=== PATIENT | female | born 1945 | race Caucasian/White ===

== ENCOUNTER 2023-06-19 10:56 | Emergency (ER) | payer MEDICARE, SELFPAY ==
[2023-06-19 10:57] VITALS: BP 147/83; PULSE 90; RESP 17; TEMP 36.4; O2SAT 98; BMI 20.2
--- NOTE | 2023-06-19 11:04 | ED_ITS ---
HPI - Extremity Injury (Lower) General Chief Complaint: Extremity Problem Stated Complaint: l knee pain weak Time Seen by Provider: 06/19/23 13:27 Source: patient, family and RN notes reviewed Mode of arrival: ambulatory Limitations: no limitations History of Present Illness HPI Narrative: This is a 78-year-old female, with a history of hypertension, hyperlipidemia, and hypothyroidism, presenting to the emergency department for evaluation of bilateral shoulder pain x1 week. Patient denies any recent trauma or injury to her shoulders. She states that several weeks ago she had a traumatic knee pain - she was prescribed prednisone for 3 days which she took and this improved her knee symptoms. She has no history of arthritis. Denies any history of similar symptoms in the past. Denies any fevers, chills, chest pain, shortness breath, abdominal pain, nausea, vomiting or diarrhea. She is otherwise feeling well. She states that she took Tylenol which provided her with some relief. No other complaints or concerns at this time. Onset (ago): week(s) Relieving factors: nothing Exacerbating factors: nothing Other symptoms: none Related Data Previous Rx's Medication Instructions Recorded lidocaine 1.8 % topical patch 1 patch topical DAILY #30 ea 06/19/23 Allergies Allergy/AdvReac Type Severity Reaction Status Date / Time No Known Allergies Allergy Verified 06/19/23 11:11 Review of Systems 2 Review of Systems: Yes all other systems are reviewed and are negative [facility] Social History Social History Advance Directives: Yes Advance Directives Information Provided: No Advance Directives on File: No Physical Exam 2 Vital Signs: Vital Signs: Last Vital Signs Temp 97.9 F 06/19/23 13:25 Pulse 59 06/19/23 13:25 Resp 16 06/19/23 13:25 BP 133/74 06/19/23 13:25 Pulse Ox 98 06/19/23 13:25 O2 Del Method Room Air 06/19/23 13:25 BMI result Body Mass Index 20.2 Const: Other: General: Awake, alert, and oriented X3. No acute distress. HEENT: Normal inspection CVS: Normal heart rate and rhythm. Pulses normal. Respiratory: No respiratory distress Skin: Warm, dry, no rashes noted to exposed skin. Normal skin color. Normal skin turgor. Extremities: Bilateral shoulders with no gross deformities or swelling. Right biceps with mild tenderness to palpation, no edema, fluctuance or induration noted. No tenderness throughout right shoulder joint. Full range of motion of the shoulder without difficulty. Left shoulder with tenderness to palpation along the AC joint and humeral head. No step-off or crepitus. Negative empty can test. Negative lift-off test. Abduction to about 60 degrees. Neuro: Oriented X 3. No motor deficit. No sensory deficit. Course Course Course Narrative: This is an RME: Additional HPI, ROS, PE not included below will be deferred to primary provider. Patient is a 78-year-old female who presents emergency department with her granddaughter for evaluation of bilateral shoulder pain with sudden onset 1 week ago atraumatic in nature. Having diffucilty dressing. For the past 2-3 weeks she has been suffering from left knee pain and generalized weakness, difficulty with position changing. She was evaluated at an urgent care on 05/25/2023 and was advised to wear a knee brace, declines XR imaging having been obtained, she trialed Prednisone x5 days on 05/25 without improvement. Denies known history of arthritis. Plan: basic labs, pain management, placed in [facility] pending bed availability Medical Decision Making Medical Decision Making [facility] Narrative: 78-year-old female, with history of hypertension, hyperlipidemia, and hypothyroidism, presenting to the emergency department for evaluation of bilateral shoulder pain. No trauma or injury. Triage had ordered baseline labs, no leukocytosis, stable H&H, chemistry panel within normal limits. UA was obtained revealing urine protein, urine blood, leuk esterases and RBCs. Patient is asymptomatic at this time. Discussed these findings with patient and granddaughter at bedside. Will await urine culture if needs to be treated. But does not appear to be infected. Patient does have bony tenderness to palpation on the left shoulder, offered x-ray however patient declines as she wishes to be discharged at the moment. Examination findings concerning with possible arthritis or degenerative changes. Discussed this with patient and granddaughter, given orthopedic follow-up and advised to follow-up with primary care physician on Wednesday as she may be able to get x-rays at that time. Discharged on lidocaine patches and encouraged to take Tylenol as needed for pain. Patient understands and agrees with plan. Patient stable for discharge. Differential Diagnosis Differential Diagnoses: The differential diagnosis associated with the presentation includes See above Lab Data [facility] Lab Attestation statement: I reviewed the patient's lab results. See above 06/19/23 12:01 06/19/23 12:01 Labs: Lab Results 06/19/23 06/19/23 Range/Units 12:01 13:56 WBC 9.4 (4.8-10.8) X10*3/uL RBC 4.61 (4.20-5.50) X10*6/uL Hgb 14.2 (12.0-16.0) g/dl Hct 41.3 (37.0-47.0) % MCV 89.6 (80.0-98.0) fL MCH 30.8 (27.0-33.0) pg MCHC 34.4 (31.0-35.0) g/dl RDW 12.7 (11.0-16.0) % Plt Count 173 (160-400) X10*3/uL MPV 10.0 (9.4-12.3) fL Immature Gran % (Auto) 0.2 (0.0-0.4) % Neut % (Auto) 76.8 H (45-73) % Lymph % (Auto) 16.2 L (20-40) % Ramsey % (Auto) 5.7 (2-11) % Eos % (Auto) 0.7 (0-4) % Baso % (Auto) 0.4 (0-2) % Lymph # (Auto) 1.5 (1.2-4.9) X10*3/uL Ramsey # (Auto) 0.5 (0.1-1.2) X10*3/uL Eos # (Auto) 0.1 (0.0-0.4) X10*3/uL Baso # (Auto) 0.0 (0.0-0.2) X10*3/uL Abs Immat Gran (auto) 0.02 (0.00-0.03) X10*3/uL Absolute Neuts (auto) 7.2 (2.0-8.3) x10*3/uL Absolute Nucleated RBC 0.000 (0.0-0.012) X10*3/uL Nucleated RBC % (auto) 0.0 (0.0-0.2) /100WBC Sodium 140 (135-145) mmol/L Potassium 3.9 (3.3-5.1) mmol/L Chloride 103 (96-108) mmol/L Carbon Dioxide 26 (22-29) mmol/L Anion Gap 15 (12-20) BUN 14 (9-16) mg/dL Creatinine 0.90 (0.5-1.4) mg/dL Estim Creat Clear Calc 33.7 Estimated GFR > 60 Random Glucose 93 (60-115) mg/dL Calcium 9.5 (8.4-10.2) mg/dL Magnesium 2.2 (1.6-2.6) mg/dL Total Bilirubin 1.1 H (0.0-1.0) mg/dL AST 17 (5-31) U/L ALT 8 (0-31) U/L Alkaline Phosphatase 67 (39-117) U/L Total Creatine Kinase 35 (26-140) U/L Total Protein 6.5 (6.5-8.0) g/dL Albumin 3.7 (3.5-5.0) g/dL Urine Color Yellow Urine Appearance Cloudy Urine pH 5.5 (5.0-9.0) Ur Specific [place] 1.020 (1.005-1.025) Urine Protein 100 (2+) H (Neg-Trace) mg/dL Urine Glucose (UA) Negative (Negative) mg/dL Urine Ketones Negative (Negative) mg/dL Urine Blood Small (1+) H (Negative) Urine Nitrite Negative (Negative) Ur Leukocyte Esterase Trace H (Negative) Urine RBC 3-5 H (0-2) /HPF Urine WBC 0-5 (0-5) /HPF Ur Squamous Epith Cells 6-10 (0-2) /HPF Urine Bacteria 1+ (None Seen) Hyaline Casts 3-5 (0-2) /LPF Granular Casts Present COVID-19 (RADHA) Negative (Negative) COVID-19 Clin Com See Note Influenza Type A (KURTIS) Negative (Negative) Influenza Type B (KURTIS) Negative (Negative) Influenza A & B Note See Note Independent Historian Clinical information obtained from an independent historian. History obtained from or confirmed by: Other (Granddaughter) Discharge Plan Discharge Clinical Impression: Left shoulder pain Patient Disposition: Home, Self-Care Instructions: Arthralgia (ED), Arm Pain (ED) Additional Instructions: Your seen in the emergency department for bilateral shoulder pain for the last week. We performed basic labs which were reassuring. You refused to get a x-ray of your left shoulder. I am concerned for degenerative changes of your left shoulder. You may follow- up with your primary care physician for an outpatient x-ray if you so wish. I am also giving your referral to Orthopedics. Call to make an appointment. Take Tylenol as needed for pain. I am also prescribing you lidocaine patches as needed for pain. Please follow-up with your primary care physician regarding this visit. Your urine did show small amounts of blood, your asymptomatic therefore we are not treating you for an infection. Your urine will be sent out for further testing. We will call you with any abnormal results. I would follow-up with your primary care physician regarding this finding as this may need further workup. If any new or worsening symptoms occur including but not limited to worsening pain, fevers, chills, chest pain or shortness of breath, please return for re- evaluation. Prescriptions: New lidocaine 1.8 % adhesive patch,medicated 1 patch topical DAILY Qty: 30 0RF Rx Instructions: leave on most painful area for up to 12 hrs Referrals: [facility] [Provider Group]
[2023-06-19 12:07] LABS: MANUAL DIFF FLAG NO
[2023-06-19 12:17] LABS: Basophils Percent Auto 0.4 % (0-2); Eosinophils Absolute Auto 0.1 X10*3/uL (0.0-0.4); Eosinophils Percent Auto 0.7 % (0-4); Hematocrit 41.3 % (37.0-47.0); Hemoglobin 14.2 g/dl (12.0-16.0); Imm Gran Abs Auto 0.02 X10*3/uL (0.00-0.03); Imm Gran Pct Auto 0.2 % (0.0-0.4); Lymphocytes Absolute Auto 1.5 X10*3/uL (1.2-4.9); Lymphocytes Percent Auto 16.2 % (20-40); Mean Corpuscular HGB Conc 34.4 g/dl (31.0-35.0); Mean Corpuscular Hemoglobin 30.8 pg (27.0-33.0); Mean Corpuscular Volume 89.6 fL (80.0-98.0); Monocytes Absolute Auto 0.5 X10*3/uL (0.1-1.2); Monocytes Percent Auto 5.7 % (2-11); Neutrophils Absolute Auto 7.2 x10*3/uL (2.0-8.3); Neutrophils Percent Auto 76.8 % (45-73); Platelet Count 173 X10*3/uL (160-400); Red Blood Count 4.61 X10*6/uL (4.20-5.50); Red Cell Distribution Width 12.7 % (11.0-16.0); White Blood Count 9.4 X10*3/uL (4.8-10.8)
[2023-06-19 12:22] LABS: Alanine Aminotransferase 8 U/L (0-31); Albumin Level 3.7 g/dL (3.5-5.0); Alkaline Phosphatase 67 U/L (39-117); Anion Gap 15 (12-20); Aspartate Amino Transferase 17 U/L (5-31); Bilirubin Total 1.1 mg/dL (0.0-1.0); Blood Urea Nitrogen 14 mg/dL (9-16); Calcium 9.5 mg/dL (8.4-10.2); Carbon Dioxide 26 mmol/L (22-29); Chloride 103 mmol/L (96-108); Creatinine Clr Calc Pharmacy 33.7; Estimated Glomerular Filt Rate > 60; Glucose Random 93 mg/dL (60-115); Magnesium 2.2 mg/dL (1.6-2.6); Potassium 3.9 mmol/L (3.3-5.1); Sodium 140 mmol/L (135-145); Total Protein 6.5 g/dL (6.5-8.0)
[2023-06-19 12:24] LABS: COVID-19 Test Negative (Negative); IDNOW Serial# 55D5AD1C
[2023-06-19 12:28] LABS: IDNOW Serial# 9DB6401D; Influenza A Negative (Negative); Influenza B2 Negative (Negative)
[2023-06-19 13:25] VITALS: BP 133/74; PULSE 59; RESP 16; TEMP 36.6; O2SAT 98
--- OUTSIDE RECORDS SUMMARY | 2023-06-19 13:51 | XMS_ITS | Continuity of Care Document ---
Author Name Unknown Organization [facility] Address [address] [place] [address]- Care Team Providers Care Industrial Gas Servicer Helper Name Role Phone Pippa BEARDEN, Elayne Diaz Primary Care Physician [place] [facility] [place]): [place]20 [facility] [address] [place] [address]- [facility] Attending Physician: Lizbeth Cordova Admitting Physician: AdmLizbeth sandoval Referring Physician: Admtr, Ar8 Allergies, Adverse Reactions, Alerts Substance Reaction Severity Status NKA Active Immunizations Given and Recorded Vaccine Date Status Refusal Reason influenza virus vaccine, inactivated 1 07/07/19 Gi nadine influenza virus vaccine, inactivated 2 07/05/18 Gi nadine influenza virus vaccine, inactivated 3 12/12/14 Gi nadine influenza virus vaccine, inactivated 05/02/12 Give n influenza virus vaccine, inactivated 09/04/11 Give n influenza virus vaccine, inactivated 08/04/10 Give n influenza virus vaccine, inactivated 4 06/12/09 Gi nadine tetanus/diphtheria/pertussis, acel(Tdap) 01/14/18 Given tetanus/diphtheria/pertussis, acel(Tdap) 05/14/08 Given pneumococcal 13-valent vaccine 12/12/14 Given Zostavax (oldterm) 5 12/05/13 Given pneumococcal 23-valent vaccine 02/25/11 Given Influenza Virus Vaccine (oldterm) 6 06/09/08 Given Influenza Virus Vaccine (oldterm) 7 07/22/07 Given 1Result Comment: [facility] [id number] 2Result Comment: [facility] [id number] 3Admin Note: Declined 4Admin Note: VIS 04/02/09 5Admin Note: Declined 6Admin Note: VIM 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 7Admin Note: Left deltoid Medications aspirin 81 mg oral delayed release tablet = 81 mg, By Mouth, Daily, # 30 tablet, 0 Refills, Maintenance, 11/17/19 10:26:00 EDT, EC Tablet, [facility] #[id number], 149, cm, 11/15/19 13:59:00 EDT, Height, 57.7, kg, 11/15/19 15:04:00 EDT, Dry Weight Start Date: 11/17/19 Status: Ordered atorvastatin 80 mg oral tablet 1 tablet = 80 mg, By Mouth, Daily at bedtime, # 30 tablet, 0 Refills, Maintenance, 11/17/19 10:26:00 EDT, Tablet, [facility] #[id number], 149, cm, 11/15/19 13:59:00 EDT, Height, 57.7, kg, 11/15/19 15:04:00 EDT, Dry Weight Start Date: 11/17/19 Status: Ordered Colace sodium 100 mg oral capsule 100 mg, 1, capsule, By Mouth, 2 times a day, PRN, # 60 capsule, Refills 0, Tot. Refills 0, Maintenance, for constipation, 03/06/20 14:06:00 EDT, Route to Pharmacy Electronically, [facility]#[id number], 149, cm, 03/06/20 12:19:00 EDT, Height, 57.... Start Date: 03/06/20 Stop Date: 04/05/20 Status: Ordered levothyroxine 88 mcg (0.088 mg) oral capsule 1 capsule = 88 mcg, By Mouth, Daily, # 90 capsule, 3 Refills, Maintenance, 12/06/19 9:18:00 EDT, Capsule, [facility] #[id number], 149, cm, 12/06/19 9:02:00 EDT, Height, 57.7, kg, 11/15/19 15:04:00 EDT, Dry Weight Start Date: 12/06/19 Stop Date: 11/30/20 Status: Ordered losartan 25 mg oral tablet 25 mg, 1, tablet, By Mouth, Daily, # 90 tablet, Refills 3, Tot. Refills 3, Maintenance, 12/06/19 9:19:00 EDT, Route to Pharmacy Electronically, [facility] #[id number], 149, cm, 12/06/19 9:02:00 EDT, Height, 57.7, kg, 11/15/19 15:04:00 EDT, Dry We... Start Date: 12/06/19 Stop Date: 11/30/20 Status: Ordered Nicorette Mini 4 mg oral transmucosal lozenge 1 lozenge = 4 mg, By Mouth, Every hour, in addition to patches do not chew or swallow whole, # 144 lozenge, 2 Refills, Acute 11/18/20 22:40:00 EDT, 11/18/19 22:40:00 EDT, [facility] #[id number],149, cm, 11/15/19 13:59:00 EDT, Height, 57.7, kg,... Start Date: 11/18/19 Stop Date: 11/18/20 Status: Ordered nicotine 14 mg/24 hr transdermal film, extended release 1 patch, Topically, Daily, in addition to 21 mg patch, # 30 patch, 2 Refills, Acute 11/18/20 22:41:00 EDT, 11/18/19 22:39:00 EDT, Patch, [facility] #[id number], 1 patch Topically Daily,Instr:in addition to 21 mg patch, 149, cm, 11/15/19 13:59:00... Start Date: 11/18/19 Stop Date: 11/18/20 Status: Ordered nicotine 21 mg/24 hr transdermal film, extended release 1 patch, Topically, Daily, combine with 14 mg, for total of 35 mg nicotine, use for 6 months, # 30 patch, 5 Refills, Acute 11/18/20 22:45:00 EDT, 11/18/19 22:38:00 EDT, Patch, [facility] #[id number], 1 patch Topically Daily,Instr:combine with 14... Start Date: 11/18/19 Stop Date: 11/18/20 Status: Ordered Plavix 75 mg oral tablet 75 mg, 1, tablet, By Mouth, Daily, # 30 tablet, Refills 0, Tot. Refills 0, Maintenance, 04/04/20 16:44:00 EDT, Route to Pharmacy Electronically, [facility] #[id number], 149, cm, 03/06/20 12:19:00 EDT, Height, 57.7, kg, 11/15/19 15:04:00 EDT, Dry... Start Date: 04/04/20 Status: Ordered Plavix 75 mg oral tablet 75 mg, 1, tablet, By Mouth, Daily, # 30 tablet, Refills 3, Tot. Refills 3, Maintenance, 12/06/19 9:20:00 EDT, Route to Pharmacy Electronically, [facility] #[id number], 149, cm, 12/06/19 9:02:00 EDT, Height, 57.7, kg, 11/15/19 15:04:00 EDT, Dry We... Start Date: 12/06/19 Stop Date: 04/04/20 Status: Ordered Problem List Condition Effective Dates Status Health Status Inform ant Anxiety depression(Confirmed) 09/04/11 Active Cigarette smoker(Confirmed) Active Hypercholesterolemia(Confirmed) Active HTN (hypertension)(Confirmed) Active Hypothyroidism(Confirmed) Active Irritable bowel syndrome(Confirmed) Active STEMI (ST elevation myocardi al infarction)(Confirmed) Active Osteopenia(Confirmed) 07/29/08 Active Shingles(Confirmed) 11/18/96 Active Sleep apnea(Confirmed) Active Smoking(Confirmed) 12/05/08 Active Social History Social History Type Response Smoking Status Current every day melina arauz entered on: 01/14/18 Sex
--- OUTSIDE RECORDS SUMMARY | 2023-06-19 13:51 | XMS_ITS | Continuity of Care Document ---
Author Name Unknown Organization [facility] Address [address] [place] [address]- Care Team Providers Care Disc Pad Grinder Name Role Phone Pippa BEARDEN, Elayne Diaz Primary Care Physician Encounter [facility] Date(s): 11/10/21 - 12/10/21 [facility] [address] [place] [address]- Allergies, Adverse Reactions, Alerts No Known Allergies Immunizations Given and Recorded Vaccine Date Status Refusal Reason SARS-CoV-2 (COVID-19) mRNA BNT-162b2 vac 07/25/21 Recorded SARS-CoV-2 (COVID-19) Ad26 vaccine 11/13/20 Record ed Influenza Virus Vaccine (oldterm) 06/06/20 Recorde d Influenza Virus Vaccine (oldterm) 1 06/09/08 Given Influenza Virus Vaccine (oldterm) 2 07/22/07 Given influenza virus vaccine, inactivated 05/29/20 Dominic rded influenza virus vaccine, inactivated 3 07/07/19 Gi nadine influenza virus vaccine, inactivated 4 07/05/18 Gi nadine influenza virus vaccine, inactivated 5 12/12/14 Gi nadine influenza virus vaccine, inactivated 05/02/12 Give n influenza virus vaccine, inactivated 09/04/11 Give n influenza virus vaccine, inactivated 08/04/10 Give n influenza virus vaccine, inactivated 6 06/12/09 Gi nadine tetanus/diphtheria/pertussis, acel(Tdap) 01/14/18 Given tetanus/diphtheria/pertussis, acel(Tdap) 05/14/08 Given pneumococcal 13-valent vaccine 12/12/14 Given Zostavax (oldterm) 7 12/05/13 Given pneumococcal 23-valent vaccine 02/25/11 Given 1Admin Note: VIM 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 2Admin Note: Left deltoid 3Result Comment: [facility] [id number] 4Result Comment: [facility] [id number] 5Admin Note: Declined 6Admin Note: VIS 04/02/09 7Admin Note: Declined Medications aspirin 81 mg oral delayed release tablet = 81 mg, By Mouth, Daily, # 30 tablet, 3 Refills, Maintenance, 11/26/21 13:46:00 EDT, EC Tablet, [facility] #[id number], 148, cm, 10/23/21 15:29:00 EST, Height, 56.7, kg, 02/18/21 11:21:00 EDT, Dry Weight Start Date: 11/26/21 Status: Ordered clopidogrel 75 mg oral tablet 1, tablet, By Mouth, Daily, # 90 tablet, Refills 3, Tot. Refills 0, Maintenance, 03/07/21 9:49:00 EDT, Route to Pharmacy Electronically, [facility] #[id number], 148, cm, 02/19/21 8:07:00 EDT, Height, 56.7, kg, 02/18/21 11:21:00 EDT, Dry Weight Start Date: 03/07/21 Status: Ordered Colace sodium 100 mg oral capsule 100 mg, 1, capsule, By Mouth, 2 times a day, PRN, # 60 capsule, Refills 0, Tot. Refills 0, Maintenance, for constipation, 08/25/21 9:52:00 EST, Route to Pharmacy Electronically, [facility] #[id number], 148, cm, 08/25/21 9:45:00 EST, Height, 56.7,... Start Date: 08/25/21 Stop Date: 09/24/21 Status: Ordered diclofenac 1% topical gel 1 application, Topically, 4 times a day, # 100 Gm, 0 Refills, Maintenance, 03/08/21 18:34:00 EDT, Gel, [facility] #[id number], g., 148, cm, 02/19/21 8:07:00 EDT, Height, 56.7, kg, 02/18/21 11:21:00 EDT, Dry Weight Start Date: 03/08/21 Stop Date: 04/07/21 Status: Ordered levothyroxine 0.05 mg oral tablet 1 tablet = 50 mcg, By Mouth, Daily, # 30 tablet, 2 Refills, Maintenance, 11/10/21 13:46:00 EDT, Tablet, [facility] #[id number], Partial fill upon patient request if the prescription is for a schedule II opioid drug., 148, cm, 10/23/21 15:29:00 ES... Start Date: 11/10/21 Stop Date: 02/08/22 Status: Ordered losartan 25 mg oral tablet 25 mg, 1, tablet, By Mouth, Daily, # 90 tablet, Refills 3, Tot. Refills 3, Maintenance, 08/25/21 9:42:00 EST, Route to Pharmacy Electronically, [facility] #[id number], 148, cm, 08/25/21 9:18:00 EST, Height, 56.7, kg, 02/18/21 11:21:00 EDT, Dry We... Start Date: 08/25/21 Stop Date: 08/20/22 Status: Ordered rosuvastatin 40 mg oral tablet 1 tablet, By Mouth, Daily, # 30 tablet, 5 Refills, [facility] #[id number], 148, cm, 03/14/21 13:18:00 EDT, Height, 56.7, kg, 02/18/21 11:21:00 EDT, Dry Weight Start Date: 06/27/21 Status: Ordered Senna Plus 50 mg-8.6 mg oral tablet 2 tablet, By Mouth, Daily at bedtime, # 60 tablet, 0 Refills, Maintenance, 09/18/21 11:10:00 EST, Tablet, [facility] #[id number], Partial fill upon patient request if the prescription is for a schedule II opioid drug., 2 tablet By Mouth Daily at... Start Date: 09/18/21 Stop Date: 10/18/21 Status: Ordered Problem List Condition Effective Dates Status Health Status Inform ant Anxiety depression(Confirmed) 09/04/11 Active Cigarette smoker(Confirmed) Active History of [place] (myocardial infarction)(Confirmed) Active Hypercholesterolemia(Confirmed) Active HTN (hypertension)(Confirmed) Active Hypothyroidism(Confirmed) Active Irritable bowel syndrome(Confirmed) Active STEMI (ST elevation myocardi al infarction)(Confirmed) Active Osteopenia(Confirmed) 07/29/08 Active Shingles(Confirmed) 11/18/96 Active Sleep apnea(Confirmed) Active Smoking(Confirmed) 12/05/08 Active Social History Social History Type Response Smoking Status Current every day melina arauz entered on: 01/14/18 Sex
--- OUTSIDE RECORDS SUMMARY | 2023-06-19 13:51 | XMS_ITS | Continuity of Care Document ---
Author Name Unknown Organization [facility] Adult Address [address] [place] [address]- Care Team Providers Care Lace Burn Out Tender Name Role Phone Pippa BEARDEN, Elayne Diaz Primary Care Physician [facility]counter [facility] Date(s): 04/30/23 - 05/30/23 [facility] [address] [place] [address]- Allergies, Adverse Reactions, Alerts No Known Allergies [...] PASTEUR 2Admin Note: Left deltoid 3Result Comment: [facility] [phone] 4Result Comment: [facility] [id number] 5Admin Note: Declined 6Admin Note: VIS 04/02/09 7Admin Note: Declined Medications Artificial Tears preserved solution 1 drops, Eyes, Both, 2 times a day, PRN for dry eyes, # 30 mL, 0 Refills, Maintenance, 08/21/22 11:27:00 EST, Solution, [facility] #[id number], Partial fill upon patient request if the prescription is for a schedule II opioid drug., 1 drops Eyes,... Start Date: 08/21/22 Status: Ordered aspirin 81 mg oral delayed release tablet = 81 mg, By Mouth, Daily, # 90 tablet, 1 Refills, Maintenance, 05/14/23 13:00:00 EDT, EC Tablet, [facility] #[id number], 148, cm, 04/29/23 14:56:00 EDT, Height, 45.8, kg, 03/24/22 14:13:00 EDT, Dry Weight Start Date: 05/14/23 Stop Date: 11/10/23 Status: Ordered calcium-vitamin D 600 mg-400 intl units oral tablet 1 tablet, By Mouth, 2 times a day, # 180 tablet, 3 Refills, Maintenance, 08/26/22 11:59:00 EST, Tablet, [facility] #[id number], Partial fill upon patient request if the prescription is for a schedule II opioid drug., 1 tablet By Mouth 2 times a d... Start Date: 08/26/22 Stop Date: 08/21/23 Status: Ordered clobetasol 0.05% topical gel 1 application, Topically, 2 times a day, # 30 Gm, 0 Refills, Maintenance, 04/29/23 14:59:00 EDT, [facility] #[id number], Partial fill upon patient request if the prescription is for a schedule II opioid drug., 1 application Topically 2 times... Start Date: 04/29/23 Status: Ordered diclofenac 1% topical gel 1 application, Topically, 4 times a day, # 100 Gm, 0 Refills, Maintenance, 03/08/21 18:34:00 EDT, [facility] #[id number], g., 148, cm, 02/19/21 8:07:00 EDT, Height, 56.7, kg, 02/18/21 11:21:00 EDT, Dry Weight Start Date: 03/08/21 Stop Date: 04/07/21 Status: Ordered Estrace Vaginal Cream 0.1 mg/g See Instructions, 1 Gm Vaginally Daily (pea-sized amount to tip of finger) at bedtime every night for 2 weeks and then 2-3 times a week after that, # 42.5 Gm, 0 Refills, Maintenance, 06/29/22 11:23:00 EST, [facility] #[id number], Partial fill upo... Start Date: 06/29/22 Status: Ordered levothyroxine 0.05 mg oral tablet 1 tablet = 50 mcg, By Mouth, Daily, # 90 tablet, 1 Refills, Maintenance, 05/13/23 11:20:00 EDT, Tablet, [facility] #[id number], Partial fill upon patient request if the prescription is for a schedule II opioid drug., 148, cm, 04/29/23 14:56:00 ED... Start Date: 05/13/23 Stop Date: 07/12/23 Status: Ordered losartan 25 mg oral tablet 25 mg, 1, tablet, By Mouth, Daily, # 90 tablet, Refills 3, Tot. Refills 3, Maintenance, 05/14/23 12:59:00 EDT, Route to Pharmacy Electronically, [facility] #[id number], Partial fill upon patientrequest if the prescription is for a schedule II op... Start Date: 05/14/23 Stop Date: 05/08/24 Status: Ordered rosuvastatin 40 mg oral tablet 1 tablet, By Mouth, Daily, for 90 days, # 90 tablet, 1 Refills, Physician Stop 11/10/23 12:59:00 EDT, 05/14/23 12:59:00 EDT, [facility] #[id number], 148, cm, 04/29/23 14:56:00 EDT, Height, 45.8,kg, 03/24/22 14:13:00 EDT, Dry Weight Start Date: 05/14/23 Stop Date: 11/10/23 Status: Ordered Senna Plus 50 mg-8.6 mg oral tablet 2 tablet, By Mouth, Daily at bedtime, # 60 tablet, 0 Refills, Maintenance, 09/18/21 11:10:00 EST, Tablet, [facility] #[id number], Partial fill upon patient request if the prescription is for a schedule II opioid drug., 2 tablet By Mouth Daily at... Start Date: 09/18/21 Stop Date: 10/18/21 Status: Ordered Problem List Condition Confirmation Course Effective Dates Status Health Status Informant Anxiety depression Confirmed 09/04/11 Active Cigarette smoker Confirmed Active History of [place] (myocardial infarction) 1 Confirmed 10/2019 Active Hypercholesterolemia Confirmed Active HTN (hypertension) Confirmed Active Hypothyroidism Confirmed Active Irritable bowel syndrome Confirmed Active Osteopenia Confirmed 07/29/08 Active Shingles Confirmed 11/18/96 Active Sleep apnea Confirmed Active Smoking Confirmed 12/05/08 Active 1Hx of Inferolateral STEMI Social History Social History Type Response Smoking Status Current every day melina davonte entered on: 01/14/18 Sex Patient Care team information Care Team Personnel Name: Pippa BEARDEN, Elayne Diaz Position: [facility] PCO Associate Professional Member Role: PCP Address: Address: [address] [place] [address] [address] [place] [address]- Name: Kamilla Vanessa RN Position: Rosina RN Supv Member Role: Primary Care Nurse Name: Maria L Dickinson RN Position: [facility] RN Member Role: Primary Care Nurse Care Team Related Persons Name: BENTON SEAMAN Name: KEN GUERRERO Address: home [address] [place] [id number] Name: JUS CHAO Address: [place] [address]
--- OUTSIDE RECORDS SUMMARY | 2023-06-19 13:51 | XMS_ITS | Continuity of Care Document ---
Author Name Unknown Organization [facility] Adult Address [address] [place] [address]- Care Team Providers Care Grinding Wheel Inspector Name Role Phone Pippa BEARDEN, Elayne Diaz Primary Care Physician Encounter [facility] Date(s): 03/14/21 - 03/21/21 [facility] [address] [place] [address]- Encounter Diagnosis Back pain(Discharge Diagnosis) - 03/14/21 Constipation(Discharge Diagnosis) - 03/14/21 Attending Physician: Elayne Das NP Allergies, Adverse Reactions, Alerts Substance Reaction Severity Status NKA Active Immunizations Given and Recorded Vaccine Date Status Refusal Reason SARS-CoV-2 (COVID-19) Ad26 vaccine 11/13/20 Record ed [...] PASTEUR 2Admin Note: Left deltoid 3Result Comment: [facility] [id number] 4Result Comment: [facility] [phone] 5Admin Note: Declined 6Admin Note: VIS 04/02/09 7Admin Note: Declined Medications aspirin 81 mg oral delayed release tablet = 81 mg, By Mouth, Daily, # 30 tablet, 6 Refills, Maintenance, 10/17/20 13:37:00 EST, EC Tablet, [facility] #[id number], 149, cm, 08/20/20 8:58:00 EST, Height, 57.7, kg, 11/15/19 15:04:00 EDT, Dry Weight Start Date: 10/17/20 Status: Ordered clopidogrel 75 mg oral tablet 1, tablet, By Mouth, Daily, # 90 tablet, Refills 3, Tot. Refills 0, Maintenance, 03/07/21 9:49:00 EDT, Route to Pharmacy Electronically, [facility] #[id number], 148, cm, 02/19/21 8:07:00 EDT, Height, 56.7, kg, 02/18/21 11:21:00 EDT, Dry Weight Start Date: 03/07/21 Status: Ordered Colace sodium 100 mg oral capsule 100 mg, 1, capsule, By Mouth, 2 times a day, PRN, # 60 capsule, Refills 0, Tot. Refills 0, Maintenance, for constipation, 03/06/20 14:06:00 EDT, Route to Pharmacy Electronically, [facility]#[id number], 149, cm, 03/06/20 12:19:00 EDT, Height, 57.... Start Date: 03/06/20 Stop Date: 04/05/20 Status: Ordered diclofenac 1% topical gel 1 application, Topically, 4 times a day, # 100 Gm, 0 Refills, Maintenance, 03/08/21 18:34:00 EDT, Gel, [facility] #[id number], g., 148, cm, 02/19/21 8:07:00 EDT, Height, 56.7, kg, 02/18/21 11:21:00 EDT, Dry Weight Start Date: 03/08/21 Stop Date: 04/07/21 Status: Ordered levothyroxine 0.075 mg oral tablet 1 tablet, By Mouth, Daily, 0 Refills, Maintenance, 02/18/21 11:14:00 EDT, Partial fill upon patientrequest if the prescription is for a schedule II opioid drug. Start Date: 02/18/21 Status: Ordered losartan 25 mg oral tablet 25 mg, 1, tablet, By Mouth, Daily, # 90 tablet, Refills 1, Tot. Refills 1, Maintenance, 02/04/21 9:04:00 EDT, Route to Pharmacy Electronically, [facility] #[id number], 149, cm, 10/25/20 12:05:00EST, Height, 57.7, kg, 11/15/19 15:04:00 EDT, Dry W... Start Date: 02/04/21 Stop Date: 08/03/21 Status: Ordered rosuvastatin 40 mg oral tablet 1 tablet = 40 mg, By Mouth, Daily, # 30 tablet, 6 Refills, Maintenance, 12/25/20 12:06:00 EDT, Tablet, [facility] #[id number], Partial fill upon patient request if the prescription is for a schedule II opioid drug., 149, cm, 10/25/20 12:05:00 EST... Start Date: 12/25/20 Stop Date: 07/23/21 Status: Ordered Senna Plus 50 mg-8.6 mg oral tablet 2 tablet, By Mouth, Daily at bedtime, for 30 days, # 60 tablet, 0 Refills, Acute 04/13/21 13:10:00 EDT, 03/14/21 13:10:00 EDT, Tablet, [facility] #[id number], Partial fill upon patient request if the prescription is for a schedule II opioid drug.... Start Date: 03/14/21 Stop Date: 04/13/21 Status: Ordered Problem List Condition Effective Dates Status Health Status Inform ant Anxiety depression(Confirmed) 09/04/11 Active Cigarette smoker(Confirmed) Active History of [place] (myocardial infarction)(Confirmed) Active Hypercholesterolemia(Confirmed) Active HTN (hypertension)(Confirmed) Active Hypothyroidism(Confirmed) Active Irritable bowel syndrome(Confirmed) Active STEMI (ST elevation myocardi al infarction)(Confirmed) Active Osteopenia(Confirmed) 07/29/08 Active Shingles(Confirmed) 11/18/96 Active Sleep apnea(Confirmed) Active Smoking(Confirmed) 12/05/08 Active Diagnosis Diagnosis Type Effective Dates Health Status Cl inical Service Informant Back pain Discharge Diagnosis 03/14/21 Constipation Discharge Diagnosis 03/14/21 Vital Signs Most recent to oldest [Reference Range]: 1 2 Height 148 cm (03/14/21 1:18 PM) 148 cm (03/14/21 12:51 PM) Weight 57.1 kg (03/14/21 12:51 PM) Oxygen Saturation [94-100 %] 99 % (03/14/21 12:51 PM) Pulse Rate [55-90 bpm] 60 bpm (03/14/21 12:51 PM) Body Mass Index [18.5-24.99] 26.07 *H* (03/14/21 12:51 PM) Blood Pressure [90-138/55-84 mm Hg] 128/ 78mm Hg (03/14/21 1:18 PM) 165/89mm Hg *H* (03/14/21 12:51 PM) Mode of Delivery (Oxygen) Room air (03/14/21 12:51 PM) Blood pressure sites Arm, left (03/14/21 1:18 PM) Arm, left (03/14/21 12:51 PM) Weight Obtained Via Standing scale (03/14/21 12:51 PM) Social History Social History Type Response Smoking Status Current every day melina arauz entered on: 01/14/18 Sex
--- OUTSIDE RECORDS SUMMARY | 2023-06-19 13:51 | XMS_ITS | Continuity of Care Document ---
Author Name Unknown Organization [facility] Adult Address [address] [place] [address]- Care Team Providers Care Revenue Stamp Cutter Name Role Phone Elayne Das NP Primary Care Physician Encounter [facility] Date(s): 02/02/23 - 02/09/23 [facility] [address] [place] [address]- Attending Physician: Not on Staff, Attending MD Allergies, Adverse Reactions, Alerts No Known Allergies [...] 02/25/11 Given 1Admin Note: VIM 02/19/06 MANUFACTURED SANBuyanihan PASTEUR 2Admin Note: Left deltoid 3Result Comment: [facility] [id number] 4Result Comment: [facility] [id number] 5Admin Note: Declined 6Admin Note: VIS 04/02/09 7Admin Note: Declined Medications Artificial Tears preserved solution 1 drops, Eyes, Both, 2 times a day, PRN for dry eyes, # 30 mL, 0 Refills, Maintenance, 08/21/22 11:27:00 EST, Solution, [facility] #[id number], Partial fill upon patient request if the prescription is for a schedule II opioid drug., 1 drops Eyes,... Start Date: 08/21/22 Status: Ordered aspirin 81 mg oral delayed release tablet = 81 mg, By Mouth, Daily, # 30 tablet, 5 Refills, Maintenance, 11/17/22 13:30:00 EDT, EC Tablet, [facility] #[id number], 148, cm, 08/26/22 12:13:00 EST, Height, 45.8, kg, 03/24/22 14:13:00 EDT, Dry Weight Start Date: 11/17/22 Status: Ordered calcium-vitamin D 600 mg-400 intl units oral tablet 1 tablet, By Mouth, 2 times a day, # 180 tablet, 3 Refills, Maintenance, 08/26/22 11:59:00 EST, Tablet, [facility] #[id number], Partial fill upon patient request if the prescription is for a schedule II opioid drug., 1 tablet By Mouth 2 times a d... Start Date: 08/26/22 Stop Date: 08/21/23 Status: Ordered diclofenac 1% topical gel 1 application, Topically, 4 times a day, # 100 Gm, 0 Refills, Maintenance, 03/08/21 18:34:00 EDT, Gel, [facility] #[id number], g., 148, cm, 02/19/21 8:07:00 EDT, Height, 56.7, kg, 02/18/21 11:21:00 EDT, Dry Weight Start Date: 03/08/21 Stop Date: 04/07/21 Status: Ordered Estrace Vaginal Cream 0.1 mg/g See Instructions, 1 Gm Vaginally Daily (pea-sized amount to tip of finger) at bedtime every night for 2 weeks and then 2-3 times a week after that, # 42.5 Gm, 0 Refills, Maintenance, 06/29/22 11:23:00 EST, [facility] #[id number], Partial fill upo... Start Date: 06/29/22 Status: Ordered levothyroxine 0.05 mg oral tablet 1 tablet = 50 mcg, By Mouth, Daily, # 90 tablet, 1 Refills, Maintenance, 11/16/22 11:49:00 EDT, Tablet, [facility] #[id number], Partial fill upon patient request if the prescription is for a schedule II opioid drug., 148, cm, 08/26/22 12:13:00 ES... Start Date: 11/16/22 Stop Date: 01/15/23 Status: Ordered losartan 25 mg oral tablet 25 mg, 1, tablet, By Mouth, Daily, # 90 tablet, Refills 3, Tot. Refills 3, Maintenance, 02/02/23 17:09:00 EDT, Route to Pharmacy Electronically, [facility] #[id number], Partial fill upon patientrequest if the prescription is for a schedule II op... Start Date: 02/02/23 Stop Date: 01/28/24 Status: Ordered rosuvastatin 40 mg oral tablet 1 tablet, By Mouth, Daily, for 30 days, # 30 tablet, 11 Refills, Physician Stop 01/10/24 10:33:00 EDT, 01/15/23 10:33:00 EDT, [facility] #[id number], 148, cm, 01/15/23 10:28:00 EDT, Height, 45.8, kg, 03/24/22 14:13:00 EDT, Dry Weight Start Date: 01/15/23 Stop Date: 01/10/24 Status: Ordered Senna Plus 50 mg-8.6 mg oral tablet 2 tablet, By Mouth, Daily at bedtime, # 60 tablet, 0 Refills, Maintenance, 09/18/21 11:10:00 EST, Tablet, [facility] #[id number], Partial fill upon patient request if the prescription is for a schedule II opioid drug., 2 tablet By Mouth Daily at... Start Date: 09/18/21 Stop Date: 10/18/21 Status: Ordered Problem List Condition Confirmation Course Effective Dates Status Health Status Informant Anxiety depression Confirmed 09/04/11 Active Cigarette smoker Confirmed Active History of [place] (myocardial infarction) 1 Confirmed 10/2019 Active Hypercholesterolemia Confirmed Active HTN (hypertension) Confirmed Active Hypothyroidism Confirmed Active Irritable bowel syndrome Confirmed Active Osteopenia Confirmed 07/29/08 Active Shingles Confirmed 11/18/96 Active Sleep apnea Confirmed Active Smoking Confirmed 12/05/08 Active 1Hx of Inferolateral STEMI Vital Signs Most recent to oldest [Reference Range]: 1 Pulse Rate [55-90 bpm] 74 bpm (02/02/23 1:36 PM) Blood Pressure [90-138/55-84 mm Hg] 124/ 73mm Hg (02/02/23 1:36 PM) Blood pressure sites Arm, left (02/02/23 1:36 PM) Social History Social History Type Response Smoking Status Current every day melina davonte entered on: 01/14/18 Sex Patient Care team information Care Team Personnel Name: Pippa BEARDEN, Elayne Diaz Position: [facility] PCO Associate Professional Member Role: PCP Address: Address: [address] [place] [address] [address] [place], [place] [address] Name: Kamilla Vanessa RN Position: S RN Supv Member Role: Primary Care Nurse Name: Maria L Dickinson RN Position: S RN Member Role: Primary Care Nurse Care Team Related Persons Name: BENTON SEAMAN Name: KEN GUERRERO Address: home [address] [place] [address] Name: JUS CHAO Address: [place] [address]
--- OUTSIDE RECORDS SUMMARY | 2023-06-19 13:51 | XMS_ITS | Continuity of Care Document ---
Author Name Unknown Organization [facility] ter Address [address] [place] [address]- Care Team Providers Care Outreach Clinician Name Role Phone Pippa SUPERVISOR SILVERING DEPARTMENT, Elayne Diaz Primary Care Physician Encounter [facility] Date(s): 10/16/20 - 11/15/[address] [address] Attending Physician: Maxim Dejesus MD Referring Physician: Maxim Dejesus MD Allergies, Adverse Reactions, Alerts Substance Reaction Severity Status NKA Active Immunizations Given and Recorded Vaccine Date Status Refusal Reason Influenza Virus Vaccine (oldterm) 06/06/20 Recorde d Influenza Virus Vaccine (oldterm) 1 06/09/08 Given Influenza Virus Vaccine (oldterm) 2 07/22/07 Given influenza virus vaccine, inactivated 3 07/07/19 Gi [...] Left deltoid 3Result Comment: [facility] [id number] 4Result Comment: [facility] [phone] 5Admin Note: Declined 6Admin Note: VIS 04/02/09 7Admin Note: Declined Medications aspirin 81 mg oral delayed release tablet = 81 mg, By Mouth, Daily, # 30 tablet, 6 Refills, Maintenance, 10/17/20 13:37:00 EST, EC Tablet, [facility] #[id number], 149, cm, 08/20/20 8:58:00 EST, Height, 57.7, kg, 11/15/19 15:04:00 EDT, Dry Weight Start Date: 10/17/20 Status: Ordered atorvastatin 80 mg oral tablet 1 tablet = 80 mg, By Mouth, Daily at bedtime, # 90 tablet, 3 Refills, Maintenance, 10/17/20 13:37:00 EST, Tablet, [facility] #[id number], 149, cm, 08/20/20 8:58:00 EST, Height, 57.7, kg, 11/15/19 15:04:00 EDT, Dry Weight Start Date: 10/17/20 Stop Date: 10/12/21 Status: Ordered Colace sodium 100 mg oral capsule 100 mg, 1, capsule, By Mouth, 2 times a day, PRN, # 60 capsule, Refills 0, Tot. Refills 0, Maintenance, for constipation, 03/06/20 14:06:00 EDT, Route to Pharmacy Electronically, [facility]#[id number], 149, cm, 03/06/20 12:19:00 EDT, Height, 57.... Start Date: 03/06/20 Stop Date: 04/05/20 Status: Ordered levothyroxine 88 mcg (0.088 mg) oral capsule 1 capsule = 88 mcg, By Mouth, Daily, # 90 capsule, 1 Refills, Maintenance, 08/08/20 9:04:00 EST, Capsule, [facility] #[id number], 149, cm, 08/08/20 7:51:00 EST, Height, 57.7, kg, 11/15/19 15:04:00 EDT, Dry Weight Start Date: 08/08/20 Stop Date: 02/04/21 Status: Ordered losartan 25 mg oral tablet 25 mg, 1, tablet, By Mouth, Daily, # 90 tablet, Refills 1, Tot. Refills 1, Maintenance, 08/08/20 9:04:00 EST, Route to Pharmacy Electronically, [facility] #[id number], 149, cm, 08/08/20 7:51:00 EST, Height, 57.7, kg, 11/15/19 15:04:00 EDT, Dry We... Start Date: 08/08/20 Stop Date: 02/04/21 Status: Ordered Nicorette Mini 4 mg oral transmucosal lozenge 1 lozenge = 4 mg, By Mouth, Every hour, in addition to patches do not chew or swallow whole, # 144 lozenge, 2 Refills, Acute 11/18/20 22:40:00 EDT, 11/18/19 22:40:00 EDT, [facility] #[id number],149, cm, 11/15/19 13:59:00 EDT, Height, 57.7, kg,... Start Date: 11/18/19 Stop Date: 11/18/20 Status: Ordered nicotine 14 mg/24 hr transdermal film, extended release 1 patch, Topically, Daily, in addition to 21 mg patch, # 30 patch, 2 Refills, Acute 11/18/20 22:41:00 EDT, 11/18/19 22:39:00 EDT, Patch, [facility] #[id number], 1 patch Topically Daily,Instr:in addition to 21 mg patch, 149, cm, 11/15/19 13:59:00... Start Date: 11/18/19 Stop Date: 11/18/20 Status: Ordered nicotine 21 mg/24 hr transdermal film, extended release 1 patch, Topically, Daily, combine with 14 mg, for total of 35 mg nicotine, use for 6 months, # 30 patch, 5 Refills, Acute 11/18/20 22:45:00 EDT, 11/18/19 22:38:00 EDT, Patch, [facility] #[id number], 1 patch Topically Daily,Instr:combine with 14... Start Date: 11/18/19 Stop Date: 11/18/20 Status: Ordered nicotine 4 mg oral transmucosal gum 1 each = 4 mg, Chew, Every 2 hours, PRN as needed for smoking cessation, # 160 each, 1 Refills, Maintenance, 10/17/20 17:52:00 EST, Gum, [facility] #[id number], Partial fill upon patient requestif the prescription is for a schedule II opioid gómez... Start Date: 10/17/20 Status: Ordered Plavix 75 mg oral tablet 75 mg, 1, tablet, By Mouth, Daily, # 90 tablet, Refills 4, Tot. Refills 4, Maintenance, 10/17/20 13:37:00 EST, Route to Pharmacy Electronically, [facility] #[id number], 149, cm, 08/20/20 8:58:00EST, Height, 57.7, kg, 11/15/19 15:04:00 EDT, Dry W... Start Date: 10/17/20 Stop Date: 01/10/22 Status: Ordered Problem List Condition Effective Dates Status Health Status Inform ant Anxiety depression(Confirmed) 09/04/11 Active Cigarette smoker(Confirmed) Active History of [place] (myocardial infarction)(Confirmed) Active Hypercholesterolemia(Confirmed) Active HTN (hypertension)(Confirmed) Active Hypothyroidism(Confirmed) Active Irritable bowel syndrome(Confirmed) Active STEMI (ST elevation myocardi al infarction)(Confirmed) Active Osteopenia(Confirmed) 07/29/08 Active Shingles(Confirmed) 11/18/96 Active Sleep apnea(Confirmed) Active Smoking(Confirmed) 12/05/08 Active Social History Social History Type Response Smoking Status Current every day melina arauz entered on: 01/14/18 Sex
--- OUTSIDE RECORDS SUMMARY | 2023-06-19 13:51 | XMS_ITS | Continuity of Care Document ---
Author Name Unknown Organization [facility] Adult Address [address] [place] [address]- Care Team Providers Care Oracle Hrms Developer Name Role Phone Pippa BEARDEN, Elayne Diaz Primary Care Physician [facility]counter [facility] Date(s): 06/17/22 - 07/17/22 [facility] [address] [place] [address]- Allergies, Adverse Reactions, Alerts No Known Allergies [...] PASTEUR 2Admin Note: Left deltoid 3Result Comment: [facility] [id number] 4Result Comment: [facility] [id number] 5Admin Note: Declined 6Admin Note: VIS 04/02/09 7Admin Note: Declined Medications aspirin 81 mg oral delayed release tablet = 81 mg, By Mouth, Daily, # 30 tablet, 3 Refills, Maintenance, 03/02/22 12:46:00 EDT, EC Tablet, [facility] #[id number], 148, cm, 01/15/22 13:45:00 EDT, Height, 56.7, kg, 02/18/21 11:21:00 EDT, Dry Weight Start Date: 03/02/22 Status: Ordered diclofenac 1% topical gel 1 application, Topically, 4 times a day, # 100 Gm, 0 Refills, Maintenance, 03/08/21 18:34:00 EDT, Gel, [facility] #[id number], g., 148, cm, 02/19/21 8:07:00 EDT, Height, 56.7, kg, 02/18/21 11:21:00 EDT, Dry Weight Start Date: 03/08/21 Stop Date: 04/07/21 Status: Ordered Estrace Vaginal Cream 0.1 mg/g See Instructions, 1 Gm Vaginally Daily (pea-sized amount to tip of finger) at bedtime every night for 2 weeks and then 2-3 times a week after that, # 42.5 Gm, 0 Refills, Maintenance, 06/29/22 11:23:00 EST, [facility] #[id number], Partial fill upo... Start Date: 06/29/22 Status: Ordered levothyroxine 0.05 mg oral tablet 1 tablet = 50 mcg, By Mouth, Daily, # 90 tablet, 1 Refills, Maintenance, 05/21/22 14:53:00 EDT, Tablet, [facility] #[id number], Partial fill upon patient request if the prescription is for a schedule II opioid drug., 148, cm, 03/24/22 14:13:00 ED... Start Date: 05/21/22 Stop Date: 07/20/22 Status: Ordered losartan 25 mg oral tablet 25 mg, 1, tablet, By Mouth, Daily, # 90 tablet, Refills 3, Tot. Refills 3, Maintenance, 08/25/21 9:42:00 EST, Route to Pharmacy Electronically, [facility] #[id number], 148, cm, 08/25/21 9:18:00 EST, Height, 56.7, kg, 02/18/21 11:21:00 EDT, Dry We... Start Date: 08/25/21 Stop Date: 08/20/22 Status: Ordered rosuvastatin 40 mg oral tablet 1 tablet, By Mouth, Daily, for 90 days, # 90 tablet, 1 Refills, Physician Stop 12/14/22 10:00:00 EDT, 06/17/22 10:00:00 EDT, [facility] #[id number], 148, cm, 03/24/22 14:13:00 EDT, Height, 45.8,kg, 03/24/22 14:13:00 EDT, Dry Weight Start Date: 06/17/22 Stop Date: 12/14/22 Status: Ordered Senna Plus 50 mg-8.6 mg oral tablet 2 tablet, By Mouth, Daily at bedtime, # 60 tablet, 0 Refills, Maintenance, 09/18/21 11:10:00 EST, Tablet, [facility] #[id number], Partial fill upon patient request if the prescription is for a schedule II opioid drug., 2 tablet By Mouth Daily at... Start Date: 09/18/21 Stop Date: 10/18/21 Status: Ordered Problem List Condition Confirmation Course Effective Dates Status Health Status Informant Anxiety depression Confirmed 09/04/11 Active Cigarette smoker Confirmed Active History of [place] (myocardial infarction) Confirmed Active Hypercholesterolemia Confirmed Active HTN (hypertension) Confirmed Active Hypothyroidism Confirmed Active Irritable bowel syndrome Confirmed Active STEMI (ST elevation myocardial infarction) Confirmed Active Osteopenia Confirmed 07/29/08 Active Shingles Confirmed 11/18/96 Active Sleep apnea Confirmed Active Smoking Confirmed 12/05/08 Active Social History Social History Type Response Smoking Status Current every day melina arauz entered on: 01/14/18 Sex Patient Care team information Care Team Personnel Name: Elayne Das NP Position: [facility] PCO Associate Professional Member Role: PCP Address: Address: [address] [place] [id number] Name: Kamilla Vanessa RN Position: [facility] RN Supv Member Role: Primary Care Nurse Name: Maria L Dickinson RN Position: [facility] RN Member Role: Primary Care Nurse Care Team Related Persons Name: BENTON SEAMAN Name: KEN GUERRERO Address: home [address] [place] [id number] Name: JUS CHAO Address: [place] [address]
--- OUTSIDE RECORDS SUMMARY | 2023-06-19 13:52 | XMS_ITS | Continuity of Care Document ---
Author Name Unknown Organization [facility] Address [address] [place] [address]- Care Team Providers Care Director Cost Name Role Phone Pippa BEARDEN, Elayne Diaz Primary Care Physician Encounter [facility] Date(s): 08/20/20 - 08/27/20 [facility] [address] [place] [address]- Encounter Diagnosis Encounter for Medicare annual wellness exam(Discharge Diagnosis) - 08/20/20 Anxiety depression(Discharge Diagnosis) - 08/20/20 Cigarette smoker(Discharge Diagnosis) - 08/20/20 HTN (hypertension)(Discharge Diagnosis) - 08/20/20 History of [place] (myocardial infarction)(Discharge Diagnosis) - 08/20/20 Hypercholesterolemia(Discharge Diagnosis) - 08/20/20 Hypothyroidism(Discharge Diagnosis) - 08/20/20 Osteopenia(Discharge Diagnosis) - 08/20/20 Sleep apnea(Discharge Diagnosis) - 08/20/20 Physical exam(Discharge Diagnosis) - 08/20/20 Attending Physician: Elayne Das NP Allergies, Adverse [...] PASTEUR 2Admin Note: Left deltoid 3Result Comment: [facility] [id number] 4Result Comment: [facility] [id number] 5Admin Note: Declined 6Admin Note: VIS 04/02/09 7Admin Note: Declined Medications aspirin 81 mg oral delayed release tablet = 81 mg, By Mouth, Daily, # 30 tablet, 0 Refills, Maintenance, 11/17/19 10:26:00 EDT, EC Tablet, [facility] #[id number], 149, cm, 11/15/19 13:59:00 EDT, Height, 57.7, kg, 11/15/19 15:04:00 EDT, Dry Weight Start Date: 11/17/19 Status: Ordered atorvastatin 80 mg oral tablet 1 tablet = 80 mg, By Mouth, Daily at bedtime, # 90 tablet, 1 Refills, Maintenance, 08/08/20 9:05:00EST, Tablet, [facility] #[id number], 149, cm, 08/08/20 7:51:00 EST, Height, 57.7, kg, 11/14/2014:04:00 EDT, Dry Weight Start Date: 08/08/20 Stop Date: 02/04/21 Status: Ordered Colace sodium 100 mg oral capsule 100 mg, 1, capsule, By Mouth, 2 times a day, PRN, # 60 capsule, Refills 0, Tot. Refills 0, Maintenance, for constipation, 03/06/20 14:06:00 EDT, Route to Pharmacy Electronically, [facility]#[id number], 149, cm, 03/06/20 12:19:00 EDT, Height, 57.... Start Date: 03/06/20 Stop Date: 04/05/20 Status: Ordered levothyroxine 88 mcg (0.088 mg) oral capsule 1 capsule = 88 mcg, By Mouth, Daily, # 90 capsule, 1 Refills, Maintenance, 08/08/20 9:04:00 EST, Capsule, [facility] #[id number], 149, cm, 08/08/20 7:51:00 EST, Height, 57.7, kg, 11/15/19 15:04:00 EDT, Dry Weight Start Date: 08/08/20 Stop Date: 02/04/21 Status: Ordered losartan 25 mg oral tablet 25 mg, 1, tablet, By Mouth, Daily, # 90 tablet, Refills 1, Tot. Refills 1, Maintenance, 08/08/20 9:04:00 EST, Route to Pharmacy Electronically, [facility] #[id number], 149, cm, 08/08/20 7:51:00 EST, Height, 57.7, kg, 11/15/19 15:04:00 EDT, Dry We... Start Date: 08/08/20 Stop Date: 02/04/21 Status: Ordered Nicorette Mini 4 mg oral transmucosal lozenge 1 lozenge = 4 mg, By Mouth, Every hour, in addition to patches do not chew or swallow whole, # 144 lozenge, 2 Refills, Acute 11/18/20 22:40:00 EDT, 11/18/19 22:40:00 EDT, [facility] #[id number],149, cm, 11/15/19 13:59:00 EDT, Height, 57.7, kg,... Start Date: 11/18/19 Stop Date: 11/18/20 Status: Ordered nicotine 14 mg/24 hr transdermal film, extended release 1 patch, Topically, Daily, in addition to 21 mg patch, # 30 patch, 2 Refills, Acute 11/18/20 22:41:00 EDT, 11/18/19 22:39:00 EDT, Patch, [facility] #[id number], 1 patch Topically Daily,Instr:in addition to 21 mg patch, 149, cm, 11/15/19 13:59:00... Start Date: 11/18/19 Stop Date: 11/18/20 Status: Ordered nicotine 21 mg/24 hr transdermal film, extended release 1 patch, Topically, Daily, combine with 14 mg, for total of 35 mg nicotine, use for 6 months, # 30 patch, 5 Refills, Acute 11/18/20 22:45:00 EDT, 11/18/19 22:38:00 EDT, Patch, [facility] #[id number], 1 patch Topically Daily,Instr:combine with 14... Start Date: 11/18/19 Stop Date: 11/18/20 Status: Ordered Plavix 75 mg oral tablet 75 mg, 1, tablet, By Mouth, Daily, # 90 tablet, Refills 1, Tot. Refills 1, Maintenance, 08/20/20 8:33:00 EST, Route to Pharmacy Electronically, [facility] #[id number], 149, cm, 08/20/20 8:12:00 EST, Height, 57.7, kg, 11/15/19 15:04:00 EDT, Dry We... Start Date: 08/20/20 Stop Date: 02/16/21 Status: Ordered Plavix 75 mg oral tablet 75 mg, 1, tablet, By Mouth, Daily, # 30 tablet, Refills 0, Tot. Refills 0, Maintenance, 05/10/20 12:48:00 EDT, Route to Pharmacy Electronically, [facility] #[id number], 149, cm, 03/06/20 12:19:00 EDT, Height, 57.7, kg, 11/15/19 15:04:00 EDT, Dry... Start Date: 05/10/20 Status: Ordered Problem List Condition Effective Dates Status Health Status Inform ant Anxiety depression(Confirmed) 09/04/11 Active Cigarette smoker(Confirmed) Active History of [place] (myocardial infarction)(Confirmed) Active Hypercholesterolemia(Confirmed) Active HTN (hypertension)(Confirmed) Active Hypothyroidism(Confirmed) Active Irritable bowel syndrome(Confirmed) Active STEMI (ST elevation myocardi al infarction)(Confirmed) Active Osteopenia(Confirmed) 07/29/08 Active Shingles(Confirmed) 11/18/96 Active Sleep apnea(Confirmed) Active Smoking(Confirmed) 12/05/08 Active Diagnosis Diagnosis Type Effective Dates Health Status Clinical Service Informant Encounter for Medicare annual wellness exam Discharge Diagnosis 08/20/20 Anxiety depression Discharge Diagnosis 08/20/20 Cigarette smoker Discharge Diagnosis 08/20/20 HTN (hypertension) Discharge Diagnosis 08/20/20 History of [place] (myocardial infarction) Discharge Diagnosis 08/20/20 Hypercholesterolemia Discharge Diagnosis 08/20/20 Hypothyroidism Discharge Diagnosis 08/20/20 Osteopenia Discharge Diagnosis 08/20/20 Sleep apnea Discharge Diagnosis 08/20/20 Physical exam Discharge Diagnosis 08/20/20 Vital Signs Most recent to oldest [Reference Range]: 1 2 Height 149 cm (08/20/20 8:58 AM) 149 cm (08/20/20 8:12 AM) Weight 53.3 kg (08/20/20 8:12 AM) Pulse Rate [55-90 bpm] 82 bpm (08/20/20 8:12 AM) Body Mass Index [18.5-24.99] 24.01 (08/20/20 8:12 AM) Blood Pressure [90-138/55-84 mm Hg] 126/ 76mm Hg (08/20/20 8:58 AM) 126/70mm Hg (08/20/20 8:12 AM) Blood pressure sites Arm, left (08/20/20 8:58 AM) Arm, left (08/20/20 8:12 AM) Weight Obtained Via Standing scale (08/20/20 8:12 AM) Social History Social History Type Response Smoking Status Current every day melina aaruz entered on: 01/14/18 Sex
--- OUTSIDE RECORDS SUMMARY | 2023-06-19 13:52 | XMS_ITS | Continuity of Care Document ---
Author Name Unknown Organization [facility] Address [address] [place] [address]- Care Team Providers Care Executive Manager Name Role Phone Pippa BEARDEN, Elayne Diaz Primary Care Physician [facility]counter [facility] Date(s): 10/21/21 - 11/20/21 [facility] [address] [place] [address]- Allergies, Adverse Reactions, Alerts No Known Allergies [...] PASTEUR 2Admin Note: Left deltoid 3Result Comment: [facility] [id number] 4Result Comment: [facility] [id number] 5Admin Note: Declined 6Admin Note: VIS 04/02/09 7Admin Note: Declined Medications aspirin 81 mg oral delayed release tablet = 81 mg, By Mouth, Daily, # 30 tablet, 6 Refills, Maintenance, 05/08/21 8:09:00 EDT, EC Tablet, [facility] #[id number], 148, cm, 03/14/21 13:18:00 EDT, Height, 56.7, kg, 02/18/21 11:21:00 EDT, Dry Weight Start Date: 05/08/21 Status: Ordered clopidogrel 75 mg oral tablet 1, tablet, By Mouth, Daily, # 90 tablet, Refills 3, Tot. Refills 0, Maintenance, 03/07/21 9:49:00 EDT, Route to Pharmacy Electronically, [facility] #[id number], 148, cm, 02/19/21 8:07:00 EDT, Height, 56.7, kg, 02/18/21 11:21:00 EDT, Dry Weight Start Date: 03/07/21 Status: Ordered Colace sodium 100 mg oral capsule 100 mg, 1, capsule, By Mouth, 2 times a day, PRN, # 60 capsule, Refills 0, Tot. Refills 0, Maintenance, for constipation, 08/25/21 9:52:00 EST, Route to Pharmacy Electronically, [facility] #[id number], 148, cm, 08/25/21 9:45:00 EST, Height, 56.7,... Start Date: 08/25/21 Stop Date: 09/24/21 Status: Ordered diclofenac 1% topical gel 1 application, Topically, 4 times a day, # 100 Gm, 0 Refills, Maintenance, 03/08/21 18:34:00 EDT, Gel, [facility] #[id number], g., 148, cm, 02/19/21 8:07:00 EDT, Height, 56.7, kg, 02/18/21 11:21:00 EDT, Dry Weight Start Date: 03/08/21 Stop Date: 04/07/21 Status: Ordered levothyroxine 0.05 mg oral tablet 1 tablet = 50 mcg, By Mouth, Daily, # 30 tablet, 2 Refills, Maintenance, 11/10/21 13:46:00 EDT, Tablet, [facility] #[id number], Partial fill upon patient request if the prescription is for a schedule II opioid drug., 148, cm, 10/23/21 15:29:00 ES... Start Date: 11/10/21 Stop Date: 02/08/22 Status: Ordered losartan 25 mg oral tablet 25 mg, 1, tablet, By Mouth, Daily, # 90 tablet, Refills 3, Tot. Refills 3, Maintenance, 08/25/21 9:42:00 EST, Route to Pharmacy Electronically, [facility] #[id number], 148, cm, 08/25/21 9:18:00 EST, Height, 56.7, kg, 02/18/21 11:21:00 EDT, Dry We... Start Date: 08/25/21 Stop Date: 08/20/22 Status: Ordered rosuvastatin 40 mg oral tablet 1 tablet, By Mouth, Daily, # 30 tablet, 5 Refills, [facility] #[id number], 148, cm, 03/14/21 13:18:00 EDT, Height, 56.7, kg, 02/18/21 11:21:00 EDT, Dry Weight Start Date: 06/27/21 Status: Ordered Senna Plus 50 mg-8.6 mg oral tablet 2 tablet, By Mouth, Daily at bedtime, # 60 tablet, 0 Refills, Maintenance, 09/18/21 11:10:00 EST, Tablet, [facility] #[id number], Partial fill upon patient request if the prescription is for a schedule II opioid drug., 2 tablet By Mouth Daily at... Start Date: 09/18/21 Stop Date: 10/18/21 Status: Ordered Problem List Condition Effective Dates Status Health Status Inform ant Anxiety depression(Confirmed) 09/04/11 Active Cigarette smoker(Confirmed) Active History of [place] (myocardial infarction)(Confirmed) Active Hypercholesterolemia(Confirmed) Active HTN (hypertension)(Confirmed) Active Hypothyroidism(Confirmed) Active Irritable bowel syndrome(Confirmed) Active STEMI (ST elevation myocardi al infarction)(Confirmed) Active Osteopenia(Confirmed) 07/29/08 Active Shingles(Confirmed) 11/18/96 Active Sleep apnea(Confirmed) Active Smoking(Confirmed) 12/05/08 Active Social History Social History Type Response Smoking Status Current every day melina arauz entered on: 01/14/18 Sex
--- OUTSIDE RECORDS SUMMARY | 2023-06-19 13:52 | XMS_ITS | Continuity of Care Document ---
Author Name Unknown Organization [facility] Address [address], [address], [place] [address]- Care Team Providers Care Race Steward Name Role Phone Elayne Das NP Primary Care Physician Encounter [facility] Date(s): 06/29/22 - [facility] [address], [address] [place] [address]- Allergies, Adverse Reactions, Alerts No Known Allergies [...] PASTEUR 2Admin Note: Left deltoid 3Result Comment: [facility] [id number] 4Result Comment: [facility] [id number] 5Admin Note: Declined 6Admin Note: VIS 04/02/09 7Admin Note: Declined Medications aspirin 81 mg oral delayed release tablet = 81 mg, By Mouth, Daily, # 30 tablet, 3 Refills, Maintenance, 03/02/22 12:46:00 EDT, EC Tablet, [facility] #[id number], 148, cm, 01/15/22 13:45:00 EDT, Height, 56.7, kg, 02/18/21 11:21:00 EDT, Dry Weight Start Date: 03/02/22 Status: Ordered diclofenac 1% topical gel 1 application, Topically, 4 times a day, # 100 Gm, 0 Refills, Maintenance, 03/08/21 18:34:00 EDT, Gel, [facility] #[id number], g., 148, cm, 02/19/21 8:07:00 EDT, Height, 56.7, kg, 02/18/21 11:21:00 EDT, Dry Weight Start Date: 03/08/21 Stop Date: 04/07/21 Status: Ordered Estrace Vaginal Cream 0.1 mg/g See Instructions, 1 Gm Vaginally Daily (pea-sized amount to tip of finger) at bedtime every night for 2 weeks and then 2-3 times a week after that, # 42.5 Gm, 0 Refills, Maintenance, 06/29/22 11:23:00 EST, [facility] #[id number], Partial fill upo... Start Date: 06/29/22 Status: Ordered levothyroxine 0.05 mg oral tablet 1 tablet = 50 mcg, By Mouth, Daily, # 90 tablet, 1 Refills, Maintenance, 05/21/22 14:53:00 EDT, Tablet, [facility] #[id number], Partial fill upon patient request if the prescription is for a schedule II opioid drug., 148, cm, 03/24/22 14:13:00 ED... Start Date: 05/21/22 Stop Date: 07/20/22 Status: Ordered losartan 25 mg oral tablet 25 mg, 1, tablet, By Mouth, Daily, # 90 tablet, Refills 3, Tot. Refills 3, Maintenance, 08/25/21 9:42:00 EST, Route to Pharmacy Electronically, [facility] #[id number], 148, cm, 08/25/21 9:18:00 EST, Height, 56.7, kg, 02/18/21 11:21:00 EDT, Dry We... Start Date: 08/25/21 Stop Date: 08/20/22 Status: Ordered rosuvastatin 40 mg oral tablet 1 tablet, By Mouth, Daily, for 90 days, # 90 tablet, 1 Refills, Physician Stop 12/14/22 10:00:00 EDT, 06/17/22 10:00:00 EDT, [facility] #[id number], 148, cm, 03/24/22 14:13:00 EDT, Height, 45.8,kg, 03/24/22 14:13:00 EDT, Dry Weight Start Date: 06/17/22 Stop Date: 12/14/22 Status: Ordered Senna Plus 50 mg-8.6 mg oral tablet 2 tablet, By Mouth, Daily at bedtime, # 60 tablet, 0 Refills, Maintenance, 09/18/21 11:10:00 EST, Tablet, [facility] #[id number], Partial fill upon patient request if the prescription is for a schedule II opioid drug., 2 tablet By Mouth Daily at... Start Date: 09/18/21 Stop Date: 10/18/21 Status: Ordered Problem List Condition Confirmation Course Effective Dates Status Health Status Informant Anxiety depression Confirmed 09/04/11 Active Cigarette smoker Confirmed Active History of [place] (myocardial infarction) Confirmed Active Hypercholesterolemia Confirmed Active [...] Personnel Name: Pippa BEARDEN, Elayne Diaz Position: S PCO Associate Professional Member Role: PCP Address: Address: [address] [place] [address] [address] [place], [place] [address] Name: Kamilla Vanessa RN Position: [facility] RN Supv Member Role: Primary Care Nurse Name: Maria L Dickinson RN Position: [facility] RN Member Role: Primary Care Nurse Care Team Related Persons Name: BENTON SEAMAN Name: KEN GUERRERO Address: home [address] [place] [id number] Name: JUS CHAO Address: [place] [address]
--- OUTSIDE RECORDS SUMMARY | 2023-06-19 13:52 | XMS_ITS | Continuity of Care Document ---
Author Name Unknown Organization [facility] Address [address] [place] [address]- Care Team Providers Care Rail Car Driver Name Role Phone Pippa BEARDEN, Elayne Diaz Primary Care Physician [facility] Date(s): 12/18/21 - 01/17/22 [facility] [address] [place] [address]- Allergies, Adverse Reactions, Alerts No Known Allergies [...] PASTEUR 2Admin Note: Left deltoid 3Result Comment: [facility] [id number] 4Result Comment: [facility] [id number] 5Admin Note: Declined 6Admin Note: VIS 04/02/09 7Admin Note: Declined Medications aspirin 81 mg oral delayed release tablet = 81 mg, By Mouth, Daily, # 30 tablet, 3 Refills, Maintenance, 11/26/21 13:46:00 EDT, EC Tablet, [facility] #[id number], 148, cm, 10/23/21 15:29:00 EST, Height, 56.7, kg, 02/18/21 11:21:00 EDT, Dry Weight Start Date: 11/26/21 Status: Ordered clopidogrel 75 mg oral tablet 1, tablet, By Mouth, Daily, # 90 tablet, Refills 3, Tot. Refills 0, Maintenance, 03/07/21 9:49:00 EDT, Route to Pharmacy Electronically, [facility] #[id number], 148, cm, 02/19/21 8:07:00 EDT, Height, 56.7, kg, 02/18/21 11:21:00 EDT, Dry Weight Start Date: 03/07/21 Status: Ordered Colace sodium 100 mg oral capsule 100 mg, 1, capsule, By Mouth, 2 times a day, PRN, # 60 capsule, Refills 6, Tot. Refills 6, Maintenance, for constipation, 01/15/22 13:42:00 EDT, Route to Pharmacy Electronically, [facility]#[id number], 148, cm, 01/15/22 12:57:00 EDT, Height, 56.... Start Date: 01/15/22 Stop Date: 08/13/22 Status: Ordered diclofenac 1% topical gel 1 application, Topically, 4 times a day, # 100 Gm, 0 Refills, Maintenance, 03/08/21 18:34:00 EDT, Gel, [facility] #[id number], g., 148, cm, 02/19/21 8:07:00 EDT, Height, 56.7, kg, 02/18/21 11:21:00 EDT, Dry Weight Start Date: 03/08/21 Stop Date: 04/07/21 Status: Ordered levothyroxine 0.05 mg oral tablet 1 tablet = 50 mcg, By Mouth, Daily, # 30 tablet, 2 Refills, Maintenance, 11/10/21 13:46:00 EDT, Tablet, [facility] #[id number], Partial fill upon patient request if the prescription is for a schedule II opioid drug., 148, cm, 10/23/21 15:29:00 ES... Start Date: 11/10/21 Stop Date: 02/08/22 Status: Ordered losartan 25 mg oral tablet 25 mg, 1, tablet, By Mouth, Daily, # 90 tablet, Refills 3, Tot. Refills 3, Maintenance, 08/25/21 9:42:00 EST, Route to Pharmacy Electronically, [facility] #[id number], 148, cm, 08/25/21 9:18:00 EST, Height, 56.7, kg, 02/18/21 11:21:00 EDT, Dry We... Start Date: 08/25/21 Stop Date: 08/20/22 Status: Ordered rosuvastatin 40 mg oral tablet 1 tablet, By Mouth, Daily, for 90 days, # 90 tablet, 1 Refills, Physician Stop 06/16/22 11:36:00 EDT, 12/18/21 11:36:00 EDT, [facility] #[id number], 148, cm, 10/23/21 15:29:00 EST, Height, 56.7,kg, 02/18/21 11:21:00 EDT, Dry Weight Start Date: 12/18/21 Stop Date: 06/16/22 Status: Ordered Senna Plus 50 mg-8.6 mg oral tablet 2 tablet, By Mouth, Daily at bedtime, # 60 tablet, 0 Refills, Maintenance, 09/18/21 11:10:00 EST, Tablet, [facility] #[id number], Partial fill upon patient request if the prescription is for a schedule II opioid drug., 2 tablet By Mouth Daily at... Start Date: 09/18/21 Stop Date: 10/18/21 Status: Ordered Problem List Condition Effective Dates Status Health Status Inform ant Anxiety depression(Confirmed) 09/04/11 Active Cigarette smoker(Confirmed) Active History of [place] (myocardial infarction)(Confirmed) Active Hypercholesterolemia(Confirmed) Active HTN (hypertension)(Confirmed) Active Hypothyroidism(Confirmed) Active Irritable bowel syndrome(Confirmed) Active STEMI (ST elevation myocardi al infarction)(Confirmed) Active Osteopenia(Confirmed) 07/29/08 Active Shingles(Confirmed) 11/18/96 Active Sleep apnea(Confirmed) Active Smoking(Confirmed) 12/05/08 Active Social History Social History Type Response Smoking Status Current every day melina arauz entered on: 01/14/18 Sex
--- OUTSIDE RECORDS SUMMARY | 2023-06-19 13:52 | XMS_ITS | Continuity of Care Document ---
Author Name Unknown Organization [facility] Adult Address [address] [place] [address]- Care Team Providers Care Cell Room Supervisor Name Role Phone Elayne Das NP Primary Care Physician Encounter [facility] Date(s): 09/29/22 - 10/29/22 [facility] Adult [address] [place] [address]- Allergies, Adverse Reactions, Alerts No Known Allergies [...] 2Admin Note: Left deltoid 3Result Comment: [facility] [id number] 4Result Comment: [facility] [id number] 5Admin Note: Declined 6Admin Note: VIS 04/02/09 7Admin Note: Declined Medications Artificial Tears preserved solution 1 drops, Eyes, Both, 2 times a day, PRN for dry eyes, # 30 mL, 0 Refills, Maintenance, 08/21/22 11:27:00 EST, Solution, [facility] #[id number], Partial fill upon patient request if the prescription is for a schedule II opioid drug., 1 drops Eyes,... Start Date: 08/21/22 Status: Ordered aspirin 81 mg oral delayed release tablet = 81 mg, By Mouth, Daily, # 30 tablet, 3 Refills, Maintenance, 03/02/22 12:46:00 EDT, EC Tablet, [email or web address] #[id number], 148, cm, 01/15/22 13:45:00 EDT, Height, 56.7, kg, 02/18/21 11:21:00 EDT, Dry Weight Start Date: 03/02/22 Status: Ordered calcium-vitamin D 600 mg-400 intl units oral tablet 1 tablet, By Mouth, 2 times a day, # 180 tablet, 3 Refills, Maintenance, 08/26/22 11:59:00 EST, Tablet, [email or web address] #[id number], Partial fill upon patient request if the prescription is for a schedule II opioid drug., 1 tablet By Mouth 2 times a d... Start Date: 08/26/22 Stop Date: 08/21/23 Status: Ordered diclofenac 1% topical gel 1 application, Topically, 4 times a day, # 100 Gm, 0 Refills, Maintenance, 03/08/21 18:34:00 EDT, Gel, [email or web address] #[id number], g., 148, cm, 02/19/21 8:07:00 EDT, Height, 56.7, kg, 02/18/21 11:21:00 EDT, Dry Weight Start Date: 03/08/21 Stop Date: 04/07/21 Status: Ordered Estrace Vaginal Cream 0.1 mg/g See Instructions, 1 Gm Vaginally Daily (pea-sized amount to tip of finger) at bedtime every night for 2 weeks and then 2-3 times a week after that, # 42.5 Gm, 0 Refills, Maintenance, 06/29/22 11:23:00 EST, [facility] #[id number], Partial fill upo... Start Date: 06/29/22 Status: Ordered levothyroxine 0.05 mg oral tablet 1 tablet = 50 mcg, By Mouth, Daily, # 90 tablet, 1 Refills, Maintenance, 05/21/22 14:53:00 EDT, Tablet, [facility] #[id number], Partial fill upon patient request if the prescription is for a schedule II opioid drug., 148, cm, 03/24/22 14:13:00 ED... Start Date: 05/21/22 Stop Date: 07/20/22 Status: Ordered losartan 25 mg oral tablet 25 mg, 1, tablet, By Mouth, Daily, # 90 tablet, Refills 1, Tot. Refills 1, Maintenance, 08/25/22 13:53:00 EST, Route to Pharmacy Electronically, [email or web address] #[id number], 148, cm, 07/03/22 9:15:00EST, Height, 45.8, kg, 03/24/22 14:13:00 EDT, Dry W... Start Date: 08/25/22 Stop Date: 02/21/23 Status: Ordered rosuvastatin 40 mg oral tablet 1 tablet, By Mouth, Daily, for 90 days, # 90 tablet, 1 Refills, Physician Stop 12/14/22 10:00:00 EDT, 06/17/22 10:00:00 EDT, [email or web address] #[id number], 148, cm, 03/24/22 14:13:00 EDT, Height, 45.8,kg, 03/24/22 14:13:00 EDT, Dry Weight Start Date: 06/17/22 Stop Date: 12/14/22 Status: Ordered Senna Plus 50 mg-8.6 mg oral tablet 2 tablet, By Mouth, Daily at bedtime, # 60 tablet, 0 Refills, Maintenance, 09/18/21 11:10:00 EST, Tablet, [facility] #[id number], Partial fill upon patient request if the prescription is for a schedule II opioid drug., 2 tablet By Mouth Daily at... Start Date: 09/18/21 Stop Date: 10/18/21 Status: Ordered Problem List Condition Confirmation Course Effective Dates Status Health Status Informant Anxiety depression Confirmed 09/04/11 Active Cigarette smoker Confirmed Active History of [place] (myocardial infarction) 1 Confirmed 10/2019 Active Hypercholesterolemia Confirmed Active HTN (hypertension) Confirmed Active Hypothyroidism Confirmed Active Irritable bowel syndrome Confirmed Active Osteopenia Confirmed 07/29/08 Active Shingles Confirmed 11/18/96 Active Sleep apnea Confirmed Active Smoking Confirmed 12/05/08 Active 1Hx of Inferolateral STEMI Social History Social History Type Response Smoking Status Current every day sm davonte entered on: 01/14/18 Sex Patient Care team information Care Team Personnel Name: Pippa BEARDEN, Elayne Diaz Position: [facility] PCO Associate Professional Member Role: PCP Address: Address: [address] [place] [address] [address] [place], [place] [address]R[place] Name: Kamilla Vanessa RN Position: Rosina RN Supv Member Role: Primary Care Nurse Name: Maria L Dickinson RN Position: S RN Member Role: Primary Care Nurse Care Team Related Persons Name: BENTON SEAMAN Name: KEN GUERRERO Address: home [address] [place] [id number] Name: JUS CHAO Address: [place] [address]
--- OUTSIDE RECORDS SUMMARY | 2023-06-19 13:52 | XMS_ITS | Continuity of Care Document ---
Author Name Unknown Organization [facility] Adult Address [address] [place] [address]- Care Team Providers Care Solder Making Laborer Name Role Phone Elayne Das NP Primary Care Physician [facility] Date[facility] 01/15/23 - 01/22/23 [facility] Adult [address] [place] [address]- Encounter Diagnosis Skin anomaly(Discharge Diagnosis) - 01/15/23 Lump in chest(Discharge Diagnosis) - 01/15/23 Elevated blood pressure reading(Discharge Diagnosis) - 01/15/23 Attending Physician: Elayne Das NP Allergies, Adverse Reactions, Alerts No Known Allergies [...] tetanus/diphtheria/pertussis, acel(Tdap) 05/14/08 Given pneumococcal 13-valent vaccine 4/22/15 Given Zostavax (oldterm) 7 12/05/13 Given pneumococcal 23-valent vaccine 02/25/11 Given 1Admin Note: VIM 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 2Admin Note: Left deltoid 3Result Comment: [facility] [id number] 4Result Comment: [facility] [id number] 5Admin Note: Declined 6Admin Note: VIS 04/02/09 7Admin Note: Declined Medications Artificial Tears preserved solution 1 drops, Eyes, Both, 2 times a day, PRN for dry eyes, # 30 mL, 0 Refills, Maintenance, 08/21/22 11:27:00 EST, Solution, [facility] #[id number], Partial fill upon patient request if the prescription is for a schedule II opioid drug., 1 drops Eyes,... Start Date: 08/21/22 Status: Ordered aspirin 81 mg oral delayed release tablet = 81 mg, By Mouth, Daily, # 30 tablet, 5 Refills, Maintenance, 11/17/22 13:30:00 EDT, EC Tablet, [facility] #[id number], 148, cm, 08/26/22 12:13:00 EST, Height, 45.8, kg, 03/24/22 14:13:00 EDT, Dry Weight Start Date: 11/17/22 Status: Ordered calcium-vitamin D 600 mg-400 intl units oral tablet 1 tablet, By Mouth, 2 times a day, # 180 tablet, 3 Refills, Maintenance, 08/26/22 11:59:00 EST, Tablet, [facility] #[id number], Partial fill upon patient request if the prescription is for a schedule II opioid drug., 1 tablet By Mouth 2 times a d... Start Date: 08/26/22 Stop Date: 08/21/23 Status: Ordered diclofenac 1% topical gel 1 application, Topically, 4 times a day, # 100 Gm, 0 Refills, Maintenance, 03/08/21 18:34:00 EDT, [facility] #[id number], g., 148, cm, 02/19/21 8:07:00 EDT, Height, 56.7, kg, 02/18/21 11:21:00 EDT, Dry Weight Start Date: 03/08/21 Stop Date: 04/07/21 Status: Ordered Estrace Vaginal Cream 0.1 mg/g See Instructions, 1 Gm Vaginally Daily (pea-sized amount to tip of finger) at bedtime every night for 2 weeks and then 2-3 times a week after that, # 42.5 Gm, 0 Refills, Maintenance, 06/29/22 11:23:00 EST, [facility] #[id number], Partial fill upo... Start Date: 06/29/22 Status: Ordered levothyroxine 0.05 mg oral tablet 1 tablet = 50 mcg, By Mouth, Daily, # 90 tablet, 1 Refills, Maintenance, 11/16/22 11:49:00 EDT, Tablet, [facility] #[id number], Partial fill upon patient request if the prescription is for a schedule II opioid drug., 148, cm, 08/26/22 12:13:00 ES... Start Date: 11/16/22 Stop Date: 01/15/23 Status: Ordered losartan 50 mg oral tablet 1 tablet = 50 mg, By Mouth, Daily, # 30 tablet, 11 Refills, Maintenance, 01/15/23 10:29:00 EDT, Tablet, [facility] #[id number], Partial fill upon patient request if the prescription is for a schedule II opioid drug., 148, cm, 01/15/23 10:28:00 ED... Start Date: 01/15/23 Stop Date: 01/10/24 Status: Ordered rosuvastatin 40 mg oral tablet 1 tablet, By Mouth, Daily, for 30 days, # 30 tablet, 11 Refills, Physician Stop 01/10/24 10:33:00 EDT, 01/15/23 10:33:00 EDT, [facility] #[id number], 148, cm, 01/15/23 10:28:00 EDT, Height, 45.8, kg, 03/24/22 14:13:00 EDT, Dry Weight Start Date: 01/15/23 Stop Date: 01/10/24 Status: Ordered Senna Plus 50 mg-8.6 mg oral tablet 2 tablet, By Mouth, Daily at bedtime, # 60 tablet, 0 Refills, Maintenance, 09/18/21 11:10:00 EST, Tablet, [facility] #[id number], Partial fill upon patient request if the [...] Confirmed 12/05/08 Active 1Hx of Inferolateral STEMI Diagnosis Diagnosis Type Effective Dates Health Status Cl inical Service Informant Skin anomaly Discharge Diagnosis 01/15/23 Lump in chest Discharge Diagnosis 01/15/23 Elevated blood pressure reading Discharge Diagnosis 01/15/23 Vital Signs Most recent to oldest [Reference Range]: 1 2 3 Height 148 cm (01/15/23 10:28 AM) 148 cm (01/15/23 10:11 AM) 148 cm (01/15/23 9:59 AM) Weight 47.6 kg (01/15/23 9:59 AM) Oxygen Saturation [94-100 %] 98 % (01/15/23 9:59 AM) Pulse Rate [55-90 bpm] 71 bpm (01/15/23 10:11 AM) 69 bpm (01/15/23 9:59 AM) Body Mass Index [18.5-24.99 kg/m2] 21.73 kg/m2 (01/15/23 9:59 AM) Blood Pressure [90-138/55-84 mm Hg] 138/82mm Hg (01/15/23 10:28 AM) 163/79mm Hg *H* (01/15/23 10:11 AM) 165/81mm Hg *H* (01/15/23 9:59 AM) Respiratory Rate [16-30 br/min] 18 br/min (01/15/23 9:59 AM) Temperature [96.8-100.4 DegF] 98.7 DegF (01/15/23 9:59 AM) Mode of Delivery (Oxygen) Room air (01/15/23 9:59 AM) Blood pressure sites Arm, left (01/15/23 10:28 AM) Arm, right (01/15/23 10:11 AM) Arm, right (01/15/23 9:59 AM) Temperature Route Oral (01/15/23 9:59 AM) Weight Obtained Via Standing scale (01/15/23 9:59 AM) Social History Social History Type Response Smoking Status Current every day melina arauz entered on: 01/14/18 Sex Note * Gertrudis Mckinnon: PERFORM, SIGN, VERIFY Event Display: Patient Education/Instruction Authored Date: [id number] [facility] *[facility] Clinical Summary Name LUCA GUERRERO Age 77 Years 1945 PCP Pippa TITLE CURATIVE SPECIALIST, Elayne Diaz PCP Visit Date 01/15/2023 09:56:00 Additional Instructions: blood pressure check in 2 weeks Scheduled Appointments?? Future Appointments ?*[facility] ?Phone:??--?Fax:??-- ?Appt. Date:??02/02/2023?1:30 PM ?Scheduled Provider:??[facility] Clinical Follow-Up Instructions ?? Diagnosis Elevated blood-pressure reading, without diagnosis of hypertension; Localized swelling, mass and lump, trunk; Congenital malformation of skin, unspecified Medications: Please continue your medications until treatment is completed or stopped by your provider. Discuss any questions related to medications with your provider. Medications to Continue Taking That Have Changed [facility] #[id number], [address], [place] [id number], [phone] - Losartan (losartan 50 mg oral tablet) 1 tab(s) Oral Daily for 30 Days. Refills: 11. Next Dose: - Rosuvastatin (rosuvastatin 40 mg oral tablet) 1 tab(s) Oral Daily for 30 Days. Refills: 11. Next Dose: Medications to Continue with No Changes These medications were not printed or sent to your pharmacy Aspirin (aspirin 81 mg oral delayed release tablet) 81 Milligram Oral Daily. Refills: 5. Next Dose: Calcium And Vitamin D Combination (calcium-vitamin D 600 mg-400 intl units oral tablet) 1 tab(s) Oral twice a day for 90 Days. Refills: 3. Next Dose: Diclofenac Topical (diclofenac 1% topical gel) 1 marv Topically 4 times a day for 30 Days. Refills: 0. Next Dose: Docusate-Senna (Senna Plus 50 mg-8.6 mg oral tablet) 2 tab(s) Oral Daily at Bedtime for 30 Days. Refills: 0. Next Dose: Estradiol Topical (Estrace Vaginal Cream 0.1 mg/g) 1 Gm Vaginally Daily (pea- sized amount to tip offinger) at bedtime every night for 2 weeks and then 2-3 times a week after that. Refills: 0. Next Dose: Levothyroxine (levothyroxine 0.05 mg oral tablet) 1 tab(s) Oral Daily for 30 Days. Refills: 1. Next Dose: Ocular Lubricant (Artificial Tears preserved solution) 1 Drops Both eyes twice a day as needed for dry eyes. Refills: 0. Next Dose: Allergy Info:?? NKA Medications Given This Visit Future Orders ?No future orders Vital Signs Height 148 cm Weight 47.6 kg BMI 21.73 kg/m2 Blood Pressure 138 mm Hg/82 mm Hg Temperature 98.7 DegF Pulse Rate 71 bpm Respiratory Rate 18 br/min 02 Sat Mode of Delivery 98 %/Room air You can now view a summary of your hospital visit from the comfort of your home through a free online portal called Nightpro. Nightpro is a website that allows you to securely view your medical information including discharge summary, medications and follow-up visits. ??You can alsosend a secure electronic message to your doctor???s office to request appointments, renew medications or just ask a question. You can enroll at [email or web address] or register during your next office visit. Disclaimer:?? The information provided is of a general nature and is intended to be used in conjunction with the recommendations and advice of your health care practitioner. ??Every effort has been made to ensure that the information provided is accurate and complete at the time it is provided to you however, as your needs change, or, as new ??information becomes available, different or additional instructions may be required. If you have questions, please consult with your primary care provider or pharmacist, as appropriate. ??This information is not intended to serve as substitution for assessment and evaluation by a qualified health care provider. If you do not have a primary care provider, you may find a [facility] provider by calling [facility] at [phone]. For information about the plan of care including goals and instructions for your diagnosis, please see the patient education orders section of this document. Patient Education Materials?? The content of this educational material or handout may have been modified, supplemented, or adapted from its original content and format to support your individualized medical care. Patient Care team information Care Team Personnel Name: Elayne Das NP Position: S PCO Associate Professional Member Role: PCP [facility] [address] [place] [address]- [place] Name: Kamilla Vanessa RN Position: KERRI RN Supv Member Role: Primary Care Nurse Name: Maria L Dickinson RN Position: S RN Member Role: Primary Care Nurse Care Team Related Persons Name: BENTON SEAMAN Name: CESAR KEN Address: home [address] [place] [id number] Name: JUS CHAO Address: [place] [address]
--- OUTSIDE RECORDS SUMMARY | 2023-06-19 13:52 | XMS_ITS | Continuity of Care Document ---
Author Name Unknown Organization [facility] Adult Address [address] [place] [address]- Care Team Providers Care Garment Tag Stringer Name Role Phone Pippa BEARDEN, Elayne Diaz Primary Care Physician Encounter [facility] Date(s): 08/25/21 - 09/01/21 [facility] Adult [address] [place] [address]- Encounter Diagnosis Encounter for Medicare annual wellness exam(Discharge Diagnosis) - 08/25/21 Anxiety depression(Discharge Diagnosis) - 08/25/21 Cigarette smoker(Discharge Diagnosis) - 08/25/21 HTN (hypertension)(Discharge Diagnosis) - 08/25/21 History of [place] (myocardial infarction)(Discharge Diagnosis) - 08/25/21 Hypercholesterolemia(Discharge Diagnosis) - 08/25/21 Hypothyroidism(Discharge Diagnosis) - 08/25/21 Irritable bowel syndrome(Discharge Diagnosis) - 08/25/21 Osteopenia(Discharge Diagnosis) - 08/25/21 STEMI (ST elevation myocardial infarction)(Discharge Diagnosis) - 08/25/21 Sleep apnea(Discharge Diagnosis) - 08/25/21 Smoking(Discharge Diagnosis) - 08/25/21 Physical exam(Discharge Diagnosis) - 08/25/21 Attending Physician: Elayne Das NP Allergies, Adverse [...] Note: Left deltoid 3Result Comment: [facility] [id number] 4Result Comment: [facility] [id number] 5Admin Note: Declined 6Admin Note: VIS 04/02/09 7Admin Note: Declined Medications aspirin 81 mg oral delayed release tablet = 81 mg, By Mouth, Daily, # 30 tablet, 6 Refills, Maintenance, 05/08/21 8:09:00 EDT, EC Tablet, [facility] #[id number], 148, cm, 03/14/21 13:18:00 EDT, Height, 56.7, kg, 02/18/21 11:21:00 EDT, Dry Weight Start Date: 05/08/21 Status: Ordered clopidogrel 75 mg oral tablet 1, tablet, By Mouth, Daily, # 90 tablet, Refills 3, Tot. Refills 0, Maintenance, 03/07/21 9:49:00 EDT, Route to Pharmacy Electronically, [facility] #[id number], 148, cm, 02/19/21 8:07:00 EDT, Height, 56.7, kg, 02/18/21 11:21:00 EDT, Dry Weight Start Date: 03/07/21 Status: Ordered Colace sodium 100 mg oral capsule 100 mg, 1, capsule, By Mouth, 2 times a day, PRN, # 60 capsule, Refills 0, Tot. Refills 0, Maintenance, for constipation, 08/25/21 9:52:00 EST, Route to Pharmacy Electronically, [facility] #[id number], 148, cm, 08/25/21 9:45:00 EST, Height, 56.7,... Start Date: 08/25/21 Stop Date: 09/24/21 Status: Ordered diclofenac 1% topical gel 1 application, Topically, 4 times a day, # 100 Gm, 0 Refills, Maintenance, 03/08/21 18:34:00 EDT, Gel, [facility] #[id number], g., 148, cm, 02/19/21 8:07:00 EDT, Height, 56.7, kg, 02/18/21 11:21:00 EDT, Dry Weight Start Date: 03/08/21 Stop Date: 04/07/21 Status: Ordered levothyroxine 0.05 mg oral tablet 1 tablet = 50 mcg, By Mouth, Daily, # 30 tablet, 1 Refills, Maintenance, 08/26/21 12:34:00 EST, Tablet, [facility] #[id number], Partial fill upon patient request if the prescription is for a schedule II opioid drug., 148, cm, 08/25/21 9:45:00 EST... Start Date: 08/26/21 Stop Date: 10/25/21 Status: Ordered losartan 25 mg oral tablet 25 mg, 1, tablet, By Mouth, Daily, # 90 tablet, Refills 3, Tot. Refills 3, Maintenance, 08/25/21 9:42:00 EST, Route to Pharmacy Electronically, [facility] #[id number], 148, cm, 08/25/21 9:18:00 EST, Height, 56.7, kg, 02/18/21 11:21:00 EDT, Dry We... Start Date: 08/25/21 Stop Date: 08/20/22 Status: Ordered rosuvastatin 40 mg oral tablet 1 tablet, By Mouth, Daily, # 30 tablet, 5 Refills, [facility] #[id number], 148, cm, 03/14/21 13:18:00 EDT, Height, 56.7, kg, 02/18/21 11:21:00 EDT, Dry Weight Start Date: 06/27/21 Status: Ordered Problem List Condition Effective Dates Status Health Status Inform ant Anxiety depression(Confirmed) 09/04/11 Active Cigarette smoker(Confirmed) Active History of [place] (myocardial infarction)(Confirmed) Active Hypercholesterolemia(Confirmed) Active HTN (hypertension)(Confirmed) Active Hypothyroidism(Confirmed) Active Irritable bowel syndrome(Confirmed) Active STEMI (ST elevation myocardi al infarction)(Confirmed) Active Osteopenia(Confirmed) 07/29/08 Active Shingles(Confirmed) 11/18/96 Active Sleep apnea(Confirmed) Active Smoking(Confirmed) 12/05/08 Active Diagnosis Diagnosis Type Effective Dates Health Status Clinical Service Informant Encounter for Medicare annual wellness exam Discharge Diagnosis 08/25/21 Anxiety depression Discharge Diagnosis 08/25/21 Cigarette smoker Discharge Diagnosis 08/25/21 HTN (hypertension) Discharge Diagnosis 08/25/21 History of [place] (myocardial infarction) Discharge Diagnosis 08/25/21 Hypercholesterolemia Discharge Diagnosis 08/25/21 Hypothyroidism Discharge Diagnosis 08/25/21 Irritable bowel syndrome Discharge Diagnosis 08/25/21 Osteopenia Discharge Diagnosis 08/25/21 STEMI (ST elevation myocardial infarction) Discharge Diagnosis 08/25/21 Sleep apnea Discharge Diagnosis 08/25/21 Smoking Discharge Diagnosis 08/25/21 Physical exam Discharge Diagnosis 08/25/21 Vital Signs Most recent to oldest [Reference Range]: 1 2 3 Height 148 cm (08/25/21 9:45 AM) 148 cm (08/25/21 9:18 AM) 148 cm (08/25/21 9:09 AM) Weight 47.1 kg (08/25/21 9:09 AM) Oxygen Saturation [94-100 %] 98 % (08/25/21 9:09 AM) Pulse Rate [55-90 bpm] 69 bpm (08/25/21 9:09 AM) Body Mass Index [18.5-24.99] 21.5 (08/25/21 9:09 AM) Blood Pressure [90-138/55-84 mm Hg] 128/68mm Hg (08/25/21 9:45 AM) 138/75mm Hg (08/25/21 9:18 AM) 148/74mm Hg *H* (08/25/21 9:09 AM) Mode of Delivery (Oxygen) Room air (08/25/21 9:09 AM) Blood pressure sites Arm, left (08/25/21 9:45 AM) Arm, right (08/25/21 9:18 AM) Arm, right (08/25/21 9:09 AM) Weight Obtained Via Standing scale (08/25/21 9:09 AM) Social History Social History Type Response Smoking Status Current every day melina arauz entered on: 01/14/18 Sex
--- OUTSIDE RECORDS SUMMARY | 2023-06-19 13:52 | XMS_ITS | Continuity of Care Document ---
Author Name Unknown Organization [facility] Adult Address [address] [place] [address]- Care Team Providers Care Mechanic General Operational Test Name Role Phone Elayne Das NP Primary Care Physician [place] [facility] [place] 11[place]06/19 [facility] Adult [address] [place] [address]- [facility] Encounter Diagnosis Anxiety depression(Discharge Diagnosis) - 10/30/19 HTN (hypertension)(Discharge Diagnosis) - 10/30/19 Hypercholesterolemia(Discharge Diagnosis) - 10/30/19 Hypothyroidism(Discharge Diagnosis) - 10/30/19 Sleep apnea(Discharge Diagnosis) - 10/30/19 Smoking(Discharge Diagnosis) - 10/30/19 Attending Physician: Elayne Das NP Allergies, Adverse Reactions, Alerts Substance Reaction Severity Status atorvastatin Diarrhea Active Immunizations Given and Recorded Vaccine Date [...] Vaccine (oldterm) 7 07/22/07 Given 1Result Comment: [facility] [id number] 2Result Comment: [facility] [phone] 3Admin Note: Declined 4Admin Note: VIS 04/02/09 5Admin Note: Declined 6Admin Note: VIM 02/19/06 [employer]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 Refills 5, Maintenance, 06/30/19 11:43:16 EST, Route to Pharmacy Electronically, [id number], [facility] #[id number] Start Date: 06/30/19 Stop Date: 12/27/19 Status: Ordered pravastatin 80 mg oral tablet 1 tablet = 80 mg, By Mouth, Daily, # 90 tablet, 2 Refills, Maintenance, 02/24/19 15:56:38 EDT, Tablet Start Date: 02/24/19 Stop Date: 11/21/19 Status: Ordered Problem List Condition Effective Dates Status Health Status Inform ant Anxiety depression(Confirmed) 09/04/11 Active Hypercholesterolemia(Confirmed) Active HTN (hypertension)(Confirmed) Active Hypothyroidism(Confirmed) Active Irritable bowel syndrome(Confirmed) Active Osteopenia(Confirmed) 07/29/08 Active Shingles(Confirmed) 11/18/96 Active Sleep apnea(Confirmed) Active Smoking(Confirmed) 12/05/08 Active Diagnosis Diagnosis Type Effective Dates Health Status Clinical Service Informant Anxiety depression Discharge Diagnosis 10/30/19 HTN (hypertension) Discharge Diagnosis 10/30/19 Hypercholesterolemia Discharge Diagnosis 10/30/19 Hypothyroidism Discharge Diagnosis 10/30/19 Sleep apnea Discharge Diagnosis 10/30/19 Smoking Discharge Diagnosis 10/30/19 Vital Signs Most recent to oldest [Reference Range]: 1 2 Height 147.1 cm (10/30/19 1:22 PM) 147.1 cm (10/30/19 12:54 PM) Weight 58.9 kg (10/30/19 12:54 PM) Oxygen Saturation [94-100 %] 94 % (10/30/19 12:54 PM) Pulse Rate [55-90 bpm] 90 bpm (10/30/19 12:54 PM) Body Mass Index [18.5-24.99] 27.22 *H* (10/30/19 12:54 PM) Blood Pressure [90-138/55-84 mm Hg] 142/ 76mm Hg *H* (10/30/19 1:22 PM) 124/76mm Hg (10/30/19 12:54 PM) Temperature [96.8-100.4 DegF] 97.7 DegF (10/30/19 12:54 PM) Mode of Delivery (Oxygen) Room air (10/30/19 12:54 PM) Blood pressure sites Arm, left (10/30/19 1:22 PM) Arm, right (10/30/19 12:54 PM) Temperature Route Oral (10/30/19 12:54 PM) Weight Obtained Via Standing scale (10/30/19 12:54 PM) Social History Social History Type Response Smoking Status Current every day melina arauz entered on: 01/14/18 Sex
--- OUTSIDE RECORDS SUMMARY | 2023-06-19 13:52 | XMS_ITS | Continuity of Care Document ---
Author Name Unknown Organization [facility] Adult Address [address] [place] [address]- Care Team Providers Care Mini Shifter Name Role Phone Pippa BEARDEN, Elayne Diaz Primary Care Physician Encounter [facility] [place] Date(s): 08/08/20 - 08/15/20 [facility] Adult [address] [place] [address]- Encounter Diagnosis History of [place] (myocardial infarction)(Discharge Diagnosis) - 08/08/20 Anxiety depression(Discharge Diagnosis) - 08/08/20 Cigarette smoker(Discharge Diagnosis) - 08/08/20 HTN (hypertension)(Discharge Diagnosis) - 08/08/20 Hypercholesterolemia(Discharge Diagnosis) - 08/08/20 Hypothyroidism(Discharge Diagnosis) - 08/08/20 Attending Physician: Elayne Das NP Allergies, Adverse [...] 13-valent vaccine 12/12/14 Given Zostavax (oldterm) 7 4/15/14 Given pneumococcal 23-valent vaccine 02/25/11 Given 1Admin Note: VIM 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 2Admin Note: Left deltoid 3Result Comment: [facility] [place] [id number] 4Result Comment: [facility] [place] 2[place] [id number] 5Admin Note: Declined 6Admin Note: VIS 04/02/09 7Admin Note: Declined Medications aspirin 81 mg oral delayed release tablet = 81 mg, By Mouth, Daily, # 30 tablet, 0 Refills, Maintenance, 11/17/19 10:26:00 EDT, EC Tablet, [facility] #[id number], 149, cm, 11/15/19 13:59:00 EDT, Height, 57.7, kg, 11/15/19 15:04:00 EDT, Dry Weight Start Date: 11/17/19 Status: Ordered atorvastatin 80 mg oral tablet 1 tablet = 80 mg, By Mouth, Daily at bedtime, # 90 tablet, 1 Refills, Maintenance, 08/08/20 9:05:00EST, Tablet, [facility] #[id number], 149, cm, 08/08/20 7:51:00 EST, Height, 57.7, kg, 11/14/2014:04:00 EDT, Dry Weight Start Date: 08/08/20 Stop Date: 02/04/21 Status: Ordered Colace sodium 100 mg oral capsule 100 mg, 1, capsule, By Mouth, 2 times a day, PRN, # 60 capsule, Refills 0, Tot. Refills 0, Maintenance, for constipation, 03/06/20 14:06:00 EDT, Route to Pharmacy Electronically, [facility][id number], 149, cm, 03/06/20 12:19:00 EDT, Height, 57.... Start Date: 03/06/20 Stop Date: 04/05/20 Status: Ordered levothyroxine 88 mcg (0.088 mg) oral capsule 1 capsule = 88 mcg, By Mouth, Daily, # 90 capsule, 1 Refills, Maintenance, 08/08/20 9:04:00 EST, Capsule, [facility] #[id number], 149, cm, 08/08/20 7:51:00 EST, Height, 57.7, kg, 11/15/19 15:04:00 EDT, Dry Weight Start Date: 08/08/20 Stop Date: 02/04/21 Status: Ordered losartan 25 mg oral tablet 25 mg, 1, tablet, By Mouth, Daily, # 90 tablet, Refills 1, Tot. Refills 1, Maintenance, 08/08/20 9:04:00 EST, Route to Pharmacy Electronically, [facility] #[id number], 149, cm, 08/08/20 7:51:00 EST, Height, 57.7, kg, 11/15/19 15:04:00 EDT, Dry We... Start Date: 08/08/20 Stop Date: 02/04/21 Status: Ordered Nicorette Mini 4 mg oral transmucosal lozenge 1 lozenge = 4 mg, By Mouth, Every hour, in addition to patches do not chew or swallow whole, # 144 lozenge, 2 Refills, Acute 11/18/20 22:40:00 EDT, 11/18/19 22:40:00 EDT, [facility] #[id number],149, cm, 11/15/19 13:59:00 EDT, Height, 57.7, kg,... Start Date: 11/18/19 Stop Date: 11/18/20 Status: Ordered nicotine 14 mg/24 hr transdermal film, extended release 1 patch, Topically, Daily, in addition to 21 mg patch, # 30 patch, 2 Refills, Acute 11/18/20 22:41:00 EDT, 11/18/19 22:39:00 EDT, Patch, [facility] #[id number], 1 patch Topically Daily,Instr:in addition to 21 mg patch, 149, cm, 11/15/19 13:59:00... Start Date: 11/18/19 Stop Date: 11/18/20 Status: Ordered nicotine 21 mg/24 hr transdermal film, extended release 1 patch, Topically, Daily, combine with 14 mg, for total of 35 mg nicotine, use for 6 months, # 30 patch, 5 Refills, Acute 11/18/20 22:45:00 EDT, 11/18/19 22:38:00 EDT, Patch, [facility] #[id number], 1 patch Topically Daily,Instr:combine with 14... Start Date: 11/18/19 Stop Date: 11/18/20 Status: Ordered Plavix 75 mg oral tablet 75 mg, 1, tablet, By Mouth, Daily, # 90 tablet, Refills 1, Tot. Refills 1, Maintenance, 08/08/20 9:03:00 EST, Route to Pharmacy Electronically, [facility] #[id number], 149, cm, 08/08/20 7:51:00 EST, Height, 57.7, kg, 11/15/19 15:04:00 EDT, Dry We... Start Date: 08/08/20 Stop Date: 02/04/21 Status: Ordered Plavix 75 mg oral tablet 75 mg, 1, tablet, By Mouth, Daily, # 30 tablet, Refills 0, Tot. Refills 0, Maintenance, 05/10/20 12:48:00 EDT, Route to Pharmacy Electronically, [facility] #[id number], 149, cm, 03/06/20 12:19:00 EDT, Height, 57.7, kg, 11/15/19 15:04:00 EDT, Dry... Start Date: 05/10/20 Status: Ordered Problem List Condition Effective Dates Status Health Status Inform ant Anxiety depression(Confirmed) 09/04/11 Active Cigarette smoker(Confirmed) Active History of CO (myocardial infarction)(Confirmed) Active Hypercholesterolemia(Confirmed) Active HTN (hypertension)(Confirmed) Active Hypothyroidism(Confirmed) Active Irritable bowel syndrome(Confirmed) Active STEMI (ST elevation myocardi al infarction)(Confirmed) Active Osteopenia(Confirmed) 07/29/08 Active Shingles(Confirmed) 11/18/96 Active Sleep apnea(Confirmed) Active Smoking(Confirmed) 12/05/08 Active Diagnosis Diagnosis Type Effective Dates Health Status Clinical Service Informant History of CO (myocardial infarction) Discharge Diagnosis 08/08/20 Anxiety depression Discharge Diagnosis 08/08/20 Cigarette smoker Discharge Diagnosis 08/08/20 HTN (hypertension) Discharge Diagnosis 08/08/20 Hypercholesterolemia Discharge Diagnosis 08/08/20 Hypothyroidism Discharge Diagnosis 08/08/20 Vital Signs Most recent to oldest [Reference Range]: 1 Height 149 cm (08/08/20 7:51 AM) Social History Social History Type Response Smoking Status Current every day melina arauz entered on: 01/14/18 Sex
--- OUTSIDE RECORDS SUMMARY | 2023-06-19 13:52 | XMS_ITS | Continuity of Care Document ---
Author Name Unknown Organization [facility] Adult Address [address] [place] [address]- Care Team Providers Care Occupational Health And Safety Manager Name Role Phone Pippa BEARDEN, Elayne Diaz Primary Care Physician Encounter [facility] Date(s): 11/25/20 - 12/25/20 [facility] Adult [address] [place] [address]- Attending Physician: Lizbeth Cordova Admitting Physician: Lizbeth Cordova Referring Physician: AdmtrLizbeth Allergies, Adverse Reactions, Alerts Substance Reaction Severity [...] PASTEUR 2Admin Note: Left deltoid 3Result Comment: [facility] [id number] 4Result Comment: [facility] [id number] 5Admin Note: Declined 6Admin Note: VIS 04/02/09 7Admin Note: Declined Medications aspirin 81 mg oral delayed release tablet = 81 mg, By Mouth, Daily, # 30 tablet, 6 Refills, Maintenance, 10/17/20 13:37:00 EST, EC Tablet, [facility] #[id number], 149, cm, 08/20/20 8:58:00 EST, Height, 57.7, kg, 11/15/19 15:04:00 EDT, Dry Weight Start Date: 10/17/20 Status: Ordered Colace sodium 100 mg oral capsule 100 mg, 1, capsule, By Mouth, 2 times a day, PRN, # 60 capsule, Refills 0, Tot. Refills 0, Maintenance, for constipation, 03/06/20 14:06:00 EDT, Route to Pharmacy Electronically, [facility]#[id number], 149, cm, 03/06/20 12:19:00 EDT, Height, 57.... Start Date: 03/06/20 Stop Date: 04/05/20 Status: Ordered levothyroxine 88 mcg (0.088 mg) oral capsule 1 capsule = 88 mcg, By Mouth, Daily, # 90 capsule, 1 Refills, Maintenance, 08/08/20 9:04:00 EST, Capsule, [facility] #[id number], 149, cm, 08/08/20 7:51:00 EST, Height, 57.7, kg, 11/15/19 15:04:00 EDT, Dry Weight Start Date: 08/08/20 Stop Date: 02/04/21 Status: Ordered losartan 25 mg oral tablet 25 mg, 1, tablet, By Mouth, Daily, # 90 tablet, Refills 1, Tot. Refills 1, Maintenance, 08/08/20 9:04:00 EST, Route to Pharmacy Electronically, [facility] #[id number], 149, cm, 08/08/20 7:51:00 EST, Height, 57.7, kg, 11/15/19 15:04:00 EDT, Dry We... Start Date: 08/08/20 Stop Date: 02/04/21 Status: Ordered magnesium hydroxide 8% oral suspension See Instructions, PRN for constipation, 5 to 15 mL as needed up to 4 times/day; do not exceed 60 mLin 24 hours., # 480 mL, 0 Refills, Maintenance, 11/25/20 7:55:00 EDT, Suspension, [facility] #[id number], Partial fill upon patient request if the... Start Date: 11/25/20 Status: Ordered nicotine 4 mg oral transmucosal gum 1 each = 4 mg, Chew, Every 2 hours, PRN as needed for smoking cessation, # 160 each, 1 Refills, Maintenance, 10/17/20 17:52:00 EST, Gum, [facility] #[id number], Partial fill upon patient requestif the prescription is for a schedule II opioid gómez... Start Date: 10/17/20 Status: Ordered Plavix 75 mg oral tablet 75 mg, 1, tablet, By Mouth, Daily, # 90 tablet, Refills 4, Tot. Refills 4, Maintenance, 10/17/20 13:37:00 EST, Route to Pharmacy Electronically, [facility] #[id number], 149, cm, 08/20/20 8:58:00EST, Height, 57.7, kg, 11/15/19 15:04:00 EDT, Dry W... Start Date: 10/17/20 Stop Date: 01/10/22 Status: Ordered rosuvastatin 40 mg oral tablet 1 tablet = 40 mg, By Mouth, Daily, # 30 tablet, 6 Refills, Maintenance, 12/25/20 12:06:00 EDT, Tablet, [facility] #[id number], Partial fill upon patient request if the prescription is for a schedule II opioid drug., 149, cm, 10/25/20 12:05:00 EST... Start Date: 12/25/20 Stop Date: 07/23/21 Status: Ordered Problem List Condition Effective Dates Status Health Status Inform ant Anxiety depression(Confirmed) 09/04/11 Active Cigarette smoker(Confirmed) Active History of [place] (myocardial infarction)(Confirmed) Active Hypercholesterolemia(Confirmed) Active HTN (hypertension)(Confirmed) Active Hypothyroidism(Confirmed) Active Irritable bowel syndrome(Confirmed) Active STEMI (ST elevation myocardi al infarction)(Confirmed) Active Osteopenia(Confirmed) 07/29/08 Active Shingles(Confirmed) 11/18/96 Active Sleep apnea(Confirmed) Active Smoking(Confirmed) 12/05/08 Active Social History Social History Type Response Smoking Status Current every day melina arauz entered on: 01/14/18 Sex
--- OUTSIDE RECORDS SUMMARY | 2023-06-19 13:52 | XMS_ITS | Continuity of Care Document ---
Author Name Unknown Organization [facility] Address [address] [place] [address]- Care Team Providers Care Contract Programmer Name Role Phone Pippa BEARDEN, Elayne Diaz Primary Care Physician Encounter [facility] Date(s): 11/15/19 - 11/16/[address] [address]- [facility] Discharge Disposition: A-D/C Home Attending Physician: Keith Diaz MD Admitting Physician: Keith Diaz MD Referring Physician: Not on Staff, Referring MD Allergies, Adverse Reactions, Alerts Substance Reaction [...] (oldterm) 7 07/22/07 Given 1Result Comment: [facility] [id number] 2Result Comment: [facility] [phone] 3Admin Note: Declined 4Admin Note: VIS 04/02/09 5Admin Note: Declined 6Admin Note: VIM 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 7Admin Note: Left deltoid Medications aspirin 81 mg oral delayed release tablet = 81 mg, By Mouth, Daily, # 30 tablet, 0 Refills, Maintenance, 11/16/19 15:25:00 EDT, EC Tablet, [facility], 149, cm, 11/15/19 13:59:00 EDT, Height, 57.7, kg, 11/15/19 15:04:00 EDT, DryWeight Start Date: 11/16/19 Status: Ordered atorvastatin 80 mg oral tablet 1 tablet = 80 mg, By Mouth, Daily at bedtime, # 30 tablet, 0 Refills, Maintenance, 11/16/19 15:25:00 EDT, Tablet, [facility], 149, cm, 11/15/19 13:59:00 EDT, Height, 57.7, kg, 11/15/19 15:04:00 EDT, Dry Weight Start Date: 11/16/19 Status: Ordered levothyroxine 88 mcg (0.088 mg) oral capsule 1 capsule = 88 mcg, By Mouth, Daily, # 90 capsule, 0 Refills, Maintenance, 10/06/19 14:00:00 EST, Capsule, [facility] #[id number], 147.1, cm, 04/21/19 7:48:00 EDT, Height Start Date: 10/06/19 Stop Date: 01/04/20 Status: Ordered losartan 25 mg oral tablet 25 mg, 1, tablet, By Mouth, Daily, # 30 tablet, Refills 5, Tot. Refills 5, Maintenance, 06/30/19 11:43:16 EST, Route to Pharmacy Electronically, [id number], [facility] #[id number] Start Date: 06/30/19 Stop Date: 12/27/19 Status: Ordered Plavix 75 mg oral tablet 75 mg, 1, tablet, By Mouth, Daily, # 30 tablet, Refills 0, Tot. Refills 0, Maintenance, 11/16/19 15:26:00 EDT, Route to Pharmacy Electronically, [facility], 149, cm, 11/15/19 13:59:00 EDT, Height, 57.7, kg, 11/15/19 15:04:00 EDT, Dry Weight Start Date: 11/16/19 Status: Ordered Problem List Condition Effective Dates Status Health Status Inform ant Anxiety depression(Confirmed) 09/04/11 Active Hypercholesterolemia(Confirmed) Active HTN (hypertension)(Confirmed) Active Hypothyroidism(Confirmed) Active Irritable bowel syndrome(Confirmed) Active Osteopenia(Confirmed) 07/29/08 Active Shingles(Confirmed) 11/18/96 Active Sleep apnea(Confirmed) Active Smoking(Confirmed) 12/05/08 Active Results Radiology Reports * Exam Date Time Procedure Performing Provider Status 11/15/19 12:11 PM Chest Portable Jazzmine Zaldivar; Au th (Verified) Notes: (Chest Portable) Reason For Exam: Shortness of Breath RESULT: Chest Portable Chest Portable Reason: Shortness of Breath; Clinical Question(s): CHF COMPARISON: 10/02/2015 FINDINGS: LINES AND TUBES: None. LUNGS AND PLEURA: Clear lungs. Normal pulmonary vascularity. No pleural effusion. There is no pneumothorax. The right costophrenic angle is slightly blunted as it has been in the past. HEART, MEDIASTINUM AND CLAUDIA: Heart is within normal limits. Aorta is tortuous and unfolded.. Normal mediastinal and hilar contour. BONES AND SOFT TISSUES: No acute abnormality. IMPRESSION: No acute abnormality. WSN: [id number] Ordering Physician: Dajuan Perdomo Dictated By: Yann Quiroz MD Dictated Date/Time: 11/15/19 12:14 p Reviewed By: Yann Quiroz MD Signed By: Yann Quiroz MD Signed Date/Time: 11/15/19 12:14 pm Transcribed By: YURIY Transcribed Date/Time: 11/15/19 12:12 pm Vital Signs Most recent to oldest [Reference Range]: 1 2 3 Height 149 cm (11/15/19 1:42 PM) Weight 57.8 kg (11/16/19 6:19 AM) 57.7 kg (11/15/19 3:04 PM) 57.7 kg (11/15/19 1:42 PM) Oxygen Saturation [94-100 %] 99 % (11/16/19 1:00 PM) 100 % (11/16/19 12:00 PM) 100 % (11/16/19 11:00 AM) Pulse Rate [55-90 bpm] 62 bpm (11/15/19 1:42 PM) 58 bpm (11/15/19 1:30 PM) Body Mass Index [18.5-24.99] 25.99 *H* (11/15/19 1:42 PM) Blood Pressure [90-138/55-84 mm Hg] 124/63mm Hg (11/16/19 1:00 PM) 127/60mm Hg (11/16/19 12:08 PM) 122/60mm Hg (11/16/19 11:00 AM) Respiratory Rate [16-30 br/min] 19 br/min (11/16/19 1:00 PM) 19 br/min (11/16/19 12:00 PM) 19 br/min (11/16/19 11:00 AM) Temperature [96.8-100.4 DegF] 98.9 DegF (11/16/19 12:00 PM) 98.1 DegF (11/16/19 8:00 AM) 98.1 DegF (11/16/19 4:00 AM) Mode of Delivery (Oxygen) Room air (11/16/19 1:00 PM) Room air (11/16/19 12:00 PM) Room air (11/16/19 11:00 AM) Blood pressure sites Arm, left (11/16/19 1:00 PM) Arm, right (11/16/19 12:00 PM) Arm, left (11/16/19 11:00 AM) Temperature Route Oral (11/16/19 12:00 PM) Oral (11/16/19 8:00 AM) Oral (11/16/19 4:00 AM) Dry Weight 57.7 kg (11/15/19 1:42 PM) Sensory deficits None (11/15/19 1:42 PM) Mobility assistance Independent (11/16/19 12:00 PM) Independent (11/16/19 10:00 AM) Partial assistance (11/16/19 8:00 AM) Social History Social History Type Response Smoking Status Current every day melina arauz entered on: 01/14/18 Sex
--- OUTSIDE RECORDS SUMMARY | 2023-06-19 13:52 | XMS_ITS | Continuity of Care Document ---
Author Name Unknown Organization [facility] Adult Address [address] [place] [address]- Care Team Providers Care Neck Pinner Name Role Phone Pippa BEARDEN, Elayne Diaz Primary Care Physician Encounter [facility] [place] Date(s): 12/06/19 - 12/16/19 [facility] [address] [place] [address]- [facility] Attending Physician: Lizbeth Cordova Admitting Physician: AdmLizbeth [...] Vaccine (oldterm) 7 07/22/07 Given 1Result Comment: [facility] [id number] 2Result Comment: [facility] [facility] [phone] 3Admin Note: Declined 4Admin Note: VIS 04/02/09 5Admin Note: Declined 6Admin Note: VIM 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 7Admin Note: Left deltoid Medications aspirin 81 mg oral delayed release tablet = 81 mg, By Mouth, Daily, # 30 tablet, 0 Refills, Maintenance, 11/17/19 10:26:00 EDT, EC Tablet, [facility] #[id number], 149, cm, 11/15/19 13:59:00 EDT, Height, 57.7, kg, 11/15/19 15:04:00 EDT, Dry Weight Start Date: 11/17/19 Status: Ordered atorvastatin 80 mg oral tablet 1 tablet = 80 mg, By Mouth, Daily at bedtime, # 30 tablet, 0 Refills, Maintenance, 11/17/19 10:26:00 EDT, Tablet, [facility] #[id number], 149, cm, 11/15/19 13:59:00 EDT, Height, 57.7, kg, 11/15/19 15:04:00 EDT, Dry Weight Start Date: 11/17/19 Status: Ordered levothyroxine 88 mcg (0.088 mg) oral capsule 1 capsule = 88 mcg, By Mouth, Daily, # 90 capsule, 3 Refills, Maintenance, 12/06/19 9:18:00 EDT, Capsule, [email or web address] #[id number], 149, cm, 12/06/19 9:02:00 EDT, Height, 57.7, kg, 11/15/19 15:04:00 EDT, Dry Weight Start Date: 12/06/19 Stop Date: 11/30/20 Status: Ordered losartan 25 mg oral tablet 25 mg, 1, tablet, By Mouth, Daily, # 90 tablet, Refills 3, Tot. Refills 3, Maintenance, 12/06/19 9:19:00 EDT, Route to Pharmacy Electronically, [facility] #[id number], 149, cm, 12/06/19 9:02:00 EDT, Height, 57.7, kg, 11/15/19 15:04:00 EDT, Dry We... Start Date: 12/06/19 Stop Date: 11/30/20 Status: Ordered Nicorette Mini 4 mg oral transmucosal lozenge 1 lozenge = 4 mg, By Mouth, Every hour, in addition to patches do not chew or swallow whole, # 144 lozenge, 2 Refills, Acute 11/18/20 22:40:00 EDT, 11/18/19 22:40:00 EDT, [facility] #[id number],149, cm, 11/15/19 13:59:00 EDT, Height, 57.7, kg,... Start Date: 11/18/19 Stop Date: 11/18/20 Status: Ordered nicotine 14 mg/24 hr transdermal film, extended release 1 patch, Topically, Daily, in addition to 21 mg patch, # 30 patch, 2 Refills, Acute 11/18/20 22:41:00 EDT, 11/18/19 22:39:00 EDT, Patch, [facility] #[id number], 1 patch Topically Daily,Instr:in addition to 21 mg patch, 149, cm, 11/15/19 13:59:00... Start Date: 11/18/19 Stop Date: 11/18/20 Status: Ordered nicotine 21 mg/24 hr transdermal film, extended release 1 patch, Topically, Daily, combine with 14 mg, for total of 35 mg nicotine, use for 6 months, # 30 patch, 5 Refills, Acute 11/18/20 22:45:00 EDT, 11/18/19 22:38:00 EDT, Patch, [facility] #[id number], 1 patch Topically Daily,Instr:combine with 14... Start Date: 11/18/19 Stop Date: 11/18/20 Status: Ordered Plavix 75 mg oral tablet 75 mg, 1, tablet, By Mouth, Daily, # 30 tablet, Refills 3, Tot. Refills 3, Maintenance, 12/06/19 9:20:00 EDT, Route to Pharmacy Electronically, [email or web address] #[id number], 149, cm, 12/06/19 9:02:00 EDT, Height, 57.7, [...]
--- OUTSIDE RECORDS SUMMARY | 2023-06-19 13:52 | XMS_ITS | Continuity of Care Document ---
Author Name Unknown Organization [facility] Adult Address [address] [place] [address]- Care Team Providers Care Thermometer Production Worker Name Role Phone Pippa BEARDEN, Elayne Diaz Primary Care Physician [facility]counter [facility] Date(s): 12/10/22 - 01/09/23 [facility] Adult [address] [place] [address]- Allergies, Adverse Reactions, Alerts No Known Allergies [...] 2Admin Note: Left deltoid 3Result Comment: [facility] [id number] 4Result Comment: [facility][note 3] [id number] 5Admin Note: Declined 6Admin Note: VIS 04/02/09 7Admin Note: Declined Medications Artificial Tears preserved solution 1 drops, Eyes, Both, 2 times a day, PRN for dry eyes, # 30 mL, 0 Refills, Maintenance, 08/21/22 11:27:00 EST, Solution, [facility] #[id number], Partial fill upon patient request if the prescription is for a schedule II opioid drug., 1 drops Eyes,... Start Date: 08/21/22 Status: Ordered aspirin 81 mg oral delayed release tablet = 81 mg, By Mouth, Daily, # 30 tablet, 5 Refills, Maintenance, 11/17/22 13:30:00 EDT, EC Tablet, [facility] #[id number], 148, cm, 08/26/22 12:13:00 EST, Height, 45.8, kg, 03/24/22 14:13:00 EDT, Dry Weight Start Date: 11/17/22 Status: Ordered calcium-vitamin D 600 mg-400 intl units oral tablet 1 tablet, By Mouth, 2 times a day, # 180 tablet, 3 Refills, Maintenance, 08/26/22 11:59:00 EST, Tablet, [facility] #[id number], Partial fill upon patient request if the prescription is for a schedule II opioid drug., 1 tablet By Mouth 2 times a d... Start Date: 08/26/22 Stop Date: 08/21/23 Status: Ordered diclofenac 1% topical gel 1 application, Topically, 4 times a day, # 100 Gm, 0 Refills, Maintenance, 03/08/21 18:34:00 EDT, Gel, [facility] #[id number], g., 148, cm, 02/19/21 8:07:00 EDT, Height, 56.7, kg, 02/18/21 11:21:00 EDT, Dry Weight Start Date: 03/08/21 Stop Date: 04/07/21 Status: Ordered Estrace Vaginal Cream 0.1 mg/g See Instructions, 1 Gm Vaginally Daily (pea-sized amount to tip of finger) at bedtime every night for 2 weeks and then 2-3 times a week after that, # 42.5 Gm, 0 Refills, Maintenance, 06/29/22 11:23:00 EST, [facility] #[id number], Partial fill upo... Start Date: 06/29/22 Status: Ordered levothyroxine 0.05 mg oral tablet 1 tablet = 50 mcg, By Mouth, Daily, # 90 tablet, 1 Refills, Maintenance, 11/16/22 11:49:00 EDT, Tablet, [facility] #[id number], Partial fill upon patient request if the prescription is for a schedule II opioid drug., 148, cm, 08/26/22 12:13:00 ES... Start Date: 11/16/22 Stop Date: 01/15/23 Status: Ordered losartan 25 mg oral tablet 25 mg, 1, tablet, By Mouth, Daily, # 90 tablet, Refills 1, Tot. Refills 1, Maintenance, 08/25/22 13:53:00 EST, Route to Pharmacy Electronically, [facility] #[id number], 148, cm, 07/03/22 9:15:00EST, Height, 45.8, kg, 03/24/22 14:13:00 EDT, Dry W... Start Date: 08/25/22 Stop Date: 02/21/23 Status: Ordered rosuvastatin 40 mg oral tablet 1 tablet, By Mouth, Daily, for 90 days, # 90 tablet, 1 Refills, Physician Stop 06/08/23 9:57:00 EDT, 12/10/22 9:57:00 EDT, [facility] #[id number], 148, cm, 08/26/22 12:13:00 EST, Height, 45.8, kg, 03/24/22 14:13:00 EDT, Dry Weight Start Date: 12/10/22 Stop Date: 06/08/23 Status: Ordered Senna Plus 50 mg-8.6 mg oral tablet 2 tablet, By Mouth, Daily at bedtime, # 60 tablet, 0 Refills, Maintenance, 09/18/21 11:10:00 EST, Tablet, [facility] #[id number], Partial fill upon patient request if the prescription is for a schedule II opioid drug., 2 tablet By Mouth Daily at... Start Date: 09/18/21 Stop Date: 10/18/21 Status: Ordered Problem List Condition Confirmation Course Effective Dates Status Health Status Informant Anxiety depression Confirmed 09/04/11 Active Cigarette smoker Confirmed Active History of [place] (myocardial infarction) 1 Confirmed 10/2019 Active Hypercholesterolemia [...] Personnel Name: Pippa BEARDEN, Elayne Diaz Position: [facility] PCO Associate Professional Member Role: PCP Address: Address: [address] [place] [address] [address] [place], [place] [address] Name: Kamilla Vanessa RN Position: S RN Supv Member Role: Primary Care Nurse Name: Maria L Dickinson RN Position: S RN Member Role: Primary Care Nurse Care Team Related Persons Name: BENTON SEAMAN Name: KEN GUERRERO Address: home [address] [place] [id number] Name: JUS CHAO Address: [place] [address]
--- OUTSIDE RECORDS SUMMARY | 2023-06-19 13:52 | XMS_ITS | Continuity of Care Document ---
Author Name Unknown Organization [facility] Adult Address [address] [place] [address]- Care Team Providers Care Yarrow Gatherer Name Role Phone Elayne Das NP Primary Care Physician Encounter [facility] Date(s): 01/15/22 - 02/14/22 [facility] Adult [address] [place] [address]- Attending Physician: Lizbeth Cordova Admitting Physician: AdmLizbeth sandoval Referring Physician: Admtr, ArEllyn Allergies, Adverse Reactions, Alerts No Known Allergies [...] (oldterm) 7 12/05/13 Given pneumococcal 23-valent vaccine 7/6/11 Given 1Admin Note: VIM 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 2Admin Note: Left deltoid 3Result Comment: [facility] [id number] 4Result Comment: [facility] [id number] 5Admin Note: Declined 6Admin Note: VIS 04/02/09 7Admin Note: Declined Medications aspirin 81 mg oral delayed release tablet = 81 mg, By Mouth, Daily, # 30 tablet, 3 Refills, Maintenance, 11/26/21 13:46:00 EDT, EC Tablet, [facility] #[id number], 148, cm, 10/23/21 15:29:00 EST, Height, 56.7, kg, 02/18/21 11:21:00 EDT, Dry Weight Start Date: 11/26/21 Status: Ordered clopidogrel 75 mg oral tablet 1, tablet, By Mouth, Daily, # 90 tablet, Refills 3, Tot. Refills 0, Maintenance, 03/07/21 9:49:00 EDT, Route to Pharmacy Electronically, [facility] #[id number], 148, cm, 02/19/21 8:07:00 EDT, Height, 56.7, kg, 02/18/21 11:21:00 EDT, Dry Weight Start Date: 03/07/21 Status: Ordered Colace sodium 100 mg oral capsule 100 mg, 1, capsule, By Mouth, 2 times a day, PRN, # 60 capsule, Refills 6, Tot. Refills 6, Maintenance, for constipation, 01/15/22 13:42:00 EDT, Route to Pharmacy Electronically, [facility]#[id number], 148, cm, 01/15/22 12:57:00 EDT, Height, 56.... Start Date: 01/15/22 Stop Date: 08/13/22 Status: Ordered diclofenac 1% topical gel 1 application, Topically, 4 times a day, # 100 Gm, 0 Refills, Maintenance, 03/08/21 18:34:00 EDT, Gel, [facility] #[id number], g., 148, cm, 02/19/21 8:07:00 EDT, Height, 56.7, kg, 02/18/21 11:21:00 EDT, Dry Weight Start Date: 03/08/21 Stop Date: 04/07/21 Status: Ordered levothyroxine 0.05 mg oral tablet 1 tablet = 50 mcg, By Mouth, Daily, # 30 tablet, 3 Refills, Maintenance, 02/11/22 16:14:00 EDT, Tablet, [facility] #[id number], Partial fill upon patient request if the prescription is for a schedule II opioid drug., 148, cm, 01/15/22 13:45:00 ED... Start Date: 02/11/22 Stop Date: 06/11/22 Status: Ordered losartan 25 mg oral tablet 25 mg, 1, tablet, By Mouth, Daily, # 90 tablet, Refills 3, Tot. Refills 3, Maintenance, 08/25/21 9:42:00 EST, Route to Pharmacy Electronically, [facility] #[id number], 148, cm, 08/25/21 9:18:00 EST, Height, 56.7, kg, 02/18/21 11:21:00 EDT, Dry We... Start Date: 08/25/21 Stop Date: 08/20/22 Status: Ordered rosuvastatin 40 mg oral tablet 1 tablet, By Mouth, Daily, for 90 days, # 90 tablet, 1 Refills, Physician Stop 06/16/22 11:36:00 EDT, 12/18/21 11:36:00 EDT, [facility] #[id number], 148, cm, 10/23/21 15:29:00 EST, Height, 56.7,kg, 02/18/21 11:21:00 EDT, Dry Weight Start Date: 12/18/21 Stop Date: 06/16/22 Status: Ordered Senna Plus 50 mg-8.6 mg oral tablet 2 tablet, By Mouth, Daily at bedtime, # 60 tablet, 0 Refills, Maintenance, 09/18/21 11:10:00 EST, Tablet, [facility] #[id number], Partial fill upon patient request if the [...]
--- OUTSIDE RECORDS SUMMARY | 2023-06-19 13:52 | XMS_ITS | Continuity of Care Document ---
Author Name Unknown Organization [facility] Adult Address [address] [place] [address]- Care Team Providers Care Robotics Mechanic Name Role Phone Elayne Das NP Primary Care Physician Encounter [facility] Date(s): 05/06/23 - 06/05/23 [facility] Adult [address] [place] [address]- Allergies, Adverse Reactions, Alerts No Known Allergies [...] 3Result Comment: [facility] [id number] 4Result Comment: [facility] [id number] 5Admin Note: Declined 6Admin Note: VIS 04/02/09 7Admin Note: Declined Medications Artificial Tears preserved solution 1 drops, Eyes, Both, 2 times a day, PRN for dry eyes, # 30 mL, 0 Refills, Maintenance, 08/21/22 11:27:00 EST, Solution, [facility] #[id number], Partial fill upon patient request if the prescription is for a schedule II opioid drug., 1 drops Eyes,... Start Date: 08/21/22 Status: Ordered aspirin 81 mg oral delayed release tablet = 81 mg, By Mouth, Daily, # 90 tablet, 1 Refills, Maintenance, 05/14/23 13:00:00 EDT, EC Tablet, [facility] #[id number], 148, cm, 04/29/23 14:56:00 EDT, Height, 45.8, kg, 03/24/22 14:13:00 EDT, Dry Weight Start Date: 05/14/23 Stop Date: 11/10/23 Status: Ordered calcium-vitamin D 600 mg-400 intl units oral tablet 1 tablet, By Mouth, 2 times a day, # 180 tablet, 3 Refills, Maintenance, 08/26/22 11:59:00 EST, Tablet, [facility] #[id number], Partial fill upon patient request if the prescription is for a schedule II opioid drug., 1 tablet By Mouth 2 times a d... Start Date: 08/26/22 Stop Date: 08/21/23 Status: Ordered clobetasol 0.05% topical gel 1 application, Topically, 2 times a day, # 30 Gm, 0 Refills, Maintenance, 04/29/23 14:59:00 EDT, Gel, [facility] #[id number], Partial fill upon patient request if the prescription is for a schedule II opioid drug., 1 application Topically 2 times... Start Date: 04/29/23 Status: Ordered diclofenac 1% topical gel 1 application, Topically, 4 times a day, # 100 Gm, 0 Refills, Maintenance, 03/08/21 18:34:00 EDT, Gel, [facility] #[id number], g., 148, cm, 02/19/21 8:07:00 EDT, Height, 56.7, kg, 02/18/21 11:21:00 EDT, Dry Weight Start Date: 03/08/21 Stop Date: 04/07/21 Status: Ordered Estrace Vaginal Cream 0.1 mg/g See Instructions, 1 Gm Vaginally Daily (pea-sized amount to tip of finger) at bedtime every night for 2 weeks and then 2-3 times a week after that, # 42.5 Gm, 0 Refills, Maintenance, 06/29/22 11:23:00 EST, [facility] #[id number], Partial fill upo... Start Date: 06/29/22 Status: Ordered levothyroxine 0.05 mg oral tablet 1 tablet = 50 mcg, By Mouth, Daily, # 90 tablet, 1 Refills, Maintenance, 05/13/23 11:20:00 EDT, Tablet, [facility] #[id number], Partial fill upon patient request if the prescription is for a schedule II opioid drug., 148, cm, 04/29/23 14:56:00 ED... Start Date: 05/13/23 Stop Date: 07/12/23 Status: Ordered losartan 25 mg oral tablet 25 mg, 1, tablet, By Mouth, Daily, # 90 tablet, Refills 3, Tot. Refills 3, Maintenance, 05/14/23 12:59:00 EDT, Route to Pharmacy Electronically, [facility] #[id number], Partial fill upon patientrequest if the prescription is for a schedule II op... Start Date: 05/14/23 Stop Date: 05/08/24 Status: Ordered rosuvastatin 40 mg oral tablet 1 tablet, By Mouth, Daily, for 90 days, # 90 tablet, 1 Refills, Physician Stop 11/10/23 12:59:00 EDT, 05/14/23 12:59:00 EDT, [facility] #[id number], 148, cm, 04/29/23 14:56:00 EDT, Height, 45.8,kg, 03/24/22 14:13:00 EDT, Dry Weight Start Date: 05/14/23 Stop Date: 11/10/23 Status: Ordered Senna Plus 50 mg-8.6 mg oral tablet 2 tablet, By Mouth, Daily at bedtime, # 60 tablet, 0 Refills, Maintenance, 09/18/21 11:10:00 EST, Tablet, [facility] #[id number], Partial fill upon patient request if the prescription is for a schedule II opioid drug., 2 tablet By Mouth Daily at... Start Date: 09/18/21 Stop Date: 10/18/21 Status: Ordered Problem List Condition Confirmation Course Effective Dates Status Health Status Informant Anxiety depression Confirmed 09/04/11 Active Cigarette smoker Confirmed Active History of [place] (myocardial infarction) 1 Confirmed 10/2019 Active Hypercholesterolemia [...] Associate Professional Member Role: PCP Address: Address: [address] [place] [address] [address] [place] [address]- Name: Kamilla Vanessa RN Position: [facility] Supv Member Role: Primary Care Nurse Name: Maria L Dickinson RN Position: [facility] RN Member Role: Primary Care Nurse Care Team Related Persons Name: BENTON SEAMAN Name: KEN GUERRERO Address: home [address] [place] [address] Name: JUS CHAO Address: [place] [address]
--- OUTSIDE RECORDS SUMMARY | 2023-06-19 13:52 | XMS_ITS | Continuity of Care Document ---
Author Name Unknown Organization [facility] Adult Address [address] [place] [address]- Care Team Providers Care Public Affairs Officer Name Role Phone Elayne Das NP Primary Care Physician [facility]counter [facility] Date(s): 05/10/20 - 06/09/20 [facility] Adult [address] [place] [address]- [facility] Allergies, Adverse Reactions, Alerts Substance Reaction Severity [...] Vaccine (oldterm) 7 07/22/07 Given 1Result Comment: [facility] [id number] 2Result Comment: [facility] [id number] 3Admin Note: Declined 4Admin Note: VIS 04/02/09 5Admin Note: Declined 6Admin Note: VIM 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 7Admin Note: Left deltoid Medications aspirin 81 mg oral delayed release tablet = 81 mg, By Mouth, Daily, # 30 tablet, 0 Refills, Maintenance, 11/17/19 10:26:00 EDT, EC Tablet, [facility] #[id number], 149, cm, 11/15/19 13:59:00 EDT, Height, 57.7, kg, 11/15/19 15:04:00 EDT, Dry Weight Start Date: 11/17/19 Status: Ordered atorvastatin 80 mg oral tablet 1 tablet = 80 mg, By Mouth, Daily at bedtime, # 30 tablet, 0 Refills, Maintenance, 11/17/19 10:26:00 EDT, Tablet, [facility] #[id number], 149, cm, 11/15/19 13:59:00 EDT, Height, 57.7, kg, 11/15/19 15:04:00 EDT, Dry Weight Start Date: 11/17/19 Status: Ordered Colace sodium 100 mg oral capsule 100 mg, 1, capsule, By Mouth, 2 times a day, PRN, # 60 capsule, Refills 0, Tot. Refills 0, Maintenance, for constipation, 03/06/20 14:06:00 EDT, Route to Pharmacy Electronically, [facility]#[id number], 149, cm, 03/06/20 12:19:00 EDT, Height, 57.... Start Date: 03/06/20 Stop Date: 04/05/20 Status: Ordered levothyroxine 88 mcg (0.088 mg) oral capsule 1 capsule = 88 mcg, By Mouth, Daily, # 90 capsule, 3 Refills, Maintenance, 12/06/19 9:18:00 EDT, Capsule, [facility] #[id number], 149, cm, 12/06/19 9:02:00 EDT, Height, 57.7, kg, 11/15/19 15:04:00 EDT, Dry Weight Start Date: 12/06/19 Stop Date: 11/30/20 Status: Ordered losartan 25 mg oral tablet 25 mg, 1, tablet, By Mouth, Daily, # 90 tablet, Refills 3, Tot. Refills 3, Maintenance, 12/06/19 9:19:00 EDT, Route to Pharmacy Electronically, [facility] #[id number], 149, cm, 12/06/19 9:02:00 EDT, Height, 57.7, kg, 11/15/19 15:04:00 EDT, Dry We... Start Date: 12/06/19 Stop Date: 11/30/20 Status: Ordered Nicorette Mini 4 mg oral transmucosal lozenge 1 lozenge = 4 mg, By Mouth, Every hour, in addition to patches do not chew or swallow whole, # 144 lozenge, 2 Refills, Acute 11/18/20 22:40:00 EDT, 11/18/19 22:40:00 EDT, [facility] #[id number],149, cm, 11/15/19 13:59:00 EDT, Height, 57.7, kg,... Start Date: 11/18/19 Stop Date: 11/18/20 Status: Ordered nicotine 14 mg/24 hr transdermal film, extended release 1 patch, Topically, Daily, in addition to 21 mg patch, # 30 patch, 2 Refills, Acute 11/18/20 22:41:00 EDT, 11/18/19 22:39:00 EDT, Patch, [facility] #[id number], 1 patch Topically Daily,Instr:in addition to 21 mg patch, 149, cm, 11/15/19 13:59:00... Start Date: 11/18/19 Stop Date: 11/18/20 Status: Ordered nicotine 21 mg/24 hr transdermal film, extended release 1 patch, Topically, Daily, combine with 14 mg, for total of 35 mg nicotine, use for 6 months, # 30 patch, 5 Refills, Acute 11/18/20 22:45:00 EDT, 11/18/19 22:38:00 EDT, Patch, [facility] #[id number], 1 patch Topically Daily,Instr:combine with 14... Start Date: 11/18/19 Stop Date: 11/18/20 Status: Ordered Plavix 75 mg oral tablet 75 mg, 1, tablet, By Mouth, Daily, # 30 tablet, Refills 3, Tot. Refills 3, Maintenance, 05/29/20 10:22:00 EDT, Route to Pharmacy Electronically, [facility] #[id number], 149, cm, 03/06/20 12:19:00 EDT, Height, 57.7, kg, 11/15/19 15:04:00 EDT, Dry... Start Date: 05/29/20 Stop Date: 09/26/20 Status: Ordered Plavix 75 mg oral tablet 75 mg, 1, tablet, By Mouth, Daily, # 30 tablet, Refills 0, Tot. Refills 0, Maintenance, 05/10/20 12:48:00 EDT, Route to Pharmacy Electronically, [facility] #[id number], 149, cm, 03/06/20 12:19:00 EDT, Height, 57.7, [...]
--- OUTSIDE RECORDS SUMMARY | 2023-06-19 13:52 | XMS_ITS | Continuity of Care Document ---
Author Name Unknown Organization [facility] Adult Address [address] [place] [address]- Care Team Providers Care Electronics Production Supervisor Name Role Phone Elayne Das NP Primary Care Physician [facility] Date[facility]): 05/12/20 - 06/11/20 [facility] Adult [address] [place] [address]- [facility] Allergies, Adverse Reactions, Alerts Substance Reaction Severity [...] Vaccine (oldterm) 7 07/22/07 Given 1Result Comment: [facility] [id number] 2Result Comment: [facility] [id number] 3Admin Note: Declined 4Admin Note: VIS 04/02/09 5Admin Note: Declined 6Admin Note: VIM 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 7Admin Note: Left deltoid Medications aspirin 81 mg oral delayed release tablet = 81 mg, By Mouth, Daily, # 30 tablet, 0 Refills, Maintenance, 11/17/19 10:26:00 EDT, EC Tablet, [email or web address] #[id number], 149, cm, 11/15/19 13:59:00 EDT, Height, 57.7, kg, 11/15/19 15:04:00 EDT, Dry Weight Start Date: 11/17/19 Status: Ordered atorvastatin 80 mg oral tablet 1 tablet = 80 mg, By Mouth, Daily at bedtime, # 30 tablet, 0 Refills, Maintenance, 11/17/19 10:26:00 EDT, Tablet, [email or web address] #[id number], 149, cm, 11/15/19 13:59:00 EDT, Height, 57.7, kg, 11/15/19 15:04:00 EDT, Dry Weight Start Date: 11/17/19 Status: Ordered Colace sodium 100 mg oral capsule 100 mg, 1, capsule, By Mouth, 2 times a day, PRN, # 60 capsule, Refills 0, Tot. Refills 0, Maintenance, for constipation, 03/06/20 14:06:00 EDT, Route to Pharmacy Electronically, [facility]#[id number], 149, cm, 03/06/20 12:19:00 EDT, Height, 57.... Start Date: 03/06/20 Stop Date: 04/05/20 Status: Ordered levothyroxine 88 mcg (0.088 mg) oral capsule 1 capsule = 88 mcg, By Mouth, Daily, # 90 capsule, 3 Refills, Maintenance, 12/06/19 9:18:00 EDT, Capsule, [email or web address] #[id number], 149, cm, 12/06/19 9:02:00 EDT, Height, 57.7, kg, 11/15/19 15:04:00 EDT, Dry Weight Start Date: 12/06/19 Stop Date: 11/30/20 Status: Ordered losartan 25 mg oral tablet 25 mg, 1, tablet, By Mouth, Daily, # 90 tablet, Refills 3, Tot. Refills 3, Maintenance, 12/06/19 9:19:00 EDT, Route to Pharmacy Electronically, [email or web address] #[id number], 149, cm, 12/06/19 9:02:00 EDT, Height, 57.7, kg, 11/15/19 15:04:00 EDT, Dry We... Start Date: 12/06/19 Stop Date: 11/30/20 Status: Ordered Nicorette Mini 4 mg oral transmucosal lozenge 1 lozenge = 4 mg, By Mouth, Every hour, in addition to patches do not chew or swallow whole, # 144 lozenge, 2 Refills, Acute 11/18/20 22:40:00 EDT, 11/18/19 22:40:00 EDT, [email or web address] #[id number],149, cm, 11/15/19 13:59:00 EDT, Height, 57.7, kg,... Start Date: 11/18/19 Stop Date: 11/18/20 Status: Ordered nicotine 14 mg/24 hr transdermal film, extended release 1 patch, Topically, Daily, in addition to 21 mg patch, # 30 patch, 2 Refills, Acute 11/18/20 22:41:00 EDT, 11/18/19 22:39:00 EDT, Patch, [facility] #[id number], 1 patch Topically Daily,Instr:in addition to 21 mg patch, 149, cm, 11/15/19 13:59:00... Start Date: 11/18/19 Stop Date: 11/18/20 Status: Ordered nicotine 21 mg/24 hr transdermal film, extended release 1 patch, Topically, Daily, combine with 14 mg, for total of 35 mg nicotine, use for 6 months, # 30 patch, 5 Refills, Acute 11/18/20 22:45:00 EDT, 11/18/19 22:38:00 EDT, Patch, [email or web address] #[id number], 1 patch Topically Daily,Instr:combine with 14... Start Date: 11/18/19 Stop Date: 11/18/20 Status: Ordered Plavix 75 mg oral tablet 75 mg, 1, tablet, By Mouth, Daily, # 30 tablet, Refills 3, Tot. Refills 3, Maintenance, 05/29/20 10:22:00 EDT, Route to Pharmacy Electronically, [email or web address] #[id number], 149, cm, 03/06/20 12:19:00 EDT, Height, 57.7, kg, 11/15/19 15:04:00 EDT, Dry... Start Date: 05/29/20 Stop Date: 09/26/20 Status: Ordered Plavix 75 mg oral tablet 75 mg, 1, tablet, By Mouth, Daily, # 30 tablet, Refills 0, Tot. Refills 0, Maintenance, 05/10/20 12:48:00 EDT, Route to Pharmacy Electronically, [facility] #[id number], 149, cm, 03/06/20 12:19:00 EDT, Height, 57.7, [...]
--- OUTSIDE RECORDS SUMMARY | 2023-06-19 13:52 | XMS_ITS | Continuity of Care Document ---
Author Name Unknown Organization [facility] Adult Address [address] [place] [address]- Care Team Providers Care Union Representative Name Role Phone Pippa BEARDEN, Elayne Diaz Primary Care Physician [facility]): 10[facility]20 - 11/23/20 [facility] Adult [address] [place] [address]- Allergies, Adverse Reactions, Alerts Substance Reaction Severity [...] Left deltoid 3Result Comment: [facility] [id number] 4Result Comment: [facility] [id number] 5Admin Note: Declined 6Admin Note: VIS 04/02/09 7Admin Note: Declined Medications aspirin 81 mg oral delayed release tablet = 81 mg, By Mouth, Daily, # 30 tablet, 6 Refills, Maintenance, 10/17/20 13:37:00 EST, EC Tablet, [facility] #[id number], 149, cm, 08/20/20 8:58:00 EST, Height, 57.7, kg, 11/15/19 15:04:00 EDT, Dry Weight Start Date: 10/17/20 Status: Ordered atorvastatin 80 mg oral tablet 1 tablet = 80 mg, By Mouth, Daily at bedtime, # 90 tablet, 3 Refills, Maintenance, 10/17/20 13:37:00 EST, Tablet, [facility] #[id number], 149, cm, 08/20/20 8:58:00 EST, Height, 57.7, kg, 11/15/19 15:04:00 EDT, Dry Weight Start Date: 10/17/20 Stop Date: 10/12/21 Status: Ordered Colace sodium 100 mg oral capsule 100 mg, 1, capsule, By Mouth, 2 times a day, PRN, # 60 capsule, Refills 0, Tot. Refills 0, Maintenance, for constipation, 03/06/20 14:06:00 EDT, Route to Pharmacy Electronically, [facility]#[id number], 149, cm, 03/06/20 12:19:00 EDT, Height, 57.... Start Date: 03/06/20 Stop Date: 04/05/20 Status: Ordered levothyroxine 88 mcg (0.088 mg) oral capsule 1 capsule = 88 mcg, By Mouth, Daily, # 90 capsule, 1 Refills, Maintenance, 08/08/20 9:04:00 EST, Capsule, [facility] #[id number], 149, cm, 08/08/20 7:51:00 EST, Height, 57.7, kg, 11/15/19 15:04:00 EDT, Dry Weight Start Date: 08/08/20 Stop Date: 02/04/21 Status: Ordered losartan 25 mg oral tablet 25 mg, 1, tablet, By Mouth, Daily, # 90 tablet, Refills 1, Tot. Refills 1, Maintenance, 08/08/20 9:04:00 EST, Route to Pharmacy Electronically, [facility] #[id number], 149, cm, 08/08/20 7:51:00 EST, Height, 57.7, kg, 11/15/19 15:04:00 EDT, Dry We... Start Date: 08/08/20 Stop Date: 02/04/21 Status: Ordered nicotine 4 mg oral transmucosal gum 1 each = 4 mg, Chew, Every 2 hours, PRN as needed for smoking cessation, # 160 each, 1 Refills, Maintenance, 10/17/20 17:52:00 EST, Gum, [facility] #[id number], Partial fill upon patient requestif the prescription is for a schedule II opioid gómez... Start Date: 10/17/20 Status: Ordered Plavix 75 mg oral tablet 75 mg, 1, tablet, By Mouth, Daily, # 90 tablet, Refills 4, Tot. Refills 4, Maintenance, 10/17/20 13:37:00 EST, Route to Pharmacy Electronically, [facility] #[id number], 149, cm, 08/20/20 8:58:00EST, Height, 57.7, kg, [...]
--- OUTSIDE RECORDS SUMMARY | 2023-06-19 13:52 | XMS_ITS | Continuity of Care Document ---
Author Name Unknown Organization [facility] Adult Address [address] [place] [address]- Care Team Providers Care Lion Trainer Name Role Phone Elayne Das NP Primary Care Physician Encounter [facility] Date(s): 04/04/20 - 05/04/20 [facility] Adult [address] [place] [address]- [facility] Allergies, Adverse Reactions, Alerts Substance [...] Vaccine (oldterm) 7 07/22/07 Given 1Result Comment: [facility] [id number] 2Result Comment: [facility] [phone] 3Admin Note: Declined 4Admin Note: VIS 04/02/09 5Admin Note: Declined 6Admin Note: VIM 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 7Admin Note: Left deltoid Medications aspirin 81 mg oral delayed release tablet = 81 mg, By Mouth, Daily, # 30 tablet, 0 Refills, Maintenance, 11/17/19 10:26:00 EDT, EC Tablet, [facility] #[id number], 149, cm, 11/15/19 13:59:00 EDT, Height, 57.7, kg, 11/15/19 15:04:00 EDT, Dry Weight Start Date: 11/17/19 Status: Ordered atorvastatin 80 mg oral tablet 1 tablet = 80 mg, By Mouth, Daily at bedtime, # 30 tablet, 0 Refills, Maintenance, 11/17/19 10:26:00 EDT, Tablet, [facility] #[id number], 149, cm, 11/15/19 13:59:00 EDT, Height, 57.7, kg, 11/15/19 15:04:00 EDT, Dry Weight Start Date: 11/17/19 Status: Ordered Colace sodium 100 mg oral capsule 100 mg, 1, capsule, By Mouth, 2 times a day, PRN, # 60 capsule, Refills 0, Tot. Refills 0, Maintenance, for constipation, 03/06/20 14:06:00 EDT, Route to Pharmacy Electronically, [facility]#[id number], 149, cm, 03/06/20 12:19:00 EDT, Height, 57.... Start Date: 03/06/20 Stop Date: 04/05/20 Status: Ordered levothyroxine 88 mcg (0.088 mg) oral capsule 1 capsule = 88 mcg, By Mouth, Daily, # 90 capsule, 3 Refills, Maintenance, 12/06/19 9:18:00 EDT, Capsule, [facility] #[id number], 149, cm, 12/06/19 9:02:00 EDT, Height, 57.7, kg, 11/15/19 15:04:00 EDT, Dry Weight Start Date: 12/06/19 Stop Date: 11/30/20 Status: Ordered losartan 25 mg oral tablet 25 mg, 1, tablet, By Mouth, Daily, # 90 tablet, Refills 3, Tot. Refills 3, Maintenance, 12/06/19 9:19:00 EDT, Route to Pharmacy Electronically, [facility] #[id number], 149, cm, 12/06/19 9:02:00 EDT, Height, 57.7, kg, 11/15/19 15:04:00 EDT, Dry We... Start Date: 12/06/19 Stop Date: 11/30/20 Status: Ordered Nicorette Mini 4 mg oral transmucosal lozenge 1 lozenge = 4 mg, By Mouth, Every hour, in addition to patches do not chew or swallow whole, # 144 lozenge, 2 Refills, Acute 11/18/20 22:40:00 EDT, 11/18/19 22:40:00 EDT, [facility] #[id number],149, cm, 11/15/19 13:59:00 EDT, Height, 57.7, kg,... Start Date: 11/18/19 Stop Date: 11/18/20 Status: Ordered nicotine 14 mg/24 hr transdermal film, extended release 1 patch, Topically, Daily, in addition to 21 mg patch, # 30 patch, 2 Refills, Acute 11/18/20 22:41:00 EDT, 11/18/19 22:39:00 EDT, Patch, [facility] #[id number], 1 patch Topically Daily,Instr:in addition to 21 mg patch, 149, cm, 11/15/19 13:59:00... Start Date: 11/18/19 Stop Date: 11/18/20 Status: Ordered nicotine 21 mg/24 hr transdermal film, extended release 1 patch, Topically, Daily, combine with 14 mg, for total of 35 mg nicotine, use for 6 months, # 30 patch, 5 Refills, Acute 11/18/20 22:45:00 EDT, 11/18/19 22:38:00 EDT, Patch, [facility] #[id number], 1 patch Topically Daily,Instr:combine with 14... Start Date: 11/18/19 Stop Date: 11/18/20 Status: Ordered Plavix 75 mg oral tablet 75 mg, 1, tablet, By Mouth, Daily, # 30 tablet, Refills 3, Tot. Refills 3, Maintenance, 12/06/19 9:20:00 EDT, Route to Pharmacy Electronically, [facility] #[id number], 149, cm, 12/06/19 9:02:00 EDT, Height, 57.7, kg, 11/15/19 15:04:00 EDT, Dry We... Start Date: 12/06/19 Stop Date: 04/04/20 Status: Ordered Plavix 75 mg oral tablet 75 mg, 1, tablet, By Mouth, Daily, # 30 tablet, Refills 0, Tot. Refills 0, Maintenance, 04/09/20 15:12:00 EDT, Route to Pharmacy Electronically, [facility] #[id number], 149, cm, 03/06/20 12:19:00 EDT, Height, 57.7, kg, 11/15/19 15:04:00 EDT, Dry... Start Date: 04/09/20 Status: Ordered Problem List Condition Effective Dates [...]
--- OUTSIDE RECORDS SUMMARY | 2023-06-19 13:52 | XMS_ITS | Continuity of Care Document ---
Author Name Unknown Organization [facility] Adult Address [address] [place] [address]- Care Team Providers Care Blow Pit Helper Name Role Phone Elayne Das NP Primary Care Physician Encounter [facility] Date(s): 12/06/19 - 12/13/19 [facility] Adult [address] [place] [address]- [facility] Encounter Diagnosis STEMI (ST elevation myocardial infarction)(Discharge Diagnosis) - 12/06/19 HTN (hypertension)(Discharge Diagnosis) - 12/06/19 Hypercholesterolemia(Discharge Diagnosis) - 12/06/19 Cigarette smoker(Discharge Diagnosis) - 12/11/19 Skin anomaly(Discharge Diagnosis) - 12/11/19 Attending Physician: Elayne Das NP Allergies, Adverse [...] Vaccine (oldterm) 7 07/22/07 Given 1Result Comment: [facility] [id number] 2Result Comment: [facility] [id number] 3Admin Note: Declined 4Admin Note: VIS 04/02/09 5Admin Note: Declined 6Admin Note: VIM 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 7Admin Note: Left deltoid Medications aspirin 81 mg oral delayed release tablet = 81 mg, By Mouth, Daily, # 30 tablet, 0 Refills, Maintenance, 11/17/19 10:26:00 EDT, EC Tablet, [facility] #[id number], 149, cm, 11/15/19 13:59:00 EDT, Height, 57.7, kg, 11/15/19 15:04:00 EDT, Dry Weight Start Date: 11/17/19 Status: Ordered atorvastatin 80 mg oral tablet 1 tablet = 80 mg, By Mouth, Daily at bedtime, # 30 tablet, 0 Refills, Maintenance, 11/17/19 10:26:00 EDT, Tablet, [facility] #[id number], 149, cm, 11/15/19 13:59:00 EDT, Height, 57.7, kg, 11/15/19 15:04:00 EDT, Dry Weight Start Date: 11/17/19 Status: Ordered levothyroxine 88 mcg (0.088 mg) oral capsule 1 capsule = 88 mcg, By Mouth, Daily, # 90 capsule, 3 Refills, Maintenance, 12/06/19 9:18:00 EDT, Capsule, [facility] #[id number], 149, cm, 12/06/19 9:02:00 EDT, Height, 57.7, kg, 11/15/19 15:04:00 EDT, Dry Weight Start Date: 12/06/19 Stop Date: 11/30/20 Status: Ordered losartan 25 mg oral tablet 25 mg, 1, tablet, By Mouth, Daily, # 90 tablet, Refills 3, Tot. Refills 3, Maintenance, 12/06/19 9:19:00 EDT, Route to Pharmacy Electronically, [facility] #[id number], 149, cm, 12/06/19 9:02:00 EDT, Height, 57.7, kg, 11/15/19 15:04:00 EDT, Dry We... Start Date: 12/06/19 Stop Date: 11/30/20 Status: Ordered Nicorette Mini 4 mg oral transmucosal lozenge 1 lozenge = 4 mg, By Mouth, Every hour, in addition to patches do not chew or swallow whole, # 144 lozenge, 2 Refills, Acute 11/18/20 22:40:00 EDT, 11/18/19 22:40:00 EDT, [facility] #[id number],149, cm, 11/15/19 13:59:00 EDT, Height, 57.7, kg,... Start Date: 11/18/19 Stop Date: 11/18/20 Status: Ordered nicotine 14 mg/24 hr transdermal film, extended release 1 patch, Topically, Daily, in addition to 21 mg patch, # 30 patch, 2 Refills, Acute 11/18/20 22:41:00 EDT, 11/18/19 22:39:00 EDT, Patch, [facility] #[id number], 1 patch Topically Daily,Instr:in addition to 21 mg patch, 149, cm, 11/15/19 13:59:00... Start Date: 11/18/19 Stop Date: 11/18/20 Status: Ordered nicotine 21 mg/24 hr transdermal film, extended release 1 patch, Topically, Daily, combine with 14 mg, for total of 35 mg nicotine, use for 6 months, # 30 patch, 5 Refills, Acute 11/18/20 22:45:00 EDT, 11/18/19 22:38:00 EDT, Patch, [facility] #[id number], 1 patch Topically Daily,Instr:combine with 14... Start Date: 11/18/19 Stop Date: 11/18/20 Status: Ordered Plavix 75 mg oral tablet 75 mg, 1, tablet, By Mouth, Daily, # 30 tablet, Refills 3, Tot. Refills 3, Maintenance, 12/06/19 9:20:00 EDT, Route to Pharmacy Electronically, [facility] #[id number], 149, cm, 12/06/19 9:02:00 EDT, Height, 57.7, [...] Effective Dates Health Status Clinical Service Informant STEMI (ST elevation myocardial infarction) Discharge Diagnosis 12/06/19 HTN (hypertension) Discharge Diagnosis 12/06/19 Hypercholesterolemia Discharge Diagnosis 12/06/19 Cigarette smoker Discharge Diagnosis 12/11/19 Skin anomaly Discharge Diagnosis 12/11/19 Vital Signs Most recent to oldest [Reference Range]: 1 2 Height 149 cm (12/06/19 9:36 AM) 149 cm (12/06/19 9:02 AM) Weight 56.8 kg (12/06/19 9:02 AM) Oxygen Saturation [94-100 %] 96 % (12/06/19 9:02 AM) Pulse Rate [55-90 bpm] 79 bpm (12/06/19 9:02 AM) Body Mass Index [18.5-24.99] 25.58 *H* (12/06/19 9:02 AM) Blood Pressure [90-138/55-84 mm Hg] 120/ 72mm Hg (12/06/19 9:36 AM) 122/72mm Hg (12/06/19 9:02 AM) Mode of Delivery (Oxygen) Room air (12/06/19 9:02 AM) Blood pressure sites Arm, left (12/06/19 9:36 AM) Arm, left (12/06/19 9:02 AM) Temperature Route Oral (12/06/19 9:02 AM) Weight Obtained Via Standing scale (12/06/19 9:02 AM) Social History Social History Type Response Smoking Status Current every day melina arauz entered on: 01/14/18 Sex
--- OUTSIDE RECORDS SUMMARY | 2023-06-19 13:52 | XMS_ITS | Continuity of Care Document ---
Author Name Unknown Organization [facility] Adult Address [address] [place] [address]- Care Team Providers Care Icu Staff Nurse Name Role Phone Pippa BEARDEN, Elayne Diaz Primary Care Physician Encounter [facility] Date(s): 10/25/20 - 11/01/20 [facility] Adult [address] [place] [address]- Encounter Diagnosis Left ear hearing loss(Discharge Diagnosis) - 10/25/20 Left ear pain(Discharge Diagnosis) - 10/25/20 Left ear impacted cerumen(Discharge Diagnosis) - 10/25/20 Attending Physician: Elayne Das NP Allergies, Adverse [...] PASTEUR 2Admin Note: Left deltoid 3Result Comment: [facility] [id number] 4Result Comment: [facility] [phone] 5Admin Note: Declined 6Admin Note: VIS 04/02/09 7Admin Note: Declined Medications aspirin 81 mg oral delayed release tablet = 81 mg, By Mouth, Daily, # 30 tablet, 6 Refills, Maintenance, 10/17/20 13:37:00 EST, EC Tablet, [facility] #[id number], 149, cm, 08/20/20 8:58:00 EST, Height, 57.7, kg, 11/15/19 15:04:00 EDT, Dry Weight Start Date: 10/17/20 Status: Ordered atorvastatin 80 mg oral tablet 1 tablet = 80 mg, By Mouth, Daily at bedtime, # 90 tablet, 3 Refills, Maintenance, 10/17/20 13:37:00 EST, Tablet, [facility] #[id number], 149, cm, 08/20/20 8:58:00 EST, Height, 57.7, kg, 11/15/19 15:04:00 EDT, Dry Weight Start Date: 10/17/20 Stop Date: 10/12/21 Status: Ordered Colace sodium 100 mg oral capsule 100 mg, 1, capsule, By Mouth, 2 times a day, PRN, # 60 capsule, Refills 0, Tot. Refills 0, Maintenance, for constipation, 03/06/20 14:06:00 EDT, Route to Pharmacy Electronically, [facility]#[id number], 149, cm, 03/06/20 12:19:00 EDT, Height, 57.... Start Date: 03/06/20 Stop Date: 04/05/20 Status: Ordered levothyroxine 88 mcg (0.088 mg) oral capsule 1 capsule = 88 mcg, By Mouth, Daily, # 90 capsule, 1 Refills, Maintenance, 08/08/20 9:04:00 EST, Capsule, [facility] #[id number], 149, cm, 08/08/20 7:51:00 EST, Height, 57.7, kg, 11/15/19 15:04:00 EDT, Dry Weight Start Date: 08/08/20 Stop Date: 02/04/21 Status: Ordered losartan 25 mg oral tablet 25 mg, 1, tablet, By Mouth, Daily, # 90 tablet, Refills 1, Tot. Refills 1, Maintenance, 08/08/20 9:04:00 EST, Route to Pharmacy Electronically, [facility] #[id number], 149, cm, 08/08/20 7:51:00 EST, Height, 57.7, kg, 11/15/19 15:04:00 EDT, Dry We... Start Date: 08/08/20 Stop Date: 02/04/21 Status: Ordered Nicorette Mini 4 mg oral transmucosal lozenge 1 lozenge = 4 mg, By Mouth, Every hour, in addition to patches do not chew or swallow whole, # 144 lozenge, 2 Refills, Acute 11/18/20 22:40:00 EDT, 11/18/19 22:40:00 EDT, [facility] #[id number],149, cm, 11/15/19 13:59:00 EDT, Height, 57.7, kg,... Start Date: 11/18/19 Stop Date: 11/18/20 Status: Ordered nicotine 14 mg/24 hr transdermal film, extended release 1 patch, Topically, Daily, in addition to 21 mg patch, # 30 patch, 2 Refills, Acute 11/18/20 22:41:00 EDT, 11/18/19 22:39:00 EDT, Patch, [facility] #[id number], 1 patch Topically Daily,Instr:in addition to 21 mg patch, 149, cm, 11/15/19 13:59:00... Start Date: 11/18/19 Stop Date: 11/18/20 Status: Ordered nicotine 21 mg/24 hr transdermal film, extended release 1 patch, Topically, Daily, combine with 14 mg, for total of 35 mg nicotine, use for 6 months, # 30 patch, 5 Refills, Acute 11/18/20 22:45:00 EDT, 11/18/19 22:38:00 EDT, Patch, [facility] #[id number], 1 patch Topically Daily,Instr:combine with 14... Start Date: 11/18/19 Stop Date: 11/18/20 Status: Ordered nicotine 4 mg oral transmucosal gum 1 each = 4 mg, Chew, Every 2 hours, PRN as needed for smoking cessation, # 160 each, 1 Refills, Maintenance, 10/17/20 17:52:00 EST, Gum, [facility] #[id number], Partial fill upon patient requestif the prescription is for a schedule II opioid gómez... Start Date: 10/17/20 Status: Ordered Plavix 75 mg oral tablet 75 mg, 1, tablet, By Mouth, Daily, # 90 tablet, Refills 4, Tot. Refills 4, Maintenance, 10/17/20 13:37:00 EST, Route to Pharmacy Electronically, [facility] #[id number], 149, cm, 08/20/20 8:58:00EST, Height, 57.7, kg, [...] Dates Health Status Cl inical Service Informant Left ear hearing loss Discharge Diagnosis 10/25/20 Left ear pain Discharge Diagnosis 10/25/20 Left ear impacted cerumen Discharge Diagnosis 10/25/20 Vital Signs Most recent to oldest [Reference Range]: 1 2 Height 149 cm (10/25/20 12:05 PM) 149 cm (10/25/20 11:52 AM) Weight 54.8 kg (10/25/20 11:52 AM) Oxygen Saturation [94-100 %] 97 % (10/25/20 11:52 AM) Pulse Rate [55-90 bpm] 88 bpm (10/25/20 11:52 AM) Body Mass Index [18.5-24.99] 24.68 (10/25/20 11:52 AM) Blood Pressure [90-138/55-84 mm Hg] 138/ 78mm Hg (10/25/20 12:05 PM) 138/76mm Hg (10/25/20 11:52 AM) Blood pressure sites Arm, left (10/25/20 12:05 PM) Arm, right (10/25/20 11:52 AM) Weight Obtained Via Standing scale (10/25/20 11:52 AM) Social History Social History Type Response Smoking Status Current every day melina arauz entered on: 01/14/18 Sex
--- OUTSIDE RECORDS SUMMARY | 2023-06-19 13:52 | XMS_ITS | Continuity of Care Document ---
Author Name Unknown Organization [facility] Adult Address [address] [place] [address]- Care Team Providers Care Inward Toll Operator Name Role Phone Pippa BEARDEN, Elayne Diaz Primary Care Physician Encounter [facility] Date(s): 04/29/23 - 05/06/23 [facility] Adult [address] [place] [address]- Encounter Diagnosis Mouth pain(Discharge Diagnosis) - 05/02/23 Attending Physician: Elayne Das NP Allergies, Adverse [...] Note: Left deltoid 3Result Comment: [facility] [id number] 4Result Comment: [facility] [id number] 5Admin Note: Declined 6Admin Note: VIS 04/02/09 7Admin Note: Declined Medications Artificial Tears preserved solution 1 drops, Eyes, Both, 2 times a day, PRN for dry eyes, # 30 mL, 0 Refills, Maintenance, 08/21/22 11:27:00 EST, Solution, [facility] #[id number], Partial fill upon patient request if the prescription is for a schedule II opioid drug., 1 drops Eyes,... Start Date: 08/21/22 Status: Ordered aspirin 81 mg oral delayed release tablet = 81 mg, By Mouth, Daily, # 30 tablet, 5 Refills, Maintenance, 11/17/22 13:30:00 EDT, EC Tablet, [facility] #[id number], 148, cm, 08/26/22 12:13:00 EST, Height, 45.8, kg, 03/24/22 14:13:00 EDT, Dry Weight Start Date: 11/17/22 Status: Ordered betamethasone topical dipropionate, augmented 0.05% gel 1 application, Topically, Daily, for 14 days, # 50 Gm, 0 Refills, Acute 05/20/23 11:05:00 EDT, 05/06/23 11:05:00 EDT, Gel, [facility] #[id number], Partial fill upon patient request if the prescription is for a schedule II opioid drug., 1 applicat... Start Date: 05/06/23 Stop Date: 05/20/23 Status: Ordered calcium-vitamin D 600 mg-400 intl units oral tablet 1 tablet, By Mouth, 2 times a day, # 180 tablet, 3 Refills, Maintenance, 08/26/22 11:59:00 EST, Tablet, [facility] #[id number], Partial fill upon patient request if the prescription is for a schedule II opioid drug., 1 tablet By Mouth 2 times a d... Start Date: 08/26/22 Stop Date: 08/21/23 Status: Ordered clobetasol 0.05% topical gel 1 application, Topically, 2 times a day, # 30 Gm, 0 Refills, Maintenance, 04/29/23 14:59:00 EDT, Gel, [facility] #[id number], Partial fill upon patient request if the prescription is for a schedule II opioid drug., 1 application Topically 2 times... Start Date: 04/29/23 Status: Ordered diclofenac 1% topical gel 1 application, Topically, 4 times a day, # 100 Gm, 0 Refills, Maintenance, 03/08/21 18:34:00 EDT, Gel, [facility] #[id number], g., 148, cm, 02/19/21 8:07:00 EDT, Height, 56.7, kg, 02/18/21 11:21:00 EDT, Dry Weight Start Date: 03/08/21 Stop Date: 04/07/21 Status: Ordered Estrace Vaginal Cream 0.1 mg/g See Instructions, 1 Gm Vaginally Daily (pea-sized amount to tip of finger) at bedtime every night for 2 weeks and then 2-3 times a week after that, # 42.5 Gm, 0 Refills, Maintenance, 06/29/22 11:23:00 EST, [facility] #[id number], Partial fill upo... Start Date: 06/29/22 Status: Ordered levothyroxine 0.05 mg oral tablet 1 tablet = 50 mcg, By Mouth, Daily, # 90 tablet, 1 Refills, Maintenance, 11/16/22 11:49:00 EDT, Tablet, [facility] #[id number], Partial fill upon patient request if the prescription is for a schedule II opioid drug., 148, cm, 08/26/22 12:13:00 ES... Start Date: 11/16/22 Stop Date: 01/15/23 Status: Ordered losartan 25 mg oral tablet 25 mg, 1, tablet, By Mouth, Daily, # 90 tablet, Refills 3, Tot. Refills 3, Maintenance, 02/02/23 17:09:00 EDT, Route to Pharmacy Electronically, [facility] #[id number], Partial fill upon patientrequest if the prescription is for a schedule II op... Start Date: 02/02/23 Stop Date: 01/28/24 Status: Ordered rosuvastatin 40 mg oral tablet 1 tablet, By Mouth, Daily, for 30 days, # 30 tablet, 11 Refills, Physician Stop 01/10/24 10:33:00 EDT, 01/15/23 10:33:00 EDT, [facility] #[id number], 148, cm, 01/15/23 10:28:00 EDT, Height, 45.8, kg, 03/24/22 14:13:00 EDT, Dry Weight Start Date: 01/15/23 Stop Date: 01/10/24 Status: Ordered Senna Plus 50 mg-8.6 mg oral tablet 2 tablet, By Mouth, Daily at bedtime, # 60 tablet, 0 Refills, Maintenance, 09/18/21 11:10:00 EST, Tablet, [facility] #[id number], Partial fill upon patient request if the prescription is for a schedule II opioid drug., 2 tablet By Mouth Daily at... Start Date: 09/18/21 Stop Date: 10/18/21 Status: Ordered Problem List Condition Confirmation Course Effective Dates Status Health Status Informant Anxiety depression Confirmed 09/04/11 Active Cigarette smoker Confirmed Active History of [place] (myocardial infarction) 1 Confirmed 10/2019 Active Hypercholesterolemia Confirmed Active HTN (hypertension) Confirmed Active Hypothyroidism Confirmed Active Irritable bowel syndrome Confirmed Active Osteopenia Confirmed 07/29/08 Active Shingles Confirmed 11/18/96 Active Sleep apnea Confirmed Active Smoking Confirmed 12/05/08 Active 1Hx of Inferolateral STEMI Diagnosis Diagnosis Type Effective Dates Health Status Clini bob Service Informant Mouth pain Discharge Diagnosis 05/02/23 Vital Signs Most recent to oldest [Reference Range]: 1 2 3 Height 148 cm (04/29/23 2:56 PM) 148 cm (04/29/23 2:43 PM) 148 cm (04/29/23 2:38 PM) Weight 43.8 kg (04/29/23 2:38 PM) Oxygen Saturation [94-100 %] 97 % (04/29/23 2:38 PM) Pulse Rate [55-90 bpm] 80 bpm (04/29/23 2:43 PM) 79 bpm (04/29/23 2:38 PM) Body Mass Index [18.5-24.99 kg/m2] 20 kg/m2 (04/29/23 2:38 PM) Blood Pressure [90-138/55-84 mm Hg] 116/68mm Hg (04/29/23 2:56 PM) 143/77mm Hg *H* (04/29/23 2:43 PM) 143/75mm Hg *H* (04/29/23 2:38 PM) Respiratory Rate [16-30 br/min] 18 br/min (04/29/23 2:38 PM) Temperature [96.8-100.4 DegF] 98.3 DegF (04/29/23 2:38 PM) Mode of Delivery (Oxygen) Room air (04/29/23 2:38 PM) Blood pressure sites Arm, left (04/29/23 2:56 PM) Arm, right (04/29/23 2:43 PM) Arm, right (04/29/23 2:38 PM) Temperature Route Oral (04/29/23 2:38 PM) Weight Obtained Via Standing scale (04/29/23 2:38 PM) Social History Social History Type Response Smoking Status Current every day melina arauz entered on: 01/14/18 Sex Note * Harriet Zhang: PERFORM, SIGN, VERIFY Event Display: Patient Education/Instruction Authored Date: [id number] [facility] [place] [facility] Clinical Summary Name LUCA GUERRERO Age 78 Years 1945 PCP Pippa BEARDEN, Elayne Diaz PCP Visit Date 04/29/2023 14:17:00 Additional Instructions: Scheduled Appointments?? Future Appointments ?No Future Appointments Scheduled Follow-Up Instructions ?? Diagnosis Headache, unspecified Medications: Please continue your medications until treatment is completed or stopped by your provider. Discuss any questions related to medications with your provider. New Medications [facility] #[id number], [address], [place] [id number], [phone] Clobetasol Topical (clobetasol 0.05% topical gel) 1 marv Topically twice a day. Refills: 0. Next Dose: Medications to Continue with No [...] for 30 Days. Refills: 1. Next Dose: Losartan (losartan 25 mg oral tablet) 1 tab(s) Oral Daily for 90 Days. Refills: 3. Next Dose: Ocular Lubricant (Artificial Tears preserved solution) 1 Drops Both eyes twice a day as needed for dry eyes. Refills: 0. Next Dose: Rosuvastatin (rosuvastatin 40 mg oral tablet) 1 tab(s) Oral Daily for 30 Days. Refills: 11. Next Dose: Allergy Info:?? NKA Medications Given This Visit Future Orders ?No future orders Vital Signs Height 148 cm Weight 43.8 kg BMI 20 kg/m2 Blood Pressure 116 mm Hg/68 mm Hg Temperature 98.3 DegF Pulse Rate 80 bpm Respiratory Rate 18 br/min 02 Sat Mode of Delivery 97 %/Room air You can now view a summary of your hospital visit from the comfort of your home through a free online portal called [employer]. [employer] is a website that allows you to securely view your medical information including discharge summary, medications and follow-up visits. ??You can alsosend a secure electronic message to your doctor???s office to request appointments, renew medications or just ask a question. You can enroll at [email or web address] or register during your next office visit. [...] primary care provider, you may find a [facility] provider by calling [facility] at [phone]. [facility], in keeping with [facility] guidance, no longer requires face masks for staff, patientsor visitors in most situations. Similar to time spent indoors at other locations, there is the chance that you were exposed to respiratory viruses during your time with us (such as flu or COVID-19).? If you develop symptoms concerning for a viral respiratory infection, please seek testing (and treatment if indicated) from your medical provider or home test kit. For information about the plan of care [...] Team Personnel Name: Elayne Das NP Position: [facility] Associate Professional Member Role: PCP Address: Address: [address] [place] [address] [address] [place], [place] [address] Name: Kamilla Vanessa RN Position: S RN Supv Member Role: Primary Care Nurse Name: Maria L Dickinson RN Position: S RN Member Role: Primary Care Nurse Care Team Related Persons Name: BENTON SEAMAN Name: KEN GUERRERO Address: home [address] [place] [id number] Name: JUS CHAO Address: [place] [address]
--- OUTSIDE RECORDS SUMMARY | 2023-06-19 13:52 | XMS_ITS | Continuity of Care Document ---
Author Name Unknown Organization [facility] Adult Address [address] [place] [address]- Care Team Providers Care Litigation Partner Name Role Phone Elayne Das NP Primary Care Physician Encounter [facility] Date(s): 10/23/21 - 10/30/21 [facility] [address] [place] [address]- Encounter Diagnosis Constipation(Discharge Diagnosis) - 10/23/21 Abdominal pain(Discharge Diagnosis) - 10/23/21 Attending Physician: Elayne Das NP Allergies, Adverse [...] PASTEUR 2Admin Note: Left deltoid 3Result Comment: [facility] [id number] 4Result Comment: [facility] [id number] 5Admin Note: Declined 6Admin Note: VIS 04/02/09 7Admin Note: Declined Medications aspirin 81 mg oral delayed release tablet = 81 mg, By Mouth, Daily, # 30 tablet, 6 Refills, Maintenance, 05/08/21 8:09:00 EDT, EC Tablet, [facility] #[id number], 148, cm, 03/14/21 13:18:00 EDT, Height, 56.7, kg, 02/18/21 11:21:00 EDT, Dry Weight Start Date: 05/08/21 Status: Ordered clopidogrel 75 mg oral tablet 1, tablet, By Mouth, Daily, # 90 tablet, Refills 3, Tot. Refills 0, Maintenance, 03/07/21 9:49:00 EDT, Route to Pharmacy Electronically, [facility] #[id number], 148, cm, 02/19/21 8:07:00 EDT, Height, 56.7, kg, 02/18/21 11:21:00 EDT, Dry Weight Start Date: 03/07/21 Status: Ordered Colace sodium 100 mg oral capsule 100 mg, 1, capsule, By Mouth, 2 times a day, PRN, # 60 capsule, Refills 0, Tot. Refills 0, Maintenance, for constipation, 08/25/21 9:52:00 EST, Route to Pharmacy Electronically, [facility] #[id number], 148, cm, 08/25/21 9:45:00 EST, Height, 56.7,... Start Date: 08/25/21 Stop Date: 09/24/21 Status: Ordered diclofenac 1% topical gel 1 application, Topically, 4 times a day, # 100 Gm, 0 Refills, Maintenance, 03/08/21 18:34:00 EDT, Gel, [facility] #[id number], g., 148, cm, 02/19/21 8:07:00 EDT, Height, 56.7, kg, 02/18/21 11:21:00 EDT, Dry Weight Start Date: 03/08/21 Stop Date: 04/07/21 Status: Ordered levothyroxine 0.05 mg oral tablet 1 tablet = 50 mcg, By Mouth, Daily, # 30 tablet, 1 Refills, Maintenance, 08/26/21 12:34:00 EST, Tablet, [facility] #[id number], Partial fill upon patient request if the prescription is for a schedule II opioid drug., 148, cm, 08/25/21 9:45:00 EST... Start Date: 08/26/21 Stop Date: 10/25/21 Status: Ordered losartan 25 mg oral tablet 25 mg, 1, tablet, By Mouth, Daily, # 90 tablet, Refills 3, Tot. Refills 3, Maintenance, 08/25/21 9:42:00 EST, Route to Pharmacy Electronically, [facility] #[id number], 148, cm, 08/25/21 9:18:00 EST, Height, 56.7, kg, 02/18/21 11:21:00 EDT, Dry We... Start Date: 08/25/21 Stop Date: 08/20/22 Status: Ordered rosuvastatin 40 mg oral tablet 1 tablet, By Mouth, Daily, # 30 tablet, 5 Refills, [facility] #[id number], 148, cm, 03/14/21 13:18:00 EDT, Height, 56.7, kg, 02/18/21 11:21:00 EDT, Dry Weight Start Date: 06/27/21 Status: Ordered Senna Plus 50 mg-8.6 mg oral tablet 2 tablet, By Mouth, Daily at bedtime, # 60 tablet, 0 Refills, Maintenance, 09/18/21 11:10:00 EST, Tablet, [facility] #[id number], Partial fill upon patient request if the prescription is for a schedule II opioid drug., 2 tablet By Mouth Daily at... Start Date: 09/18/21 Stop Date: 10/18/21 Status: Ordered Problem List Condition Effective Dates Status Health Status Inform ant Anxiety depression(Confirmed) 09/04/11 Active Cigarette smoker(Confirmed) Active History of [place] (myocardial infarction)(Confirmed) Active Hypercholesterolemia(Confirmed) Active HTN (hypertension)(Confirmed) Active Hypothyroidism(Confirmed) Active Irritable bowel syndrome(Confirmed) Active STEMI (ST elevation myocardi al infarction)(Confirmed) Active Osteopenia(Confirmed) 07/29/08 Active Shingles(Confirmed) 11/18/96 Active Sleep apnea(Confirmed) Active Smoking(Confirmed) 12/05/08 Active Diagnosis Diagnosis Type Effective Dates Health Status Cl inical Service Informant Constipation Discharge Diagnosis 10/23/21 Abdominal pain Discharge Diagnosis 10/23/21 Vital Signs Most recent to oldest [Reference Range]: 1 2 3 Height 148 cm (10/23/21 3:29 PM) 148 cm (10/23/21 2:59 PM) 148 cm (10/23/21 2:52 PM) Weight 45.6 kg (10/23/21 2:52 PM) Oxygen Saturation [94-100 %] 99 % (10/23/21 2:52 PM) Pulse Rate [55-90 bpm] 73 bpm (10/23/21 2:52 PM) Body Mass Index [18.5-24.99] 20.82 (10/23/21 2:52 PM) Blood Pressure [90-138/55-84 mm Hg] 112/72mm Hg (10/23/21 3:29 PM) 128/67mm Hg (10/23/21 2:59 PM) 151/81mm Hg *H* (10/23/21 2:52 PM) Temperature [96.8-100.4 DegF] 98 DegF (10/23/21 2:52 PM) Mode of Delivery (Oxygen) Room air (10/23/21 2:52 PM) Blood pressure sites Arm, left (10/23/21 3:29 PM) Arm, right (10/23/21 2:59 PM) Arm, right (10/23/21 2:52 PM) Temperature Route Temporal (10/23/21 2:52 PM) Weight Obtained Via Standing scale (10/23/21 2:52 PM) Social History Social History Type Response Smoking Status Current every day melina arauz entered on: 01/14/18 Sex
--- OUTSIDE RECORDS SUMMARY | 2023-06-19 13:52 | XMS_ITS | Continuity of Care Document ---
Author Name Unknown Organization [facility] Adult Address [address] [place] [address]- Care Team Providers Care Funeral Home Manager Name Role Phone Pippa BEARDEN, Elayne Diaz Primary Care Physician Encounter [facility] Date(s): 08/27/21 - 09/26/21 [facility] [address] [place] [address]- Allergies, Adverse Reactions, Alerts No Known Allergies [...] 2Admin Note: Left deltoid 3Result Comment: [facility] [id number] 4Result Comment: [facility] [id number] 5Admin Note: Declined 6Admin Note: VIS 04/02/09 7Admin Note: Declined Medications aspirin 81 mg oral delayed release tablet = 81 mg, By Mouth, Daily, # 30 tablet, 6 Refills, Maintenance, 05/08/21 8:09:00 EDT, EC Tablet, [facility] #[id number], 148, cm, 03/14/21 13:18:00 EDT, Height, 56.7, kg, 02/18/21 11:21:00 EDT, Dry Weight Start Date: 05/08/21 Status: Ordered clopidogrel 75 mg oral tablet 1, tablet, By Mouth, Daily, # 90 tablet, Refills 3, Tot. Refills 0, Maintenance, 03/07/21 9:49:00 EDT, Route to Pharmacy Electronically, [facility] #[id number], 148, cm, 02/19/21 8:07:00 EDT, Height, 56.7, kg, 02/18/21 11:21:00 EDT, Dry Weight Start Date: 03/07/21 Status: Ordered Colace sodium 100 mg oral capsule 100 mg, 1, capsule, By Mouth, 2 times a day, PRN, # 60 capsule, Refills 0, Tot. Refills 0, Maintenance, for constipation, 08/25/21 9:52:00 EST, Route to Pharmacy Electronically, [facility] #[id number], 148, cm, 08/25/21 9:45:00 EST, Height, 56.7,... Start Date: 08/25/21 Stop Date: 09/24/21 Status: Ordered diclofenac 1% topical gel 1 application, Topically, 4 times a day, # 100 Gm, 0 Refills, Maintenance, 03/08/21 18:34:00 EDT, Gel, [facility] #[id number], g., 148, cm, 02/19/21 8:07:00 EDT, Height, 56.7, kg, 02/18/21 11:21:00 EDT, Dry Weight Start Date: 03/08/21 Stop Date: 04/07/21 Status: Ordered levothyroxine 0.05 mg oral tablet 1 tablet = 50 mcg, By Mouth, Daily, # 30 tablet, 1 Refills, Maintenance, 08/26/21 12:34:00 EST, Tablet, [facility] #[id number], Partial fill upon patient request if the prescription is for a schedule II opioid drug., 148, cm, 08/25/21 9:45:00 EST... Start Date: 08/26/21 Stop Date: 10/25/21 Status: Ordered losartan 25 mg oral tablet 25 mg, 1, tablet, By Mouth, Daily, # 90 tablet, Refills 3, Tot. Refills 3, Maintenance, 08/25/21 9:42:00 EST, Route to Pharmacy Electronically, [facility] #[id number], 148, cm, 08/25/21 9:18:00 EST, Height, 56.7, kg, 02/18/21 11:21:00 EDT, Dry We... Start Date: 08/25/21 Stop Date: 08/20/22 Status: Ordered rosuvastatin 40 mg oral tablet 1 tablet, By Mouth, Daily, # 30 tablet, 5 Refills, [facility] #[id number], 148, cm, 03/14/21 13:18:00 EDT, Height, 56.7, kg, 02/18/21 11:21:00 EDT, Dry Weight Start Date: 06/27/21 Status: Ordered Senna Plus 50 mg-8.6 mg oral tablet 2 tablet, By Mouth, Daily at bedtime, # 60 tablet, 0 Refills, Maintenance, 09/18/21 11:10:00 EST, Tablet, [facility] #[id number], Partial fill upon patient request if the [...]
--- OUTSIDE RECORDS SUMMARY | 2023-06-19 13:52 | XMS_ITS | Continuity of Care Document ---
Author Name Unknown Organization [facility] Adult Address [address] [place] [address]- Care Team Providers Care Motors And Controls Tester Name Role Phone Pippa BEARDEN, Elayne Diaz Primary Care Physician Encounter [facility] [place] Date(s): 09/18/21 - 10/18/21 [facility] [address] [place] [address]- Attending Physician: Lizbeth Cordova Admitting Physician: AdmLizbeth sandoval Referring Physician: AdmtrLizbeth Allergies, Adverse Reactions, Alerts No Known Allergies [...] deltoid 3Result Comment: [facility] [id number] 4Result Comment: [facility][note 3] [id number] 5Admin Note: Declined 6Admin Note: VIS 04/02/09 7Admin Note: Declined Medications aspirin 81 mg oral delayed release tablet = 81 mg, By Mouth, Daily, # 30 tablet, 6 Refills, Maintenance, 05/08/21 8:09:00 EDT, EC Tablet, [facility] #[id number], 148, cm, 03/14/21 13:18:00 EDT, Height, 56.7, kg, 02/18/21 11:21:00 EDT, Dry Weight Start Date: 05/08/21 Status: Ordered clopidogrel 75 mg oral tablet 1, tablet, By Mouth, Daily, # 90 tablet, Refills 3, Tot. Refills 0, Maintenance, 03/07/21 9:49:00 EDT, Route to Pharmacy Electronically, [facility] #[id number], 148, cm, 02/19/21 8:07:00 EDT, Height, 56.7, kg, 02/18/21 11:21:00 EDT, Dry Weight Start Date: 03/07/21 Status: Ordered Colace sodium 100 mg oral capsule 100 mg, 1, capsule, By Mouth, 2 times a day, PRN, # 60 capsule, Refills 0, Tot. Refills 0, Maintenance, for constipation, 08/25/21 9:52:00 EST, Route to Pharmacy Electronically, [facility] #[id number], 148, cm, 08/25/21 9:45:00 EST, Height, 56.7,... Start Date: 08/25/21 Stop Date: 09/24/21 Status: Ordered diclofenac 1% topical gel 1 application, Topically, 4 times a day, # 100 Gm, 0 Refills, Maintenance, 03/08/21 18:34:00 EDT, Gel, [facility] #[id number], g., 148, cm, 02/19/21 8:07:00 EDT, Height, 56.7, kg, 02/18/21 11:21:00 EDT, Dry Weight Start Date: 03/08/21 Stop Date: 04/07/21 Status: Ordered levothyroxine 0.05 mg oral tablet 1 tablet = 50 mcg, By Mouth, Daily, # 30 tablet, 1 Refills, Maintenance, 08/26/21 12:34:00 EST, Tablet, [facility] #[id number], Partial fill upon patient request if the prescription is for a schedule II opioid drug., 148, cm, 08/25/21 9:45:00 EST... Start Date: 08/26/21 Stop Date: 10/25/21 Status: Ordered losartan 25 mg oral tablet 25 mg, 1, tablet, By Mouth, Daily, # 90 tablet, Refills 3, Tot. Refills 3, Maintenance, 08/25/21 9:42:00 EST, Route to Pharmacy Electronically, [facility] #[id number], 148, cm, 08/25/21 9:18:00 EST, Height, 56.7, kg, 02/18/21 11:21:00 EDT, Dry We... Start Date: 08/25/21 Stop Date: 08/20/22 Status: Ordered rosuvastatin 40 mg oral tablet 1 tablet, By Mouth, Daily, # 30 tablet, 5 Refills, [facility] #[id number], 148, cm, 03/14/21 13:18:00 EDT, Height, 56.7, kg, 02/18/21 11:21:00 EDT, Dry Weight Start Date: 06/27/21 Status: Ordered Senna Plus 50 mg-8.6 mg oral tablet 2 tablet, By Mouth, Daily at bedtime, # 60 tablet, 0 Refills, Maintenance, 09/18/21 11:10:00 EST, Tablet, [facility] #[id number], Partial fill upon patient request if the prescription is for a schedule II opioid drug., 2 tablet By Mouth Daily at... Start Date: 09/18/21 Stop Date: 10/18/21 Status: Ordered Problem List Condition Effective Dates Status Health Status Inform ant Anxiety depression(Confirmed) 09/04/11 Active Cigarette smoker(Confirmed) Active History of [place] (myocardial infarction)(Confirmed) Active Hypercholesterolemia(Confirmed) Active HTN (hypertension)(Confirmed) Active Hypothyroidism(Confirmed) Active Irritable bowel syndrome(Confirmed) Active STEMI (ST elevation myocardi al infarction)(Confirmed) Active Osteopenia(Confirmed) 07/29/08 Active Shingles(Confirmed) 11/18/96 Active Sleep apnea(Confirmed) Active Smoking(Confirmed) 12/05/08 Active Social History Social History Type Response Smoking Status Current every day melina arauz entered on: 01/14/18 Sex
--- OUTSIDE RECORDS SUMMARY | 2023-06-19 13:53 | XMS_ITS | Continuity of Care Document ---
Author Name Unknown Organization [facility] Adult Address [address] [place] [address]- Care Team Providers Care Service Attendant Cafeteria Name Role Phone Pippa BEARDEN, Elayne Diaz Primary Care Physician Encounter [facility] Date(s): 07/01/22 - 07/31/22 [facility] [address] [place] [address]- Allergies, Adverse Reactions, Alerts No Known Allergies [...] 2Admin Note: Left deltoid 3Result Comment: [facility] [id number] 4Result Comment: [facility] [id number] 5Admin Note: Declined 6Admin Note: VIS 04/02/09 7Admin Note: Declined Medications aspirin 81 mg oral delayed release tablet = 81 mg, By Mouth, Daily, # 30 tablet, 3 Refills, Maintenance, 03/02/22 12:46:00 EDT, EC Tablet, [facility] #[id number], 148, cm, 01/15/22 13:45:00 EDT, Height, 56.7, kg, 02/18/21 11:21:00 EDT, Dry Weight Start Date: 03/02/22 Status: Ordered diclofenac 1% topical gel 1 application, Topically, 4 times a day, # 100 Gm, 0 Refills, Maintenance, 03/08/21 18:34:00 EDT, Gel, [facility] #[id number], g., 148, cm, 02/19/21 8:07:00 EDT, Height, 56.7, kg, 02/18/21 11:21:00 EDT, Dry Weight Start Date: 03/08/21 Stop Date: 04/07/21 Status: Ordered Estrace Vaginal Cream 0.1 mg/g See Instructions, 1 Gm Vaginally Daily (pea-sized amount to tip of finger) at bedtime every night for 2 weeks and then 2-3 times a week after that, # 42.5 Gm, 0 Refills, Maintenance, 06/29/22 11:23:00 EST, [facility] #[id number], Partial fill upo... Start Date: 06/29/22 Status: Ordered levothyroxine 0.05 mg oral tablet 1 tablet = 50 mcg, By Mouth, Daily, # 90 tablet, 1 Refills, Maintenance, 05/21/22 14:53:00 EDT, Tablet, [facility] #[id number], Partial fill upon patient request if the prescription is for a schedule II opioid drug., 148, cm, 03/24/22 14:13:00 ED... Start Date: 05/21/22 Stop Date: 07/20/22 Status: Ordered losartan 25 mg oral tablet 25 mg, 1, tablet, By Mouth, Daily, # 90 tablet, Refills 3, Tot. Refills 3, Maintenance, 08/25/21 9:42:00 EST, Route to Pharmacy Electronically, [facility] #[id number], 148, cm, 08/25/21 9:18:00 EST, Height, 56.7, kg, 02/18/21 11:21:00 EDT, Dry We... Start Date: 08/25/21 Stop Date: 08/20/22 Status: Ordered rosuvastatin 40 mg oral tablet 1 tablet, By Mouth, Daily, for 90 days, # 90 tablet, 1 Refills, Physician Stop 12/14/22 10:00:00 EDT, 06/17/22 10:00:00 EDT, [facility] #[id number], 148, cm, 03/24/22 14:13:00 EDT, Height, 45.8,kg, 03/24/22 14:13:00 EDT, Dry Weight Start Date: 06/17/22 Stop Date: 12/14/22 Status: Ordered Senna Plus 50 mg-8.6 mg oral tablet 2 tablet, By Mouth, Daily at bedtime, # 60 tablet, 0 Refills, Maintenance, 09/18/21 11:10:00 EST, Tablet, [facility] #[id number], Partial fill upon patient request if the prescription is for a schedule II opioid drug., 2 tablet By Mouth Daily at... Start Date: 09/18/21 Stop Date: 10/18/21 Status: Ordered Problem List Condition Confirmation Course Effective Dates Status Health Status Informant Anxiety depression Confirmed 09/04/11 Active Cigarette smoker Confirmed Active History of [place] (myocardial infarction) Confirmed Active Hypercholesterolemia Confirmed Active [...] Associate Professional Member Role: PCP Address: Address: [address] [place] [id number] Name: Kamilla Vanessa RN Position: KERRI RN Supv Member Role: Primary Care Nurse Name: Maria L Dickinson RN Position: KERRI RN Member Role: Primary Care Nurse Care Team Related Persons Name: BENTON SEAMAN Name: KEN GUERRERO Address: home [address] [place] [id number] Name: JUS CHAO Address: [place] [address]
--- OUTSIDE RECORDS SUMMARY | 2023-06-19 13:53 | XMS_ITS | Continuity of Care Document ---
Author Name Unknown Organization [facility] Adult Address [address] [place] [address]- Care Team Providers Care Director Of Workforce Development Name Role Phone Elayne Das NP Primary Care Physician En[place] [facility] Date(s): 02/19/21 - 02/26/21 [facility] [address] [place] [address]- Encounter Diagnosis Anxiety depression(Discharge Diagnosis) - 02/19/21 Cigarette smoker(Discharge Diagnosis) - 02/19/21 HTN (hypertension)(Discharge Diagnosis) - 02/19/21 History of ID (myocardial infarction)(Discharge Diagnosis) - 02/19/21 Hypercholesterolemia(Discharge Diagnosis) - 02/19/21 Hypothyroidism(Discharge Diagnosis) - 02/19/21 Irritable bowel syndrome(Discharge Diagnosis) - 02/19/21 Sleep apnea(Discharge Diagnosis) - 02/19/21 Smoking(Discharge Diagnosis) - 02/19/21 Attending Physician: Elayne Das NP Allergies, Adverse [...] Note: Left deltoid 3Result Comment: [facility] [id number] 4Result Comment: [facility] [phone] 5Admin Note: Declined 6Admin Note: VIS 04/02/09 7Admin Note: Declined Medications aspirin 81 mg oral delayed release tablet = 81 mg, By Mouth, Daily, # 30 tablet, 6 Refills, Maintenance, 10/17/20 13:37:00 EST, EC Tablet, [facility] #[id number], 149, cm, 08/20/20 8:58:00 EST, Height, 57.7, kg, 11/15/19 15:04:00 EDT, Dry Weight Start Date: 10/17/20 Status: Ordered Colace sodium 100 mg oral capsule 100 mg, 1, capsule, By Mouth, 2 times a day, PRN, # 60 capsule, Refills 0, Tot. Refills 0, Maintenance, for constipation, 03/06/20 14:06:00 EDT, Route to Pharmacy Electronically, [facility]#[id number], 149, cm, 03/06/20 12:19:00 EDT, Height, 57.... Start Date: 03/06/20 Stop Date: 04/05/20 Status: Ordered levothyroxine 0.075 mg oral tablet [...] 02/04/21 9:04:00 EDT, Route to Pharmacy Electronically, [facility] #[id number], 149, cm, 10/25/20 12:05:00EST, Height, 57.7, kg, 11/15/19 15:04:00 EDT, Dry W... Start Date: 02/04/21 Stop Date: 08/03/21 Status: Ordered Plavix 75 mg oral tablet 75 mg, 1, tablet, By Mouth, Daily, # 90 tablet, Refills 4, Tot. Refills 4, Maintenance, 10/17/20 13:37:00 EST, Route to Pharmacy Electronically, [facility] #[id number], 149, cm, 08/20/20 8:58:00EST, Height, 57.7, kg, 11/15/19 15:04:00 EDT, Dry W... Start Date: 10/17/20 Stop Date: 01/10/22 Status: Ordered rosuvastatin 40 mg oral tablet 1 tablet = 40 mg, By Mouth, Daily, # 30 tablet, 6 Refills, Maintenance, 12/25/20 12:06:00 EDT, Tablet, [facility] #[id number], Partial fill upon patient request if the prescription is for a schedule II opioid drug., 149, cm, 10/25/20 12:05:00 EST... Start Date: 12/25/20 Stop Date: 07/23/21 Status: Ordered Problem List Condition Effective Dates Status Health Status Inform ant Anxiety depression(Confirmed) 09/04/11 Active Cigarette smoker(Confirmed) Active History of [place] (myocardial infarction)(Confirmed) Active Hypercholesterolemia(Confirmed) Active HTN (hypertension)(Confirmed) Active Hypothyroidism(Confirmed) Active Irritable bowel syndrome(Confirmed) Active STEMI (ST elevation myocardi al infarction)(Confirmed) Active Osteopenia(Confirmed) 07/29/08 Active Shingles(Confirmed) 11/18/96 Active Sleep apnea(Confirmed) Active Smoking(Confirmed) 12/05/08 Active Diagnosis Diagnosis Type Effective Dates Health Status Clinical Service Informant Anxiety depression Discharge Diagnosis 02/19/21 Cigarette smoker Discharge Diagnosis 02/19/21 HTN (hypertension) Discharge Diagnosis 02/19/21 History of ID (myocardial infarction) Discharge Diagnosis 02/19/21 Hypercholesterolemia Discharge Diagnosis 02/19/21 Hypothyroidism Discharge Diagnosis 02/19/21 Irritable bowel syndrome Discharge Diagnosis 02/19/21 Sleep apnea Discharge Diagnosis 02/19/21 Smoking Discharge Diagnosis 02/19/21 Vital Signs Most recent to oldest [Reference Range]: 1 2 Height 148 cm (02/19/21 8:07 AM) 148 cm (02/19/21 7:37 AM) Weight 56.4 kg (02/19/21 7:37 AM) Oxygen Saturation [94-100 %] 98 % (02/19/21 7:37 AM) Pulse Rate [55-90 bpm] 79 bpm (02/19/21 7:37 AM) Body Mass Index [18.5-24.99] 25.75 *H* (02/19/21 7:37 AM) Blood Pressure [90-138/55-84 mm Hg] 128/ 82mm Hg (02/19/21 8:07 AM) 138/82mm Hg (02/19/21 7:37 AM) Mode of Delivery (Oxygen) Room air (02/19/21 7:37 AM) Blood pressure sites Arm, left (02/19/21 8:07 AM) Arm, left (02/19/21 7:37 AM) Social History Social History Type Response Smoking Status Current every day melina arauz entered on: 01/14/18 Sex
--- OUTSIDE RECORDS SUMMARY | 2023-06-19 13:53 | XMS_ITS | Continuity of Care Document ---
Author Name Unknown Organization [facility] Adult Address [address] [place] [address]- Care Team Providers Care Can Reforming Machine Operator Name Role Phone Elayne Das NP Primary Care Physician [facility]counter [facility] Date(s): 09/29/22 - 10/29/22 [facility] Adult [address] [place] [address]- Allergies, Adverse Reactions, Alerts No Known Allergies [...] 2Admin Note: Left deltoid 3Result Comment: [facility] [id number] 4Result Comment: [facility] [id number] 5Admin Note: Declined 6Admin Note: VIS 04/02/09 7Admin Note: Declined Medications Artificial Tears preserved solution 1 drops, Eyes, Both, 2 times a day, PRN for dry eyes, # 30 mL, 0 Refills, Maintenance, 08/21/22 11:27:00 EST, Solution, [facility] #[id number], Partial fill upon patient request if the prescription is for a schedule II opioid drug., 1 drops Eyes,... Start Date: 08/21/22 Status: Ordered aspirin 81 mg oral delayed release tablet = 81 mg, By Mouth, Daily, # 30 tablet, 3 Refills, Maintenance, 03/02/22 12:46:00 EDT, EC Tablet, [facility] #[id number], 148, cm, 01/15/22 13:45:00 EDT, Height, 56.7, kg, 02/18/21 11:21:00 EDT, Dry Weight Start Date: 03/02/22 Status: Ordered calcium-vitamin D 600 mg-400 intl units oral tablet 1 tablet, By Mouth, 2 times a day, # 180 tablet, 3 Refills, Maintenance, 08/26/22 11:59:00 EST, Tablet, [facility] #[id number], Partial fill upon patient request if the prescription is for a schedule II opioid drug., 1 tablet By Mouth 2 times a d... Start Date: 08/26/22 Stop Date: 08/21/23 Status: Ordered diclofenac 1% topical gel 1 application, Topically, 4 times a day, # 100 Gm, 0 Refills, Maintenance, 03/08/21 18:34:00 EDT, Gel, [facility] #[id number], g., 148, cm, 02/19/21 8:07:00 EDT, Height, 56.7, kg, 02/18/21 11:21:00 EDT, Dry Weight Start Date: 03/08/21 Stop Date: 04/07/21 Status: Ordered Estrace Vaginal Cream 0.1 mg/g See Instructions, 1 Gm Vaginally Daily (pea-sized amount to tip of finger) at bedtime every night for 2 weeks and then 2-3 times a week after that, # 42.5 Gm, 0 Refills, Maintenance, 06/29/22 11:23:00 EST, [facility] #[id number], Partial fill upo... Start Date: 06/29/22 Status: Ordered levothyroxine 0.05 mg oral tablet 1 tablet = 50 mcg, By Mouth, Daily, # 90 tablet, 1 Refills, Maintenance, 05/21/22 14:53:00 EDT, Tablet, [facility] #[id number], Partial fill upon patient request if the prescription is for a schedule II opioid drug., 148, cm, 03/24/22 14:13:00 ED... Start Date: 05/21/22 Stop Date: 07/20/22 Status: Ordered losartan 25 mg oral tablet 25 mg, 1, tablet, By Mouth, Daily, # 90 tablet, Refills 1, Tot. Refills 1, Maintenance, 08/25/22 13:53:00 EST, Route to Pharmacy Electronically, [facility] #[id number], 148, cm, 07/03/22 9:15:00EST, Height, 45.8, kg, 03/24/22 14:13:00 EDT, Dry W... Start Date: 08/25/22 Stop Date: 02/21/23 Status: Ordered rosuvastatin 40 mg oral tablet 1 tablet, By Mouth, Daily, for 90 days, # 90 tablet, 1 Refills, Physician Stop 12/14/22 10:00:00 EDT, 06/17/22 10:00:00 EDT, [facility] #[id number], 148, cm, 03/24/22 14:13:00 EDT, Height, 45.8,kg, 03/24/22 14:13:00 EDT, Dry Weight Start Date: 06/17/22 Stop Date: 12/14/22 Status: Ordered Senna Plus 50 mg-8.6 mg oral tablet 2 tablet, By Mouth, Daily at bedtime, # 60 tablet, 0 Refills, Maintenance, 09/18/21 11:10:00 EST, Tablet, [facility] #[id number], Partial fill upon patient request if the [...] Personnel Name: Pippa BEARDEN, Elayne Diaz Position: [facility] PCO Associate Professional Member Role: PCP Address: Address: [address] [place] [address] [address] Floor [place], [place] [address] Name: Kamilla Vanessa RN Position: Rosina RN Supv Member Role: Primary Care Nurse Name: Maria L Dickinson RN Position: S RN Member Role: Primary Care Nurse Care Team Related Persons Name: BENTON SEAMAN Name: KEN GUERRERO Address: home [address] [place] [id number] Name: JUS CHAO Address: [place] [address]
--- OUTSIDE RECORDS SUMMARY | 2023-06-19 13:53 | XMS_ITS | Continuity of Care Document ---
Author Name Unknown Organization [facility] Adult Address [address] [place] [address]- Care Team Providers Care Hazmat Technician Name Role Phone Pippa BEARDEN, Elayne Diaz Primary Care Physician Encounter [facility] Date(s): 02/14/20 - 02/21/20 [facility] Adult [address] [place] [address]- [facility] Encounter Diagnosis Skin anomaly(Discharge Diagnosis) - 02/14/20 Bruise(Discharge Diagnosis) - 02/14/20 Grief(Discharge Diagnosis) - 02/14/20 Smoking(Discharge Diagnosis) - 02/14/20 Cigarette smoker(Discharge Diagnosis) - 02/14/20 Attending Physician: Elayne Das NP Referring Physician: Clarissa Penaloza MD Allergies, Adverse Reactions, Alerts Substance Reaction [...] Vaccine (oldterm) 7 07/22/07 Given 1Result Comment: [facility]NOTE 2] [id number] 2Result Comment: [facility] [id number] 3Admin Note: Declined 4Admin Note: VIS 04/02/09 5Admin Note: Declined 6Admin Note: VIM 02/19/06 [facility]URED [employer] 7Admin Note: Left deltoid Medications aspirin 81 mg oral delayed release tablet = 81 mg, By Mouth, Daily, # 30 tablet, 0 Refills, Maintenance, 11/17/19 10:26:00 EDT, EC Tablet, [facility] #[id number], 149, cm, 11/15/19 13:59:00 EDT, Height, 57.7, kg, 11/15/19 15:04:00 EDT, Dry Weight Start Date: 11/17/19 Status: Ordered atorvastatin 80 mg oral tablet 1 tablet = 80 mg, By Mouth, Daily at bedtime, # 30 tablet, 0 Refills, Maintenance, 11/17/19 10:26:00 EDT, Tablet, [facility] #[id number], 149, cm, 11/15/19 13:59:00 EDT, Height, 57.7, kg, 11/15/19 15:04:00 EDT, Dry Weight Start Date: 11/17/19 Status: Ordered levothyroxine 88 mcg (0.088 mg) oral capsule 1 capsule = 88 mcg, By Mouth, Daily, # 90 capsule, 3 Refills, Maintenance, 12/06/19 9:18:00 EDT, Capsule, [facility] #[id number], 149, cm, 12/06/19 9:02:00 EDT, Height, 57.7, kg, 11/15/19 15:04:00 EDT, Dry Weight Start Date: 12/06/19 Stop Date: 11/30/20 Status: Ordered losartan 25 mg oral tablet 25 mg, 1, tablet, By Mouth, Daily, # 90 tablet, Refills 3, Tot. Refills 3, Maintenance, 12/06/19 9:19:00 EDT, Route to Pharmacy Electronically, [facility] #[id number], 149, cm, 12/06/19 9:02:00 EDT, Height, 57.7, kg, 11/15/19 15:04:00 EDT, Dry We... Start Date: 12/06/19 Stop Date: 11/30/20 Status: Ordered Nicorette Mini 4 mg oral transmucosal lozenge 1 lozenge = 4 mg, By Mouth, Every hour, in addition to patches do not chew or swallow whole, # 144 lozenge, 2 Refills, Acute 11/18/20 22:40:00 EDT, 11/18/19 22:40:00 EDT, [facility] #[id number],149, cm, 11/15/19 13:59:00 EDT, Height, 57.7, kg,... Start Date: 11/18/19 Stop Date: 11/18/20 Status: Ordered nicotine 14 mg/24 hr transdermal film, extended release 1 patch, Topically, Daily, in addition to 21 mg patch, # 30 patch, 2 Refills, Acute 11/18/20 22:41:00 EDT, 11/18/19 22:39:00 EDT, Patch, [facility] #[id number], 1 patch Topically Daily,Instr:in addition to 21 mg patch, 149, cm, 11/15/19 13:59:00... Start Date: 11/18/19 Stop Date: 11/18/20 Status: Ordered nicotine 21 mg/24 hr transdermal film, extended release 1 patch, Topically, Daily, combine with 14 mg, for total of 35 mg nicotine, use for 6 months, # 30 patch, 5 Refills, Acute 11/18/20 22:45:00 EDT, 11/18/19 22:38:00 EDT, Patch, [facility] #[id number], 1 patch Topically Daily,Instr:combine with 14... Start Date: 11/18/19 Stop Date: 11/18/20 Status: Ordered Plavix 75 mg oral tablet 75 mg, 1, tablet, By Mouth, Daily, # 30 tablet, Refills 3, Tot. Refills 3, Maintenance, 12/06/19 9:20:00 EDT, Route to Pharmacy Electronically, [facility] #[id number], 149, cm, 12/06/19 9:02:00 EDT, Height, 57.7, [...] inical Service Informant Skin anomaly Discharge Diagnosis 02/14/20 Bruise Discharge Diagnosis 02/14/20 Grief Discharge Diagnosis 02/14/20 Smoking Discharge Diagnosis 02/14/20 Cigarette smoker Discharge Diagnosis 02/14/20 Vital Signs Most recent to oldest [Reference Range]: 1 2 Height 149 cm (02/14/20 8:26 AM) 149 cm (02/14/20 7:59 AM) Weight 51.0 kg (02/14/20 7:59 AM) Oxygen Saturation [94-100 %] 96 % (02/14/20 7:59 AM) Pulse Rate [55-90 bpm] 66 bpm (02/14/20 7:59 AM) Body Mass Index [18.5-24.99] 22.97 (02/14/20 7:59 AM) Blood Pressure [90-138/55-84 mm Hg] 118/ 72mm Hg (02/14/20 8:26 AM) 120/70mm Hg (02/14/20 7:59 AM) Blood pressure sites Arm, left (02/14/20 8:26 AM) Arm, right (02/14/20 7:59 AM) Weight Obtained Via Standing scale (02/14/20 7:59 AM) Social History Social History Type Response Smoking Status Current every day melina arauz entered on: 01/14/18 Sex
--- OUTSIDE RECORDS SUMMARY | 2023-06-19 13:53 | XMS_ITS | Continuity of Care Document ---
Author Name Unknown Organization [facility] Adult Address [address] [place] [address]- Care Team Providers Care Marketing Services Rep Name Role Phone Pippa BEARDEN, Elayne Diaz Primary Care Physician [place] [facility] Date(s[place] 03/06/20 - 03/13/20 [facility] [address] [place] [address]- [facility] Encounter Diagnosis Constipation(Discharge Diagnosis) - 03/06/20 Attending Physician: Nader Arnold MD Allergies, Adverse Reactions, Alerts Substance Reaction [...] Vaccine (oldterm) 7 07/22/07 Given 1Result Comment: [facility] [id number] 2Result Comment: [facility] [id number] 3Admin Note: Declined 4Admin Note: VIS 04/02/09 5Admin Note: Declined 6Admin Note: VIM 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 7Admin Note: Left deltoid Medications aspirin 81 mg oral delayed release tablet = 81 mg, By Mouth, Daily, # 30 tablet, 0 Refills, Maintenance, 11/17/19 10:26:00 EDT, EC Tablet, [facility] #[id number], 149, cm, 11/15/19 13:59:00 EDT, Height, 57.7, kg, 11/15/19 15:04:00 EDT, Dry Weight Start Date: 11/17/19 Status: Ordered atorvastatin 80 mg oral tablet 1 tablet = 80 mg, By Mouth, Daily at bedtime, # 30 tablet, 0 Refills, Maintenance, 11/17/19 10:26:00 EDT, Tablet, [facility] #[id number], 149, cm, 11/15/19 13:59:00 EDT, Height, 57.7, kg, 11/15/19 15:04:00 EDT, Dry Weight Start Date: 11/17/19 Status: Ordered Colace sodium 100 mg oral capsule 100 mg, 1, capsule, By Mouth, 2 times a day, PRN, # 60 capsule, Refills 0, Tot. Refills 0, Maintenance, for constipation, 03/06/20 14:06:00 EDT, Route to Pharmacy Electronically, [facility]#[id number], 149, cm, 03/06/20 12:19:00 EDT, Height, 57.... Start Date: 03/06/20 Stop Date: 04/05/20 Status: Ordered lactulose 10 gm/15 ml oral syrup 30 mL = 20 Gm, By Mouth, Daily, PRN as needed for constipation, for 14 days, Take 30mL as needed for constipation episodes, # 237 mL, 0 Refills, Acute 03/20/20 14:11:00 EDT, 03/06/20 14:11:00 EDT, Syrup, [facility] #[id number], 30 mL By Mouth Araceli... Start Date: 03/06/20 Stop Date: 03/20/20 Status: Ordered levothyroxine 88 mcg (0.088 mg) oral capsule 1 capsule = 88 mcg, By Mouth, Daily, # 90 capsule, 3 Refills, Maintenance, 12/06/19 9:18:00 EDT, Capsule, [facility] #[id number], 149, cm, 12/06/19 9:02:00 EDT, Height, 57.7, kg, 11/15/19 15:04:00 EDT, Dry Weight Start Date: 12/06/19 Stop Date: 11/30/20 Status: Ordered losartan 25 mg oral tablet 25 mg, 1, tablet, By Mouth, Daily, # 90 tablet, Refills 3, Tot. Refills 3, Maintenance, 12/06/19 9:19:00 EDT, Route to Pharmacy Electronically, [facility] #[id number], 149, cm, 12/06/19 9:02:00 EDT, Height, 57.7, kg, 11/15/19 15:04:00 EDT, Dry We... Start Date: 12/06/19 Stop Date: 11/30/20 Status: Ordered Nicorette Mini 4 mg oral transmucosal lozenge 1 lozenge = 4 mg, By Mouth, Every hour, in addition to patches do not chew or swallow whole, # 144 lozenge, 2 Refills, Acute 11/18/20 22:40:00 EDT, 11/18/19 22:40:00 EDT, [facility] #[id number],149, cm, 11/15/19 13:59:00 EDT, Height, 57.7, kg,... Start Date: 11/18/19 Stop Date: 11/18/20 Status: Ordered nicotine 14 mg/24 hr transdermal film, extended release 1 patch, Topically, Daily, in addition to 21 mg patch, # 30 patch, 2 Refills, Acute 11/18/20 22:41:00 EDT, 11/18/19 22:39:00 EDT, Patch, [facility] #[id number], 1 patch Topically Daily,Instr:in addition to 21 mg patch, 149, cm, 11/15/19 13:59:00... Start Date: 11/18/19 Stop Date: 11/18/20 Status: Ordered nicotine 21 mg/24 hr transdermal film, extended release 1 patch, Topically, Daily, combine with 14 mg, for total of 35 mg nicotine, use for 6 months, # 30 patch, 5 Refills, Acute 11/18/20 22:45:00 EDT, 11/18/19 22:38:00 EDT, Patch, [facility] #[id number], 1 patch Topically Daily,Instr:combine with 14... Start Date: 11/18/19 Stop Date: 11/18/20 Status: Ordered Plavix 75 mg oral tablet 75 mg, 1, tablet, By Mouth, Daily, # 30 tablet, Refills 3, Tot. Refills 3, Maintenance, 12/06/19 9:20:00 EDT, Route to Pharmacy Electronically, [facility] #[id number], 149, cm, 12/06/19 9:02:00 EDT, Height, 57.7, [...] Cl inical Service Informant Constipation Discharge Diagnosis 03/06/20 Vital Signs Most recent to oldest [Reference Range]: 1 Height 149 cm (03/06/20 12:19 PM) Social History Social History Type Response Smoking Status Current every day melina arauz entered on: 01/14/18 Sex
--- OUTSIDE RECORDS SUMMARY | 2023-06-19 13:53 | XMS_ITS | Continuity of Care Document ---
Author Name Unknown Organization [facility] Adult Address [address] [place] [address]- Care Team Providers Care Video Game Producer Name Role Phone Elayne Das NP Primary Care Physician [facility]counter [facility] Date(s): 04/09/20 - 05/09/20 [facility] Adult [address] [place] [address]- [facility] Allergies, Adverse Reactions, Alerts Substance [...] (oldterm) 7 07/22/07 Given 1Result Comment: [facility] [id number] 2Result Comment: [facility] [id number] 3Admin Note: Declined 4Admin Note: VIS 04/02/09 5Admin Note: Declined 6Admin Note: VIM 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 7Admin Note: Left deltoid Medications aspirin 81 mg oral delayed release tablet = 81 mg, By Mouth, Daily, # 30 tablet, 0 Refills, Maintenance, 11/17/19 10:26:00 EDT, EC Tablet, [facility] #[id number], 149, cm, 11/15/19 13:59:00 EDT, Height, 57.7, kg, 11/15/19 15:04:00 EDT, Dry Weight Start Date: 11/17/19 Status: Ordered atorvastatin 80 mg oral tablet 1 tablet = 80 mg, By Mouth, Daily at bedtime, # 30 tablet, 0 Refills, Maintenance, 11/17/19 10:26:00 EDT, Tablet, [facility] #[id number], 149, cm, 11/15/19 13:59:00 EDT, Height, 57.7, kg, 11/15/19 15:04:00 EDT, Dry Weight Start Date: 11/17/19 Status: Ordered Colace sodium 100 mg oral capsule 100 mg, 1, capsule, By Mouth, 2 times a day, PRN, # 60 capsule, Refills 0, Tot. Refills 0, Maintenance, for constipation, 03/06/20 14:06:00 EDT, Route to Pharmacy Electronically, [facility]#[id number], 149, cm, 03/06/20 12:19:00 EDT, Height, 57.... Start Date: 03/06/20 Stop Date: 04/05/20 Status: Ordered levothyroxine 88 mcg (0.088 mg) oral capsule 1 capsule = 88 mcg, By Mouth, Daily, # 90 capsule, 3 Refills, Maintenance, 12/06/19 9:18:00 EDT, Capsule, [facility] #[id number], 149, cm, 12/06/19 9:02:00 EDT, Height, 57.7, kg, 11/15/19 15:04:00 EDT, Dry Weight Start Date: 12/06/19 Stop Date: 11/30/20 Status: Ordered losartan 25 mg oral tablet 25 mg, 1, tablet, By Mouth, Daily, # 90 tablet, Refills 3, Tot. Refills 3, Maintenance, 12/06/19 9:19:00 EDT, Route to Pharmacy Electronically, [facility] #[id number], 149, cm, 12/06/19 9:02:00 EDT, Height, 57.7, kg, 11/15/19 15:04:00 EDT, Dry We... Start Date: 12/06/19 Stop Date: 11/30/20 Status: Ordered Nicorette Mini 4 mg oral transmucosal lozenge 1 lozenge = 4 mg, By Mouth, Every hour, in addition to patches do not chew or swallow whole, # 144 lozenge, 2 Refills, Acute 11/18/20 22:40:00 EDT, 11/18/19 22:40:00 EDT, [facility] #[id number],149, cm, 11/15/19 13:59:00 EDT, Height, 57.7, kg,... Start Date: 11/18/19 Stop Date: 11/18/20 Status: Ordered nicotine 14 mg/24 hr transdermal film, extended release 1 patch, Topically, Daily, in addition to 21 mg patch, # 30 patch, 2 Refills, Acute 11/18/20 22:41:00 EDT, 11/18/19 22:39:00 EDT, Patch, [facility] #[id number], 1 patch Topically Daily,Instr:in addition to 21 mg patch, 149, cm, 11/15/19 13:59:00... Start Date: 11/18/19 Stop Date: 11/18/20 Status: Ordered nicotine 21 mg/24 hr transdermal film, extended release 1 patch, Topically, Daily, combine with 14 mg, for total of 35 mg nicotine, use for 6 months, # 30 patch, 5 Refills, Acute 11/18/20 22:45:00 EDT, 11/18/19 22:38:00 EDT, Patch, [facility] #[id number], 1 patch Topically Daily,Instr:combine with 14... Start Date: 11/18/19 Stop Date: 11/18/20 Status: Ordered Plavix 75 mg oral tablet 75 mg, 1, tablet, By Mouth, Daily, # 30 tablet, Refills 3, Tot. Refills 3, Maintenance, 12/06/19 9:20:00 EDT, Route to Pharmacy Electronically, [facility] #[id number], 149, cm, 12/06/19 9:02:00 EDT, Height, 57.7, kg, 11/15/19 15:04:00 EDT, Dry We... Start Date: 12/06/19 Stop Date: 04/04/20 Status: Ordered Plavix 75 mg oral tablet 75 mg, 1, tablet, By Mouth, Daily, # 30 tablet, Refills 0, Tot. Refills 0, Maintenance, 04/09/20 15:12:00 EDT, Route to Pharmacy Electronically, [facility] #[id number], 149, cm, 03/06/20 12:19:00 EDT, Height, 57.7, [...]
--- OUTSIDE RECORDS SUMMARY | 2023-06-19 13:53 | XMS_ITS | Continuity of Care Document ---
Author Name Unknown Organization [facility] Adult Address [address] [place] [address]- Care Team Providers Care Accounting Professional Name Role Phone Elayne Das NP Primary Care Physician Encounter 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 7Admin Note: Left deltoid Medications aspirin 81 mg oral delayed release tablet = 81 mg, By Mouth, Daily, # 30 tablet, 0 Refills, Maintenance, 11/17/19 10:26:00 EDT, EC Tablet, [facility] #[id number], 149, cm, 11/15/19 13:59:00 EDT, Height, 57.7, kg, 11/15/19 15:04:00 EDT, Dry Weight Start Date: 11/17/19 Status: Ordered atorvastatin 80 mg oral tablet 1 tablet = 80 mg, By Mouth, Daily at bedtime, # 30 tablet, 0 Refills, Maintenance, 11/17/19 10:26:00 EDT, Tablet, [facility] #[id number], 149, cm, 11/15/19 13:59:00 EDT, Height, 57.7, kg, 11/15/19 15:04:00 EDT, Dry Weight Start Date: 11/17/19 Status: Ordered levothyroxine 88 mcg (0.088 mg) oral capsule 1 capsule = 88 mcg, By Mouth, Daily, # 90 capsule, 3 Refills, Maintenance, 12/06/19 9:18:00 EDT, Capsule, [facility] #[id number], 149, cm, 12/06/19 9:02:00 EDT, Height, 57.7, kg, 11/15/19 15:04:00 EDT, Dry Weight Start Date: 12/06/19 Stop Date: 11/30/20 Status: Ordered losartan 25 mg oral tablet 25 mg, 1, tablet, By Mouth, Daily, # 90 tablet, Refills 3, Tot. Refills 3, Maintenance, 12/06/19 9:19:00 EDT, Route to Pharmacy Electronically, [facility] #[id number], 149, cm, 12/06/19 9:02:00 EDT, Height, 57.7, kg, 11/15/19 15:04:00 EDT, Dry We... Start Date: 12/06/19 Stop Date: 11/30/20 Status: Ordered Nicorette Mini 4 mg oral transmucosal lozenge 1 lozenge = 4 mg, By Mouth, Every hour, in addition to patches do not chew or swallow whole, # 144 lozenge, 2 Refills, Acute 11/18/20 22:40:00 EDT, 11/18/19 22:40:00 EDT, [facility] #[id number],149, cm, 11/15/19 13:59:00 EDT, Height, 57.7, kg,... Start Date: 11/18/19 Stop Date: 11/18/20 Status: Ordered nicotine 14 mg/24 hr transdermal film, extended release 1 patch, Topically, Daily, in addition to 21 mg patch, # 30 patch, 2 Refills, Acute 11/18/20 22:41:00 EDT, 11/18/19 22:39:00 EDT, Patch, [facility] #[id number], 1 patch Topically Daily,Instr:in addition to 21 mg patch, 149, cm, 11/15/19 13:59:00... Start Date: 11/18/19 Stop Date: 11/18/20 Status: Ordered nicotine 21 mg/24 hr transdermal film, extended release 1 patch, Topically, Daily, combine with 14 mg, for total of 35 mg nicotine, use for 6 months, # 30 patch, 5 Refills, Acute 11/18/20 22:45:00 EDT, 11/18/19 22:38:00 EDT, Patch, [facility] #[id number], 1 patch Topically Daily,Instr:combine with 14... Start Date: 11/18/19 Stop Date: 11/18/20 Status: Ordered Plavix 75 mg oral tablet 75 mg, 1, tablet, By Mouth, Daily, # 30 tablet, Refills 3, Tot. Refills 3, Maintenance, 12/06/19 9:20:00 EDT, Route to Pharmacy Electronically, [facility] #[id number], 149, cm, 12/06/19 9:02:00 EDT, Height, 57.7, [...]
--- OUTSIDE RECORDS SUMMARY | 2023-06-19 13:53 | XMS_ITS | Continuity of Care Document ---
Author Name Unknown Organization [facility] ter Address [address] [place] [address]- Care Team Providers Care Pathology Technician Name Role Phone Pippa BEARDEN, Elayne Diaz Primary Care Physician [facility]counter [facility] Date(s): 03/08/21 - 03/08/[address] [address]- Encounter Diagnosis Osteoarthritis of acromioclavicular joint(Final) - 03/08/21 Discharge Disposition: A-D/C Home Attending Physician: Emily Hansen MD Admitting Physician: Emily Hansen MD Referring Physician: Not on Staff, Referring [...] PASTEUR 2Admin Note: Left deltoid 3Result Comment: [facility] [id number] 4Result Comment: [facility] [phone] 5Admin Note: Declined 6Admin Note: VIS 04/02/09 7Admin Note: Declined Medications acetaminophen 325 mg oral capsule 2 capsule = 650 mg, By Mouth, Every 6 hours, PRN as needed for fever, for 7 days, # 60 capsule, 0 Refills, Acute 03/15/21 18:32:00 EDT, 03/08/21 18:32:00 EDT, Capsule, [facility] #[id number], 148, cm, 02/19/21 8:07:00 EDT, Height, 56.7, kg, 02/18... Start Date: 03/08/21 Stop Date: 03/15/21 Status: Ordered aspirin 81 mg oral delayed release tablet = 81 mg, By Mouth, Daily, # 30 tablet, 6 Refills, Maintenance, 10/17/20 13:37:00 EST, EC Tablet, [facility] #[id number], 149, cm, 08/20/20 8:58:00 EST, Height, 57.7, kg, 11/15/19 15:04:00 EDT, Dry Weight Start Date: 10/17/20 Status: Ordered clopidogrel 75 mg oral tablet 1, tablet, By Mouth, Daily, # 90 tablet, Refills 3, Tot. Refills 0, Maintenance, 03/07/21 9:49:00 EDT, Route to Pharmacy Electronically, [facility] #[id number], 148, cm, 02/19/21 8:07:00 EDT, Height, 56.7, kg, 02/18/21 11:21:00 EDT, Dry Weight Start Date: 03/07/21 Status: Ordered Colace sodium 100 mg oral capsule 100 mg, 1, capsule, By Mouth, 2 times a day, PRN, # 60 capsule, Refills 0, Tot. Refills 0, Maintenance, for constipation, 03/06/20 14:06:00 EDT, Route to Pharmacy Electronically, [facility]#[id number], 149, cm, 03/06/20 12:19:00 EDT, Height, 57.... Start Date: 03/06/20 Stop Date: 04/05/20 Status: Ordered diclofenac 1% topical gel 1 application, Topically, 4 times a day, # 100 Gm, 0 Refills, Maintenance, 03/08/21 18:34:00 EDT, Gel, [facility] #[id number], g., 148, cm, 02/19/21 8:07:00 EDT, Height, [...] 02/04/21 9:04:00 EDT, Route to Pharmacy Electronically, [facility] #[id number], 149, cm, 10/25/20 12:05:00EST, Height, 57.7, kg, 11/15/19 15:04:00 EDT, Dry W... Start Date: 02/04/21 Stop Date: 08/03/21 Status: Ordered rosuvastatin 40 mg oral tablet 1 tablet = 40 mg, By Mouth, Daily, # 30 tablet, 6 Refills, Maintenance, 12/25/20 12:06:00 EDT, Tablet, [facility] #[id number], Partial fill upon patient request if the prescription is for a schedule II opioid drug., 149, cm, 10/25/20 12:05:00 EST... Start Date: 12/25/20 Stop Date: 07/23/21 Status: Ordered Problem List Condition Effective Dates Status Health Status Inform ant Anxiety depression(Confirmed) 09/04/11 Active Cigarette smoker(Confirmed) Active History of [place] (myocardial infarction)(Confirmed) Active Hypercholesterolemia(Confirmed) Active HTN (hypertension)(Confirmed) Active Hypothyroidism(Confirmed) Active Irritable bowel syndrome(Confirmed) Active STEMI (ST elevation myocardi al infarction)(Confirmed) Active Osteopenia(Confirmed) 07/29/08 Active Shingles(Confirmed) 11/18/96 Active Sleep apnea(Confirmed) Active Smoking(Confirmed) 12/05/08 Active Vital Signs Most recent to oldest [Reference Range]: 1 2 Oxygen Saturation [94-100 %] 100 % (03/08/21 6:00 PM) 99 % (03/08/21 3:44 PM) Pulse Rate [55-90 bpm] 61 bpm (03/08/21 6:00 PM) 86 bpm (03/08/21 3:44 PM) Blood Pressure [90-138/55-84 mm Hg] 131/ 60mm Hg (03/08/21 6:00 PM) 127/68mm Hg (03/08/21 3:44 PM) Respiratory Rate [16-30 br/min] 18 br/mi n (03/08/21 6:00 PM) 18 br/min (03/08/21 3:44 PM) Temperature [96.8-100.4 DegF] 98.1 DegF (03/08/21 6:00 PM) 98.5 DegF (03/08/21 3:44 PM) Mode of Delivery (Oxygen) Room air (03/08/21 6:00 PM) Room air (03/08/21 3:44 PM) Temperature Route Oral (03/08/21 6:00 PM) Oral (03/08/21 3:44 PM) Social History Social History Type Response Smoking Status Current every day melina arauz entered on: 01/14/18 Sex
--- OUTSIDE RECORDS SUMMARY | 2023-06-19 13:53 | XMS_ITS | Continuity of Care Document ---
Author Name Unknown Organization [facility] Adult Address [address] [place] [address]- Care Team Providers Care Emergency Department Aide Name Role Phone Pippa BEARDEN, Elayne Diaz Primary Care Physician [facility] Date(s): 02/11/22 - 03/13/22 [facility] [address] [place] [address]- Allergies, Adverse Reactions, Alerts No Known Allergies [...] 2Admin Note: Left deltoid 3Result Comment: [facility] [id number] 4Result Comment: [facility] [id number] 5Admin Note: Declined 6Admin Note: VIS 04/02/09 7Admin Note: Declined Medications aspirin 81 mg oral delayed release tablet = 81 mg, By Mouth, Daily, # 30 tablet, 3 Refills, Maintenance, 03/02/22 12:46:00 EDT, EC Tablet, [facility] #[id number], 148, cm, 01/15/22 13:45:00 EDT, Height, 56.7, kg, 02/18/21 11:21:00 EDT, Dry Weight Start Date: 03/02/22 Status: Ordered clopidogrel 75 mg oral tablet 1, tablet, By Mouth, Daily, # 90 tablet, Refills 3, Tot. Refills 3, Maintenance, 03/02/22 12:45:00 EDT, Route to Pharmacy Electronically, [facility] #[id number], 148, cm, 01/15/22 13:45:00 EDT, Height, 56.7, kg, 02/18/21 11:21:00 EDT, Dry Weight Start Date: 03/02/22 Status: Ordered Colace sodium 100 mg oral capsule 100 mg, 1, capsule, By Mouth, 2 times a day, PRN, # 60 capsule, Refills 6, Tot. Refills 6, Maintenance, for constipation, 01/15/22 13:42:00 EDT, Route to Pharmacy Electronically, [facility]#[id number], 148, cm, 01/15/22 12:57:00 EDT, Height, 56.... Start Date: 01/15/22 Stop Date: 08/13/22 Status: Ordered diclofenac 1% topical gel 1 application, Topically, 4 times a day, # 100 Gm, 0 Refills, Maintenance, 03/08/21 18:34:00 EDT, Gel, [facility] #[id number], g., 148, cm, 02/19/21 8:07:00 EDT, Height, 56.7, kg, 02/18/21 11:21:00 EDT, Dry Weight Start Date: 03/08/21 Stop Date: 04/07/21 Status: Ordered levothyroxine 0.05 mg oral tablet 1 tablet = 50 mcg, By Mouth, Daily, # 30 tablet, 3 Refills, Maintenance, 02/11/22 16:14:00 EDT, Tablet, [facility] #[id number], Partial fill upon patient request if the prescription is for a schedule II opioid drug., 148, cm, 01/15/22 13:45:00 ED... Start Date: 02/11/22 Stop Date: 06/11/22 Status: Ordered losartan 25 mg oral tablet 25 mg, 1, tablet, By Mouth, Daily, # 90 tablet, Refills 3, Tot. Refills 3, Maintenance, 08/25/21 9:42:00 EST, Route to Pharmacy Electronically, [facility] #[id number], 148, cm, 08/25/21 9:18:00 EST, Height, 56.7, kg, 02/18/21 11:21:00 EDT, Dry We... Start Date: 08/25/21 Stop Date: 08/20/22 Status: Ordered rosuvastatin 40 mg oral tablet 1 tablet, By Mouth, Daily, for 90 days, # 90 tablet, 1 Refills, Physician Stop 06/16/22 11:36:00 EDT, 12/18/21 11:36:00 EDT, [facility] #[id number], 148, cm, 10/23/21 15:29:00 EST, Height, 56.7,kg, 02/18/21 11:21:00 EDT, Dry Weight Start Date: 12/18/21 Stop Date: 06/16/22 Status: Ordered Senna Plus 50 mg-8.6 mg oral tablet 2 tablet, By Mouth, Daily at bedtime, # 60 tablet, 0 Refills, Maintenance, 09/18/21 11:10:00 EST, Tablet, [facility] #[id number], Partial fill upon patient request if the prescription is for a schedule II opioid drug., 2 tablet By Mouth Daily at... Start Date: 09/18/21 Stop Date: 10/18/21 Status: Ordered Problem List Condition Effective Dates Status Health Status Inform ant Anxiety depression(Confirmed) 09/04/11 Active Cigarette smoker(Confirmed) Active History of [place] (myocardial infarction)(Confirmed) Active Hypercholesterolemia(Confirmed) Active HTN (hypertension)(Confirmed) Active Hypothyroidism(Confirmed) Active Irritable bowel syndrome(Confirmed) Active STEMI (ST elevation myocardi al infarction)(Confirmed) Active Osteopenia(Confirmed) 07/29/08 Active Shingles(Confirmed) 11/18/96 Active Sleep apnea(Confirmed) Active Smoking(Confirmed) 12/05/08 Active Social History Social History Type Response Smoking Status Current every day melina arauz entered on: 01/14/18 Sex
--- OUTSIDE RECORDS SUMMARY | 2023-06-19 13:53 | XMS_ITS | Continuity of Care Document ---
Author Name Unknown Organization [facility] Adult Address [address] [place] [address]- Care Team Providers Care Medicinal Chemist Name Role Phone Pippa BEARDEN, Elayne Diaz Primary Care Physician [place] [facility] [place] 07/03[place]22 - 07/10/22 [facility] [address] [place] [address]- Encounter Diagnosis Memory loss(Discharge Diagnosis) - 07/03/22 Attending Physician: Elayne Das NP Allergies, Adverse [...] 3Result Comment: [facility] [id number] 4Result Comment: [facility] [id number] 5Admin Note: Declined 6Admin Note: VIS 04/02/09 7Admin Note: Declined Medications aspirin 81 mg oral delayed release tablet = 81 mg, By Mouth, Daily, # 30 tablet, 3 Refills, Maintenance, 03/02/22 12:46:00 EDT, EC Tablet, [facility] #[id number], 148, cm, 01/15/22 13:45:00 EDT, Height, 56.7, kg, 02/18/21 11:21:00 EDT, Dry Weight Start Date: 03/02/22 Status: Ordered diclofenac 1% topical gel 1 application, Topically, 4 times a day, # 100 Gm, 0 Refills, Maintenance, 03/08/21 18:34:00 EDT, Gel, [facility] #[id number], g., 148, cm, 02/19/21 8:07:00 EDT, Height, 56.7, kg, 02/18/21 11:21:00 EDT, Dry Weight Start Date: 03/08/21 Stop Date: 04/07/21 Status: Ordered Estrace Vaginal Cream 0.1 mg/g See Instructions, 1 Gm Vaginally Daily (pea-sized amount to tip of finger) at bedtime every night for 2 weeks and then 2-3 times a week after that, # 42.5 Gm, 0 Refills, Maintenance, 06/29/22 11:23:00 [facility][id number], Partial fill upo... Start Date: 06/29/22 Status: Ordered levothyroxine 0.05 mg oral tablet 1 tablet = 50 mcg, By Mouth, Daily, # 90 tablet, 1 Refills, Maintenance, 05/21/22 14:53:00 EDT, [facility] #[id number], Partial fill upon patient request if the prescription is for a schedule II opioid drug., 148, cm, 03/24/22 14:13:00 ED... Start Date: 05/21/22 Stop Date: 07/20/22 Status: Ordered losartan 25 mg oral tablet 25 mg, 1, tablet, By Mouth, Daily, # 90 tablet, Refills 3, Tot. Refills 3, Maintenance, 08/25/21 9:42:00 EST, Route to Pharmacy Electronically, [email or web address] #[id number], 148, cm, 08/25/21 9:18:00 EST, Height, 56.7, kg, 02/18/21 11:21:00 EDT, Dry We... Start Date: 08/25/21 Stop Date: 08/20/22 Status: Ordered rosuvastatin 40 mg oral tablet 1 tablet, By Mouth, Daily, for 90 days, # 90 tablet, 1 Refills, Physician Stop 12/14/22 10:00:00 EDT, 06/17/22 10:00:00 EDT, [email or web address] #[id number], 148, cm, 03/24/22 14:13:00 EDT, Height, 45.8,kg, 03/24/22 14:13:00 EDT, Dry Weight Start Date: 06/17/22 Stop Date: 12/14/22 Status: Ordered Senna Plus 50 mg-8.6 mg oral tablet 2 tablet, By Mouth, Daily at bedtime, # 60 tablet, 0 Refills, Maintenance, 09/18/21 11:10:00 EST, Tablet, [email or web address] #[id number], Partial fill upon patient request if the prescription is for a schedule II opioid drug., 2 tablet By Mouth Daily at... Start Date: 09/18/21 Stop Date: 10/18/21 Status: Ordered Problem List Condition Confirmation Course Effective Dates Status Health Status Informant Anxiety depression Confirmed 09/04/11 Active Cigarette smoker Confirmed Active History of [place] (myocardial infarction) Confirmed Active Hypercholesterolemia Confirmed Active HTN (hypertension) Confirmed Active Hypothyroidism Confirmed Active Irritable bowel syndrome Confirmed Active STEMI (ST elevation myocardial infarction) Confirmed Active Osteopenia Confirmed 07/29/08 Active Shingles Confirmed 11/18/96 Active Sleep apnea Confirmed Active Smoking Confirmed 12/05/08 Active Diagnosis Diagnosis Type Effective Dates Health Status Clini bob Service Informant Memory loss Discharge Diagnosis 07/03/22 Vital Signs Most recent to oldest [Reference Range]: 1 Height 148 cm (07/03/22 9:15 AM) Weight 48 kg (07/03/22 9:15 AM) Oxygen Saturation [94-100 %] 99 % (07/03/22 9:15 AM) Pulse Rate [55-90 bpm] 86 bpm (07/03/22 9:15 AM) Body Mass Index [18.5-24.99 kg/m2] 21.91 kg/m2 (07/03/22 9:15 AM) Blood Pressure [90-138/55-84 mm Hg] 130/ 71mm Hg (07/03/22 9:15 AM) Mode of Delivery (Oxygen) Room air (07/03/22 9:15 AM) Blood pressure sites Arm, left (07/03/22 9:15 AM) Weight Obtained Via Standing scale (07/03/22 9:15 AM) Social History Social History Type Response Smoking Status Current every day melina davonte entered on: 01/14/18 Sex Note * Gertrudis Mckinnon: PERFORM, SIGN, VERIFY Event Display: Patient Education/Instruction Authored Date: [id number] [facility] *[facility] Clinical Summary Name LUCA GUERRERO Age 77 Years 1945 PCP Elayne Das NP PCP Visit Date 07/03/2022 09:14:00 Additional Instructions: Scheduled Appointments?? Future Appointments ?*[facility] [address],??[address] ?Phone:??--?Fax:??-- ?Appt. Date:??08/26/2022?11:20 AM ?Scheduled Provider:??Elayne Das NP Follow-Up Instructions ?? Diagnosis Medications: Please continue your medications until treatment is completed or stopped by your provider. Discuss any questions related to medications with your provider. New Medications [id number], [address], [place] [id number], [phone] Carbamide Peroxide Otic (Debrox Earwax Removal Kit 6.5% Otic Solution) 5 Drops Both ears twice a day for 4 Days. Refills: 0. Next Dose: Medications to Continue with No Changes These medications were not printed or sent to your pharmacy Aspirin (aspirin 81 mg oral delayed release tablet) 81 Milligram Oral Daily. Refills: 3. Next Dose: Diclofenac Topical (diclofenac [...] for 90 Days. Refills: 3. Next Dose: Rosuvastatin (rosuvastatin 40 mg oral tablet) 1 tab(s) Oral Daily for 90 Days. Refills: 1. Next Dose: No Longer Take the Following Medications Clopidogrel (clopidogrel 75 mg oral tablet) 1 tab(s) Oral Daily. Refills: 3. Docusate (Colace sodium 100 mg oral capsule) 1 capsule Oral twice a day as needed for constipation for 30 Days. Refills: 6. Allergy Info:?? NKA Medications Given This Visit Future Orders ?No future orders Vital Signs Height 148 cm Weight 48 kg BMI 21.91 kg/m2 Blood Pressure 130 mm Hg/71 mm Hg Temperature Pulse Rate 86 bpm Respiratory Rate 02 Sat Mode of Delivery 99 %/Room air You can now view a summary of your hospital visit from the comfort of your home through a free online portal called [employer]. [employer] is a website that allows you to securely view your medical information including discharge summary, medications and follow-up visits. ??You can alsosend a secure electronic message to your doctor???s office to request appointments, renew medications or just ask a question. You can enroll at [email or web address] or register during your next office visit. [...] primary care provider, you may find a [facility] provider by calling [facility] [employer] [facility] at [phone]. For information about the plan of care [...] Team Personnel Name: Elayne Das NP Position: [facility] PCO Associate Professional Member Role: PCP Address: Address: [address] [place] [address] [address] [place] [address]- Name: Kamilla Vanessa RN Position: [facility] RN Supv Member Role: Primary Care Nurse Name: Maria L Dickinson RN Position: [facility] RN Member Role: Primary Care Nurse Care Team Related Persons Name: BENTON SEAMAN Name: KEN GUERRERO Address: home [address] [place] [id number] Name: JUS CHAO Address: [place] [address]
--- OUTSIDE RECORDS SUMMARY | 2023-06-19 13:53 | XMS_ITS | Continuity of Care Document ---
Author Name Unknown Organization [facility] Address [address] [place] [address]- Care Team Providers Care Stenographer Secretary Name Role Phone Pippa BEARDEN, Elayne Diaz Primary Care Physician [facility] Date(s): 01/29/21 - 02/28/21 [facility] [address] [place] [address]- Attending Physician: Admtr, Lizbeth Admitting Physician: Admtr, Ar8 Referring Physician: Admtr, Ar8 Allergies, Adverse Reactions, [...] 2Admin Note: Left deltoid 3Result Comment: [facility] [id number] 4Result Comment: [facility] [id number] 5Admin Note: Declined 6Admin Note: VIS 04/02/09 7Admin Note: Declined Medications aspirin 81 mg oral delayed release tablet = 81 mg, By Mouth, Daily, # 30 tablet, 6 Refills, Maintenance, 10/17/20 13:37:00 EST, EC Tablet, [email or web address] #[id number], 149, cm, 08/20/20 8:58:00 EST, Height, 57.7, kg, 11/15/19 15:04:00 EDT, Dry Weight Start Date: 10/17/20 Status: Ordered Colace sodium 100 mg oral capsule 100 mg, 1, capsule, By Mouth, 2 times a day, PRN, # 60 capsule, Refills 0, Tot. Refills 0, Maintenance, for constipation, 03/06/20 14:06:00 EDT, Route to Pharmacy Electronically, [email or web address][id number], 149, cm, 03/06/20 12:19:00 EDT, Height, 57.... [...] 02/04/21 9:04:00 EDT, Route to Pharmacy Electronically, [email or web address] #[id number], 149, cm, 10/25/20 12:05:00EST, Height, 57.7, kg, 11/15/19 15:04:00 EDT, Dry W... Start Date: 02/04/21 Stop Date: 08/03/21 Status: Ordered Plavix 75 mg oral tablet 75 mg, 1, tablet, By Mouth, Daily, # 90 tablet, Refills 4, Tot. Refills 4, Maintenance, 10/17/20 13:37:00 EST, Route to Pharmacy Electronically, [facility] #[id number], 149, cm, 08/20/20 8:58:00EST, Height, 57.7, kg, 11/15/19 15:04:00 EDT, Dry W... Start Date: 10/17/20 Stop Date: 01/10/22 Status: Ordered rosuvastatin 40 mg oral tablet 1 tablet = 40 mg, By Mouth, Daily, # 30 tablet, 6 Refills, Maintenance, 12/25/20 12:06:00 EDT, Tablet, [facility] #[id number], Partial fill upon patient request if the prescription is for a schedule II opioid drug., 149, cm, 10/25/20 12:05:00 EST... Start Date: 12/25/20 Stop Date: 07/23/21 Status: Ordered Problem List Condition Effective Dates Status Health Status Inform ant Anxiety depression(Confirmed) 09/04/11 Active Cigarette smoker(Confirmed) Active History of [place] (myocardial infarction)(Confirmed) Active Hypercholesterolemia(Confirmed) Active HTN (hypertension)(Confirmed) Active Hypothyroidism(Confirmed) Active Irritable bowel syndrome(Confirmed) Active STEMI (ST elevation myocardi al infarction)(Confirmed) Active Osteopenia(Confirmed) 07/29/08 Active Shingles(Confirmed) 11/18/96 Active Sleep apnea(Confirmed) Active Smoking(Confirmed) 12/05/08 Active Social History Social History Type Response Smoking Status Current every day melina arauz entered on: 01/14/18 Sex
--- OUTSIDE RECORDS SUMMARY | 2023-06-19 13:53 | XMS_ITS | Continuity of Care Document ---
Author Name Unknown Organization [facility] Address [address] [address]- Care Team Providers Care Hardboard Press Operator Name Role Phone Pippa BEARDEN, Elayne Diaz Primary Care Physician [facility] Date[facility]): [facility] - 10/16/20 [facility] [address] [facility] [address] [place] [address] Attending Physician: Lizbeth Cordova Admitting Physician: AdmLizbeth [...] PASTEUR 2Admin Note: Left deltoid 3Result Comment: [facility] [id number] 4Result Comment: [facility] [id number] 5Admin Note: Declined 6Admin Note: VIS 04/02/09 7Admin Note: Declined Medications aspirin 81 mg oral delayed release tablet = 81 mg, By Mouth, Daily, # 30 tablet, 0 Refills, Maintenance, 11/17/19 10:26:00 EDT, EC Tablet, [facility] #[id number], 149, cm, 11/15/19 13:59:00 EDT, Height, 57.7, kg, 11/15/19 15:04:00 EDT, Dry Weight Start Date: 11/17/19 Status: Ordered atorvastatin 80 mg oral tablet 1 tablet = 80 mg, By Mouth, Daily at bedtime, # 90 tablet, 1 Refills, Maintenance, 08/08/20 9:05:00EST, Tablet, [facility] #[id number], 149, cm, 08/08/20 7:51:00 EST, Height, 57.7, kg, 11/14/2014:04:00 EDT, Dry Weight Start Date: 08/08/20 Stop Date: 02/04/21 Status: Ordered Colace sodium 100 mg oral capsule 100 mg, 1, capsule, By Mouth, 2 times a day, PRN, # 60 capsule, Refills 0, Tot. Refills 0, Maintenance, for constipation, 03/06/20 14:06:00 EDT, Route to Pharmacy Electronically, [facility]#[id number], 149, cm, 03/06/20 12:19:00 EDT, Height, 57.... Start Date: 03/06/20 Stop Date: 04/05/20 Status: Ordered levothyroxine 75 mcg (0.075 mg) oral tablet 1 tablet = 75 mcg, By Mouth, Daily, # 30 tablet, 3 Refills, Maintenance, 09/17/20 16:28:00 EST, Tablet, [facility] #[id number], Partial fill upon patient request if the prescription is for a schedule II opioid drug., 149, cm, 08/20/20 8:58:00 EST... Start Date: 09/17/20 Stop Date: 01/15/21 Status: Ordered levothyroxine 88 mcg (0.088 mg) oral capsule 1 capsule = 88 mcg, By Mouth, Daily, # 90 capsule, 1 Refills, Maintenance, 08/08/20 9:04:00 EST, Capsule, [facility] #[id number], 149, cm, 08/08/20 7:51:00 EST, Height, 57.7, kg, 11/15/19 15:04:00 EDT, Dry Weight Start Date: 08/08/20 Stop Date: 02/04/21 Status: Ordered losartan 25 mg oral tablet 25 mg, 1, tablet, By Mouth, Daily, # 90 tablet, Refills 1, Tot. Refills 1, Maintenance, 08/08/20 9:04:00 EST, Route to Pharmacy Electronically, [facility] #[id number], 149, cm, 08/08/20 7:51:00 EST, Height, 57.7, kg, 11/15/19 15:04:00 EDT, Dry We... Start Date: 08/08/20 Stop Date: 02/04/21 Status: Ordered Nicorette Mini 4 mg oral transmucosal lozenge 1 lozenge = 4 mg, By Mouth, Every hour, in addition to patches do not chew or swallow whole, # 144 lozenge, 2 Refills, Acute 11/18/20 22:40:00 EDT, 11/18/19 22:40:00 EDT, [facility] #[id number],149, cm, 11/15/19 13:59:00 EDT, Height, 57.7, kg,... Start Date: 11/18/19 Stop Date: 11/18/20 Status: Ordered nicotine 14 mg/24 hr transdermal film, extended release 1 patch, Topically, Daily, in addition to 21 mg patch, # 30 patch, 2 Refills, Acute 11/18/20 22:41:00 EDT, 11/18/19 22:39:00 EDT, Patch, [facility] #[id number], 1 patch Topically Daily,Instr:in addition to 21 mg patch, 149, cm, 11/15/19 13:59:00... Start Date: 11/18/19 Stop Date: 11/18/20 Status: Ordered nicotine 21 mg/24 hr transdermal film, extended release 1 patch, Topically, Daily, combine with 14 mg, for total of 35 mg nicotine, use for 6 months, # 30 patch, 5 Refills, Acute 11/18/20 22:45:00 EDT, 11/18/19 22:38:00 EDT, Patch, [facility] #[id number], 1 patch Topically Daily,Instr:combine with 14... Start Date: 11/18/19 Stop Date: 11/18/20 Status: Ordered Plavix 75 mg oral tablet 75 mg, 1, tablet, By Mouth, Daily, # 90 tablet, Refills 1, Tot. Refills 1, Maintenance, 08/20/20 8:33:00 EST, Route to Pharmacy Electronically, [facility] #[id number], 149, cm, 08/20/20 8:12:00 EST, Height, 57.7, kg, 11/15/19 15:04:00 EDT, Dry We... Start Date: 08/20/20 Stop Date: 02/16/21 Status: Ordered Plavix 75 mg oral tablet 75 mg, 1, tablet, By Mouth, Daily, # 30 tablet, Refills 0, Tot. Refills 0, Maintenance, 05/10/20 12:48:00 EDT, Route to Pharmacy Electronically, [facility] #[id number], 149, cm, 03/06/20 12:19:00 EDT, Height, 57.7, kg, 11/15/19 15:04:00 EDT, Dry... Start Date: 05/10/20 Status: Ordered Problem List Condition Effective Dates Status Health Status Inform ant Anxiety depression(Confirmed) 09/04/11 Active Cigarette smoker(Confirmed) Active History of [place] (myocardial infarction)(Confirmed) Active Hypercholesterolemia(Confirmed) Active HTN (hypertension)(Confirmed) Active Hypothyroidism(Confirmed) Active Irritable bowel syndrome(Confirmed) Active STEMI (ST elevation myocardi al infarction)(Confirmed) Active Osteopenia(Confirmed) 07/29/08 Active Shingles(Confirmed) 11/18/96 Active Sleep apnea(Confirmed) Active Smoking(Confirmed) 12/05/08 Active Social History Social History Type Response Smoking Status Current every day melina arauz entered on: 01/14/18 Sex
--- OUTSIDE RECORDS SUMMARY | 2023-06-19 13:53 | XMS_ITS | Continuity of Care Document ---
Author Name Unknown Organization [facility] Address [address] [place] [address]- Care Team Providers Care Tourist Camp Attendant Name Role Phone Pippa BEARDEN, Elayne Diaz Primary Care Physician [facility] Date[facility]s): 01/07/22 - 02/06/22 [facility] [address] [place] [address]- Allergies, Adverse Reactions, Alerts No Known Allergies [...] PASTEUR 2Admin Note: Left deltoid 3Result Comment: [facility] [id number] 4Result Comment: [facility] [id number] 5Admin Note: Declined 6Admin Note: VIS 04/02/09 7Admin Note: Declined Medications aspirin 81 mg oral delayed release tablet = 81 mg, By Mouth, Daily, # 30 tablet, 3 Refills, Maintenance, 11/26/21 13:46:00 EDT, EC Tablet, [facility] #[id number], 148, cm, 10/23/21 15:29:00 EST, Height, 56.7, kg, 02/18/21 11:21:00 EDT, Dry Weight Start Date: 11/26/21 Status: Ordered clopidogrel 75 mg oral tablet 1, tablet, By Mouth, Daily, # 90 tablet, Refills 3, Tot. Refills 0, Maintenance, 03/07/21 9:49:00 EDT, Route to Pharmacy Electronically, [facility] #[id number], 148, cm, 02/19/21 8:07:00 EDT, Height, 56.7, kg, 02/18/21 11:21:00 EDT, Dry Weight Start Date: 03/07/21 Status: Ordered Colace sodium 100 mg oral capsule 100 mg, 1, capsule, By Mouth, 2 times a day, PRN, # 60 capsule, Refills 6, Tot. Refills 6, Maintenance, for constipation, 01/15/22 13:42:00 EDT, Route to Pharmacy Electronically, [facility]#[id number], 148, cm, 01/15/22 12:57:00 EDT, Height, 56.... Start Date: 01/15/22 Stop Date: 08/13/22 Status: Ordered diclofenac 1% topical gel 1 application, Topically, 4 times a day, # 100 Gm, 0 Refills, Maintenance, 03/08/21 18:34:00 EDT, Gel, [facility] #[id number], g., 148, cm, 02/19/21 8:07:00 EDT, Height, 56.7, kg, 02/18/21 11:21:00 EDT, Dry Weight Start Date: 03/08/21 Stop Date: 04/07/21 Status: Ordered levothyroxine 0.05 mg oral tablet 1 tablet = 50 mcg, By Mouth, Daily, # 30 tablet, 2 Refills, Maintenance, 11/10/21 13:46:00 EDT, Tablet, [facility] #[id number], Partial fill upon patient request if the prescription is for a schedule II opioid drug., 148, cm, 10/23/21 15:29:00 ES... Start Date: 11/10/21 Stop Date: 02/08/22 Status: Ordered losartan 25 mg oral tablet 25 mg, 1, tablet, By Mouth, Daily, # 90 tablet, Refills 3, Tot. Refills 3, Maintenance, 08/25/21 9:42:00 EST, Route to Pharmacy Electronically, [facility] #[id number], 148, cm, 08/25/21 9:18:00 EST, Height, 56.7, kg, 02/18/21 11:21:00 EDT, Dry We... Start Date: 08/25/21 Stop Date: 08/20/22 Status: Ordered rosuvastatin 40 mg oral tablet 1 tablet, By Mouth, Daily, for 90 days, # 90 tablet, 1 Refills, Physician Stop 06/16/22 11:36:00 EDT, 12/18/21 11:36:00 EDT, [facility] #[id number], 148, cm, 10/23/21 15:29:00 EST, Height, 56.7,kg, 02/18/21 11:21:00 EDT, Dry Weight Start Date: 12/18/21 Stop Date: 06/16/22 Status: Ordered Senna Plus 50 mg-8.6 mg oral tablet 2 tablet, By Mouth, Daily at bedtime, # 60 tablet, 0 Refills, Maintenance, 09/18/21 11:10:00 EST, Tablet, [facility] #[id number], Partial fill upon patient request if the prescription is for a schedule II opioid drug., 2 tablet By Mouth Daily at... Start Date: 09/18/21 Stop Date: 10/18/21 Status: Ordered Problem List Condition Effective Dates Status Health Status Inform ant Anxiety depression(Confirmed) 09/04/11 Active Cigarette smoker(Confirmed) Active History of [place] (myocardial infarction)(Confirmed) Active Hypercholesterolemia(Confirmed) Active HTN (hypertension)(Confirmed) Active Hypothyroidism(Confirmed) Active Irritable bowel syndrome(Confirmed) Active STEMI (ST elevation myocardi al infarction)(Confirmed) Active Osteopenia(Confirmed) 07/29/08 Active Shingles(Confirmed) 11/18/96 Active Sleep apnea(Confirmed) Active Smoking(Confirmed) 12/05/08 Active Social History Social History Type Response Smoking Status Current every day melina arauz entered on: 01/14/18 Sex
--- OUTSIDE RECORDS SUMMARY | 2023-06-19 13:53 | XMS_ITS | Continuity of Care Document ---
Author Name Unknown Organization [facility] Address [address] [place] [address]- Care Team Providers Care Metal Melter Name Role Phone Pippa BEARDEN, Elayne Diaz Primary Care Physician Encounter [facility] Date(s): 10/21/20 - 10/28/20 [facility] [address] [place] [address]- Encounter Diagnosis Vertigo(Discharge Diagnosis) - 10/21/20 Attending Physician: Elayne Das NP Allergies, Adverse [...] PASTEUR 2Admin Note: Left deltoid 3Result Comment: [facility] [id number] 4Result Comment: [facility] [id number] 5Admin Note: Declined 6Admin Note: VIS 04/02/09 7Admin Note: Declined Medications aspirin 81 mg oral delayed release tablet = 81 mg, By Mouth, Daily, # 30 tablet, 6 Refills, Maintenance, 10/17/20 13:37:00 EST, EC Tablet, [facility] #[id number], 149, cm, 08/20/20 8:58:00 EST, Height, 57.7, kg, 11/15/19 15:04:00 EDT, Dry Weight Start Date: 10/17/20 Status: Ordered atorvastatin 80 mg oral tablet 1 tablet = 80 mg, By Mouth, Daily at bedtime, # 90 tablet, 3 Refills, Maintenance, 10/17/20 13:37:00 EST, Tablet, [facility] #[id number], 149, cm, 08/20/20 8:58:00 EST, Height, 57.7, kg, 11/15/19 15:04:00 EDT, Dry Weight Start Date: 10/17/20 Stop Date: 10/12/21 Status: Ordered Colace sodium 100 mg oral capsule 100 mg, 1, capsule, By Mouth, 2 times a day, PRN, # 60 capsule, Refills 0, Tot. Refills 0, Maintenance, for constipation, 03/06/20 14:06:00 EDT, Route to Pharmacy Electronically, [facility]#[id number], 149, cm, 03/06/20 12:19:00 EDT, Height, 57.... Start Date: 03/06/20 Stop Date: 04/05/20 Status: Ordered levothyroxine 88 mcg (0.088 mg) oral capsule 1 capsule = 88 mcg, By Mouth, Daily, # 90 capsule, 1 Refills, Maintenance, 08/08/20 9:04:00 EST, Capsule, [facility] #[id number], 149, cm, 08/08/20 7:51:00 EST, Height, 57.7, kg, 11/15/19 15:04:00 EDT, Dry Weight Start Date: 08/08/20 Stop Date: 02/04/21 Status: Ordered losartan 25 mg oral tablet 25 mg, 1, tablet, By Mouth, Daily, # 90 tablet, Refills 1, Tot. Refills 1, Maintenance, 08/08/20 9:04:00 EST, Route to Pharmacy Electronically, [facility] #[id number], 149, cm, 08/08/20 7:51:00 EST, Height, 57.7, kg, 11/15/19 15:04:00 EDT, Dry We... Start Date: 08/08/20 Stop Date: 02/04/21 Status: Ordered Nicorette Mini 4 mg oral transmucosal lozenge 1 lozenge = 4 mg, By Mouth, Every hour, in addition to patches do not chew or swallow whole, # 144 lozenge, 2 Refills, Acute 11/18/20 22:40:00 EDT, 11/18/19 22:40:00 EDT, [facility] #[id number],149, cm, 11/15/19 13:59:00 EDT, Height, 57.7, kg,... Start Date: 11/18/19 Stop Date: 11/18/20 Status: Ordered nicotine 14 mg/24 hr transdermal film, extended release 1 patch, Topically, Daily, in addition to 21 mg patch, # 30 patch, 2 Refills, Acute 11/18/20 22:41:00 EDT, 11/18/19 22:39:00 EDT, Patch, [facility] #[id number], 1 patch Topically Daily,Instr:in addition to 21 mg patch, 149, cm, 11/15/19 13:59:00... Start Date: 11/18/19 Stop Date: 11/18/20 Status: Ordered nicotine 21 mg/24 hr transdermal film, extended release 1 patch, Topically, Daily, combine with 14 mg, for total of 35 mg nicotine, use for 6 months, # 30 patch, 5 Refills, Acute 11/18/20 22:45:00 EDT, 11/18/19 22:38:00 EDT, Patch, [facility] #[id number], 1 patch Topically Daily,Instr:combine with 14... Start Date: 11/18/19 Stop Date: 11/18/20 Status: Ordered nicotine 4 mg oral transmucosal gum 1 each = 4 mg, Chew, Every 2 hours, PRN as needed for smoking cessation, # 160 each, 1 Refills, Maintenance, 10/17/20 17:52:00 EST, Gum, [facility] #[id number], Partial fill upon patient requestif the prescription is for a schedule II opioid gómez... Start Date: 10/17/20 Status: Ordered Plavix 75 mg oral tablet 75 mg, 1, tablet, By Mouth, Daily, # 90 tablet, Refills 4, Tot. Refills 4, Maintenance, 10/17/20 13:37:00 EST, Route to Pharmacy Electronically, [facility] #[id number], 149, cm, 08/20/20 8:58:00EST, Height, 57.7, kg, [...] Dates Health Status Clini bob Service Informant Vertigo Discharge Diagnosis 10/21/20 Vital Signs Most recent to oldest [Reference Range]: 1 Height 149 cm (10/21/20 1:56 PM) Social History Social History Type Response Smoking Status Current every day melina arauz entered on: 01/14/18 Sex
--- OUTSIDE RECORDS SUMMARY | 2023-06-19 13:53 | XMS_ITS | Continuity of Care Document ---
Author Name Unknown Organization [facility] Address [address] [place] [address]- Care Team Providers Care Vaccines Solutions Specialist Name Role Phone Pippa BEARDEN, Elayne Diaz Primary Care Physician [facility] Date(s): 07/25/21 - 08/24/21 [facility] [address] [place] [address]- Allergies, Adverse Reactions, Alerts Substance Reaction Severity [...] PASTEUR 2Admin Note: Left deltoid 3Result Comment: [facility] [id number] 4Result Comment: [facility] [id number] 5Admin Note: Declined 6Admin Note: VIS 04/02/09 7Admin Note: Declined Medications aspirin 81 mg oral delayed release tablet = 81 mg, By Mouth, Daily, # 30 tablet, 6 Refills, Maintenance, 05/08/21 8:09:00 EDT, EC Tablet, [facility] #[id number], 148, cm, 03/14/21 13:18:00 EDT, Height, 56.7, kg, 02/18/21 11:21:00 EDT, Dry Weight Start Date: 05/08/21 Status: Ordered clopidogrel 75 mg oral tablet 1, tablet, By Mouth, Daily, # 90 tablet, Refills 3, Tot. Refills 0, Maintenance, 03/07/21 9:49:00 EDT, Route to Pharmacy Electronically, [facility] #[id number], 148, cm, 02/19/21 8:07:00 EDT, Height, 56.7, kg, 02/18/21 11:21:00 EDT, Dry Weight Start Date: 03/07/21 Status: Ordered Colace sodium 100 mg oral capsule 100 mg, 1, capsule, By Mouth, 2 times a day, PRN, # 60 capsule, Refills 0, Tot. Refills 0, Maintenance, for constipation, 03/06/20 14:06:00 EDT, Route to Pharmacy Electronically, [facility]#[id number], 149, cm, 03/06/20 12:19:00 EDT, Height, 57.... Start Date: 03/06/20 Stop Date: 04/05/20 Status: Ordered diclofenac 1% topical gel 1 application, Topically, 4 times a day, # 100 Gm, 0 Refills, Maintenance, 03/08/21 18:34:00 EDT, Gel, [facility] #[id number], g., 148, cm, 02/19/21 8:07:00 EDT, Height, 56.7, kg, 02/18/21 11:21:00 EDT, Dry Weight Start Date: 03/08/21 Stop Date: 04/07/21 Status: Ordered levothyroxine 75 mcg (0.075 mg) oral tablet 1 tablet = 75 mcg, By Mouth, Daily, # 30 tablet, 1 Refills, Maintenance, 07/25/21 16:42:00 EST, Tablet, [facility] #[id number], Partial fill upon patient request if the prescription is for a schedule II opioid drug., 148, cm, 03/14/21 13:18:00 ED... Start Date: 07/25/21 Status: Ordered losartan 25 mg oral tablet 25 mg, 1, tablet, By Mouth, Daily, # 90 tablet, Refills 1, Tot. Refills 1, Maintenance, 02/04/21 9:04:00 EDT, Route to Pharmacy Electronically, [facility] #[id number], 149, cm, 10/25/20 12:05:00EST, Height, 57.7, kg, 11/15/19 15:04:00 EDT, Dry W... Start Date: 02/04/21 Stop Date: 08/03/21 Status: Ordered rosuvastatin 40 mg oral tablet 1 tablet, By Mouth, Daily, # 30 tablet, 5 Refills, [facility] #[id number], 148, cm, 03/14/21 13:18:00 EDT, Height, 56.7, kg, 02/18/21 11:21:00 EDT, Dry Weight Start Date: 06/27/21 Status: Ordered Problem List Condition Effective Dates Status Health Status Inform ant Anxiety depression(Confirmed) 09/04/11 Active Cigarette smoker(Confirmed) Active History of [place] (myocardial infarction)(Confirmed) Active Hypercholesterolemia(Confirmed) Active HTN (hypertension)(Confirmed) Active Hypothyroidism(Confirmed) Active Irritable bowel syndrome(Confirmed) Active STEMI (ST elevation myocardi al infarction)(Confirmed) Active Osteopenia(Confirmed) 07/29/08 Active Shingles(Confirmed) 11/18/96 Active Sleep apnea(Confirmed) Active Smoking(Confirmed) 12/05/08 Active Social History Social History Type Response Smoking Status Current every day melina arauz entered on: 01/14/18 Sex
--- OUTSIDE RECORDS SUMMARY | 2023-06-19 13:53 | XMS_ITS | Continuity of Care Document ---
Author Name Unknown Organization [facility] Adult Address [address] [place] [address]- Care Team Providers Care Photographic Artist Name Role Phone Elayne Das NP Primary Care Physician Encounter [facility] [place] Date(s): 08/26/22 - 09/02/22 [facility] [address] [place] [address]- Encounter Diagnosis Encounter for Medicare annual wellness exam(Discharge Diagnosis) - 08/26/22 Anxiety depression(Discharge Diagnosis) - 08/26/22 Cigarette smoker(Discharge Diagnosis) - 08/26/22 HTN (hypertension)(Discharge Diagnosis) - 08/26/22 History of PR (myocardial infarction)(Discharge Diagnosis) - 08/26/22 Hypercholesterolemia(Discharge Diagnosis) - 08/26/22 Hypothyroidism(Discharge Diagnosis) - 08/26/22 Irritable bowel syndrome(Discharge Diagnosis) - 08/26/22 Osteopenia(Discharge Diagnosis) - 08/26/22 Sleep apnea(Discharge Diagnosis) - 08/26/22 Physical exam(Discharge Diagnosis) - 08/26/22 Attending Physician: Elayne Das NP Allergies, Adverse [...] 3Result Comment: [facility] [id number] 4Result Comment: [facility] [id number] 5Admin Note: Declined 6Admin Note: VIS 04/02/09 7Admin Note: Declined Medications Artificial Tears preserved solution 1 drops, Eyes, Both, 2 times a day, PRN for dry eyes, # 30 mL, 0 Refills, Maintenance, 08/21/22 11:27:00 EST, Solution, [facility] #[id number], Partial fill upon patient request if the prescription is for a schedule II opioid drug., 1 drops Eyes,... Start Date: 08/21/22 Status: Ordered aspirin 81 mg oral delayed release tablet = 81 mg, By Mouth, Daily, # 30 tablet, 3 Refills, Maintenance, 03/02/22 12:46:00 EDT, EC Tablet, [facility] #[id number], 148, cm, 01/15/22 13:45:00 EDT, Height, 56.7, kg, 02/18/21 11:21:00 EDT, Dry Weight Start Date: 03/02/22 Status: Ordered calcium-vitamin D 600 mg-400 intl units oral tablet 1 tablet, By Mouth, 2 times a day, # 180 tablet, 3 Refills, Maintenance, 08/26/22 11:59:00 EST, Tablet, [facility] #[id number], Partial fill upon patient request if the prescription is for a schedule II opioid drug., 1 tablet By Mouth 2 times a d... Start Date: 08/26/22 Stop Date: 08/21/23 Status: Ordered diclofenac 1% topical gel 1 application, Topically, 4 times a day, # 100 Gm, 0 Refills, Maintenance, 03/08/21 18:34:00 EDT, Gel, [facility] #[id number], g., 148, cm, 02/19/21 8:07:00 EDT, Height, 56.7, kg, 02/18/21 11:21:00 EDT, Dry Weight Start Date: 03/08/21 Stop Date: 04/07/21 Status: Ordered Estrace Vaginal Cream 0.1 mg/g See Instructions, 1 Gm Vaginally Daily (pea-sized amount to tip of finger) at bedtime every night for 2 weeks and then 2-3 times a week after that, # 42.5 Gm, 0 Refills, Maintenance, 06/29/22 11:23:00 EST, [facility] #[id number], Partial fill upo... Start Date: 06/29/22 Status: Ordered levothyroxine 0.05 mg oral tablet 1 tablet = 50 mcg, By Mouth, Daily, # 90 tablet, 1 Refills, Maintenance, 05/21/22 14:53:00 EDT, Tablet, [facility] #[id number], Partial fill upon patient request if the prescription is for a schedule II opioid drug., 148, cm, 03/24/22 14:13:00 ED... Start Date: 05/21/22 Stop Date: 07/20/22 Status: Ordered losartan 25 mg oral tablet 25 mg, 1, tablet, By Mouth, Daily, # 90 tablet, Refills 1, Tot. Refills 1, Maintenance, 08/25/22 13:53:00 EST, Route to Pharmacy Electronically, [facility] #[id number], 148, cm, 07/03/22 9:15:00EST, Height, 45.8, kg, 03/24/22 14:13:00 EDT, Dry W... Start Date: 08/25/22 Stop Date: 02/21/23 Status: Ordered rosuvastatin 40 mg oral tablet 1 tablet, By Mouth, Daily, for 90 days, # 90 tablet, 1 Refills, Physician Stop 12/14/22 10:00:00 EDT, 06/17/22 10:00:00 EDT, [facility] #[id number], 148, cm, 03/24/22 14:13:00 EDT, Height, 45.8,kg, 03/24/22 14:13:00 EDT, Dry Weight Start Date: 06/17/22 Stop Date: 12/14/22 Status: Ordered Senna Plus 50 mg-8.6 mg oral tablet 2 tablet, By Mouth, Daily at bedtime, # 60 tablet, 0 Refills, Maintenance, 09/18/21 11:10:00 EST, Tablet, [facility] #[id number], Partial fill upon patient request if the prescription is for a schedule II opioid drug., 2 tablet By Mouth Daily at... Start Date: 09/18/21 Stop Date: 10/18/21 Status: Ordered Problem List Condition Confirmation Course Effective Dates Status Health Status Informant Anxiety depression Confirmed 09/04/11 Active Cigarette smoker Confirmed Active History of [place] (myocardial infarction) 1 Confirmed 10/2019 Active Hypercholesterolemia Confirmed Active HTN (hypertension) Confirmed Active Hypothyroidism Confirmed Active Irritable bowel syndrome Confirmed Active Osteopenia Confirmed 07/29/08 Active Shingles Confirmed 11/18/96 Active Sleep apnea Confirmed Active Smoking Confirmed 12/05/08 Active 1Hx of Inferolateral STEMI Diagnosis Diagnosis Type Effective Dates Health Status Clinical Service Informant Encounter for Medicare annual wellness exam Discharge Diagnosis 08/26/22 Anxiety depression Discharge Diagnosis 08/26/22 Cigarette smoker Discharge Diagnosis 08/26/22 HTN (hypertension) Discharge Diagnosis 08/26/22 History of PR (myocardial infarction) Discharge Diagnosis 08/26/22 Hypercholesterolemia Discharge Diagnosis 08/26/22 Hypothyroidism Discharge Diagnosis 08/26/22 Irritable bowel syndrome Discharge Diagnosis 08/26/22 Osteopenia Discharge Diagnosis 08/26/22 Sleep apnea Discharge Diagnosis 08/26/22 Physical exam Discharge Diagnosis 08/26/22 Vital Signs Most recent to oldest [Reference Range]: 1 2 3 Height 148 cm (08/26/22 12:13 PM) 148 cm (08/26/22 11:38 AM) 148 cm (08/26/22 11:28 AM) Weight 47.8 kg (08/26/22 11:28 AM) Oxygen Saturation [94-100 %] 98 % (08/26/22 11:28 AM) Pulse Rate [55-90 bpm] 61 bpm (08/26/22 11:38 AM) 60 bpm (08/26/22 11:28 AM) Body Mass Index [18.5-24.99 kg/m2] 21.82 kg/m2 (08/26/22 11:28 AM) Blood Pressure [90-138/55-84 mm Hg] 138/62mm Hg (08/26/22 12:13 PM) 147/69mm Hg *H* (08/26/22 11:38 AM) 150/69mm Hg *H* (08/26/22 11:28 AM) Temperature [96.8-100.4 DegF] 97.7 DegF (08/26/22 11:28 AM) Mode of Delivery (Oxygen) Room air (08/26/22 11:28 AM) Blood pressure sites Arm, left (08/26/22 12:13 PM) Arm, right (08/26/22 11:38 AM) Arm, right (08/26/22 11:28 AM) Temperature Route Temporal (08/26/22 11:28 AM) Weight Obtained Via Standing scale (08/26/22 11:28 AM) Social History Social History Type Response Smoking Status Current every day melina arauz entered on: 01/14/18 Sex Note * Clara Garcia: PERFORM, SIGN, VERIFY Event Display: Patient Education/Instruction Authored Date: [id number] [facility] *[facility] [place] [facility] Clinical Summary Name LUCA GUERRERO Age 77 Years 1945 PCP Pippa BEARDEN, Elayne Diaz PCP Visit Date 08/26/2022 11:02:00 Additional Instructions: Scheduled Appointments?? Future Appointments ?[facility] ?[address]??[place],??[place],??[address] ?Phone:??[phone]?Fax:??-- ?Appt. Date:??09/29/2022?8:00 AM ?Scheduled Provider:??[facility] [place] [place] MRI 3T Follow-Up Instructions ?? Diagnosis Nicotine dependence, cigarettes, uncomplicated; Essential (primary) hypertension; Hypothyroidism, unspecified; Old myocardial infarction; Pure hypercholesterolemia, unspecified; Sleep apnea, unspecified; Encounter for general adult medical examination without abnormal findings; Other specified anxiety disorders; Other specified disorders of bone density and structure, unspecified site; Encounter for general adult medical examination without abnormal findings; Irritable bowel syndrome without diarrhea Medications: Please continue your medications until treatment is completed or stopped by your provider. Discuss any questions related to medications with your provider. New Medications [facility] #[id number], [address], [place] [id number], [phone] Calcium And Vitamin D Combination (calcium-vitamin D 600 mg-400 intl units oral tablet) 1 tab(s) Oral twice a day for 90 Days. Refills: 3. Next Dose: Medications to Continue with No Changes [facility] #[id number], [address], [place] [id number], [phone] Losartan (losartan 25 mg oral tablet) 1 tab(s) Oral Daily for 90 Days. Refills: 1. Next Dose: These medications were not printed or sent [...] for dry eyes. Refills: 0. Next Dose: PredniSONE (predniSONE 20 mg oral tablet) 3 tab(s) Oral Daily for 6 Days. Start tomorrow 08/22. Refills: 0. Next Dose: Rosuvastatin (rosuvastatin 40 mg oral tablet) 1 tab(s) Oral Daily for 90 Days. Refills: 1. Next Dose: ValACYclovir (valacyclovir 1 gm oral tablet) 1 tab(s) Oral 3 times a day for 7 Days. First dose is due at 4pm today 08/21. Refills: 0. Next Dose: Allergy Info:?? NKA Medications Given This Visit Future Orders ?No future orders Vital Signs Height 148 cm Weight 47.8 kg BMI 21.82 kg/m2 Blood Pressure 138 mm Hg/62 mm Hg Temperature 97.7 DegF Pulse Rate 61 bpm Respiratory Rate 02 Sat Mode of Delivery 98 %/Room air You can now view a summary of your hospital visit from the comfort of your home through a free online portal called [employer]. [employer] is a website that allows you to securely view your medical information including discharge summary, medications and follow-up visits. ??You can alsosend a secure electronic message to your doctor???s office to request appointments, renew medications or just ask a question. You can enroll at [email or web address] or register during your next office [...] primary care provider, you may find a [facility] provider by calling [facility] at [phone]. For information about the plan of care [...] Associate Professional Member Role: PCP Address: Address: [address] [place] [address] [address] [place], [place] [facility] Name: Kamilla Vanessa RN Position: S RN [place] Member Role: Primary Care Nurse Name: Maria L Dickinson RN Position: S RN Member Role: Primary Care Nurse Care Team Related Persons Name: BENTON SEAMAN Name: KEN GUERRERO Address: home [address] [place] [address] Name: JUS [place] Address: [place] [address]
--- OUTSIDE RECORDS SUMMARY | 2023-06-19 13:53 | XMS_ITS | Continuity of Care Document ---
Author Name Unknown Organization [facility] Address [address], [address] [address]- Care Team Providers Care Warehouse Stock Clerk Name Role Phone Elayne Das NP Primary Care Physician Encounter [facility] [place] Date(s): 05/26/22 - 06/25/22 [facility] [address] [facility], [address] [place] [address]- Attending Physician: Lizbeth Cordova Admitting Physician: AdmLizbeth sandoval Referring Physician: Admtr ArEllyn Allergies, Adverse Reactions, Alerts No Known [...] PASTEUR 2Admin Note: Left deltoid 3Result Comment: [facility] [id number] 4Result Comment: [facility] [id number] 5Admin Note: Declined 6Admin Note: VIS 04/02/09 7Admin Note: Declined Medications aspirin 81 mg oral delayed release tablet = 81 mg, By Mouth, Daily, # 30 tablet, 3 Refills, Maintenance, 03/02/22 12:46:00 EDT, EC Tablet, [facility] #[id number], 148, cm, 01/15/22 13:45:00 EDT, Height, 56.7, kg, 02/18/21 11:21:00 EDT, Dry Weight Start Date: 03/02/22 Status: Ordered clopidogrel 75 mg oral tablet 1, tablet, By Mouth, Daily, # 90 tablet, Refills 3, Tot. Refills 3, Maintenance, 03/02/22 12:45:00 EDT, Route to Pharmacy Electronically, [facility] #[id number], 148, cm, 01/15/22 13:45:00 EDT, Height, 56.7, kg, 02/18/21 11:21:00 EDT, Dry Weight Start Date: 03/02/22 Status: Ordered Colace sodium 100 mg oral capsule 100 mg, 1, capsule, By Mouth, 2 times a day, PRN, # 60 capsule, Refills 6, Tot. Refills 6, Maintenance, for constipation, 01/15/22 13:42:00 EDT, Route to Pharmacy Electronically, [facility]#[id number], 148, cm, 01/15/22 12:57:00 EDT, Height, 56.... Start Date: 01/15/22 Stop Date: 08/13/22 Status: Ordered diclofenac 1% topical gel 1 application, Topically, 4 times a day, # 100 Gm, 0 Refills, Maintenance, 03/08/21 18:34:00 EDT, Gel, [facility] #[id number], g., 148, cm, 02/19/21 8:07:00 EDT, Height, 56.7, kg, 02/18/21 11:21:00 EDT, Dry Weight Start Date: 03/08/21 Stop Date: 04/07/21 Status: Ordered Estrace Vaginal Cream 0.1 mg/g See Instructions, 1 Gm Vaginally Daily (pea-sized amount to tip of finger) at bedtime every night for 2 weeks and then 2-3 times a week after that, # 42.5 Gm, 0 Refills, Maintenance, 03/24/22 15:15:00 EDT, [facility] #[id number], Partial fill upo... Start Date: 03/24/22 Status: Ordered levothyroxine 0.05 mg oral tablet 1 tablet = 50 mcg, By Mouth, Daily, # 90 tablet, 1 Refills, Maintenance, 05/21/22 14:53:00 EDT, Tablet, [facility] #[id number], Partial fill upon patient request if the prescription is for a schedule II opioid drug., 148, cm, 03/24/22 14:13:00 ED... Start Date: 05/21/22 Stop Date: 07/20/22 Status: Ordered losartan 25 mg oral tablet 25 mg, 1, tablet, By Mouth, Daily, # 90 tablet, Refills 3, Tot. Refills 3, Maintenance, 08/25/21 9:42:00 EST, Route to Pharmacy Electronically, [facility] #[id number], 148, cm, 08/25/21 9:18:00 EST, Height, 56.7, kg, 02/18/21 11:21:00 EDT, Dry We... Start Date: 08/25/21 Stop Date: 08/20/22 Status: Ordered rosuvastatin 40 mg oral tablet 1 tablet, By Mouth, Daily, for 90 days, # 90 tablet, 1 Refills, Physician Stop 12/14/22 10:00:00 EDT, 06/17/22 10:00:00 EDT, [facility] #[id number], 148, cm, 03/24/22 14:13:00 EDT, Height, 45.8,kg, 03/24/22 14:13:00 EDT, Dry Weight Start Date: 06/17/22 Stop Date: 12/14/22 Status: Ordered Senna Plus 50 mg-8.6 mg oral tablet 2 tablet, By Mouth, Daily at bedtime, # 60 tablet, 0 Refills, Maintenance, 09/18/21 11:10:00 EST, Tablet, [facility] #[id number], Partial fill upon patient request if the prescription is for a schedule II opioid drug., 2 tablet By Mouth Daily at... Start Date: 09/18/21 Stop Date: 10/18/21 Status: Ordered Problem List Condition Confirmation Course Effective Dates Status Health Status Informant Anxiety depression Confirmed 09/04/11 Active Cigarette smoker Confirmed Active History of [place] (myocardial infarction) Confirmed Active Hypercholesterolemia Confirmed Active HTN (hypertension) Confirmed Active Hypothyroidism Confirmed Active Irritable bowel syndrome Confirmed Active STEMI (ST elevation myocardial infarction) Confirmed Active Osteopenia Confirmed 07/29/08 Active Shingles Confirmed 11/18/96 Active Sleep apnea Confirmed Active Smoking Confirmed 12/05/08 Active Social History Social History Type Response Smoking Status Current every day melina arauz entered on: 01/14/18 Sex Patient Care team information Personnel Name: Pippa BEARDEN, Elayne Diaz Address: Address: [address] [place] [address] [address] [place], [place] [address]
--- OUTSIDE RECORDS SUMMARY | 2023-06-19 13:53 | XMS_ITS | Continuity of Care Document ---
Author Name Unknown Organization [facility] Adult Address [address] [place] [address]- Care Team Providers Care Inspector And Unloader Name Role Phone Pippa BEARDEN, Ealyne Diaz Primary Care Physician Encounter [facility] Date(s): 08/30/20 - 09/29/20 [facility] [address] [place] [address]- Allergies, Adverse Reactions, Alerts Substance Reaction Severity [...] PASTEUR 2Admin Note: Left deltoid 3Result Comment: [facility] [id number] 4Result Comment: [facility] [id number] 5Admin Note: Declined 6Admin Note: VIS 04/02/09 7Admin Note: Declined Medications aspirin 81 mg oral delayed release tablet = 81 mg, By Mouth, Daily, # 30 tablet, 0 Refills, Maintenance, 11/17/19 10:26:00 EDT, EC Tablet, [facility] #[id number], 149, cm, 11/15/19 13:59:00 EDT, Height, 57.7, kg, 11/15/19 15:04:00 EDT, Dry Weight Start Date: 11/17/19 Status: Ordered atorvastatin 80 mg oral tablet 1 tablet = 80 mg, By Mouth, Daily at bedtime, # 90 tablet, 1 Refills, Maintenance, 08/08/20 9:05:00EST, Tablet, [facility] #[id number], 149, cm, 08/08/20 7:51:00 EST, Height, 57.7, kg, 11/14/2014:04:00 EDT, Dry Weight Start Date: 08/08/20 Stop Date: 02/04/21 Status: Ordered Colace sodium 100 mg oral capsule 100 mg, 1, capsule, By Mouth, 2 times a day, PRN, # 60 capsule, Refills 0, Tot. Refills 0, Maintenance, for constipation, 03/06/20 14:06:00 EDT, Route to Pharmacy Electronically, [facility][id number], 149, cm, 03/06/20 12:19:00 EDT, Height, 57.... Start Date: 03/06/20 Stop Date: 04/05/20 Status: Ordered levothyroxine 75 mcg (0.075 mg) oral tablet 1 tablet = 75 mcg, By Mouth, Daily, # 30 tablet, 3 Refills, Maintenance, 09/17/20 16:28:00 EST, Tablet, [facility] #[id number], Partial fill upon patient request if the prescription is for a schedule II opioid drug., 149, cm, 08/20/20 8:58:00 EST... Start Date: 09/17/20 Stop Date: 01/15/21 Status: Ordered levothyroxine 88 mcg (0.088 mg) oral capsule 1 capsule = 88 mcg, By Mouth, Daily, # 90 capsule, 1 Refills, Maintenance, 08/08/20 9:04:00 EST, Capsule, [facility] #[id number], 149, cm, 08/08/20 7:51:00 EST, Height, 57.7, kg, 11/15/19 15:04:00 EDT, Dry Weight Start Date: 08/08/20 Stop Date: 02/04/21 Status: Ordered losartan 25 mg oral tablet 25 mg, 1, tablet, By Mouth, Daily, # 90 tablet, Refills 1, Tot. Refills 1, Maintenance, 08/08/20 9:04:00 EST, Route to Pharmacy Electronically, [facility] #[id number], 149, cm, 08/08/20 7:51:00 EST, Height, 57.7, kg, 11/15/19 15:04:00 EDT, Dry We... Start Date: 08/08/20 Stop Date: 02/04/21 Status: Ordered Nicorette Mini 4 mg oral transmucosal lozenge 1 lozenge = 4 mg, By Mouth, Every hour, in addition to patches do not chew or swallow whole, # 144 lozenge, 2 Refills, Acute 11/18/20 22:40:00 EDT, 11/18/19 22:40:00 EDT, [facility] #[id number],149, cm, 11/15/19 13:59:00 EDT, Height, 57.7, kg,... Start Date: 11/18/19 Stop Date: 11/18/20 Status: Ordered nicotine 14 mg/24 hr transdermal film, extended release 1 patch, Topically, Daily, in addition to 21 mg patch, # 30 patch, 2 Refills, Acute 11/18/20 22:41:00 EDT, 11/18/19 22:39:00 EDT, Patch, [facility] #[id number], 1 patch Topically Daily,Instr:in addition to 21 mg patch, 149, cm, 11/15/19 13:59:00... Start Date: 11/18/19 Stop Date: 11/18/20 Status: Ordered nicotine 21 mg/24 hr transdermal film, extended release 1 patch, Topically, Daily, combine with 14 mg, for total of 35 mg nicotine, use for 6 months, # 30 patch, 5 Refills, Acute 11/18/20 22:45:00 EDT, 11/18/19 22:38:00 EDT, Patch, [facility] #[id number], 1 patch Topically Daily,Instr:combine with 14... Start Date: 11/18/19 Stop Date: 11/18/20 Status: Ordered Plavix 75 mg oral tablet 75 mg, 1, tablet, By Mouth, Daily, # 90 tablet, Refills 1, Tot. Refills 1, Maintenance, 08/20/20 8:33:00 EST, Route to Pharmacy Electronically, [facility] #[id number], 149, cm, 08/20/20 8:12:00 EST, Height, 57.7, kg, 11/15/19 15:04:00 EDT, Dry We... Start Date: 08/20/20 Stop Date: 02/16/21 Status: Ordered Plavix 75 mg oral tablet 75 mg, 1, tablet, By Mouth, Daily, # 30 tablet, Refills 0, Tot. Refills 0, Maintenance, 05/10/20 12:48:00 EDT, Route to Pharmacy Electronically, [facility] #[id number], 149, cm, 03/06/20 12:19:00 EDT, Height, 57.7, kg, 11/15/19 15:04:00 EDT, Dry... Start Date: 05/10/20 Status: Ordered Problem List Condition Effective Dates Status Health Status Inform ant Anxiety depression(Confirmed) 09/04/11 Active Cigarette smoker(Confirmed) Active History of [place] (myocardial infarction)(Confirmed) Active Hypercholesterolemia(Confirmed) Active HTN (hypertension)(Confirmed) Active Hypothyroidism(Confirmed) Active Irritable bowel syndrome(Confirmed) Active STEMI (ST elevation myocardi al infarction)(Confirmed) Active Osteopenia(Confirmed) 07/29/08 Active Shingles(Confirmed) 11/18/96 Active Sleep apnea(Confirmed) Active Smoking(Confirmed) 12/05/08 Active Social History Social History Type Response Smoking Status Current every day melina arauz entered on: 01/14/18 Sex
--- OUTSIDE RECORDS SUMMARY | 2023-06-19 13:53 | XMS_ITS | Continuity of Care Document ---
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/22 Attending Physician: Elayne Das NP Allergies, Adverse [...] Note: Left deltoid 3Result Comment: [facility] [id number] 4Result Comment: [facility] [id number] 5Admin Note: Declined 6Admin Note: VIS 04/02/09 7Admin Note: Declined Medications aspirin 81 mg oral delayed release tablet = 81 mg, By Mouth, Daily, # 30 tablet, 3 Refills, Maintenance, 11/26/21 13:46:00 EDT, EC Tablet, [facility] #[id number], 148, cm, 10/23/21 15:29:00 EST, Height, 56.7, kg, 02/18/21 11:21:00 EDT, Dry Weight Start Date: 11/26/21 Status: Ordered clopidogrel 75 mg oral tablet 1, tablet, By Mouth, Daily, # 90 tablet, Refills 3, Tot. Refills 0, Maintenance, 03/07/21 9:49:00 EDT, Route to Pharmacy Electronically, [facility] #[id number], 148, cm, 02/19/21 8:07:00 EDT, Height, 56.7, kg, 02/18/21 11:21:00 EDT, Dry Weight Start Date: 03/07/21 Status: Ordered Colace sodium 100 mg oral capsule 100 mg, 1, capsule, By Mouth, 2 times a day, PRN, # 60 capsule, Refills 6, Tot. Refills 6, Maintenance, for constipation, 01/15/22 13:42:00 EDT, Route to Pharmacy Electronically, [facility]#[id number], 148, cm, 01/15/22 12:57:00 EDT, Height, 56.... Start Date: 01/15/22 Stop Date: 08/13/22 Status: Ordered diclofenac 1% topical gel 1 application, Topically, 4 times a day, # 100 Gm, 0 Refills, Maintenance, 03/08/21 18:34:00 EDT, Gel, [facility] #[id number], g., 148, cm, 02/19/21 8:07:00 EDT, Height, 56.7, kg, 02/18/21 11:21:00 EDT, Dry Weight Start Date: 03/08/21 Stop Date: 04/07/21 Status: Ordered levothyroxine 0.05 mg oral tablet 1 tablet = 50 mcg, By Mouth, Daily, # 30 tablet, 2 Refills, Maintenance, 11/10/21 13:46:00 EDT, Tablet, [facility] #[id number], Partial fill upon patient request if the prescription is for a schedule II opioid drug., 148, cm, 10/23/21 15:29:00 ES... Start Date: 11/10/21 Stop Date: 02/08/22 Status: Ordered losartan 25 mg oral tablet 25 mg, 1, tablet, By Mouth, Daily, # 90 tablet, Refills 3, Tot. Refills 3, Maintenance, 08/25/21 9:42:00 EST, Route to Pharmacy Electronically, [facility] #[id number], 148, cm, 08/25/21 9:18:00 EST, Height, 56.7, kg, 02/18/21 11:21:00 EDT, Dry We... Start Date: 08/25/21 Stop Date: 08/20/22 Status: Ordered rosuvastatin 40 mg oral tablet 1 tablet, By Mouth, Daily, for 90 days, # 90 tablet, 1 Refills, Physician Stop 06/16/22 11:36:00 EDT, 12/18/21 11:36:00 EDT, [facility] #[id number], 148, cm, 10/23/21 15:29:00 EST, Height, 56.7,kg, 02/18/21 11:21:00 EDT, Dry Weight Start Date: 12/18/21 Stop Date: 06/16/22 Status: Ordered Senna Plus 50 mg-8.6 mg oral tablet 2 tablet, By Mouth, Daily at bedtime, # 60 tablet, 0 Refills, Maintenance, 09/18/21 11:10:00 EST, Tablet, [facility] #[id number], Partial fill upon patient request if the prescription is for a schedule II opioid drug., 2 tablet By Mouth Daily at... Start Date: 09/18/21 Stop Date: 10/18/21 Status: Ordered Problem List Condition Effective Dates Status Health Status Inform ant Anxiety depression(Confirmed) 1/13/12 Active Cigarette smoker(Confirmed) Active History of RI (myocardial infarction)(Confirmed) Active Hypercholesterolemia(Confirmed) Active HTN (hypertension)(Confirmed) Active Hypothyroidism(Confirmed) Active Irritable bowel syndrome(Confirmed) Active STEMI (ST elevation myocardi al infarction)(Confirmed) Active Osteopenia(Confirmed) 07/29/08 Active Shingles(Confirmed) 11/18/96 Active Sleep apnea(Confirmed) Active Smoking(Confirmed) 12/05/08 Active Diagnosis Diagnosis Type Effective Dates Health Status Cl inical Service Informant Skin anomaly Discharge Diagnosis 01/15/22 Vital Signs Most recent to oldest [Reference Range]: 1 2 Height 148 cm (01/15/22 1:45 PM) 148 cm (01/15/22 12:57 PM) Weight 45.9 kg (01/15/22 12:57 PM) Oxygen Saturation [94-100 %] 98 % (01/15/22 12:57 PM) Pulse Rate [55-90 bpm] 78 bpm (01/15/22 12:57 PM) Body Mass Index [18.5-24.99] 20.96 (01/15/22 12:57 PM) Blood Pressure [90-138/55-84 mm Hg] 130/ 72mm Hg (01/15/22 1:45 PM) 138/80mm Hg (01/15/22 12:57 PM) Temperature [96.8-100.4 DegF] 98.6 DegF (01/15/22 12:57 PM) Mode of Delivery (Oxygen) Room air (01/15/22 12:57 PM) Blood pressure sites Arm, left (01/15/22 1:45 PM) Arm, left (01/15/22 12:57 PM) Temperature Route Temporal (01/15/22 12:57 PM) Weight Obtained Via Standing scale (01/15/22 12:57 PM) Social History Social History Type Response Smoking Status Current every day melina arauz entered on: 01/14/18 Sex
--- OUTSIDE RECORDS SUMMARY | 2023-06-19 13:53 | XMS_ITS | Continuity of Care Document ---
Author Name Unknown Organization [facility] Address [address] [place] [address]- Care Team Providers Care Retail Advertising Executive Name Role Phone Elayne Das NP Primary Care Physician Encounter [facility] Date(s): 03/09/21 - 04/08/21 [facility] [address] [place] [address]- Allergies, Adverse Reactions, Alerts Substance Reaction Severity [...] PASTEUR 2Admin Note: Left deltoid 3Result Comment: [facility] [id number] 4Result Comment: [facility] [id number] 5Admin Note: Declined 6Admin Note: VIS 04/02/09 7Admin Note: Declined Medications aspirin 81 mg oral delayed release tablet = 81 mg, By Mouth, Daily, # 30 tablet, 6 Refills, Maintenance, 10/17/20 13:37:00 EST, EC Tablet, [facility] #[id number], 149, cm, 08/20/20 8:58:00 EST, Height, 57.7, kg, 11/15/19 15:04:00 EDT, Dry Weight Start Date: 10/17/20 Status: Ordered clopidogrel 75 mg oral tablet 1, tablet, By Mouth, Daily, # 90 tablet, Refills 3, Tot. Refills 0, Maintenance, 03/07/21 9:49:00 EDT, Route to Pharmacy Electronically, [facility] #[id number], 148, cm, 02/19/21 8:07:00 EDT, Height, 56.7, kg, 02/18/21 11:21:00 EDT, Dry Weight Start Date: 03/07/21 Status: Ordered Colace sodium 100 mg oral capsule 100 mg, 1, capsule, By Mouth, 2 times a day, PRN, # 60 capsule, Refills 0, Tot. Refills 0, Maintenance, for constipation, 03/06/20 14:06:00 EDT, Route to Pharmacy Electronically, [facility]#[id number], 149, cm, 03/06/20 12:19:00 EDT, Height, 57.... Start Date: 03/06/20 Stop Date: 04/05/20 Status: Ordered diclofenac 1% topical gel 1 application, Topically, 4 times a day, # 100 Gm, 0 Refills, Maintenance, 03/08/21 18:34:00 EDT, Gel, [facility] #[id number], g., 148, cm, 02/19/21 8:07:00 EDT, Height, [...] 02/04/21 9:04:00 EDT, Route to Pharmacy Electronically, [facility] #[id number], 149, cm, 10/25/20 12:05:00EST, Height, 57.7, kg, 11/15/19 15:04:00 EDT, Dry W... Start Date: 02/04/21 Stop Date: 08/03/21 Status: Ordered rosuvastatin 40 mg oral tablet 1 tablet = 40 mg, By Mouth, Daily, # 30 tablet, 6 Refills, Maintenance, 12/25/20 12:06:00 EDT, Tablet, [facility] #[id number], Partial fill upon patient request if the prescription is for a schedule II opioid drug., 149, cm, 10/25/20 12:05:00 EST... Start Date: 12/25/20 Stop Date: 07/23/21 Status: Ordered Senna Plus 50 mg-8.6 mg oral tablet 2 tablet, By Mouth, Daily at bedtime, for 30 days, # 60 tablet, 0 Refills, Acute 04/13/21 13:10:00 EDT, 03/14/21 13:10:00 EDT, Tablet, [facility] #[id number], Partial fill upon patient request if the prescription is for a schedule II opioid drug.... Start Date: 03/14/21 Stop Date: 04/13/21 Status: Ordered Problem List Condition Effective Dates Status Health Status Inform ant Anxiety depression(Confirmed) 09/04/11 Active Cigarette smoker(Confirmed) Active History of PR (myocardial infarction)(Confirmed) Active Hypercholesterolemia(Confirmed) Active HTN (hypertension)(Confirmed) Active Hypothyroidism(Confirmed) Active Irritable bowel syndrome(Confirmed) Active STEMI (ST elevation myocardi al infarction)(Confirmed) Active Osteopenia(Confirmed) 07/29/08 Active Shingles(Confirmed) 11/18/96 Active Sleep apnea(Confirmed) Active Smoking(Confirmed) 12/05/08 Active Social History Social History Type Response Smoking Status Current every day sm oker entered on: 01/14/18 Sex
--- OUTSIDE RECORDS SUMMARY | 2023-06-19 13:53 | XMS_ITS | Continuity of Care Document ---
Author Name Unknown Organization [facility] Address [address] [place] [address]- Care Team Providers Care Pond Tender Name Role Phone Elayne Das NP Primary Care Physician [place] [facility] [place]s): 02/02/23 - 03/04/23 [facility] [address] [place] [address]- Attending Physician: Lizbeth Cordova Admitting Physician: AdmLizbeth [...] 07/22/07 Given influenza virus vaccine, inactivated 05/29/20 Dominci rded influenza virus vaccine, inactivated 3 07/07/19 [...] 3Result Comment: [facility] [id number] 4Result Comment: [facility] [id number] 5Admin Note: Declined 6Admin Note: VIS 04/02/09 7Admin Note: Declined Medications Artificial Tears preserved solution 1 drops, Eyes, Both, 2 times a day, PRN for dry eyes, # 30 mL, 0 Refills, Maintenance, 08/21/22 11:27:00 EST, Solution, [facility] #[id number], Partial fill upon patient request if the prescription is for a schedule II opioid drug., 1 drops Eyes,... Start Date: 08/21/22 Status: Ordered aspirin 81 mg oral delayed release tablet = 81 mg, By Mouth, Daily, # 30 tablet, 5 Refills, Maintenance, 11/17/22 13:30:00 EDT, EC Tablet, [facility] #[id number], 148, cm, 08/26/22 12:13:00 EST, Height, 45.8, kg, 03/24/22 14:13:00 EDT, Dry Weight Start Date: 11/17/22 Status: Ordered calcium-vitamin D 600 mg-400 intl units oral tablet 1 tablet, By Mouth, 2 times a day, # 180 tablet, 3 Refills, Maintenance, 08/26/22 11:59:00 EST, Tablet, [facility] #[id number], Partial fill upon patient request if the prescription is for a schedule II opioid drug., 1 tablet By Mouth 2 times a d... Start Date: 08/26/22 Stop Date: 08/21/23 Status: Ordered diclofenac 1% topical gel 1 application, Topically, 4 times a day, # 100 Gm, 0 Refills, Maintenance, 03/08/21 18:34:00 EDT, Gel, [facility] #[id number], g., 148, cm, 02/19/21 8:07:00 EDT, Height, 56.7, kg, 02/18/21 11:21:00 EDT, Dry Weight Start Date: 03/08/21 Stop Date: 04/07/21 Status: Ordered Estrace Vaginal Cream 0.1 mg/g See Instructions, 1 Gm Vaginally Daily (pea-sized amount to tip of finger) at bedtime every night for 2 weeks and then 2-3 times a week after that, # 42.5 Gm, 0 Refills, Maintenance, 06/29/22 11:23:00 EST, [facility] #[id number], Partial fill upo... Start Date: 06/29/22 Status: Ordered levothyroxine 0.05 mg oral tablet 1 tablet = 50 mcg, By Mouth, Daily, # 90 tablet, 1 Refills, Maintenance, 11/16/22 11:49:00 EDT, Tablet, [facility] #[id number], Partial fill upon patient request if the prescription is for a schedule II opioid drug., 148, cm, 08/26/22 12:13:00 ES... Start Date: 11/16/22 Stop Date: 01/15/23 Status: Ordered losartan 25 mg oral tablet 25 mg, 1, tablet, By Mouth, Daily, # 90 tablet, Refills 3, Tot. Refills 3, Maintenance, 02/02/23 17:09:00 EDT, Route to Pharmacy Electronically, [facility] #[id number], Partial fill upon patientrequest if the prescription is for a schedule II op... Start Date: 02/02/23 Stop Date: 01/28/24 Status: Ordered rosuvastatin 40 mg oral tablet 1 tablet, By Mouth, Daily, for 30 days, # 30 tablet, 11 Refills, Physician Stop 01/10/24 10:33:00 EDT, 01/15/23 10:33:00 EDT, [facility] #[id number], 148, cm, 01/15/23 10:28:00 EDT, Height, 45.8, kg, 03/24/22 14:13:00 EDT, Dry Weight Start Date: 01/15/23 Stop Date: 01/10/24 Status: Ordered Senna Plus 50 mg-8.6 mg oral tablet 2 tablet, By Mouth, Daily at bedtime, # 60 tablet, 0 Refills, Maintenance, 09/18/21 11:10:00 EST, Tablet, [facility] #[id number], Partial fill upon patient request if the prescription is for a schedule II opioid drug., 2 tablet By Mouth Daily at... Start Date: 09/18/21 Stop Date: 10/18/21 Status: Ordered Problem List Condition Confirmation Course Effective Dates Status Health Status Informant Anxiety depression Confirmed 09/04/11 Active Cigarette smoker Confirmed Active History of IA (myocardial infarction) 1 Confirmed 10/2019 Active Hypercholesterolemia Confirmed Active HTN (hypertension) Confirmed Active Hypothyroidism Confirmed Active Irritable bowel syndrome Confirmed Active Osteopenia Confirmed 07/29/08 Active Shingles Confirmed 11/18/96 Active Sleep apnea Confirmed Active Smoking Confirmed 12/05/08 Active 1Hx of Inferolateral STEMI Social History Social History Type Response Smoking Status Current every day sm davonte entered on: 01/14/18 Sex Cardiology * Event Display: Cardiovascular Result Scanned Authored Date: EKG study * Event Display: EKG Authored Date: Laboratory * Event Display: Non BH Lab Results Authored Date: Cardiology Consult note * Event Display: Consult Note Cardiology Authored Date: * Event Display: Consult Note Cardiology Authored Date: * Event Display: Consult Note Cardiology Authored Date: Radiology * Adelaide Harry: PERFORM Event Display: Radiology Results Scanned Authored Date: Patient Care team information Care Team Personnel Name: Elayne Das NP Position: [facility] PCO Associate Professional Member Role: PCP Address: Address: [address] [place] [phone]- Name: Kamilla Vanessa RN Position: [facility] PATRICIA Supevan Member Role: Primary Care Nurse Name: Maria L Dickinson RN Position: S RN Member Role: Primary Care Nurse Care Team Related Persons Name: BENTON SEAMAN Name: KEN GUERRERO Address: home [address] [place] [id number] Name: JUS CHAO Address: [place] [address]
--- OUTSIDE RECORDS SUMMARY | 2023-06-19 13:53 | XMS_ITS | Continuity of Care Document ---
Author Name Unknown Organization [facility] Adult Address [address] [place] [address]- Care Team Providers Care Wedding Makeup Artist Name Role Phone Pippa BEARDEN, Elayne Diaz Primary Care Physician Encounter [facility] [place] Date(s): 11/25/20 - 12/02/20 [facility] [address] [place] [address]- Encounter Diagnosis Constipated(Discharge Diagnosis) - 11/25/20 Attending Physician: Elayne Das NP Allergies, Adverse [...] PASTEUR 2Admin Note: Left deltoid 3Result Comment: [facility] [id number] 4Result Comment: [facility] [id number] 5Admin Note: Declined 6Admin Note: VIS 8/11/09 7Admin Note: Declined Medications aspirin 81 mg oral delayed release tablet = 81 mg, By Mouth, Daily, # 30 tablet, 6 Refills, Maintenance, 10/17/20 13:37:00 EST, EC Tablet, [facility] #[id number], 149, cm, 08/20/20 8:58:00 EST, Height, 57.7, kg, 11/15/19 15:04:00 EDT, Dry Weight Start Date: 10/17/20 Status: Ordered atorvastatin 80 mg oral tablet 1 tablet = 80 mg, By Mouth, Daily at bedtime, # 90 tablet, 3 Refills, Maintenance, 10/17/20 13:37:00 EST, Tablet, [facility] #[id number], 149, cm, 08/20/20 8:58:00 EST, Height, 57.7, kg, 11/15/19 15:04:00 EDT, Dry Weight Start Date: 10/17/20 Stop Date: 10/12/21 Status: Ordered Colace sodium 100 mg oral capsule 100 mg, 1, capsule, By Mouth, 2 times a day, PRN, # 60 capsule, Refills 0, Tot. Refills 0, Maintenance, for constipation, 03/06/20 14:06:00 EDT, Route to Pharmacy Electronically, [facility]#[id number], 149, cm, 03/06/20 12:19:00 EDT, Height, 57.... Start Date: 03/06/20 Stop Date: 04/05/20 Status: Ordered levothyroxine 88 mcg (0.088 mg) oral capsule 1 capsule = 88 mcg, By Mouth, Daily, # 90 capsule, 1 Refills, Maintenance, 08/08/20 9:04:00 EST, Capsule, [facility] #[id number], 149, cm, 08/08/20 7:51:00 EST, Height, 57.7, kg, 11/15/19 15:04:00 EDT, Dry Weight Start Date: 08/08/20 Stop Date: 02/04/21 Status: Ordered losartan 25 mg oral tablet 25 mg, 1, tablet, By Mouth, Daily, # 90 tablet, Refills 1, Tot. Refills 1, Maintenance, 08/08/20 9:04:00 EST, Route to Pharmacy Electronically, [facility] #[id number], 149, cm, 08/08/20 7:51:00 EST, Height, 57.7, kg, 11/15/19 15:04:00 EDT, Dry We... Start Date: 08/08/20 Stop Date: 02/04/21 Status: Ordered magnesium hydroxide 8% oral suspension See Instructions, PRN for constipation, 5 to 15 mL as needed up to 4 times/day; do not exceed 60 mLin 24 hours., # 480 mL, 0 Refills, Maintenance, 11/25/20 7:55:00 EDT, Suspension, [facility] #[id number], Partial fill upon patient request if the... Start Date: 11/25/20 Status: Ordered nicotine 4 mg oral transmucosal gum 1 each = 4 mg, Chew, Every 2 hours, PRN as needed for smoking cessation, # 160 each, 1 Refills, Maintenance, 10/17/20 17:52:00 EST, Gum, [facility] #[id number], Partial fill upon patient requestif the prescription is for a schedule II opioid gómez... Start Date: 10/17/20 Status: Ordered Plavix 75 mg oral tablet 75 mg, 1, tablet, By Mouth, Daily, # 90 tablet, Refills 4, Tot. Refills 4, Maintenance, 10/17/20 13:37:00 EST, Route to Pharmacy Electronically, [facility] #[id number], 149, cm, 08/20/20 8:58:00EST, Height, 57.7, kg, 11/15/19 15:04:00 EDT, Dry W... Start Date: 10/17/20 Stop Date: 01/10/22 Status: Ordered Problem List Condition Effective Dates Status Health Status Inform ant Anxiety depression(Confirmed) 09/04/11 Active Cigarette smoker(Confirmed) Active History of CA (myocardial infarction)(Confirmed) Active Hypercholesterolemia(Confirmed) Active HTN (hypertension)(Confirmed) Active Hypothyroidism(Confirmed) Active Irritable bowel syndrome(Confirmed) Active STEMI (ST elevation myocardi al infarction)(Confirmed) Active Osteopenia(Confirmed) 07/29/08 Active Shingles(Confirmed) 11/18/96 Active Sleep apnea(Confirmed) Active Smoking(Confirmed) 12/05/08 Active Diagnosis Diagnosis Type Effective Dates Health Status Clini bob Service Informant Constipated Discharge Diagnosis 11/25/20 Social History Social History Type Response Smoking Status Current every day melina arauz entered on: 01/14/18 Sex
--- OUTSIDE RECORDS SUMMARY | 2023-06-19 13:53 | XMS_ITS | Continuity of Care Document ---
Author Name Unknown Organization [facility] Address [address] [place] [address]- Care Team Providers Care [place] Nurse Name Role Phone Pippa BEARDEN, Elayne Diaz Primary Care Physician Encounter [facility] Date(s): 07/03/22 - 08/02/22 [facility] [address] [place] [address]- Attending Physician: Lizbeth Cordova Admitting Physician: Admtr, ArEllyn Referring Physician: Admtr, Ar8 Allergies, Adverse Reactions, Alerts No Known Allergies [...] 2Admin Note: Left deltoid 3Result Comment: [facility] [id number] 4Result Comment: [facility] [id number] 5Admin Note: Declined 6Admin Note: VIS 04/02/09 7Admin Note: Declined Medications aspirin 81 mg oral delayed release tablet = 81 mg, By Mouth, Daily, # 30 tablet, 3 Refills, Maintenance, 03/02/22 12:46:00 EDT, EC Tablet, [facility] #[id number], 148, cm, 01/15/22 13:45:00 EDT, Height, 56.7, kg, 02/18/21 11:21:00 EDT, Dry Weight Start Date: 03/02/22 Status: Ordered diclofenac 1% topical gel 1 application, Topically, 4 times a day, # 100 Gm, 0 Refills, Maintenance, 03/08/21 18:34:00 EDT, Gel, [facility] #[id number], g., 148, cm, 02/19/21 8:07:00 EDT, Height, 56.7, kg, 02/18/21 11:21:00 EDT, Dry Weight Start Date: 03/08/21 Stop Date: 04/07/21 Status: Ordered Estrace Vaginal Cream 0.1 mg/g See Instructions, 1 Gm Vaginally Daily (pea-sized amount to tip of finger) at bedtime every night for 2 weeks and then 2-3 times a week after that, # 42.5 Gm, 0 Refills, Maintenance, 06/29/22 11:23:00 [facility][id number], Partial fill upo... Start Date: 06/29/22 Status: Ordered levothyroxine 0.05 mg oral tablet 1 tablet = 50 mcg, By Mouth, Daily, # 90 tablet, 1 Refills, Maintenance, 05/21/22 14:53:00 EDT, [facility] #[id number], Partial fill upon patient request if the prescription is for a schedule II opioid drug., 148, cm, 03/24/22 14:13:00 ED... Start Date: 05/21/22 Stop Date: 07/20/22 Status: Ordered losartan 25 mg oral tablet 25 mg, 1, tablet, By Mouth, Daily, # 90 tablet, Refills 3, Tot. Refills 3, Maintenance, 08/25/21 9:42:00 EST, Route to Pharmacy Electronically, [facility] #[id number], 148, cm, 08/25/21 9:18:00 EST, Height, 56.7, kg, 02/18/21 11:21:00 EDT, Dry We... Start Date: 08/25/21 Stop Date: 08/20/22 Status: Ordered rosuvastatin 40 mg oral tablet 1 tablet, By Mouth, Daily, for 90 days, # 90 tablet, 1 Refills, Physician Stop 12/14/22 10:00:00 EDT, 06/17/22 10:00:00 EDT, [facility] #[id number], 148, cm, 03/24/22 14:13:00 EDT, Height, 45.8,kg, 03/24/22 14:13:00 EDT, Dry Weight Start Date: 06/17/22 Stop Date: 12/14/22 Status: Ordered Senna Plus 50 mg-8.6 mg oral tablet 2 tablet, By Mouth, Daily at bedtime, # 60 tablet, 0 Refills, Maintenance, 09/18/21 11:10:00 EST, Tablet, [facility] #[id number], Partial fill upon patient request if the prescription is for a schedule II opioid drug., 2 tablet By Mouth Daily at... Start Date: 09/18/21 Stop Date: 10/18/21 Status: Ordered Problem List Condition Confirmation Course Effective Dates Status Health Status Informant Anxiety depression Confirmed 09/04/11 Active Cigarette smoker Confirmed Active History of CA (myocardial infarction) Confirmed Active Hypercholesterolemia Confirmed Active HTN (hypertension) Confirmed Active Hypothyroidism Confirmed Active Irritable bowel syndrome Confirmed Active STEMI (ST elevation myocardial infarction) Confirmed Active Osteopenia Confirmed 07/29/08 Active Shingles Confirmed 11/18/96 Active Sleep apnea Confirmed Active Smoking Confirmed 12/05/08 Active Social History Social History Type Response Smoking Status Current every day melina arauz entered on: 01/14/18 Sex Note * Event Display: Cardiovascular Result Scanned Authored Date: * Event Display: Non BH Lab Results Authored Date: * Adelaide Harry: PERFORM Event Display: Radiology Results Scanned Authored Date: EKG study * Event Display: EKG Authored Date: Cardiology Consult note * Event Display: Consult Note Cardiology Authored Date: * Event Display: Consult Note Cardiology Authored Date: * Event Display: Consult Note Cardiology Authored Date: Patient Care team information Care Team Personnel Name: Pippa BRUSH MAKER MACHINE, Elayne Diaz Position: [facility] PCO Associate Professional Member Role: PCP Address: Address: [address] [place] [phone]- Name: Kamilla Vanessa RN Position: [facility] RN Supv Member Role: Primary Care Nurse Name: Maria L Dickinson RN Position: S RN Member Role: Primary Care Nurse Care Team Related Persons Name: BENTON SEAMAN Name: KEN GUERRERO Address: home [address] [place] [id number] Name: JUS CHAO Address: [place] [address]
--- OUTSIDE RECORDS SUMMARY | 2023-06-19 13:53 | XMS_ITS | Continuity of Care Document ---
Author Name Unknown Organization [facility] Adult Address [address] [place] [address]- Care Team Providers Care Parakeet Raiser Name Role Phone Pippa BEARDEN, Elayne Diaz Primary Care Physician Encounter [facility] Date(s): 05/21/22 - 06/20/22 [facility] Adult [address] [place] [address]- Allergies, Adverse Reactions, Alerts No Known Allergies [...] 2Admin Note: Left deltoid 3Result Comment: [facility] [id number] 4Result Comment: [facility] [id number] 5Admin Note: Declined 6Admin Note: VIS 04/02/09 7Admin Note: Declined Medications aspirin 81 mg oral delayed release tablet = 81 mg, By Mouth, Daily, # 30 tablet, 3 Refills, Maintenance, 03/02/22 12:46:00 EDT, EC Tablet, [facility] #[id number], 148, cm, 01/15/22 13:45:00 EDT, Height, 56.7, kg, 02/18/21 11:21:00 EDT, Dry Weight Start Date: 03/02/22 Status: Ordered clopidogrel 75 mg oral tablet 1, tablet, By Mouth, Daily, # 90 tablet, Refills 3, Tot. Refills 3, Maintenance, 03/02/22 12:45:00 EDT, Route to Pharmacy Electronically, [facility] #[id number], 148, cm, 01/15/22 13:45:00 EDT, Height, 56.7, kg, 02/18/21 11:21:00 EDT, Dry Weight Start Date: 03/02/22 Status: Ordered Colace sodium 100 mg oral capsule 100 mg, 1, capsule, By Mouth, 2 times a day, PRN, # 60 capsule, Refills 6, Tot. Refills 6, Maintenance, for constipation, 01/15/22 13:42:00 EDT, Route to Pharmacy Electronically, [facility]#[id number], 148, cm, 01/15/22 12:57:00 EDT, Height, 56.... Start Date: 01/15/22 Stop Date: 08/13/22 Status: Ordered diclofenac 1% topical gel 1 application, Topically, 4 times a day, # 100 Gm, 0 Refills, Maintenance, 03/08/21 18:34:00 EDT, Gel, [facility] #[id number], g., 148, cm, 02/19/21 8:07:00 EDT, Height, 56.7, kg, 02/18/21 11:21:00 EDT, Dry Weight Start Date: 03/08/21 Stop Date: 04/07/21 Status: Ordered Estrace Vaginal Cream 0.1 mg/g See Instructions, 1 Gm Vaginally Daily (pea-sized amount to tip of finger) at bedtime every night for 2 weeks and then 2-3 times a week after that, # 42.5 Gm, 0 Refills, Maintenance, 03/24/22 15:15:00 EDT, [facility] #[id number], Partial fill upo... Start Date: 03/24/22 Status: Ordered levothyroxine 0.05 mg oral tablet 1 tablet = 50 mcg, By Mouth, Daily, # 90 tablet, 1 Refills, Maintenance, 05/21/22 14:53:00 EDT, Tablet, [facility] #[id number], Partial fill upon patient request if the prescription is for a schedule II opioid drug., 148, cm, 03/24/22 14:13:00 ED... Start Date: 05/21/22 Stop Date: 07/20/22 Status: Ordered losartan 25 mg oral tablet 25 mg, 1, tablet, By Mouth, Daily, # 90 tablet, Refills 3, Tot. Refills 3, Maintenance, 08/25/21 9:42:00 EST, Route to Pharmacy Electronically, [facility] #[id number], 148, cm, 08/25/21 9:18:00 EST, Height, 56.7, kg, 02/18/21 11:21:00 EDT, Dry We... Start Date: 08/25/21 Stop Date: 08/20/22 Status: Ordered rosuvastatin 40 mg oral tablet 1 tablet, By Mouth, Daily, for 90 days, # 90 tablet, 1 Refills, Physician Stop 12/14/22 10:00:00 EDT, 06/17/22 10:00:00 EDT, [facility] #[id number], 148, cm, 03/24/22 14:13:00 EDT, Height, 45.8,kg, 03/24/22 14:13:00 EDT, Dry Weight Start Date: 06/17/22 Stop Date: 12/14/22 Status: Ordered Senna Plus 50 mg-8.6 mg oral tablet 2 tablet, By Mouth, Daily at bedtime, # 60 tablet, 0 Refills, Maintenance, 09/18/21 11:10:00 EST, Tablet, [facility] #[id number], Partial fill upon patient request if the prescription is for a schedule II opioid drug., 2 tablet By Mouth Daily at... Start Date: 09/18/21 Stop Date: 10/18/21 Status: Ordered Problem List Condition Confirmation Course Effective Dates Status Health Status Informant Anxiety depression Confirmed 09/04/11 Active Cigarette smoker Confirmed Active History of [place] (myocardial infarction) Confirmed Active Hypercholesterolemia Confirmed Active [...] Sex Patient Care team information Personnel Name: Elayne Das NP Address: Address: [address] [place] [address] [address] [place], [place] [address]
--- OUTSIDE RECORDS SUMMARY | 2023-06-19 13:54 | XMS_ITS | Continuity of Care Document ---
Author Name Unknown Organization [facility] Adult Address [address] [place] [address]- Care Team Providers Care Field Marketing Representative Name Role Phone Pippa BEARDEN, Elayne Diaz Primary Care Physician Encounter [facility] Date(s): 10/30/19 - 11/09/19 [facility] Adult [address] [place] [address]- [facility] Attending Physician: Lizbeth Cordova Admitting Physician: AdmLizbeth sandoval Referring Physician: Admtr, ArEllyn Allergies, Adverse Reactions, Alerts Substance Reaction Severity [...] Vaccine (oldterm) 7 07/22/07 Given 1Result Comment: [facility] [id number] 2Result Comment: 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 Refills 5, Maintenance, 06/30/19 11:43:16 EST, Route to Pharmacy Electronically, [id number], [facility] #[id number] Start Date: 06/30/19 Stop Date: 12/27/19 Status: [...]
--- OUTSIDE RECORDS SUMMARY | 2023-06-19 13:54 | XMS_ITS | Continuity of Care Document ---
Author Name Unknown Organization [facility] Adult Address [address] [place] [address]- Care Team Providers Care Sand Slinger Name Role Phone Pippa BEARDEN, Elayne Diaz Primary Care Physician Encounter [facility] Date(s): 01/13/21 - 02/12/21 [facility] Adult [address] [place] [address]- Allergies, Adverse Reactions, Alerts Substance Reaction Severity [...] PASTEUR 2Admin Note: Left deltoid 3Result Comment: [facility] [id number] 4Result Comment: [facility] [id number] 5Admin Note: Declined 6Admin Note: VIS 04/02/09 7Admin Note: Declined Medications aspirin 81 mg oral delayed release tablet = 81 mg, By Mouth, Daily, # 30 tablet, 6 Refills, Maintenance, 10/17/20 13:37:00 EST, EC Tablet, [facility] #[id number], 149, cm, 08/20/20 8:58:00 EST, Height, 57.7, kg, 11/15/19 15:04:00 EDT, Dry Weight Start Date: 10/17/20 Status: Ordered Colace sodium 100 mg oral capsule 100 mg, 1, capsule, By Mouth, 2 times a day, PRN, # 60 capsule, Refills 0, Tot. Refills 0, Maintenance, for constipation, 03/06/20 14:06:00 EDT, Route to Pharmacy Electronically, [facility]#[id number], 149, cm, 03/06/20 12:19:00 EDT, Height, 57.... Start Date: 03/06/20 Stop Date: 04/05/20 Status: Ordered levothyroxine 75 mcg (0.075 mg) oral tablet See Instructions, TAKE 1 TABLET BY MOUTH DAILY, # 30 tablet, 5 Refills, Maintenance, [id number], 149, cm, 10/25/20 12:05:00 EST, Height, 57.7, kg, 11/15/19 15:04:00 EDT, Dry Weight Start Date: 01/10/21 Status: Ordered losartan 25 mg oral tablet 25 mg, 1, tablet, By Mouth, Daily, # 90 tablet, Refills 1, Tot. Refills 1, Maintenance, 02/04/21 9:04:00 EDT, Route to Pharmacy Electronically, [facility] #[id number], 149, cm, 10/25/20 12:05:00EST, Height, 57.7, kg, 11/15/19 15:04:00 EDT, Dry W... Start Date: 02/04/21 Stop Date: 08/03/21 Status: Ordered magnesium hydroxide 8% oral suspension See Instructions, PRN for constipation, 5 to 15 mL as needed up to 4 times/day; do not exceed 60 mLin 24 hours., # 480 mL, 0 Refills, Maintenance, 11/25/20 7:55:00 EDT, Suspension, [facility] #[id number], Partial fill upon patient request if the... Start Date: 11/25/20 Status: Ordered nicotine 4 mg oral transmucosal gum 1 each = 4 mg, Chew, Every 2 hours, PRN as needed for smoking cessation, # 160 each, 1 Refills, Maintenance, 10/17/20 17:52:00 EST, Gum, [facility] #[id number], Partial fill upon patient requestif the prescription is for a schedule II opioid gómez... Start Date: 10/17/20 Status: Ordered PEG-3350 with Electrolytes (Eqv-NuLYTELY) oral powder for reconstitution See Instructions, as directed, # 1 each, 0 Refills, Maintenance, 01/29/21 13:04:00 EDT, [facility] #[id number], ok to sub for any gallon prep, as directed, 149, cm, 10/25/20 12:05:00 EST, Height, 57.7, kg, 11/15/19 15:04:00 EDT, Dry Weight Start Date: 01/29/21 Status: Ordered Plavix 75 mg oral tablet 75 mg, 1, tablet, By Mouth, Daily, # 90 tablet, Refills 4, Tot. Refills 4, Maintenance, 10/17/20 13:37:00 EST, Route to Pharmacy Electronically, [facility] #[id number], 149, cm, 08/20/20 8:58:00EST, Height, 57.7, kg, 11/15/19 15:04:00 EDT, Dry W... Start Date: 10/17/20 Stop Date: 01/10/22 Status: Ordered rosuvastatin 40 mg oral tablet 1 tablet = 40 mg, By Mouth, Daily, # 30 tablet, 6 Refills, Maintenance, 12/25/20 12:06:00 EDT, Tablet, [facility] #[id number], Partial fill upon patient request if the prescription is for a schedule II opioid drug., 149, cm, 10/25/20 12:05:00 EST... Start Date: 12/25/20 Stop Date: 07/23/21 Status: Ordered Problem List Condition Effective Dates Status Health Status Inform ant Anxiety depression(Confirmed) 09/04/11 Active Cigarette smoker(Confirmed) Active History of [place] (myocardial infarction)(Confirmed) Active Hypercholesterolemia(Confirmed) Active HTN (hypertension)(Confirmed) Active Hypothyroidism(Confirmed) Active Irritable bowel syndrome(Confirmed) Active STEMI (ST elevation myocardi al infarction)(Confirmed) Active Osteopenia(Confirmed) 07/29/08 Active Shingles(Confirmed) 11/18/96 Active Sleep apnea(Confirmed) Active Smoking(Confirmed) 12/05/08 Active Social History Social History Type Response Smoking Status Current every day melina arauz entered on: 01/14/18 Sex
--- OUTSIDE RECORDS SUMMARY | 2023-06-19 13:54 | XMS_ITS | Continuity of Care Document ---
Author Name Unknown Organization [facility] Adult Address [address] [place] [address]- Care Team Providers Care Wireless Watcher Name Role Phone Pippa BEARDEN, Elayne Diaz Primary Care Physician Encounter [facility] Date(s): 09/18/21 - 09/25/21 [facility] Adult [address] [place] [address]- Encounter Diagnosis Constipation(Discharge Diagnosis) - 09/18/21 Attending Physician: Elayne Das NP Allergies, Adverse [...] PASTEUR 2Admin Note: Left deltoid 3Result Comment: [facility] [id number] 4Result Comment: [facility] [id number] 5Admin Note: Declined 6Admin Note: VIS 04/02/09 7Admin Note: Declined Medications aspirin 81 mg oral delayed release tablet = 81 mg, By Mouth, Daily, # 30 tablet, 6 Refills, Maintenance, 05/08/21 8:09:00 EDT, EC Tablet, [facility] #[id number], 148, cm, 03/14/21 13:18:00 EDT, Height, 56.7, kg, 02/18/21 11:21:00 EDT, Dry Weight Start Date: 05/08/21 Status: Ordered clopidogrel 75 mg oral tablet 1, tablet, By Mouth, Daily, # 90 tablet, Refills 3, Tot. Refills 0, Maintenance, 03/07/21 9:49:00 EDT, Route to Pharmacy Electronically, [facility] #[id number], 148, cm, 02/19/21 8:07:00 EDT, Height, 56.7, kg, 02/18/21 11:21:00 EDT, Dry Weight Start Date: 03/07/21 Status: Ordered Colace sodium 100 mg oral capsule 100 mg, 1, capsule, By Mouth, 2 times a day, PRN, # 60 capsule, Refills 0, Tot. Refills 0, Maintenance, for constipation, 08/25/21 9:52:00 EST, Route to Pharmacy Electronically, [facility] #[id number], 148, cm, 08/25/21 9:45:00 EST, Height, 56.7,... Start Date: 08/25/21 Stop Date: 09/24/21 Status: Ordered diclofenac 1% topical gel 1 application, Topically, 4 times a day, # 100 Gm, 0 Refills, Maintenance, 03/08/21 18:34:00 EDT, Gel, [facility] #[id number], g., 148, cm, 02/19/21 8:07:00 EDT, Height, 56.7, kg, 02/18/21 11:21:00 EDT, Dry Weight Start Date: 03/08/21 Stop Date: 04/07/21 Status: Ordered levothyroxine 0.05 mg oral tablet 1 tablet = 50 mcg, By Mouth, Daily, # 30 tablet, 1 Refills, Maintenance, 08/26/21 12:34:00 EST, Tablet, [facility] #[id number], Partial fill upon patient request if the prescription is for a schedule II opioid drug., 148, cm, 08/25/21 9:45:00 EST... Start Date: 08/26/21 Stop Date: 10/25/21 Status: Ordered losartan 25 mg oral tablet 25 mg, 1, tablet, By Mouth, Daily, # 90 tablet, Refills 3, Tot. Refills 3, Maintenance, 08/25/21 9:42:00 EST, Route to Pharmacy Electronically, [facility] #[id number], 148, cm, 08/25/21 9:18:00 EST, Height, 56.7, kg, 02/18/21 11:21:00 EDT, Dry We... Start Date: 08/25/21 Stop Date: 08/20/22 Status: Ordered rosuvastatin 40 mg oral tablet 1 tablet, By Mouth, Daily, # 30 tablet, 5 Refills, [facility] #[id number], 148, cm, 03/14/21 13:18:00 EDT, Height, 56.7, kg, 02/18/21 11:21:00 EDT, Dry Weight Start Date: 06/27/21 Status: Ordered Senna Plus 50 mg-8.6 mg oral tablet 2 tablet, By Mouth, Daily at bedtime, # 60 tablet, 0 Refills, Maintenance, 09/18/21 11:10:00 EST, Tablet, [facility] #[id number], Partial fill upon patient request if the [...] Cl inical Service Informant Constipation Discharge Diagnosis 09/18/21 Vital Signs Most recent to oldest [Reference Range]: 1 Height 148 cm (09/18/21 9:18 AM) Social History Social History Type Response Smoking Status Current every day melina arauz entered on: 01/14/18 Sex
--- OUTSIDE RECORDS SUMMARY | 2023-06-19 13:54 | XMS_ITS | Continuity of Care Document ---
Author Name Unknown Organization [facility] Address [address] [place] [address]- Care Team Providers Care Beater Engineer Name Role Phone Pippa PAINT SUPERVISOR, Elayne Diaz Primary Care Physician Encounter [facility] Date(s): 10/16/22 - 11/15/22 [facility] [address] [place] [address] Attending Physician: Admlori, Lizbeth Admitting Physician: AdmtrLizbeth Referring Physician: Admtr, Ar8 Allergies, Adverse Reactions, [...] 3Result Comment: [facility] [id number] 4Result Comment: [facility] [id number] 5Admin Note: Declined 6Admin Note: VIS 04/02/09 7Admin Note: Declined Medications Artificial Tears preserved solution 1 drops, Eyes, Both, 2 times a day, PRN for dry eyes, # 30 mL, 0 Refills, Maintenance, 08/21/22 11:27:00 EST, Solution, [facility] #[id number], Partial fill upon patient request if the prescription is for a schedule II opioid drug., 1 drops Eyes,... Start Date: 08/21/22 Status: Ordered aspirin 81 mg oral delayed release tablet = 81 mg, By Mouth, Daily, # 30 tablet, 3 Refills, Maintenance, 03/02/22 12:46:00 EDT, EC Tablet, [facility] #[id number], 148, cm, 01/15/22 13:45:00 EDT, Height, 56.7, kg, 02/18/21 11:21:00 EDT, Dry Weight Start Date: 03/02/22 Status: Ordered calcium-vitamin D 600 mg-400 intl units oral tablet 1 tablet, By Mouth, 2 times a day, # 180 tablet, 3 Refills, Maintenance, 08/26/22 11:59:00 EST, Tablet, [facility] #[id number], Partial fill upon patient request if the prescription is for a schedule II opioid drug., 1 tablet By Mouth 2 times a d... Start Date: 08/26/22 Stop Date: 08/21/23 Status: Ordered diclofenac 1% topical gel 1 application, Topically, 4 times a day, # 100 Gm, 0 Refills, Maintenance, 03/08/21 18:34:00 EDT, Gel, [facility] #[id number], g., 148, cm, 02/19/21 8:07:00 EDT, Height, 56.7, kg, 02/18/21 11:21:00 EDT, Dry Weight Start Date: 03/08/21 Stop Date: 04/07/21 Status: Ordered Estrace Vaginal Cream 0.1 mg/g See Instructions, 1 Gm Vaginally Daily (pea-sized amount to tip of finger) at bedtime every night for 2 weeks and then 2-3 times a week after that, # 42.5 Gm, 0 Refills, Maintenance, 06/29/22 11:23:00 EST, [facility] #[id number], Partial fill upo... Start Date: 06/29/22 Status: Ordered levothyroxine 0.05 mg oral tablet 1 tablet = 50 mcg, By Mouth, Daily, # 90 tablet, 1 Refills, Maintenance, 05/21/22 14:53:00 EDT, Tablet, [facility] #[id number], Partial fill upon patient request if the prescription is for a schedule II opioid drug., 148, cm, 03/24/22 14:13:00 ED... Start Date: 05/21/22 Stop Date: 07/20/22 Status: Ordered losartan 25 mg oral tablet 25 mg, 1, tablet, By Mouth, Daily, # 90 tablet, Refills 1, Tot. Refills 1, Maintenance, 08/25/22 13:53:00 EST, Route to Pharmacy Electronically, [facility] #[id number], 148, cm, 07/03/22 9:15:00EST, Height, 45.8, kg, 03/24/22 14:13:00 EDT, Dry W... Start Date: 08/25/22 Stop Date: 02/21/23 Status: Ordered rosuvastatin 40 mg oral tablet 1 tablet, By Mouth, Daily, for 90 days, # 90 tablet, 1 Refills, Physician Stop 12/14/22 10:00:00 EDT, 06/17/22 10:00:00 EDT, [facility] #[id number], 148, cm, 03/24/22 14:13:00 EDT, Height, 45.8,kg, 03/24/22 14:13:00 EDT, Dry Weight Start Date: 06/17/22 Stop Date: 12/14/22 Status: Ordered Senna Plus 50 mg-8.6 mg oral tablet 2 tablet, By Mouth, Daily at bedtime, # 60 tablet, 0 Refills, Maintenance, 09/18/21 11:10:00 EST, Tablet, [facility] #[id number], Partial fill upon patient request if the prescription is for a schedule II opioid drug., 2 tablet By Mouth Daily at... Start Date: 09/18/21 Stop Date: 10/18/21 Status: Ordered Problem List Condition Confirmation Course Effective Dates Status Health Status Informant Anxiety depression Confirmed 09/04/11 Active Cigarette smoker Confirmed Active History of [place] (myocardial infarction) 1 Confirmed 10/2019 Active Hypercholesterolemia [...] Personnel Name: Pippa BEARDEN, Elayne Diaz Position: [facility] PCO Associate Professional Member Role: PCP Address: Address: [address] [place] [id number] Name: Kamilla Vanessa RN Position: [facility] RN Supv Member Role: Primary Care Nurse Name: Maria L Dickinson RN Position: S RN Member Role: Primary Care Nurse Care Team Related Persons Name: BENTON SEAMAN Name: KEN GUERRERO Address: home [address] [place] [address] Name: JUS [place] Address: [place] [address]
--- OUTSIDE RECORDS SUMMARY | 2023-06-19 13:54 | XMS_ITS | Continuity of Care Document ---
Author Name Unknown Organization [facility] Adult Address [address] [place] [address]- Care Team Providers Care Arts And Crafts Instructor Name Role Phone Elayne Das NP Primary Care Physician Encounter [facility] Date(s): 03/14/21 - 04/13/21 [facility] Adult [address] [place] [address]- Attending Physician: Lizbeth Cordova Admitting Physician: AdmtrLizbeth Referring Physician: Admtr, ArEllyn Allergies, Adverse Reactions, [...] 2Admin Note: Left deltoid 3Result Comment: [facility] [id number] 4Result Comment: [facility] [id number] 5Admin Note: Declined 6Admin Note: VIS 04/02/09 7Admin Note: Declined Medications aspirin 81 mg oral delayed release tablet = 81 mg, By Mouth, Daily, # 30 tablet, 6 Refills, Maintenance, 10/17/20 13:37:00 EST, EC Tablet, [facility] #[id number], 149, cm, 08/20/20 8:58:00 EST, Height, 57.7, kg, 11/15/19 15:04:00 EDT, Dry Weight Start Date: 10/17/20 Status: Ordered clopidogrel 75 mg oral tablet 1, tablet, By Mouth, Daily, # 90 tablet, Refills 3, Tot. Refills 0, Maintenance, 03/07/21 9:49:00 EDT, Route to Pharmacy Electronically, [facility] #[id number], 148, cm, 02/19/21 8:07:00 EDT, Height, 56.7, kg, 02/18/21 11:21:00 EDT, Dry Weight Start Date: 03/07/21 Status: Ordered Colace sodium 100 mg oral capsule 100 mg, 1, capsule, By Mouth, 2 times a day, PRN, # 60 capsule, Refills 0, Tot. Refills 0, Maintenance, for constipation, 03/06/20 14:06:00 EDT, Route to Pharmacy Electronically, [facility][id number], 149, cm, 03/06/20 12:19:00 EDT, Height, 57.... Start Date: 03/06/20 Stop Date: 04/05/20 Status: Ordered diclofenac 1% topical gel 1 application, Topically, 4 times a day, # 100 Gm, 0 Refills, Maintenance, 03/08/21 18:34:00 EDT, Gel, [facility] #[id number], g., 148, cm, 02/19/21 8:07:00 EDT, Height, [...] 02/04/21 9:04:00 EDT, Route to Pharmacy Electronically, [facility] #[id number], 149, cm, 10/25/20 12:05:00EST, Height, 57.7, kg, 11/15/19 15:04:00 EDT, Dry W... Start Date: 02/04/21 Stop Date: 08/03/21 Status: Ordered rosuvastatin 40 mg oral tablet 1 tablet = 40 mg, By Mouth, Daily, # 30 tablet, 6 Refills, Maintenance, 12/25/20 12:06:00 EDT, Tablet, [facility] #[id number], Partial fill upon patient request if the [...]
--- OUTSIDE RECORDS SUMMARY | 2023-06-19 13:54 | XMS_ITS | Continuity of Care Document ---
Author Name Unknown Organization [facility] Address [address] [place] [id number]- Care Team Providers Care Cleaner Housekeeping Name Role Phone Pippa BEARDEN, Elayne Diaz Primary Care Physician [facility]): [facility] - 10/12/21 [facility] [address] [place] [address] Attending Physician: Admlori, Lizbeth Admitting Physician: Admtr, [id number] Referring Physician: [...] PASTEUR 2Admin Note: Left deltoid 3Result Comment: [facility] [id number] 4Result Comment: [facility] [phone] 5Admin Note: Declined 6Admin Note: VIS 04/02/09 7Admin Note: Declined Medications aspirin 81 mg oral delayed release tablet = 81 mg, By Mouth, Daily, # 30 tablet, 6 Refills, Maintenance, 05/08/21 8:09:00 EDT, EC Tablet, [facility] #[id number], 148, cm, 03/14/21 13:18:00 EDT, Height, 56.7, kg, 02/18/21 11:21:00 EDT, Dry Weight Start Date: 05/08/21 Status: Ordered clopidogrel 75 mg oral tablet 1, tablet, By Mouth, Daily, # 90 tablet, Refills 3, Tot. Refills 0, Maintenance, 03/07/21 9:49:00 EDT, Route to Pharmacy Electronically, [facility] #[id number], 148, cm, 02/19/21 8:07:00 EDT, Height, 56.7, kg, 02/18/21 11:21:00 EDT, Dry Weight Start Date: 03/07/21 Status: Ordered Colace sodium 100 mg oral capsule 100 mg, 1, capsule, By Mouth, 2 times a day, PRN, # 60 capsule, Refills 0, Tot. Refills 0, Maintenance, for constipation, 08/25/21 9:52:00 EST, Route to Pharmacy Electronically, [facility] #[id number], 148, cm, 08/25/21 9:45:00 EST, Height, 56.7,... Start Date: 08/25/21 Stop Date: 09/24/21 Status: Ordered diclofenac 1% topical gel 1 application, Topically, 4 times a day, # 100 Gm, 0 Refills, Maintenance, 03/08/21 18:34:00 EDT, Gel, [facility] #[id number], g., 148, cm, 02/19/21 8:07:00 EDT, Height, 56.7, kg, 02/18/21 11:21:00 EDT, Dry Weight Start Date: 03/08/21 Stop Date: 04/07/21 Status: Ordered levothyroxine 0.05 mg oral tablet 1 tablet = 50 mcg, By Mouth, Daily, # 30 tablet, 1 Refills, Maintenance, 08/26/21 12:34:00 EST, Tablet, [facility] #[id number], Partial fill upon patient request if the prescription is for a schedule II opioid drug., 148, cm, 08/25/21 9:45:00 EST... Start Date: 08/26/21 Stop Date: 10/25/21 Status: Ordered losartan 25 mg oral tablet 25 mg, 1, tablet, By Mouth, Daily, # 90 tablet, Refills 3, Tot. Refills 3, Maintenance, 08/25/21 9:42:00 EST, Route to Pharmacy Electronically, [facility] #[id number], 148, cm, 08/25/21 9:18:00 EST, Height, 56.7, kg, 02/18/21 11:21:00 EDT, Dry We... Start Date: 08/25/21 Stop Date: 08/20/22 Status: Ordered rosuvastatin 40 mg oral tablet 1 tablet, By Mouth, Daily, # 30 tablet, 5 Refills, [facility] #[id number], 148, cm, 03/14/21 13:18:00 EDT, Height, 56.7, kg, 02/18/21 11:21:00 EDT, Dry Weight Start Date: 06/27/21 Status: Ordered Senna Plus 50 mg-8.6 mg oral tablet 2 tablet, By Mouth, Daily at bedtime, # 60 tablet, 0 Refills, Maintenance, 09/18/21 11:10:00 EST, Tablet, [facility] #[id number], Partial fill upon patient request if the prescription is for a schedule II opioid drug., 2 tablet By Mouth Daily at... Start Date: 09/18/21 Stop Date: 10/18/21 Status: Ordered Problem List Condition Effective Dates Status Health Status Inform ant Anxiety depression(Confirmed) 09/04/11 Active Cigarette smoker(Confirmed) Active History of [place] (myocardial infarction)(Confirmed) Active Hypercholesterolemia(Confirmed) Active HTN (hypertension)(Confirmed) Active Hypothyroidism(Confirmed) Active Irritable bowel syndrome(Confirmed) Active STEMI (ST elevation myocardi al infarction)(Confirmed) Active Osteopenia(Confirmed) 07/29/08 Active Shingles(Confirmed) 11/18/96 Active Sleep apnea(Confirmed) Active Smoking(Confirmed) 12/05/08 Active Social History Social History Type Response Smoking Status Current every day melina arauz entered on: 01/14/18 Sex
--- OUTSIDE RECORDS SUMMARY | 2023-06-19 13:54 | XMS_ITS | Continuity of Care Document ---
Author Name Unknown Organization [facility] Address [address] [place] [address]- Care Team Providers Care Sumac Tanner Name Role Phone Pippa BEARDEN, Elayne Diaz Primary Care Physician [facility] - 09/01/20 [facility] [address] [place], [place] [address] Attending Physician: Lizbeth Cordova Admitting Physician: [...] PASTEUR 2Admin Note: Left deltoid 3Result Comment: [facility] [id number] 4Result Comment: [facility] [id number] 5Admin Note: Declined 6Admin Note: VIS 8/11/09 7Admin Note: Declined Medications aspirin 81 mg oral delayed release tablet = 81 mg, By Mouth, Daily, # 30 tablet, 0 Refills, Maintenance, 11/17/19 10:26:00 EDT, EC Tablet, [facility] #[id number], 149, cm, 11/15/19 13:59:00 EDT, Height, 57.7, kg, 11/15/19 15:04:00 EDT, Dry Weight Start Date: 11/17/19 Status: Ordered atorvastatin 80 mg oral tablet 1 tablet = 80 mg, By Mouth, Daily at bedtime, # 90 tablet, 1 Refills, Maintenance, 08/08/20 9:05:00EST, Tablet, [facility] #[id number], 149, cm, 08/08/20 7:51:00 EST, Height, 57.7, kg, 11/14/2014:04:00 EDT, Dry Weight Start Date: 08/08/20 Stop Date: 02/04/21 Status: Ordered Colace sodium 100 mg oral capsule 100 mg, 1, capsule, By Mouth, 2 times a day, PRN, # 60 capsule, Refills 0, Tot. Refills 0, Maintenance, for constipation, 03/06/20 14:06:00 EDT, Route to Pharmacy Electronically, [facility]#[id number], 149, cm, 03/06/20 12:19:00 EDT, Height, 57.... Start Date: 03/06/20 Stop Date: 04/05/20 Status: Ordered levothyroxine 88 mcg (0.088 mg) oral capsule 1 capsule = 88 mcg, By Mouth, Daily, # 90 capsule, 1 Refills, Maintenance, 08/08/20 9:04:00 EST, Capsule, [facility] #[id number], 149, cm, 08/08/20 7:51:00 EST, Height, 57.7, kg, 11/15/19 15:04:00 EDT, Dry Weight Start Date: 08/08/20 Stop Date: 02/04/21 Status: Ordered losartan 25 mg oral tablet 25 mg, 1, tablet, By Mouth, Daily, # 90 tablet, Refills 1, Tot. Refills 1, Maintenance, 08/08/20 9:04:00 EST, Route to Pharmacy Electronically, [facility] #[id number], 149, cm, 08/08/20 7:51:00 EST, Height, 57.7, kg, 11/15/19 15:04:00 EDT, Dry We... Start Date: 08/08/20 Stop Date: 02/04/21 Status: Ordered Nicorette Mini 4 mg oral transmucosal lozenge 1 lozenge = 4 mg, By Mouth, Every hour, in addition to patches do not chew or swallow whole, # 144 lozenge, 2 Refills, Acute 11/18/20 22:40:00 EDT, 11/18/19 22:40:00 EDT, [facility] #[id number],149, cm, 11/15/19 13:59:00 EDT, Height, 57.7, kg,... Start Date: 11/18/19 Stop Date: 11/18/20 Status: Ordered nicotine 14 mg/24 hr transdermal film, extended release 1 patch, Topically, Daily, in addition to 21 mg patch, # 30 patch, 2 Refills, Acute 11/18/20 22:41:00 EDT, 11/18/19 22:39:00 EDT, Patch, [facility] #[id number], 1 patch Topically Daily,Instr:in addition to 21 mg patch, 149, cm, 11/15/19 13:59:00... Start Date: 11/18/19 Stop Date: 11/18/20 Status: Ordered nicotine 21 mg/24 hr transdermal film, extended release 1 patch, Topically, Daily, combine with 14 mg, for total of 35 mg nicotine, use for 6 months, # 30 patch, 5 Refills, Acute 11/18/20 22:45:00 EDT, 11/18/19 22:38:00 EDT, Patch, [facility] #[id number], 1 patch Topically Daily,Instr:combine with 14... Start Date: 11/18/19 Stop Date: 11/18/20 Status: Ordered Plavix 75 mg oral tablet 75 mg, 1, tablet, By Mouth, Daily, # 90 tablet, Refills 1, Tot. Refills 1, Maintenance, 08/20/20 8:33:00 EST, Route to Pharmacy Electronically, [facility] #[id number], 149, cm, 08/20/20 8:12:00 EST, Height, 57.7, kg, 11/15/19 15:04:00 EDT, Dry We... Start Date: 08/20/20 Stop Date: 02/16/21 Status: Ordered Plavix 75 mg oral tablet 75 mg, 1, tablet, By Mouth, Daily, # 30 tablet, Refills 0, Tot. Refills 0, Maintenance, 05/10/20 12:48:00 EDT, Route to Pharmacy Electronically, [facility] #[id number], 149, cm, 03/06/20 12:19:00 EDT, Height, 57.7, kg, 11/15/19 15:04:00 EDT, Dry... Start Date: 05/10/20 Status: Ordered Problem List Condition Effective Dates Status Health Status Inform ant Anxiety depression(Confirmed) 09/04/11 Active Cigarette smoker(Confirmed) Active History of [place] (myocardial infarction)(Confirmed) Active Hypercholesterolemia(Confirmed) Active HTN (hypertension)(Confirmed) Active Hypothyroidism(Confirmed) Active Irritable bowel syndrome(Confirmed) Active STEMI (ST elevation myocardi al infarction)(Confirmed) Active Osteopenia(Confirmed) 07/29/08 Active Shingles(Confirmed) 11/18/96 Active Sleep apnea(Confirmed) Active Smoking(Confirmed) 12/05/08 Active Social History Social History Type Response Smoking Status Current every day melina arauz entered on: 01/14/18 Sex
--- OUTSIDE RECORDS SUMMARY | 2023-06-19 13:54 | XMS_ITS | Continuity of Care Document ---
Author Name Unknown Organization [facility] Address [address] [place] [address]- Care Team Providers Care Appliance Technician Name Role Phone Pippa BEARDEN, Elayne Diaz Primary Care Physician [facility] 08[facility]20 - 09/01/20 [facility] [address] [place] [address]- Attending Physician: Radha Ray MD Referring Physician: Elayne Das NP Allergies, Adverse Reactions, [...] PASTEUR 2Admin Note: Left deltoid 3Result Comment: [facility] [id number] 4Result Comment: [facility] [id number] 5Admin Note: Declined 6Admin Note: VIS 04/02/09 7Admin Note: Declined Medications aspirin 81 mg oral delayed release tablet = 81 mg, By Mouth, Daily, # 30 tablet, 0 Refills, Maintenance, 11/17/19 10:26:00 EDT, EC Tablet, [facility] #[id number], 149, cm, 11/15/19 13:59:00 EDT, Height, 57.7, kg, 11/15/19 15:04:00 EDT, Dry Weight Start Date: 11/17/19 Status: Ordered atorvastatin 80 mg oral tablet 1 tablet = 80 mg, By Mouth, Daily at bedtime, # 90 tablet, 1 Refills, Maintenance, 08/08/20 9:05:00EST, Tablet, [facility] #[id number], 149, cm, 08/08/20 7:51:00 EST, Height, 57.7, kg, 11/14/2014:04:00 EDT, Dry Weight Start Date: 08/08/20 Stop Date: 02/04/21 Status: Ordered Colace sodium 100 mg oral capsule 100 mg, 1, capsule, By Mouth, 2 times a day, PRN, # 60 capsule, Refills 0, Tot. Refills 0, Maintenance, for constipation, 03/06/20 14:06:00 EDT, Route to Pharmacy Electronically, [facility]#[id number], 149, cm, 03/06/20 12:19:00 EDT, Height, 57.... Start Date: 03/06/20 Stop Date: 04/05/20 Status: Ordered levothyroxine 88 mcg (0.088 mg) oral capsule 1 capsule = 88 mcg, By Mouth, Daily, # 90 capsule, 1 Refills, Maintenance, 08/08/20 9:04:00 EST, Capsule, [facility] #[id number], 149, cm, 08/08/20 7:51:00 EST, Height, 57.7, kg, 11/15/19 15:04:00 EDT, Dry Weight Start Date: 08/08/20 Stop Date: 02/04/21 Status: Ordered losartan 25 mg oral tablet 25 mg, 1, tablet, By Mouth, Daily, # 90 tablet, Refills 1, Tot. Refills 1, Maintenance, 08/08/20 9:04:00 EST, Route to Pharmacy Electronically, [facility] #[id number], 149, cm, 08/08/20 7:51:00 EST, Height, 57.7, kg, 11/15/19 15:04:00 EDT, Dry We... Start Date: 08/08/20 Stop Date: 02/04/21 Status: Ordered Nicorette Mini 4 mg oral transmucosal lozenge 1 lozenge = 4 mg, By Mouth, Every hour, in addition to patches do not chew or swallow whole, # 144 lozenge, 2 Refills, Acute 11/18/20 22:40:00 EDT, 11/18/19 22:40:00 EDT, [facility] #[id number],149, cm, 11/15/19 13:59:00 EDT, Height, 57.7, kg,... Start Date: 11/18/19 Stop Date: 11/18/20 Status: Ordered nicotine 14 mg/24 hr transdermal film, extended release 1 patch, Topically, Daily, in addition to 21 mg patch, # 30 patch, 2 Refills, Acute 11/18/20 22:41:00 EDT, 11/18/19 22:39:00 EDT, Patch, [facility] #[id number], 1 patch Topically Daily,Instr:in addition to 21 mg patch, 149, cm, 11/15/19 13:59:00... Start Date: 11/18/19 Stop Date: 11/18/20 Status: Ordered nicotine 21 mg/24 hr transdermal film, extended release 1 patch, Topically, Daily, combine with 14 mg, for total of 35 mg nicotine, use for 6 months, # 30 patch, 5 Refills, Acute 11/18/20 22:45:00 EDT, 11/18/19 22:38:00 EDT, Patch, [facility] #[id number], 1 patch Topically Daily,Instr:combine with 14... Start Date: 11/18/19 Stop Date: 11/18/20 Status: Ordered Plavix 75 mg oral tablet 75 mg, 1, tablet, By Mouth, Daily, # 90 tablet, Refills 1, Tot. Refills 1, Maintenance, 08/20/20 8:33:00 EST, Route to Pharmacy Electronically, [facility] #[id number], 149, cm, 08/20/20 8:12:00 EST, Height, 57.7, kg, 11/15/19 15:04:00 EDT, Dry We... Start Date: 08/20/20 Stop Date: 02/16/21 Status: Ordered Plavix 75 mg oral tablet 75 mg, 1, tablet, By Mouth, Daily, # 30 tablet, Refills 0, Tot. Refills 0, Maintenance, 05/10/20 12:48:00 EDT, Route to Pharmacy Electronically, [facility] #[id number], 149, cm, 03/06/20 12:19:00 EDT, Height, 57.7, [...] oldest [Reference Range]: 1 Height 149 cm (08/02/20 2:49 PM) Oxygen Saturation [94-100 %] 99 % (08/02/20 2:49 PM) Pulse Rate [55-90 bpm] 86 bpm (08/02/20 2:49 PM) Blood Pressure [90-138/55-84 mm Hg] 163/ 90mm Hg *H* (08/02/20 2:49 PM) Respiratory Rate [16-30 br/min] 19 br/mi n (08/02/20 2:49 PM) Temperature [96.8-100.4 DegF] 97.1 DegF (08/02/20 2:49 PM) Mode of Delivery (Oxygen) Room air (08/02/20 2:49 PM) Blood pressure sites Arm, left (08/02/20 2:49 PM) Temperature Route Temporal (08/02/20 2:49 PM) Social History Social History Type Response Smoking Status Current every day melina arauz entered on: 01/14/18 Sex
--- OUTSIDE RECORDS SUMMARY | 2023-06-19 13:54 | XMS_ITS | Continuity of Care Document ---
Author Name Unknown Organization [facility] Address [address] [place] [address]- Care Team Providers Care Metalsmith Name Role Phone Elayne Das NP Primary Care Physician [facility] 10[facility] - 11/25/22 [facility] [address] [place] [address]- Allergies, Adverse Reactions, Alerts No Known Allergies [...] PASTEUR 2Admin Note: Left deltoid 3Result Comment: [facility] [id number] 4Result Comment: [facility] [id number] 5Admin Note: Declined 6Admin Note: VIS 04/02/09 7Admin Note: Declined Medications Artificial Tears preserved solution 1 drops, Eyes, Both, 2 times a day, PRN for dry eyes, # 30 mL, 0 Refills, Maintenance, 08/21/22 11:27:00 EST, Solution, [facility] #[id number], Partial fill upon patient request if the prescription is for a schedule II opioid drug., 1 drops Eyes,... Start Date: 08/21/22 Status: Ordered aspirin 81 mg oral delayed release tablet = 81 mg, By Mouth, Daily, # 30 tablet, 5 Refills, Maintenance, 11/17/22 13:30:00 EDT, EC Tablet, [facility] #[id number], 148, cm, 08/26/22 12:13:00 EST, Height, 45.8, kg, 03/24/22 14:13:00 EDT, Dry Weight Start Date: 11/17/22 Status: Ordered calcium-vitamin D 600 mg-400 intl units oral tablet 1 tablet, By Mouth, 2 times a day, # 180 tablet, 3 Refills, Maintenance, 08/26/22 11:59:00 EST, Tablet, [facility] #[id number], Partial fill upon patient request if the prescription is for a schedule II opioid drug., 1 tablet By Mouth 2 times a d... Start Date: 08/26/22 Stop Date: 08/21/23 Status: Ordered diclofenac 1% topical gel 1 application, Topically, 4 times a day, # 100 Gm, 0 Refills, Maintenance, 03/08/21 18:34:00 EDT, Gel, [facility] #[id number], g., 148, cm, 02/19/21 8:07:00 EDT, Height, 56.7, kg, 02/18/21 11:21:00 EDT, Dry Weight Start Date: 03/08/21 Stop Date: 04/07/21 Status: Ordered Estrace Vaginal Cream 0.1 mg/g See Instructions, 1 Gm Vaginally Daily (pea-sized amount to tip of finger) at bedtime every night for 2 weeks and then 2-3 times a week after that, # 42.5 Gm, 0 Refills, Maintenance, 06/29/22 11:23:00 EST, [facility] #[id number], Partial fill upo... Start Date: 06/29/22 Status: Ordered levothyroxine 0.05 mg oral tablet 1 tablet = 50 mcg, By Mouth, Daily, # 90 tablet, 1 Refills, Maintenance, 11/16/22 11:49:00 EDT, Tablet, [facility] #[id number], Partial fill upon patient request if the prescription is for a schedule II opioid drug., 148, cm, 08/26/22 12:13:00 ES... Start Date: 11/16/22 Stop Date: 01/15/23 Status: Ordered losartan 25 mg oral tablet 25 mg, 1, tablet, By Mouth, Daily, # 90 tablet, Refills 1, Tot. Refills 1, Maintenance, 08/25/22 13:53:00 EST, Route to Pharmacy Electronically, [facility] #[id number], 148, cm, 07/03/22 9:15:00EST, Height, 45.8, kg, 03/24/22 14:13:00 EDT, Dry W... Start Date: 08/25/22 Stop Date: 02/21/23 Status: Ordered rosuvastatin 40 mg oral tablet 1 tablet, By Mouth, Daily, for 90 days, # 90 tablet, 1 Refills, Physician Stop 12/14/22 10:00:00 EDT, 06/17/22 10:00:00 EDT, [facility] #[id number], 148, cm, 03/24/22 14:13:00 EDT, Height, 45.8,kg, 03/24/22 14:13:00 EDT, Dry Weight Start Date: 06/17/22 Stop Date: 12/14/22 Status: Ordered Senna Plus 50 mg-8.6 mg oral tablet 2 tablet, By Mouth, Daily at bedtime, # 60 tablet, 0 Refills, Maintenance, 09/18/21 11:10:00 EST, Tablet, [facility] #[id number], Partial fill upon patient request if the prescription is for a schedule II opioid drug., 2 tablet By Mouth Daily at... Start Date: 09/18/21 Stop Date: 10/18/21 Status: Ordered Problem List Condition Confirmation Course Effective Dates Status Health Status Informant Anxiety depression Confirmed 09/04/11 Active Cigarette smoker Confirmed Active History of ME (myocardial infarction) 1 Confirmed 10/2019 Active Hypercholesterolemia [...] Personnel Name: Pippa BEARDEN, Elayne Diaz Position: [facility] PCO Associate Professional Member Role: PCP Address: Address: [address] [place] [address] [address] [place], [place] [address] Name: Kamilla Vanessa RN Position: Rosina RN Supv Member Role: Primary Care Nurse Name: Maria L Dickinson RN Position: S RN Member Role: Primary Care Nurse Care Team Related Persons Name: BENTON SEAMAN Name: KEN GUERRERO Address: home [address] [place] [id number] Name: JUS CHAO Address: [place] [address]
--- OUTSIDE RECORDS SUMMARY | 2023-06-19 13:54 | XMS_ITS | Continuity of Care Document ---
Author Name Unknown Organization [facility] Address [address] [place] [address]- Care Team Providers Care Chainstitch Binder Name Role Phone Pippa BEARDEN, Elayne Diaz Primary Care Physician [facility] - 02/09/21 [facility] [address] [place] [address]- Allergies, Adverse Reactions, Alerts Substance Reaction Severity [...] Left deltoid 3Result Comment: [facility] [id number] 4Result Comment: [facility] [id number] 5Admin Note: Declined 6Admin Note: VIS 04/02/09 7Admin Note: Declined Medications aspirin 81 mg oral delayed release tablet = 81 mg, By Mouth, Daily, # 30 tablet, 6 Refills, Maintenance, 10/17/20 13:37:00 EST, EC Tablet, [facility] #[id number], 149, cm, 08/20/20 8:58:00 EST, Height, 57.7, kg, 11/15/19 15:04:00 EDT, Dry Weight Start Date: 10/17/20 Status: Ordered Colace sodium 100 mg oral capsule 100 mg, 1, capsule, By Mouth, 2 times a day, PRN, # 60 capsule, Refills 0, Tot. Refills 0, Maintenance, for constipation, 03/06/20 14:06:00 EDT, Route to Pharmacy Electronically, [facility]#[id number], 149, cm, 03/06/20 12:19:00 EDT, Height, 57.... Start Date: 03/06/20 Stop Date: 04/05/20 Status: Ordered levothyroxine 75 mcg (0.075 mg) oral tablet See Instructions, TAKE 1 TABLET BY MOUTH DAILY, # 30 tablet, 5 Refills, Maintenance, [facility][id number], 149, cm, 10/25/20 12:05:00 EST, Height, 57.7, kg, 11/15/19 15:04:00 EDT, Dry Weight Start Date: 01/10/21 Status: Ordered losartan 25 mg oral tablet 25 mg, 1, tablet, By Mouth, Daily, # 90 tablet, Refills 1, Tot. Refills 1, Maintenance, 02/04/21 9:04:00 EDT, Route to Pharmacy Electronically, [facility] #[id number], 149, cm, 10/25/20 12:05:00EST, Height, 57.7, kg, 11/15/19 15:04:00 EDT, Dry W... Start Date: 02/04/21 Stop Date: 08/03/21 Status: Ordered magnesium hydroxide 8% oral suspension See Instructions, PRN for constipation, 5 to 15 mL as needed up to 4 times/day; do not exceed 60 mLin 24 hours., # 480 mL, 0 Refills, Maintenance, 11/25/20 7:55:00 EDT, Suspension, [facility] #[id number], Partial fill upon patient request if the... Start Date: 11/25/20 Status: Ordered nicotine 4 mg oral transmucosal gum 1 each = 4 mg, Chew, Every 2 hours, PRN as needed for smoking cessation, # 160 each, 1 Refills, Maintenance, 10/17/20 17:52:00 EST, Gum, [facility] #[id number], Partial fill upon patient requestif the prescription is for a schedule II opioid gómez... Start Date: 10/17/20 Status: Ordered PEG-3350 with Electrolytes (Eqv-NuLYTELY) oral powder for reconstitution See Instructions, as directed, # 1 each, 0 Refills, Maintenance, 01/29/21 13:04:00 EDT, [facility] #[id number], ok to sub for any gallon prep, as directed, 149, cm, 10/25/20 12:05:00 EST, Height, 57.7, kg, 11/15/19 15:04:00 EDT, Dry Weight Start Date: 01/29/21 Status: Ordered Plavix 75 mg oral tablet 75 mg, 1, tablet, By Mouth, Daily, # 90 tablet, Refills 4, Tot. Refills 4, Maintenance, 10/17/20 13:37:00 EST, Route to Pharmacy Electronically, [facility] #[id number], 149, cm, 08/20/20 8:58:00EST, Height, 57.7, kg, 11/15/19 15:04:00 EDT, Dry W... Start Date: 10/17/20 Stop Date: 01/10/22 Status: Ordered rosuvastatin 40 mg oral tablet 1 tablet = 40 mg, By Mouth, Daily, # 30 tablet, 6 Refills, Maintenance, 12/25/20 12:06:00 EDT, Tablet, [facility] #[id number], Partial fill upon patient request if the [...]
--- OUTSIDE RECORDS SUMMARY | 2023-06-19 13:54 | XMS_ITS | Continuity of Care Document ---
Author Name Unknown Organization [facility] Adult Address [address] [place] [address]- Care Team Providers Care Business Operations Coordinator Name Role Phone Elayne Das NP Primary Care Physician Encounter [facility] Date(s): 05/13/23 - 06/12/23 [facility] [address] [place] [address]- Allergies, Adverse Reactions, Alerts No Known Allergies [...] PASTEUR 2Admin Note: Left deltoid 3Result Comment: [facility] [id number] 4Result Comment: [facility] [id number] 5Admin Note: Declined 6Admin Note: VIS 04/02/09 7Admin Note: Declined Medications Artificial Tears preserved solution 1 drops, Eyes, Both, 2 times a day, PRN for dry eyes, # 30 mL, 0 Refills, Maintenance, 08/21/22 11:27:00 EST, Solution, [facility] #[id number], Partial fill upon patient request if the prescription is for a schedule II opioid drug., 1 drops Eyes,... Start Date: 08/21/22 Status: Ordered aspirin 81 mg oral delayed release tablet = 81 mg, By Mouth, Daily, # 90 tablet, 1 Refills, Maintenance, 05/14/23 13:00:00 EDT, EC Tablet, [facility] #[id number], 148, cm, 04/29/23 14:56:00 EDT, Height, 45.8, kg, 03/24/22 14:13:00 EDT, Dry Weight Start Date: 05/14/23 Stop Date: 11/10/23 Status: Ordered calcium-vitamin D 600 mg-400 intl units oral tablet 1 tablet, By Mouth, 2 times a day, # 180 tablet, 3 Refills, Maintenance, 08/26/22 11:59:00 EST, Tablet, [facility] #[id number], Partial fill upon patient request if the prescription is for a schedule II opioid drug., 1 tablet By Mouth 2 times a d... Start Date: 08/26/22 Stop Date: 08/21/23 Status: Ordered clobetasol 0.05% topical gel 1 application, Topically, 2 times a day, # 30 Gm, 0 Refills, Maintenance, 04/29/23 14:59:00 EDT, Gel, [facility] #[id number], Partial fill upon patient request if the prescription is for a schedule II opioid drug., 1 application Topically 2 times... Start Date: 04/29/23 Status: Ordered diclofenac 1% topical gel 1 application, Topically, 4 times a day, # 100 Gm, 0 Refills, Maintenance, 03/08/21 18:34:00 EDT, Gel, [facility] #[id number], g., 148, cm, 02/19/21 8:07:00 EDT, Height, 56.7, kg, 02/18/21 11:21:00 EDT, Dry Weight Start Date: 03/08/21 Stop Date: 04/07/21 Status: Ordered Estrace Vaginal Cream 0.1 mg/g See Instructions, 1 Gm Vaginally Daily (pea-sized amount to tip of finger) at bedtime every night for 2 weeks and then 2-3 times a week after that, # 42.5 Gm, 0 Refills, Maintenance, 06/29/22 11:23:00 EST, [facility] #[id number], Partial fill upo... Start Date: 06/29/22 Status: Ordered levothyroxine 0.05 mg oral tablet 1 tablet = 50 mcg, By Mouth, Daily, # 90 tablet, 1 Refills, Maintenance, 05/13/23 11:20:00 EDT, Tablet, [facility] #[id number], Partial fill upon patient request if the prescription is for a schedule II opioid drug., 148, cm, 04/29/23 14:56:00 ED... Start Date: 05/13/23 Stop Date: 07/12/23 Status: Ordered losartan 25 mg oral tablet 25 mg, 1, tablet, By Mouth, Daily, # 90 tablet, Refills 3, Tot. Refills 3, Maintenance, 05/14/23 12:59:00 EDT, Route to Pharmacy Electronically, [facility] #[id number], Partial fill upon patientrequest if the prescription is for a schedule II op... Start Date: 05/14/23 Stop Date: 05/08/24 Status: Ordered rosuvastatin 40 mg oral tablet 1 tablet, By Mouth, Daily, for 90 days, # 90 tablet, 1 Refills, Physician Stop 11/10/23 12:59:00 EDT, 05/14/23 12:59:00 EDT, [facility] #[id number], 148, cm, 04/29/23 14:56:00 EDT, Height, 45.8,kg, 03/24/22 14:13:00 EDT, Dry Weight Start Date: 05/14/23 Stop Date: 11/10/23 Status: Ordered Senna Plus 50 mg-8.6 mg oral tablet 2 tablet, By Mouth, Daily at bedtime, # 60 tablet, 0 Refills, Maintenance, 09/18/21 11:10:00 EST, Tablet, [facility] #[id number], Partial fill upon patient request if the [...] Personnel Name: Pippa BEARDEN, Elayne Diaz Position: [facility] PCO Associate Professional Member Role: PCP Address: Address: [address] [place] [address] [address] [place] [address]- Name: Kamilla Vanessa RN Position: [facility] Supv Member Role: Primary Care Nurse Name: Maria L Dickinson RN Position: [facility] RN Member Role: Primary Care Nurse Care Team Related Persons Name: BENTON SEAMAN Name: KEN GUERRERO Address: home [address] [place] [id number] Name: JUS CHAO Address: [place] [address]
[2023-06-19 14:04] LABS: Appearance Urine Cloudy; Color Urine Yellow; Glucose Urine UA Negative (Negative); Leukocyte Esterase Urine Trace (Negative); Nitrite Urine Negative (Negative); PH 5.5 (5.0-9.0); UMIC TRIGGER UACC YES; Urine Blood Small (1+) (Negative); Urine Ketones Negative (Negative); Urine Protein 100 (2+) mg/dL (Neg-Trace)
[2023-06-19 14:13] LABS: Bacteria Urine 1+ (None Seen); Granular Casts Urine Present; WBC Urine 0-5 /HPF (0-5)
== END 2023-06-19 15:22 | disposition home or self-care (01) ==
PROVIDERS: Nurse Practitioner Family; Emergency Provider Student in an Organized Health Care Education/Training Program; PCP Nurse Practitioner Family
DX: M25.512 Pain in left shoulder (principal)
CPT/HCPCS: 80053; 81001; 82550; 83735; 85025; 87502; 87635; 99283

== ENCOUNTER 2023-07-16 08:56 | Emergency (ER) | payer MEDICARE, SELFPAY ==
--- NOTE | 2023-07-16 09:11 | ED_ITS ---
HPI - General Adult General Chief complaint: Weakness Stated complaint: UTI?/ weakness Time Seen by Provider: 07/16/23 09:10 Source: patient, RN notes reviewed and old records reviewed Mode of arrival: ambulatory History of Present Illness HPI narrative: 78-year-old female with a history of hypertension, hyperlipidemia, and hypothyroidism, presenting to the ED complaining of generalized weakness over the past month, and bilateral shoulder pain x weeks. Admits was recently seen and treated in our ED for similar symptoms, followed up with PCP, had outpatient XR's in [facility] system on 06/24 (which were unremarkable per daughter), and is waiting to see Orthopedics. Reports pain worsening/unbearable now, taking OTC meds. Denies recent injury/trauma or fall. Also reports hematuria yesterday, resolved today. Admits to chronic decreased liquid/water intake. Denies fever/chills, chest pain/shortness of breath, numbness, tingling, weakness Related Data Previous Rx's Medication Instructions Recorded lidocaine 1.8 % topical patch 1 patch topical DAILY #30 ea 06/19/23 acetaminophen 500 mg tablet 500 mg PO Q6H PRN fever or pain 07/16/23 (Tylenol Extra Strength) #14 tabs cefuroxime axetil 250 mg tablet 250 mg PO BID 7 days #14 tabs 07/16/23 cyclobenzaprine 5 mg tablet 5 mg PO Q8H PRN pain (scale score 07/16/23 7-10) 5 days #14 tabs lidocaine 5 % topical patch 1 patch topical DAILY PRN pain #30 07/16/23 (Lidoderm) ea Allergies Allergy/AdvReac Type Severity Reaction Status Date / Time No Known Allergies Allergy Verified 06/19/23 11:11 Review of Systems 2 Review of Systems: Constitutional: No Fever, No Chills, No Fatigue, No Malaise ENT/Mouth: No Ear Pain, No Nasal Congestion, No sore throat, No Rhinorrhea, No Swallowing Difficulty Cardiovascular: No Chest Pain, No SOB, No Edema, No Palpitations Respiratory: No Cough, No Sputum, No Dyspnea Gastrointestinal: No Nausea, No Vomiting, No Diarrhea, No Constipation, No Abdominal pain Genitourinary: No irregular bleeding, No Dysuria, No Urinary Frequency, +Hematuria, No Urinary Incontinence/retention Musculoskeletal: +joint pain, No Myalgias, No Joint Swelling Skin: No Skin Lesions, No rash Neuro: +Generalized Weakness, No Numbness, No Paresthesias, No Headache Yes all other systems are reviewed and are negative Constitutional: Constitutional: Reports as per HPI Neurologic: Denies Abnormal speech present [facility] Past Medical History Attestation statement: The following information was validated with the patient. Source: old records reviewed Social History Advance Directives: No Physical Exam ED Vital Signs: Vital Signs - 24 hr 07/16/23 09:14 07/16/23 10:37 Temperature 98.1 F 98.5 F Pulse Rate 75 76 Respiratory Rate 20 18 Blood Pressure 156/84 H 128/62 Pulse Oximetry 99 98 Oxygen Delivery Method Room Air Room Air BMI result Body Mass Index 25.1 Const General: cooperative, healthy appearing and no acute distress Orientation/consciousness: patient oriented x3 Limitations: no limitations HENMT Head: Yes normal to inspection and Yes atraumatic Ears: hearing grossly normal bilaterally General nose exam: Normal external nose present Face and sinus: Yes normal facial exam Eyes General: appearance normal, both eyes and all related structures EOM: EOMs intact bilaterally Neck Neck: Yes normal visual inspection and Yes no meningeal signs Resp Effort & Inspection: normal respiratory effort and no respiratory distress Auscultation: clear to auscultation bilaterally Cardio Rate: regular rate Heart sounds: S1 normal heart sound present and S2 normal heart sound present Peripheral pulses: Peripheral pulses 2+ throughout GI Inspection: Yes normal to inspection Palpation (GI): Soft to palpation, nontender, no guarding and not rigid Back/Spine/Pelvis Other: No midline cervical/thoracic/lumbar spinous tenderness/step-off or deformity Skin Rashes: no rashes Wounds: no wounds Neuro General: patient oriented x3, tone normal, moves all extremities, no meningeal signs and no focal motor deficits Cranial nerves: Yes CN's II-XII intact bilaterally Cognition (Neuro): normal cognition Speech: No Abnormal speech present Gait exam (Neuro): Normal gait present Motor exam (neuro): 5/5 motor strength present throughout Extrem Other: No shoulder deformity. No erythema/warmth. Diffusely tender to palpation to bilateral shoulders. Decreased ROM to bilateral shoulder secondary to pain. Neurovascular intact distally. No pitting edema. General: Yes normal to inspection Course Course Course Narrative: -1156--labs reassuring, ESR/CRP mildly elevated -UA contaminated however with gross hematuria will treat for UTI > on re-evaluation patient was sleeping comfortably, reports mild symptomatic improvement, would like to be discharged home. Daughter in agreement. Has follow-up with Orthopedics on Wednesday. Results discussed with patient including worrisome signs and symptoms and strict return precautions, and when to return to the emergency department. They verbalized understanding and feel safe for discharge at this time. Medications Administered Discontinued Medications Generic Name Dose Route Start Last Admin Trade Name Josue PRN Reason Stop Dose Admin Acetaminophen 650 mg 07/16/23 09:59 07/16/23 11:10 Acetaminophen 325 Mg Tablet PO 07/16/23 10:00 650 mg ONCE ONE Administration Cefuroxime Axetil 250 mg 07/16/23 11:57 07/16/23 12:13 Cefuroxime Axetil 250 Mg Tablet PO 07/16/23 11:58 250 mg ONCE ONE Administration Cyclobenzaprine HCl 5 mg 07/16/23 09:59 07/16/23 11:09 Cyclobenzaprine Hcl 5 Mg Tablet PO 07/16/23 10:00 5 mg ONCE ONE Administration Medical Decision Making Medical Decision Making [facility] Narrative: 78-year-old female with a history of hypertension, hyperlipidemia, and hypothyroidism, presenting to the ED complaining of generalized weakness over the past month, and bilateral shoulder pain x weeks. Also reports hematuria yesterday, resolved today. On exam vital signs stable, NAD, nontoxic appearing, physical exam as noted above. Concern for osteoarthritis vs DDD. Low suspicion for ACS/PE. Rule out metabolic abnormality and UTI. Lower suspicion for renal stone/pyelo without pain No need for repeat x-rays at this time Plan: EKG, labs, UA, pain control, re-evaluate. Discussed with patient and daughter PT/case management as patient lives home alone and shoulder pain is making it difficult to perform ADLs however patient is not agreeable. States she has a lot help at the home and multiple people visit daily Please refer to course for remaining clinical decision making, interpretation of labs/imaging results, and discussions with consultants and/or family members. Differential Diagnosis Differential Diagnoses: The differential diagnosis associated with the presentation includes As above Admission/Observation Consideration of admission/observation: Escalation of care including admission/observation considered Lab Data [facility] Lab Attestation statement: I reviewed the patient's lab results. 07/16/23 10:48 07/16/23 10:47 Labs: Lab Results 07/16/23 07/16/23 07/16/23 Range/Units 10:47 10:48 10:59 WBC 10.5 (4.8-10.8) X10*3/uL RBC 4.16 L (4.20-5.50) X10*6/uL Hgb 12.8 (12.0-16.0) g/dl Hct 38.1 (37.0-47.0) % MCV 91.6 (80.0-98.0) fL MCH 30.8 (27.0-33.0) pg MCHC 33.6 (31.0-35.0) g/dl RDW 13.5 (11.0-16.0) % Plt Count 248 D (160-400) X10*3/uL MPV 9.9 (9.4-12.3) fL Immature Gran % (Auto) 0.9 H (0.0-0.4) % Neut % (Auto) 81.1 H (45-73) % Lymph % (Auto) 9.8 L (20-40) % Evangeline % (Auto) 7.3 (2-11) % Eos % (Auto) 0.5 (0-4) % Baso % (Auto) 0.4 (0-2) % Lymph # (Auto) 1.0 L (1.2-4.9) X10*3/uL Evangeline # (Auto) 0.8 (0.1-1.2) X10*3/uL Eos # (Auto) 0.1 (0.0-0.4) X10*3/uL Baso # (Auto) 0.0 (0.0-0.2) X10*3/uL Abs Immat Gran (auto) 0.09 H (0.00-0.03) X10*3/uL Absolute Neuts (auto) 8.5 H (2.0-8.3) x10*3/uL Absolute Nucleated RBC 0.000 (0.0-0.012) X10*3/uL Nucleated RBC % (auto) 0.0 (0.0-0.2) /100WBC ESR 40 H (0-20) MM/HR Sodium 143 (135-145) mmol/L Potassium 3.3 (3.3-5.1) mmol/L Chloride 107 (96-108) mmol/L Carbon Dioxide 28 (22-29) mmol/L Anion Gap 11 L (12-20) BUN 17 H (9-16) mg/dL Creatinine 0.74 (0.5-1.4) mg/dL Estim Creat Clear Calc 46.5 Estimated GFR > 60 Random Glucose 105 (60-115) mg/dL Calcium 9.1 (8.4-10.2) mg/dL Magnesium 1.8 (1.6-2.6) mg/dL Total Bilirubin 0.7 (0.0-1.0) mg/dL Direct Bilirubin 0.2 (0.0-0.5) mg/dL AST 24 (5-31) U/L ALT 17 (0-31) U/L Alkaline Phosphatase 54 (39-117) U/L C-Reactive Protein 2.14 H (< or = 0.50) mg/dL Total Protein 6.2 L (6.5-8.0) g/dL Albumin 3.4 L (3.5-5.0) g/dL Urine Color Yellow Urine Appearance Cloudy Urine pH 7.0 (5.0-9.0) Ur Specific [place] 1.020 (1.005-1.025) Urine Protein 100 (2+) H (Neg-Trace) mg/dL Urine Glucose (UA) Negative (Negative) mg/dL Urine Ketones Negative (Negative) mg/dL Urine Blood Small (1+) H (Negative) Urine Nitrite Negative (Negative) Ur Leukocyte Esterase Trace H (Negative) Urine RBC 6-10 H (0-2) /HPF Urine WBC 6-10 H (0-5) /HPF Ur Squamous Epith Cells 6-10 (0-2) /HPF Other Crystals Present Urine Bacteria 1+ (None Seen) Hyaline Casts 3-5 (0-2) /LPF Independent Interpretation I performed an independent interpretation of an: EKG Radiology Impression Discussion of test interpretation with radiology: I have reviewed the radiologist's reading. Independent Historian Clinical information obtained from an independent historian. History obtained from or confirmed by: Other (Daughter) External Record Review External record reviewed: Inpatient record, Office record, Outpatient record, Prior outpatient labs, Prior outpatient radiology, Primary care record and Outside ED record Tests considered The following testing was considered but not selected: As above Prescription Management I considered prescription management with: Pain Medication Chronic Conditions Patient?s care impacted by: Hypertension Discharge Plan Discharge Clinical Impression: Chronic pain of both shoulders, Acute UTI Patient Disposition: Home, Self-Care Instructions: Urinary Tract Infection in Women (DC), Shoulder Pain (ED) Additional Instructions: Your blood work shows nonspecific elevation of her inflammatory markers You have a urinary tract infection, Ceftin is an antibiotic please take as prescribed Flexeril is a muscle relaxer, take at night as it makes you drowsy, do not drive, drink alcohol, or operate machinery while taking it Lidoderm patches are numbing patches, apply to painful area In addition take Tylenol at home Please follow-up with orthopedics as scheduled and your doctor. If symptoms persist or worsen return to the ED Prescriptions: New cefuroxime axetil 250 mg tablet 250 mg PO BID 7 Days Qty: 14 0RF acetaminophen [Tylenol Extra Strength] 500 mg tablet 500 mg PO Q6H PRN (Reason: fever or pain) Qty: 14 0RF lidocaine [Lidoderm] 5 % adhesive patch,medicated 1 patch topical DAILY MDD remove after 12 hours PRN (Reason: pain) Qty: 30 0RF Rx Instructions: leave on most painful area for up to 12 hrs cyclobenzaprine 5 mg tablet 5 mg PO Q8H PRN (Reason: pain (scale score 7-10)) 5 Days Qty: 14 0RF No Action lidocaine 1.8 % adhesive patch,medicated 1 patch topical DAILY Qty: 30 0RF Rx Instructions: leave on most painful area for up to 12 hrs Referrals: [facility]geons [Provider Group] Elayne Das NP [Primary Care Provider] - 3 days Interventions: ED Discharge Assessment Last Done: 07/16/23 12:29 Discharge Date/Time: 07/16/23 12:29
[2023-07-16 09:14] VITALS: BP 156/84; PULSE 75; RESP 20; TEMP 36.7; O2SAT 99; BMI 25.1
[2023-07-16 10:37] VITALS: BP 128/62; PULSE 76; RESP 18; TEMP 36.9; O2SAT 98
[2023-07-16 10:53] LABS: MANUAL DIFF FLAG NO
[2023-07-16 11:02] LABS: Basophils Percent Auto 0.4 % (0-2); Eosinophils Absolute Auto 0.1 X10*3/uL (0.0-0.4); Eosinophils Percent Auto 0.5 % (0-4); Hematocrit 38.1 % (37.0-47.0); Hemoglobin 12.8 g/dl (12.0-16.0); Imm Gran Abs Auto 0.09 X10*3/uL (0.00-0.03); Imm Gran Pct Auto 0.9 % (0.0-0.4); Lymphocytes Percent Auto 9.8 % (20-40); Mean Corpuscular HGB Conc 33.6 g/dl (31.0-35.0); Mean Corpuscular Hemoglobin 30.8 pg (27.0-33.0); Mean Corpuscular Volume 91.6 fL (80.0-98.0); Mean Platelet Volume 9.9 fL (9.4-12.3); Monocytes Absolute Auto 0.8 X10*3/uL (0.1-1.2); Monocytes Percent Auto 7.3 % (2-11); Neutrophils Absolute Auto 8.5 x10*3/uL (2.0-8.3); Neutrophils Percent Auto 81.1 % (45-73); Platelet Count 248 X10*3/uL (160-400); Red Blood Count 4.16 X10*6/uL (4.20-5.50); Red Cell Distribution Width 13.5 % (11.0-16.0); White Blood Count 10.5 X10*3/uL (4.8-10.8)
[2023-07-16 11:05] LABS: Anion Gap 11 (12-20); Blood Urea Nitrogen 17 mg/dL (9-16); C Reactive Protein 2.14 mg/dL (< or = 0.50); Calcium 9.1 mg/dL (8.4-10.2); Carbon Dioxide 28 mmol/L (22-29); Chloride 107 mmol/L (96-108); Creatinine Clr Calc Pharmacy 46.5; Estimated Glomerular Filt Rate > 60; Glucose Random 105 mg/dL (60-115); Potassium 3.3 mmol/L (3.3-5.1); Sodium 143 mmol/L (135-145)
[2023-07-16 11:07] LABS: Alanine Aminotransferase 17 U/L (0-31); Albumin Level 3.4 g/dL (3.5-5.0); Alkaline Phosphatase 54 U/L (39-117); Aspartate Amino Transferase 24 U/L (5-31); Bilirubin Direct 0.2 mg/dL (0.0-0.5); Bilirubin Total 0.7 mg/dL (0.0-1.0); Magnesium 1.8 mg/dL (1.6-2.6); Total Protein 6.2 g/dL (6.5-8.0)
[2023-07-16 11:09] LABS: Appearance Urine Cloudy; Color Urine Yellow; Glucose Urine UA Negative (Negative); Leukocyte Esterase Urine Trace (Negative); Nitrite Urine Negative (Negative); UMIC TRIGGER UACC YES; Urine Blood Small (1+) (Negative); Urine Ketones Negative (Negative); Urine Protein 100 (2+) mg/dL (Neg-Trace)
[2023-07-16] MEDS: Cyclobenzaprine HCl 5 MG TABLET PO (11:09)
[2023-07-16] MEDS: Acetaminophen 325 MG TABLET 650 MG PO (11:10)
[2023-07-16 11:30] LABS: Bacteria Urine 1+ (None Seen); Other Crystals Urine Present; UACC Culture Trigger YES
[2023-07-16 11:42] LABS: Erythrocyte Sedimentation Rate 40 MM/HR (0-20)
[2023-07-16] MEDS: cefuroxime axetiL 250 MG TABLET PO (12:13)
== END 2023-07-16 12:29 | disposition home or self-care (01) ==
PROVIDERS: Physician Assistant; Emergency Provider Emergency Medicine; PCP Nurse Practitioner Family
DX: M25.511 Pain in right shoulder (principal); M25.512 Pain in left shoulder; Z79.899 Other long term (current) drug therapy
CPT/HCPCS: 36415; 80048; 80076; 81001; 83735; 85025; 85652; 86140; 87086; 99283

== ENCOUNTER 2023-07-21 09:13 | Outpatient (REF) | payer MEDICARE, SELFPAY ==
--- NOTE | ~2023-07-21 | XR_ITS ---
EXAMINATION: XR SHOULDER, RIGHT CLINICAL INFORMATION: Pain. COMPARISON: None available. TECHNIQUE: AP external rotation, Grashey, scapular Y, and axillary views of the right shoulder. FINDINGS: There is bony demineralization. The glenohumeral joint is intact. The acromioclavicular and coracoclavicular intervals are normal. No fracture or dislocation is seen. There is slight cortical irregularity of the greater tuberosity of the proximal right humerus. No soft tissue calcification or foreign body is seen. There is no right pneumothorax. XR/XR shoulder RT min 2V IMPRESSION: 1. No fracture or dislocation is seen. 2. Findings suggest possible right rotator cuff impingement, without koby calcific tendinitis noted.
--- NOTE | ~2023-07-21 | XR_ITS ---
EXAMINATION: XR SHOULDER, LEFT CLINICAL INFORMATION: Pain. COMPARISON: None available. TECHNIQUE: AP neutral, scapula Y and axillary views of the left shoulder are submitted. FINDINGS: There is bony demineralization. The glenohumeral joint is intact. The acromioclavicular and coracoclavicular intervals are normal. No fracture or dislocation is seen. There is cortical irregularity of the greater tuberosity proximal left humerus. No focal soft tissue calcifications or body seen. There is no left pneumothorax. There is diffuse atherosclerotic calcification of the thoracic aorta. XR/XR shoulder LT min 2V IMPRESSION: 1. No fracture or dislocation is seen. 2. There is cortical irregularity of the greater tuberosity proximal left humerus, suggesting rotator cuff impingement.
== END 2023-07-21 09:14 | disposition home or self-care (01) ==
LOC: HO.HOSX 09:13
PROVIDERS: Visit Provider Physician Assistant
DX: M75.81 Other shoulder lesions, right shoulder (principal); M75.82 Other shoulder lesions, left shoulder
CPT/HCPCS: 73030; 99202

== ENCOUNTER 2023-07-21 12:48 | Outpatient (AMB) | payer MEDICARE, SELFPAY ==
--- NOTE | 2023-07-21 13:04 | A.OFFVIS_ITS ---
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 Patient reports using lidocaine patches that her daughter gave her to help with her pain. She states her pain hasn't came back since yesterday. Patient reports having some discomfort on her biceps but nothing that she cant handle. 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 She was seen at ER on 06/19/23 for her shoulder pain as it got intolerable. She reports she has not been having pain for the past 2 days but she does c/o mild discomfort in her biceps. She also experiences difficulty with lifting her arm and get dressed. She finds relief with lidocaine patches given by her daughter. Review of Systems Const All systems reviewed & are unremarkable except as noted in HPI and below Physical Exam Const General: cooperative, healthy appearing, comfortable, no acute distress, well developed and alert Orientation/consciousness: patient oriented x3 HEENT Head: Yes normal to inspection, Yes normocephalic and Yes atraumatic Eyes General: appearance normal, both eyes and all related structures Resp Effort & Inspection: normal respiratory effort and able to speak in complete sentences Cardio Rate: regular rate Peripheral pulses: Peripheral pulses 2+ throughout GI Palpation (GI): Soft to palpation Skin Lesions: no lesions Rashes: no rashes Neuro General: patient oriented x3 Extrem Other: Bilateral shoulder normal to inspection. No tenderness over the bicipital groove and along the deltoid region of the shoulder. Forward flexion to 175, external rotation to 90, internal rotation to S1. 5/5 RTC strength. Negative Arauz and cross body abduction. NVI. Results Reviewed Results Reviewed: Xrays were obtained in the office today and personally reviewed by me of both shoulders show type 2 acromion. Assessment & Plan Assessment & Plan (1) Tendonitis of both rotator cuffs: Code(s): M75.81 - Other shoulder lesions, right shoulder; M75.82 - Other shoulder lesions, left shoulder Plan We discussed options which include PT, NSAIDs and injections. The patient will defer on the injection and formal physical therapy today. She was given a handout of home exercises in the office today. If symptoms persist, the patient will contact me for an injection, otherwise, PRN. Orders: Orders XR shoulder RT min 2V Today M25.511 - Pain in right shoulder XR shoulder LT min 2V Today M25.512 - Pain in left shoulder Patient Instructions: Scribed for Katrina Solomon PA-C, by Les Daigle biomedical engineering internship, on 07/21/2023 at 1:00 PM EST. I, Katrina Solomon PA-C, have personally reviewed and agree with the information entered by the scribe. Coding Level of Care Code New Pt Level 3 (10161) Diagnoses Tendonitis of both rotator cuffs M75.81; M75.82
== END 2023-07-21 13:37 | disposition home or self-care (01) ==
PROVIDERS: PCP Nurse Practitioner Family; Visit Provider Physician Assistant
DX: M75.81 Other shoulder lesions, right shoulder (principal); M75.82 Other shoulder lesions, left shoulder
CPT/HCPCS: 99203

== ENCOUNTER 2023-07-27 11:29 | Emergency (ER) | payer MEDICARE, SELFPAY ==
[2023-07-27 12:17] VITALS: BP 143/70; PULSE 97; RESP 18; TEMP 36.9; O2SAT 98; BMI 18.6
--- NOTE | 2023-07-27 12:18 | ED_ITS ---
HPI - General Adult General Chief complaint: General Medical Stated complaint: legs body shaking Related Data Previous Rx's Medication Instructions Recorded lidocaine 1.8 % topical patch 1 patch topical DAILY #30 ea 06/19/23 acetaminophen 500 mg tablet 500 mg PO Q6H PRN fever or pain 07/16/23 (Tylenol Extra Strength) #14 tabs cefuroxime axetil 250 mg tablet 250 mg PO BID 7 days #14 tabs 07/16/23 cyclobenzaprine 5 mg tablet 5 mg PO Q8H PRN pain (scale score 07/16/23 7-10) 5 days #14 tabs lidocaine 5 % topical patch 1 patch topical DAILY PRN pain #30 07/16/23 (Lidoderm) ea Allergies Allergy/AdvReac Type Severity Reaction Status Date / Time No Known Allergies Allergy Verified 07/21/23 13:13 [facility] Social History Social History Advance Directives: No Advance Directives Information Provided: No Physical Exam ED Vital Signs: Vital Signs - 24 hr 07/27/23 12:17 Temperature 98.4 F Pulse Rate 97 Respiratory Rate 18 Blood Pressure 143/70 H Pulse Oximetry 98 Oxygen Delivery Method Room Air BMI result Body Mass Index 18.6 Course Course Course Narrative: This is a rapid medical exam: Additional HPI, ROS, PE not included below will be deferred to primary provider. Patient is a 78-year-old female presenting to the emergency department with complaint of bilateral arm pain and left shoulder pain. Reports symptoms have been ongoing for months. Saw orthopedics on 07/21. 15:08 Patient's family member back to triage, now reporting that patient's symptoms had resolved while she was being treated for a UTI and returned when she completed the course of antibiotics. Will order UA Discharge Plan Discharge Clinical Impression: Arm pain Patient Disposition: Left W/O Completing Treatment Prescriptions: No Action lidocaine 1.8 % adhesive patch,medicated 1 patch topical DAILY Qty: 30 0RF Rx Instructions: leave on most painful area for up to 12 hrs cefuroxime axetil 250 mg tablet 250 mg PO BID 7 Days Qty: 14 0RF acetaminophen [Tylenol Extra Strength] 500 mg tablet 500 mg PO Q6H PRN (Reason: fever or pain) Qty: 14 0RF lidocaine [Lidoderm] 5 % adhesive patch,medicated 1 patch topical DAILY MDD remove after 12 hours PRN (Reason: pain) Qty: 30 0RF Rx Instructions: leave on most painful area for up to 12 hrs cyclobenzaprine 5 mg tablet 5 mg PO Q8H PRN (Reason: pain (scale score 7-10)) 5 Days Qty: 14 0RF Discharge Date/Time: 07/27/23 18:12
== END 2023-07-27 18:12 | disposition left against medical advice (07) ==
PROVIDERS: Emergency Provider Emergency Medicine; PCP Nurse Practitioner Family
DX: M79.601 Pain in right arm (principal); M79.602 Pain in left arm
CPT/HCPCS: 99281